=== PATIENT | female | born 1945 | race Caucasian/White ===

== ENCOUNTER 2019-12-04 14:40 | Emergency (ER) | payer MEDICARE, SELFPAY ==
--- NOTE | 2019-12-04 14:44 | ECG_ITS ---
Measurements Intervals [place] Rate: 67 P: 87 [place]: 141 QRS: 63 QRSD: 72 T: 74 QT: 410 QTc: 436 Interpretive Statements SINUS RHYTHM ST-T WAVE ABNORMALITY IN ANTEROLAT/INF LEADS- CONSIDER ISCHEMIA BASELINE WANDER- I, II, AVR, AVL ABNORMAL ECG Electronically Signed On 12-04-2019 15:08:04 SENIOR SOFTWARE PROJECT MANAGER by Krystian Lancaster D.O.
[2019-12-04 15:01] VITALS: BP 166/71; PULSE 71; RESP 17; TEMP 37.5; O2SAT 100
--- NOTE | 2019-12-04 15:04 | PC.NURSE ---
Pt states I am no longer having pain, I just want to go home. I've been through this before. Patient was educated on the benefits of staying and the risk of leaving and advised to come back if pain returned or any other symptoms that concerned her.
== END 2019-12-04 15:03 | disposition left against medical advice (07) ==
PROVIDERS: Emergency Provider Emergency Medicine; PCP Family Medicine
DX: R07.9 Chest pain, unspecified (principal)
CPT/HCPCS: 93005; 99199; A9270

== ENCOUNTER 2019-12-10 00:07 | Emergency (ER) | payer MEDICARE, SELFPAY ==
[2019-12-10 00:13] VITALS: BP 144/84; PULSE 112; RESP 18; TEMP 36.9; O2SAT 97
[2019-12-10] MEDS: HALOPERIDOL LACTATE 5 MG/ML VIAL IV PUSH (00:18)
--- NOTE | 2019-12-10 00:38 | ED.GENADULT ---
HPI - General Adult General Chief complaint: Nausea/Vomiting/Diarrhea Stated complaint: n/v Time Seen by Provider: 12/10/19 00:11 Source: patient and family History of Present Illness HPI narrative: 74-year-old female History of severe fibromyalgia for which she uses medical marijuana at her home She has occasional bouts of intractable vomiting felt to be related to said usage of marijuana Today she had some diarrhea in the morning and then numerous bouts of emesis followed She denies abdominal pain she denies a fever she denies urinary symptoms She had not tried anything at home to relieve the symptoms, they are aware of the possibility that a very hot shower might help but have not tried that and were not aware of the hot sauce on the abdomen technique She was medicated upon arrival to the ER the time of my exam was resting calmly and comfortably Onset (ago): hour(s) Severity: severe Relieving factors: none Treatments prior to arrival: none Related Data Home Medications Medication Instructions Recorded Confirmed calcium carbonate 500 mg calcium 500 mg PO DAILY 08/29/19 (1,250 mg) chewable tablet carvedilol 3.125 mg tablet 3.125 mg PO Q12H 08/29/19 cholecalciferol (vitamin D3) 25 1,000 unit PO DAILY 08/29/19 mcg (1,000 unit) capsule cyanocobalamin (B12)-cobamamide lozenge SUBLINGUAL 08/29/19 5,000 mcg-100 mcg sublingual lozenge magnesium 250 mg tablet 250 mg PO DAILY 08/29/19 potassium chloride 20 mEq 20 meq PO DAILY 08/29/19 tablet,extended release prednisone 5 mg tablet 5 mg PO DAILY 08/29/19 sirolimus 2 mg tablet 2 mg PO DAILY 08/29/19 Allergies Allergy/AdvReac Type Severity Reaction Status Date / Time iodine Allergy Severe anaphlaxis Verified 12/10/19 00:19 aspirin Allergy Unknown Verified 12/10/19 00:19 erythromycin base Allergy Unknown Verified 12/10/19 00:19 Review of Systems Review of Systems: All systems reviewed & are unremarkable except as noted in HPI and below Constitutional: Constitutional: Denies chills, Denies fever(s) and Reports weakness ENT: Denies sore throat Respiratory: Respiratory: Denies cough and Denies dyspnea Gastrointestinal: Gastrointestinal: Denies abdominal pain, Denies bloating, Denies constipation, Reports diarrhea and Reports vomiting Genitourinary: Genitourinary: Denies nocturia and Denies flank pain Musculoskeletal: Musculoskeletal: Reports myalgias, Reports arthralgias and Reports joint swelling PMFSH Past Medical History Medical History Anemia Anxiety Arthritis CVA (cerebral vascular accident) Depression Essential (primary) hypertension Fibromyalgia Fractures rt humerus GERD (gastroesophageal reflux disease) GI bleed Kidney stones Ulcer Unspecified osteoarthritis, unspecified site UTI (urinary tract infection) Surgical History Surgical History History of liver transplant History of nasal surgery History of orthopedic surgery lt shoulder calcium deposit removal Hx of appendectomy Hx of cholecystectomy Hx of tonsillectomy Family History Family History Sibling Family history of bipolar disorder Family history of arthritis Family history of headache disorder Family history of throat cancer Social History Social History Smoking status: Former smoker Smoking end date: 10/22/1967 Alcohol intake: never Gender identity (if verbalized by the patient): Female Exam Const: General: no acute distress Orientation/consciousness: patient oriented x3 HENMT: Head: normal to inspection Mouth: Yes Normal oral and palatal mucosa present and Yes dry mucous membranes Eyes: Conjunctivae: conjunctivae normal EOM: EOMs intact bilaterally Resp: Effort & Inspection: normal respiratory effort Auscultation: clear to aus
[2019-12-10] MEDS: LACTATED RINGERS 1,000 ML 999 ML IV CONT (00:58)
[2019-12-10 01:02] LABS: Basophils Absolute Auto 0.1 K/mm3 (0.0-0.1); Basophils Percent Auto 0.7 % (0.2-1.2); Hematocrit 38.4 % (37.0-47.0); Immature Granulocyte Absolute 0.18 K/mm3 (0.00-0.031); Immature Granulocyte Percent A 1.2 % (0-0.5); Lymphocytes Absolute Auto 1.43 K/mm3 (0.9-3.2); Lymphocytes Percent Auto 9.2 % (18.3-44.2); Mean Corpuscular HGB Conc 31.3 g/dl (32-36); Mean Corpuscular Hemoglobin 24.8 pg (26-34); Mean Corpuscular Volume 79.3 fl (80-100); Mean Platelet Volume 10.1 fl (7.4-10.4); Monocytes Percent Auto 6.1 % (2.6-8.5); Neutrophils Absolute Auto 12.8 K/mm3 (1.3-6.7); Neutrophils Percent Auto 82.8 % (45.5-73.1); Platelet Count Result 295 k/mm3 (150-375); Red Blood Count 4.84 M/mm3 (4.2-5.4); Red Cell Distribution Width 15.8 % (11.5-14.5); White Blood Count 15.5 K/mm3 (4.5-10.0)
--- NOTE | 2019-12-10 01:20 | PC.NURSE ---
pt unable to void at this time.
[2019-12-10 01:22] LABS: Blood Urea Nitrogen 31 mg/dL (7-17); Calcium 9.4 mg/dL (8.4-10.2); Carbon Dioxide 20 mmol/L (22-30); Chloride 104 mmol/L (98-107); Estimated Glomerular Filt Rate 37; Glucose 176 mg/dL (65-105); Potassium 3.9 mmol/L (3.4-5.0); Sodium 140 mmol/L (137-145)
[2019-12-10 01:33] VITALS: BP 154/86; PULSE 93; RESP 18; O2SAT 100
--- NOTE | 2019-12-10 01:46 | PC.NURSE ---
pt denies any nausea at this time.
[2019-12-10 02:16] LABS: Add Urine Microscopic? YES; Appearance Urine Cloudy (Clear); Bilirubin Urine Negative (Negative); Blood Urine 2+ (Negative); Color Urine Yellow (Yellow); Glucose Urine UA Negative (Negative); Ketones Urine 1+ mg/dL (Negative); Leukocyte Esterase Ur Negative LEU/UL (Negative); Mucus Urine Few /lpf; Nitrate Urine Negative (Negative); Protein Urine 2+ mg/dL (Negative); Specific Grav Ur 1.021 (1.001-1.035); Squamous Epithelial Cell Urine Few /hpf (Few); Urobilinogen Urine Negative mg/dL (<2.0)
[2019-12-10 02:50] VITALS: BP 133/81; PULSE 88; RESP 16; TEMP 36.4; O2SAT 100
[2019-12-10 03:02] VITALS: BP 122/67; PULSE 88; RESP 17; TEMP 36.4; O2SAT 100
--- NOTE | 2019-12-16 06:54 | PC.NURSE ---
Addendum entered by Connor Flores RN 12/16/19 06:58: KEM STOPPED AT 0135 ON 12/11/2019 Original Note: LATE ENTRY This note is being entered to document information to the patient's record. The following information was omitted on 12/17/2019, kem stopped at 0135
== END 2019-12-10 03:03 | disposition home or self-care (01) ==
PROVIDERS: Emergency Provider Emergency Medicine; PCP Family Medicine
DX: F12.988 Cannabis use, unspecified with other cannabis-induced disorder (principal); R11.2 Nausea with vomiting, unspecified; M79.7 Fibromyalgia; Z86.73 Personal history of transient ischemic attack (TIA), and cerebral infarction without residual deficits; I10 Essential (primary) hypertension; K21.9 Gastro-esophageal reflux disease without esophagitis; Z87.442 Personal history of urinary calculi; M19.90 Unspecified osteoarthritis, unspecified site; Z87.440 Personal history of urinary (tract) infections; Z94.4 Liver transplant status; Z87.891 Personal history of nicotine dependence; Z86.2 Personal history of diseases of the blood and blood-forming organs and certain disorders involving the immune mechanism
CPT/HCPCS: 36415; 80048; 81001; 85025; 87086; 87088; 87804; 96361; 96374; 99284; J1630; J7120

== ENCOUNTER 2019-12-11 16:52 | Inpatient (IN) | payer MEDICARE, SELFPAY ==
[2019-12-11] VITALS (7 sets, daily range): BP systolic 122–150; BP diastolic 65–78; PULSE 105–118; RESP 16–20; TEMP 36.7–38.3; O2SAT 94–99
--- NOTE | ~2019-12-11 | CT_ITS ---
EXAMINATION: CT abdomen pelvis wo con DATE: 12/11/2019 19:18 INDICATION: Fever and diarrhea TECHNIQUE: Computed tomography (CT) of the abdomen and pelvis was performed without intravenous contr ast. The dose-length product was 245.73 mGy-cm. Automated exposure control and iterative reconstructi on technique were employed. COMPARISON: CT dated 02/05/2019 FINDINGS: Small pleural effusions. Heart size normal. Extensive atherosclerosis of the aorta. No evid ence for aneurysm. There are loops of dilated small bowel with air-fluid levels just proximal to a thickened loop of sma ll bowel. The stomach is diffusely thickened. Mottled gas adjacent to the liver margin with similar a ppearance to prior examination, possibly matted bowel adjacent to the liver status post transplant. No lymphadenopathy. Status post cholecystectomy with pneumobilia. No lymphadenopathy. No evidence for hernia. No acute osseous abnormality. IMPRESSION: 1. Mottled gas adjacent to the liver margin with similar appearance to prior examination, possibly ma tted bowel adjacent to the liver status post transplant. 2: Abnormally locally thickened small bowel with dilated small bowel proximal to this location, susp icious for at least partial obstruction. 3: Diffusely thickened gastric wall, suspicious for gastritis. 4: Postoperative changes consistent with liver transplant with pneumobilia. 5: Small pleural effusions. Dr. Griffin discussed with Dr. Danica Blair MD at 12/11/2019 19:51 RESIDENT CARE TECHNICIAN. Reviewed, dictated and finalized at location A. DENT CARE TECHNICIAN IMPRESSION: 1. Mottled gas adjacent to the liver margin with similar appearance to prior ex amination, possibly matted bowel adjacent to the liver status post transplant. 2: Abnormally locally thickened small bowel with dilated small bowel proximal to this location, suspicious for at least partial obstruction. 3: Diffusely thickened gastric wall, suspicious for gastritis. 4: Postoperative changes consistent with liver transplant with pneumobilia. 5: Small pleural effusions. Dr. Griffin discussed with Dr. Danica Blair MD at 12/11/2019 19:51 RESIDENT CARE TECHNICIAN.
--- NOTE | ~2019-12-11 | XR_ITS ---
EXAMINATION: XR chest 1V portable INDICATION: Shortness of breath TECHNIQUE: Portable AP chest at 0703 hours COMPARISON: 12/11/2019 FINDINGS: The lungs are hyperinflated. There are bilateral central perihilar opacities as well as opa cities of the lung bases, right greater than left. A small right pleural effusion is present. There i s no pneumothorax. The cardiomediastinal silhouette is stable. IMPRESSION: 1. Central perihilar opacities and opacities of the lung bases, consistent with pulmonary edema with possible superimposed pneumonia of the lung bases. Reviewed, dictated and finalized at location A. CAL DETAILIST
--- NOTE | ~2019-12-11 | XR_ITS ---
EXAMINATION: XR abdomen obstructive series DATE: 12/13/2019 10:27 INDICATION: Elevated lactic acid and abdominal pain TECHNIQUE: Upright and supine views of the abdomen were obtained. COMPARISON: None. FINDINGS: There are no definitely dilated loops of bowel or evidence of free intraperitoneal gas. The re are surgical changes in the right upper quadrant. Again noted are changes of the lungs consistent with pulmonary edema and possible superimposed pneumonia of the lung bases. IMPRESSION: 1. No definite evidence of bowel obstruction or free intraperitoneal gas. Reviewed, dictated and finalized at location A. UROLOGIST
--- NOTE | ~2019-12-11 | XR_ITS ---
XR chest 2V 12/11/2019 19:21 Indication: Fever. Nausea, vomiting and diarrhea. Procedure: AP portable chest Comparison: 09/28/2019 Findings: Heart size is normal for technique. There is atherosclerosis of the aorta. There is mild pu lmonary vascular congestion. No pleural effusion or pneumothorax. No focal airspace consolidation. Th e lungs are hyperinflated which is consistent with, but not diagnostic of chronic obstructive pulmona ry disease. Impression: 1: Mild pulmonary vascular congestion. Reviewed, dictated and finalized at location A. CAL BILLING COORDINATOR Impression: 1: Mild pulmonary vascular congestion.
--- NOTE | 2019-12-11 17:25 | ED.FEVER ---
HPI - Fever General Chief Complaint: Fever Stated Complaint: N/V Time Seen by Provider: 12/11/19 17:13 Source: patient Mode of arrival: EMS Limitations: no limitations History of Present Illness HPI Narrative: Patient is a 74-year-old female who presents to the emergency department with report of generalized weakness, nausea, and vomiting. Patient was seen in the emergency department yesterday for nausea and vomiting. Patient uses medical marijuana and was felt to have vomiting due to cannabis hyperemesis. Patient has history of chronic diarrhea that she reports is unchanged from baseline. Patient states today she has had generalized weakness and significant diaphoresis and thinks she may have a fever. Patient is denying any abdominal pain. She does report being advised recently that she has a urinary tract infection, but this was not listed among her diagnoses on discharge yesterday nor was she prescribed antibiotics. Review of urinalysis from yesterday shows 10-15 white blood cells with esterase and nitrate being negative. No bacteria were noted. MD elicited complaint: weakness Pertinent past history: immunosuppression (Sirolimus and prednisone due to prior liver transplant) Related Data Home Medications Medication Instructions Recorded Confirmed calcium carbonate 500 mg calcium 500 mg PO DAILY 08/29/19 (1,250 mg) chewable tablet carvedilol 3.125 mg tablet 3.125 mg PO Q12H 08/29/19 cholecalciferol (vitamin D3) 25 1,000 unit PO DAILY 08/29/19 mcg (1,000 unit) capsule cyanocobalamin (B12)-cobamamide lozenge SUBLINGUAL 08/29/19 5,000 mcg-100 mcg sublingual lozenge magnesium 250 mg tablet 250 mg PO DAILY 08/29/19 potassium chloride 20 mEq 20 meq PO DAILY 08/29/19 tablet,extended release prednisone 5 mg tablet 5 mg PO DAILY 08/29/19 sirolimus 2 mg tablet 2 mg PO DAILY 08/29/19 Allergies Allergy/AdvReac Type Severity Reaction Status Date / Time iodine Allergy Severe anaphlaxis Verified 12/10/19 00:19 aspirin Allergy Unknown Verified 12/10/19 00:19 erythromycin base Allergy Unknown Verified 12/10/19 00:19 Review of Systems Review of Systems: All systems reviewed & are unremarkable except as noted in HPI and below Constitutional: Constitutional: Reports chills, Reports excessive sweating, Reports fever(s) and Reports weakness Gastrointestinal: Gastrointestinal: Denies abdominal pain, Reports diarrhea (Chronic), Reports nausea and Reports vomiting (Improved from yesterday) [facility] Past Medical History Medical History (Updated 12/11/19 @ 21:16 by Danica Blair MD) Anemia Anxiety Arthritis Atrial fibrillation C. difficile diarrhea CVA (cerebral vascular accident) Depression Essential (primary) hypertension Fibromyalgia Fractures rt humerus GERD (gastroesophageal reflux disease) GI bleed Hypertriglyceridemia Kidney stones Primary biliary cirrhosis Ulcer Unspecified osteoarthritis, unspecified site UTI (urinary tract infection) Surgical History Surgical History (Updated 12/11/19 @ 17:33 by Danica Blair MD) History of colonoscopy History of esophagogastroduodenoscopy (EGD) History of hysterectomy History of liver transplant History of nasal surgery History of orthopedic surgery lt shoulder calcium deposit removal Hx of appendectomy Hx of cholecystectomy Hx of tonsillectomy Rectal prolapse With surgical repair Social History Social History Smoking status: Former smoker Smoking end date: 10/22/1967 Alcohol intake: never Gender identity (if verbalized by the patient): Female Exam Const: General: cooperative, alert and anxious Nutritional Appearance: thin Orientation/consciousness: patient oriented x3 Limitations: no limitations HENMT: Mouth: Yes lip normal and Yes dry mucous membranes Resp: Effort & Inspection: normal respiratory effort Auscultation: clear to auscultation bilaterally Cardio: Ra
--- NOTE | 2019-12-11 17:34 | PC.NURSE ---
Pt's pad changed again, note loose brown stool. Pt states this is present since she had her liver transplant. Pt reports burning to skin, however, note not open areas or redness.
--- NOTE | 2019-12-11 18:11 | PC.NURSE ---
Multiple attempts for iv start unsuccessful per this RN>
[2019-12-11 18:32] LABS: Basophils Percent Auto 0.3 % (0.2-1.2); Eosinophils Percent Auto 0.2 % (0-4.4); Hematocrit 33.8 % (37.0-47.0); Hemoglobin 10.4 g/dL (12.0-15.0); Immature Granulocyte Absolute 0.09 K/mm3 (0.00-0.031); Immature Granulocyte Percent A 0.7 % (0-0.5); Lymphocytes Absolute Auto 1.62 K/mm3 (0.9-3.2); Lymphocytes Percent Auto 13.4 % (18.3-44.2); Mean Corpuscular HGB Conc 30.8 g/dl (32-36); Mean Corpuscular Hemoglobin 24.8 pg (26-34); Mean Corpuscular Volume 80.5 fl (80-100); Mean Platelet Volume 10.6 fl (7.4-10.4); Monocytes Absolute Auto 0.9 K/mm3 (0.1-0.6); Monocytes Percent Auto 7.8 % (2.6-8.5); Neutrophils Absolute Auto 9.4 K/mm3 (1.3-6.7); Neutrophils Percent Auto 77.6 % (45.5-73.1); Platelet Count Result 223 k/mm3 (150-375); White Blood Count 12.1 K/mm3 (4.5-10.0)
[2019-12-11] MEDS: LACTATED RINGERS 1,000 ML 999 ML IV CONT (18:35)
[2019-12-11 18:41] LABS: INR 1.1; Prothrombin Time 13.5 Seconds (11.1-14.7)
[2019-12-11 18:42] LABS: Partial Thromboplastin Time 28.9 SECONDS (22.3-36.8)
[2019-12-11 18:42] LABS: Lactic Acid Reflex 1.6 mmol/L (0.7-2.1)
[2019-12-11 18:46] LABS: Alanine Aminotransferase 17 U/L (4-35); Albumin Level 3.5 g/dL (3.5-5.1); Alkaline Phosphatase 99 U/L (38-126); Aspartate Amino Transferase 45 U/L (14-36); Bilirubin,Total 0.5 mg/dL (0.2-1.3); Blood Urea Nitrogen 24 mg/dL (7-17); CRP 8.4 mg/dL (<1.0); Calcium 8.6 mg/dL (8.4-10.2); Carbon Dioxide 23 mmol/L (22-30); Chloride 100 mmol/L (98-107); Estimated CRCL calculation 20 ml/min; Estimated Glomerular Filt Rate 31; Glucose 116 mg/dL (65-105); Potassium 3.5 mmol/L (3.4-5.0); Sodium 138 mmol/L (137-145)
--- NOTE | 2019-12-11 19:45 | PC.NURSE ---
Report to BIN Etienne, to continue care.
--- NOTE | 2019-12-11 19:59 | PC.NURSE ---
Patient aware of need for urine specimen, patient unable to provide specimen at this time. Patient refusing straight cath at this time. Patient a/o x3.
--- NOTE | 2019-12-11 20:39 | PC.NURSE ---
Patient refused straight cath and flu swab at this time. Patient a/o x3. EPD aware.
[2019-12-11 22:34] LABS: Add Urine Microscopic? YES; Appearance Urine Cloudy (Clear); Bacteria Urine 1+ /hpf; Bilirubin Urine Negative (Negative); Blood Urine 2+ (Negative); Color Urine Yellow (Yellow); Glucose Urine UA Negative (Negative); Ketones Urine 1+ mg/dL (Negative); Leukocyte Esterase Ur 2+ LEU/UL (Negative); Nitrate Urine Negative (Negative); Protein Urine 1+ mg/dL (Negative); Specific Grav Ur 1.021 (1.001-1.035); Squamous Epithelial Cell Urine Few /hpf (Few); Urobilinogen Urine Negative mg/dL (<2.0); WBC Urine 31-50 /hpf
--- NOTE | 2019-12-11 22:35 | PC.NURSE ---
This patient, Jia Walter, was admitted to Medical Room 245-. Patient/family oriented to hospital policies and general routines including ID bracelet, bed and alarms, visiting hours, pain management, procedures, bathroom and other care routines, personal items, smoking policy, room service/diet, and visiting hours. Valuables list has been completed. Information on how to activate the Rapid Response Team has been discussed. Patient/Family are encouraged to report perceived risks to care and to ask questions if they do not understand what they are told or what they should do.
[2019-12-12] VITALS (11 sets, daily range): BP systolic 116–142; BP diastolic 58–88; PULSE 65–166; RESP 16–20; TEMP 36.2–37.7; O2SAT 90–98; BMI 17.9; BMI 18.5
--- NOTE | 2019-12-12 | ECHO_ITS ---
Patient Info Name: Jia Walter Age: 74 years : 1945 Gender: Female Ht: 63 in Wt: 105 lbs BSA: 1.45 m2 HR: 94 bpm BP: 140 / 70 mmHg Heart Rhythm: Sinus Rhythm Technical Quality: Good Exam Date: 12/12/2019 10:52 AM Exam Location: [facility] Card Pulmonary Patient Status: Inpatient Admit Date: 12/11/2019 Staff Ordering Physician: Janet Medrano PA-C Switch Repairer: Epifanio Schaffer RDCS Attending Provider: Janet Medrano PA-C Referring Physician: Mitchell HANSEN; Exam Type: CA echo doppler color flow Study Info Indications I48.0 - Paroxysmal atrial fibrillation Complete two-dimensional, color flow and Doppler transthoracic echocardiogram is performed. Strain analysis performed. History/Risk Factors Afib w/ RVR and elevated trops; HTN, SOB, DELG[place]O, BNP >35k. Summary 1. Left ventricular systolic function is mildly reduced, estimated at 40-45%. 2. The anteroapical segment appears to be akinetic. 3. There is mild aortic valve sclerosis. 4. There is mild aortic valve regurgitation. 5. Left atrial chamber dimension is mildly enlarged. Left Ventricle Left ventricular chamber dimension is normal. Left ventricular systolic function is mildly reduced, estimated at 40-45%. The left ventricular diastolic function is normal. The anteroapical segment appears to be akinetic. Right Ventricle Right ventricular chamber dimension is normal. Left Atria Left atrial chamber dimension is mildly enlarged. Right Atria Right atrial chamber dimension is normal. Aortic Valve The aortic valve is trileaflet. There is mild aortic valve sclerosis. There is mild aortic valve regurgitation. Pulmonic Valve The pulmonic valve is not well visualized. Mitral Valve The mitral valve has normal leaflets. Tricuspid Valve The tricuspid valve leaflets are normal. There is mild tricuspid valve regurgitation. Pericardium/Pleural The pericardium appears normal. Aorta The aortic root size at the sinus of Valsalva is normal. Left Ventricular Outflow Tract Name Value Normal LVOT 2D LVOT Diameter 1.7 cm LVOT Doppler LVOT Peak Gradient 3 mmHg LVOT Mean Gradient 2 mmHg LVOT VTI 16 cm LVOT VTI/AV VTI Ratio 0.9 LVOT Stroke Volume 34 ml LVOT CO 3.1 l/min LVOT CI 2.2 l/min/m2 Mitral Valve Name Value Normal MV Doppler MV Decel [place] 795 cm/s2 MV PHT 36 ms MV Area (PHT) 6.1 cm2 4.0-5.0 MV Diastolic Function MV E Peak Velocity 100 cm/s MV A P
[2019-12-12] MEDS: SODIUM CHLORIDE 0.9% IV 1,000 ML 150 ML IV CONT ×3 (00:18→15:55)
--- NOTE | 2019-12-12 05:55 | PM.IMHP ---
H&P: HPI History of Present Illness Chief complaint: Diarrhea, weakness Narrative: Date and time of patient contact: 12/12/2019 at 4:35 a.m. Jia Walter is a 74 year old female with a past medical history of liver transplant 1999 due to primary biliary cirrhosis, peptic ulcer disease and fibromyalgia with chronic pain who presented to the ER with generalized weakness and diarrhea. The patient had been evaluated in the ER on December 10 due to hyper emesis thought to be from cannabis use. The patient had had a prior history of cannabis use resulting in hyper emesis in January of 2019. She had tried some cannabis oil recently to help with her chronic pain and had recurrent emesis. Since she received antiemetic on the way to the ER on the she has not had any further vomiting. But during the interview in the ER the patient began crying and sobbing because she was having multiple diarrheal stools and was just too weak to go home. She tells me that her arms and legs feel like they weigh a ton. She reports that she hurts everywhere all the time a but denies any new joint aches or pains. She has been having subjective fevers and chills and when she arrived to the ER had a temperature as high as 101?. She had an influenza swab on the that was negative. She refused repeat influenza swab. She had a UA and urine culture obtained on the that was significant for multiple organisms growing 10,000 colonies consistent with a distal urethral contaminant. She had been discharged from the ER on Bactrim on the . She denies any recent ill contacts. She reports that her abdomen does not hurt any worse than her usual fibromyalgia pain. She does have episodes of frequent diarrhea but these are interspersed with episodes of formed stools. She reportedly had 1 diarrheal episode while she was in the ER but has not had any further diarrheal episodes since admission. She denies any hematochezia or melena. She reports that her anus retana. She she reports that she has already too weak to be worried about having diarrhea. When I mention the possibility of physical therapy and occupational therapy evaluation to see if the patient will qualify for assistance at home she initially refused physical therapy and occupational therapy evaluation. She stated that she was not going to leave the hospital until she felt better. She has been having sneezing coughing and some rhinorrhea. She is coughing up a small amount of phlegm. She has adamant that this could not be due to the flu or a virus. Patient has CT scan performed in the ER which demonstrated stable mottled gas adjacent to the liver margin, abnormally thickened small bowel with dilated small bowel proximal to location suspicious for partial obstruction, diffusely thickened gastric wall suspicious for gastritis and postoperative changes consistent with her history of liver transplant with pneumobilia. Before the patient had left the ER she was already requesting a diet. Patient has not had any further vomiting or diarrhea since admission. Review of Systems Review of Systems: Narrative: Except as documented in the HPI, all other systems were reviewed and are negative. [facility] Past Medical History Medical History (Updated 12/12/19 @ 06:33 by Lynette Hernandez DO) Anemia Anxiety Arthritis Atrial fibrillation C. difficile diarrhea C diff colitis October 2017; July and August 2017 Cannabinoid hyperemesis syndrome CVA (cerebral vascular accident) CT evidence of prior CVAs noted during her hospitalization January 2019 Depression Essential (primary) hypertension Fibromyalgia Fractures rt humerus GERD (gastroesophageal reflux disease) GI bleed Hypertriglyceridemia Kidney stones Osteoporosis Primary biliary cirrhosis Status post 2 liver transplants last 1 being in 1999. Her 1st liver transplant was from a family member and failed due to portal venous thrombus she subsequently received her 2nd li
[2019-12-12] MEDS: SUCRALFATE 1 GM TABLET PO ×3 (06:04→22:15)
[2019-12-12 06:16] LABS: Blood Urea Nitrogen 19 mg/dL (7-17); Calcium 8.1 mg/dL (8.4-10.2); Carbon Dioxide 21 mmol/L (22-30); Chloride 103 mmol/L (98-107); Estimated CRCL calculation 21 ml/min; Estimated Glomerular Filt Rate 34; Glucose 102 mg/dL (65-105); Potassium 3.4 mmol/L (3.4-5.0); Sodium 138 mmol/L (137-145)
[2019-12-12 06:53] LABS: Hematocrit 29.2 % (37.0-47.0); Hemoglobin 9.2 g/dL (12.0-15.0); Mean Corpuscular HGB Conc 31.5 g/dl (32-36); Mean Corpuscular Hemoglobin 24.9 pg (26-34); Mean Corpuscular Volume 79.1 fl (80-100); Mean Platelet Volume 10.7 fl (7.4-10.4); Platelet Count Result 200 k/mm3 (150-375); Red Blood Count 3.69 M/mm3 (4.2-5.4); Red Cell Distribution Width 16.2 % (11.5-14.5); White Blood Count 12.9 K/mm3 (4.5-10.0)
[2019-12-12] MEDS: LOPERAMIDE HCL 2 MG CAPSULE PO (08:19)
[2019-12-12] MEDS: ONDANSETRON INJ 4 MG/2 ML VIAL IV PUSH (08:19)
--- NOTE | 2019-12-12 08:47 | ECG_ITS ---
Measurements Intervals [place] Rate: 163 P: [place]: 0 QRS: 74 QRSD: 70 T: 268 QT: 270 QTc: 446 Interpretive Statements ATRIAL FIBRILLATION WITH RAPID VENTRICULAR RESPONSE ST-T WAVE ABNORMALITY IN ANTEROLAT/INF LEADS- CONSIDER ISCHEMIA BASELINE ARTIFACT- I, III, AVL ABNORMAL ECG Electronically Signed On 12-12-2019 9:11:19 INFORMATION TECHNOLOGY ADVISOR by Krystian Lancaster D.O.
[2019-12-12] MEDS: METOPROLOL TARTRATE INJ 5 MG/5 ML VIAL IV PUSH (09:10)
[2019-12-12 09:31] LABS: Lactic Acid Reflex 1.1 mmol/L (0.7-2.1)
--- NOTE | 2019-12-12 09:38 | ECG_ITS ---
Measurements Intervals [place] Rate: 85 P: 59 PA: 155 QRS: 62 QRSD: 75 T: 244 QT: 428 QTc: 511 Interpretive Statements SINUS RHYTHM ST-T WAVE ABNORMALITY IN ANTEROLAT/INF LEADS- CONSIDER ISCHEMIA BASELINE ARTIFACT- AVL ABNORMAL ECG Electronically Signed On 12-12-2019 10:09:34 INVESTMENTS MANAGER by Krystian Lancaster D.O.
[2019-12-12 09:45] LABS: Troponin I 0.833 ng/mL (0.000-0.034)
[2019-12-12 09:46] LABS: NT Pro B Type Natriuretic Pept > 35000 PG/ML (5-100)
--- NOTE | 2019-12-12 09:55 | PM.IMPN ---
Progress Note: A&P Assessment and Plan (1) Atrial fibrillation with RVR: Code(s): I48.91 - Unspecified atrial fibrillation Status: Acute Assessment and Plan: -----patient had complaints of chest pain an EKG was performed which did show AFib RVR. She was given 1 dose of 5 mg of Lopressor which converted her to normal sinus rhythm. This improved her symptoms and she no longer had the chest pain. Her EKG shows inverted T-waves which are persistent even after being converted and her troponin is elevated so heparin drip was initiated. I do not believe that she has any prior documentation of GI bleed and she is on a PPI IV b.i.d. for her gastritis. Will have to watch closely and if she starts having dark stool we will have to adjust this regimen. Unsure the cause of the AFib RVR. There are reports that she has had AFib prior and was seen by the [facility] at that time. For this, I will consult them. Etiology could be due to sepsis but cannot rule out ACS. Patient states that since Sunday she has been having shortness of breath and dyspnea on exertion and also some nausea. Will keep the patient NPO until her 2nd troponin comes back to make sure that it has stabilized or improved with the improvement of her heart rate. I will transfer her to IMU. TSH is normal. BNP is greater than 35,000. I do not see any record on file of an echo so that will be ordered. Will start metorpolol tartrate 25mg bid and await cardiologys recommendations . (2) Sepsis: Code(s): A41.9 - Sepsis, unspecified organism Status: Acute Assessment and Plan: -----possible sepsis due to leukocytosis on admission 15.5 and tachycardia up to 170. Thought to be due to diarrhea which could be viral or C diff since the patient has history of C diff. The patient has been having nausea, vomiting, and diarrhea. Will empirically start vancomycin orally since she is immunosuppressed and await stool cultures. No UTI on recent UA. Chest x-ray normal. No cutaneous signs of infection. She does have gastritis and some inflammation of small-bowel which could point to viral as well. She was influenza negative in the ER on the . White blood cell count has improved to 12.9. Continue to monitor (3) Immunosuppressed status: Code(s): D89.9 - Disorder involving the immune mechanism, unspecified Status: Acute Assessment and Plan: -----since I am worried about sepsis and infection, I am going to hold her sirolimus. She usually takes prednisone 5 mg a day at home. She has had a liver transplant. Because she is immunosuppressed and is usually on steroids, Solu-Cortef has been started 50 mg q.12. I have consulted Dr. lema and I appreciate his input. (4) History of Clostridioides difficile colitis: Code(s): Z86.19 - Personal history of other infectious and parasitic diseases Status: Acute Assessment and Plan: -----noted in 2017 and 2018. The patient has increased symptoms and a septic picture so we will retest for C diff. Continue vancomycin (5) Elevated troponin: Code(s): R79.89 - Other specified abnormal findings of blood chemistry Status: Acute Assessment and Plan: -----see above. Likely due to AFib RVR but cannot rule out ACS. She was having dyspnea on exertion starting on Sunday with vomiting. I katie the troponin about 10 minutes after the patient started having chest pain and it was already elevated to 0.8 which may reflect ongoing ischemia? Will ask Cardiology to evaluate this. (6) Gastritis: Qualifiers: Chronicity: unspecified Gastritis bleeding: presence of bleeding unspecified Gastritis type: unspecified gastritis Qualified Code(s): K29.70 - Gastritis, unspecified, without bleeding Code(s): K29.70 - Gastritis, unspecified, without bleeding Status: Acute Assessment and Plan: -----continue Protonix 40 mg p.o. b.i.d.. GI co
[2019-12-12] MEDS: HEPARIN SOD/D5W 100 UNITS/ML 25,000 UNITS/250 ML BAG 9 UNITS IV CONT (10:43)
[2019-12-12] MEDS: HYDROCORTISONE SODIUM SUCCINATE 100 MG/2 ML VIAL IV PUSH ×2 (10:43→22:15)
[2019-12-12 12:28] LABS: INR 1.3; Prothrombin Time 15.5 Seconds (11.1-14.7)
[2019-12-12 12:30] LABS: Partial Thromboplastin Time 59.8 SECONDS (22.3-36.8)
[2019-12-12 12:48] LABS: Troponin I 0.752 ng/mL (0.000-0.034)
--- NOTE | 2019-12-12 12:50 | PM.CNCAR ---
Assessment and Plan Additional Plan This is a 74-year-old white female who presents to the hospital with a 5-6 day history of an illness marked by nausea vomiting some diarrhea and fever. She has a history of atrial fibrillation by her description she had a recurrence of this this morning which is now resolved after IV metoprolol was administered. According to the patient will other noninvasive workup at [facility] was unrevealing after the previous event. Patient is a major organ transplant recipient with the chronic liver transplant followed by the transplant service downtown at [facility]. It is concerning to me that she is here with a febrile illness, is obviously immunosuppressed because of her transplant For the moment she appears to be clinically stable. I agree with using metoprolol as the next option in terms of treating her atrial fibrillation this is generally a superior beta-roque to Coreg when we are trying to manage atrial fib conservatively. Because of her comorbidities and anemia I would not add systemically anticoagulate her because of the atrial fib. Troponin levels are being tract so far they are elevated but flat. I do not anticipate recommending a coronary angiogram in this lady and in my opinion if this liver transplant recipient needed a catheterization if it is not emergent it should occur at her transplant center and not hear in this [facility]. History of Present Illness History of Present Illness Consult date/time: Date of service: 12/12/19 12:50 Consult reason: atrial fibrillation Reason For Visit: Diarrhea, weakness Narrative: This is a 74-year-old lady I am seeing at the request of the hospitalist service this afternoon because of assistance with the evaluation and management of atrial fibrillation. The patient is not known to me prior to this consultation but apparently has been seen by cardiologists here in the remote past and at [facility] where she normally receives her healthcare. The patient states that she had an episode of atrial fibrillation the she thinks about a year to year and a half ago and states that she was seen by a strategic marketing manager at [facility] whom she can't remember but in any but was told that it did not appear there was anything other else wrong with her heart and she for this she was placed on a modest dose of carvedilol. The patient states that her primary physician had stopped the carvedilol which was a very small dosage within the last 2 or 3 months but she is not quite sure why. In any event she came into this hospital through the emergency room yesterday feeling ill for several days stating she has been nauseated and vomiting for something like 5 days or so and feeling very weak as result of that she also had some diarrhea. In the emergency room she had a fever of just over 101? and she was admitted for evaluation of this. The patient wall the other floor down the holt are earlier this morning suddenly became tachycardic she was in AFib with rapid ventricular response when she was in AFib she was reporting some retrosternal chest heaviness which was also creating concern. She was given a dose of intravenous metoprolol shortly after which she converted back to sinus rhythm and after which she became much more comfortable. One and to the to see her now in IMU she is resting comfortably asleep and is obviously asymptomatic upon awakening she appears to be in good spirits and does not have any additional complaints. She denies any other history of cardiac problems in the past as mentioned above was by her report seen by a physician at [facility] for some sort of evaluation she did not indicate that she ever had a coronary angiogram performed. The patient is chronically ill with chronic liver disease apparently she had a history of primary biliary cirrhosis and underwent liver transplantation x2 about 19 or 20 years ago apparently her 1st graft was early rejected and the 2nd graft she has had shortly afte
--- NOTE | 2019-12-12 14:34 | WPDINFPN2 ---
Progress Note: A&P Assessment and Plan (1) Acute febrile illness: Code(s): R50.9 - Fever, unspecified Status: Acute Assessment and Plan: 1. Acute febrile illness, suspect viral e.g., enterovirus 2. Chronic diarrhea, no change in pattern 3. Liver transplant/immunosuppressed, no change in past 1 + years in dosing. Empiric antibacterials are indicated. 4. AF 5. Bacteriuria 12/10, no infection REC micro in process. If ng in another 48 hours, stop antibacterials. Will use ancef. Subjective Date/time seen: 12/12/19 14:34 Objective Data Vital Signs Vital Signs: Vital Signs - 24 hr 12/11/19 17:02 12/11/19 18:19 12/11/19 18:31 Temperature 38.3 C H Pulse Rate 118 H 109 H 108 H Respiratory Rate 18 16 19 Blood Pressure 136/67 127/65 133/78 Pulse Oximetry 97 94 95 12/11/19 18:52 12/11/19 19:23 12/11/19 19:42 Temperature 37.7 C H Pulse Rate 106 H 110 H Respiratory Rate 18 16 Blood Pressure 122/72 Pulse Oximetry 94 95 12/11/19 22:12 12/12/19 00:11 12/12/19 06:00 Temperature 36.7 C 36.8 C 37.0 C Pulse Rate 105 H 108 H 91 Respiratory Rate 20 16 16 Blood Pressure 150/65 H 142/88 H 126/59 L Pulse Oximetry 99 94 98 12/12/19 09:10 12/12/19 10:32 Temperature 37.2 C Pulse Rate 166 H 94 Respiratory Rate 20 Blood Pressure 140/70 Pulse Oximetry 94 Intake/Output Intake/Output: Intake & Output 12/09/19 12/10/19 12/11/19 12/12/19 23:59 23:59 23:59 23:59 Intake Total 1100 1550 Output Total 400 Balance 1100 1150 Meds/Results Medications: Active Medications Generic Name Dose Route Start Last Admin Trade Name Freq PRN Reason Stop Dose Admin Calcium Carbonate 200 mg 12/12/19 09:00 Tums PO DAILY [facility] Cyanocobalamin 5,000 mcg 12/12/19 09:00 Vitamin B-12 Tab PO Q48H KIARRA Famotidine 20 mg 12/12/19 09:00 Pepcid PO Q12HR KIARRA Hydrocortisone Sodium Succinate 100 mg 12/12/19 09:40 12/12/19 10:43 Solu-Cortef IV PUSH 100 mg Q12HR KIARRA Administration Sodium Chloride 1,000 mls @ 100 mls/hr 12/11/19 23:55 12/12/19 07:39 Normal Saline Iv IV CONT 150 mls/hr .Q10H KIARRA Administration Magnesium Oxide 200 mg 12/12/19 09:00 Mag-Ox PO 01/11/20 09:01 DAILY [facility] Metoprolol Tartrate 25 mg 12/12/19 10:25 Lopressor PO Q12HR [facility] Ondansetron HCl 4 mg 12/11/19 21:16 12/12/19 08:19 Zofran Inj IV PUSH 4 mg Q4H PRN Administration Nausea Pantoprazole Sodium 40 mg 12/12/19 09:00 Protonix PO 01/11/20 09:01 BID [facility] Prednisone 5 mg 12/12/19 08:00 Prednisone PO DAILY@0800 [facility] Sucralfate 1 gm 12/12/19 06:30 12/12/19 06:04 Carafate PO 1 gm ACHS KIARRA Administration Vancomycin HCl 125 mg 12/12/19 12:00 Vancomycin Oral PO Q6HR [facility] Vitamin D 1,000 unit 12/12/19 09:00 Vitamin D PO DAILY [facility] Vitamin E 400 unit 12/12/19 09:00 Vitamin E PO 01/11/20 09:01 DAILY [facility] Radiology Results: ITS Impressions Abdomen/Pelvis CT 12/11/19 19:45 IMPRESSION: 1. Mottled gas adjacent to the liver margin with similar appearance to prior examination, possibly matted bowel adjacent to the liver status post transplant. 2: Abnormally locally thickened small bowel with dilated small bowel proximal to this location, suspicious for at least partial obstruction. 3: Diffusely thickened gastric wall, suspicious for gastritis. 4: Postoperative changes consistent with liver transplant with pneumobilia. 5: Small pleural effusions. Dr. Griffin discussed with Dr. Danica Blair MD at 12/11/2019 19:51 [facility]. Chest X-Ray 12/11/19 20:00 Impression: 1: Mild pulmonary vascular congestion. Labs Labs: Laboratory Results - last 24 hr 12/11/19 12/11/19 12/11/19 18:24 18:24 18:24 WBC 12.1 H RBC 4.20 Hgb 10.4 L Hct 33.8 L MCV 80.5 MCH 24.8 L MCHC 30.8 L RDW 16.0 H Plt Count 223 MPV 10.6 H Immature Gran % (Auto)
[2019-12-12 15:32] LABS: Troponin I 0.672 ng/mL (0.000-0.034)
[2019-12-12] MEDS: CALCIUM CARBONATE (TUMS) 500 MG (200 MG ELEMENTAL) PO (15:46)
[2019-12-12] MEDS: CHOLECALCIFEROL 1,000 UNIT TABLET 1000 UNITS PO (15:46)
[2019-12-12] MEDS: MAGNESIUM OXIDE 200 MG TABLET PO (15:47)
[2019-12-12] MEDS: FAMOTIDINE 20 MG TABLET PO ×2 (15:47→22:17)
[2019-12-12] MEDS: PANTOPRAZOLE 40 MG TABLET PO ×2 (15:47→17:30)
[2019-12-12] MEDS: CYANOCOBALAMIN 1,000 MCG TABLET 5000 MCG PO (15:47)
[2019-12-12] MEDS: predniSONE 5 MG TABLET PO (15:48)
[2019-12-12] MEDS: VITAMIN E 400 UNIT CAPSULE PO (15:49)
[2019-12-12] MEDS: AMIODARONE 150 MG/D5W 100 ML 150 MG/100 ML BAG 600 MG IV CONT (17:30)
[2019-12-12] MEDS: AMIODARONE 360 MG/D5W 200 ML 360 MG/200 ML BAG 33.3 MG IV CONT (17:45)
--- NOTE | 2019-12-12 18:50 | CONS_ITS ---
DATE OF CONSULTATION: 12/12/2019 REASON FOR CONSULTATION: Fever. HISTORY OF PRESENT ILLNESS: The patient is a 74-year-old female who underwent liver transplant for primary biliary cirrhosis in the . The original donor was her , who donated a part of his liver. Unfortunately, the patient developed a portal vein thrombosis apparently within the 1st few days and she required new liver. She required no subsequent interventions and did not develop any postoperative infections. She has had no change in her chronic immunosuppressants in the last year or more. These include sirolimus 2 mg daily and prednisone 5 mg daily. The patient eversince her transplant has had periodic diarrhea, manifested by loose bowel movements on some days, but normal bowel movements on others. There has been no change in the pattern of her bowel movements in recent days to weeks. There is a history of C. diff infection, however. She was in her usual state of health until 2 days before admission when she developed nausea and vomiting recurrently along with chest pain. She was seen in the emergency room early known the morning 1 day before admission and was found to have an abnormal UA. This is in the absence of any symptoms or exam findings to suggest a urine infection. Nonetheless, she was started on trimethoprim sulfa. She took this as directed, but this had no effect on her symptoms one way or another. She then developed progressive weakness and anorexia and came back to the emergency room yesterday and was admitted. On arrival here, she had a temperature 38.0 and has been given piperacillin, tazobactam, vancomycin, and now oral vancomycin at various times. Consultation requested. The patient has been on no other recent antibiotics for any purpose. She has had no bowel movement since admission. Her nausea and vomiting are considerably improved and in fact she has not vomited since arrival. She has received antinausea medication. The patient did have some sweats with exertion, but otherwise no true night sweats, rigors. No fever at home. There has been no abdominal pain, skin rash. She has not eaten any undercooked or uncooked food and in fact is very careful about her diet. She has a pet Jesenia at home. No other pets. She has had no travel out of the [place] in the last 6 months. She lives alone and has not had contact with anyone who has been ill that she is aware of. ALLERGIES: ERYTHROMYCIN CAUSES UNKNOWN REACTION. ALSO, IODINE, ASPIRIN. PRESENT MEDICATIONS: List reviewed. She has been placed on parenteral steroids and the sirolimus remains same. HABITS: She quit smoking in 1967 and smokes marijuana. No alcohol. PAST MEDICAL HISTORY: In addition to the above, anemia, AF, anxiety, arthritis, previous stroke, depression, hypertension, fibromyalgia, GERD, GI hemorrhage, dyslipidemia, nephrolithiasis, osteoporosis, finger joint replacement in the right hand, hysterectomy, nasal surgery, appendectomy, cholecystectomy, tonsillectomy, and some type of a surgery for rectal prolapse. REVIEW OF SYSTEMS: 14-point review otherwise negative. FAMILY HISTORY: Not pertinent to her present illness. SOCIAL HISTORY: . Has 4 children. 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 PHYSICAL EXAMINATION: GENERAL: This is an elderly female who appears younger than her actual age, in no distress. VITAL SIGNS: Pulse 94, down from 166, respirations 20, 140/70, 93 MAP and saturation 94% on 2 L. SKIN: Warm and dry. No ulcers. No rashes. EENT: The conjunctivae are normal. Pupils equal, round. The oropharynx, oral mucosa normal. NECK: No meningismus, mass, tenderness. LUNGS: Clear to auscultation and percussion.
[2019-12-12] MEDS: METOPROLOL TARTRATE 25 MG TABLET PO (22:16)
[2019-12-13] VITALS (12 sets, daily range): BP systolic 123–136; BP diastolic 64–92; PULSE 80–129; RESP 18–28; TEMP 35.7–36.9; O2SAT 90–96
[2019-12-13] MEDS: SODIUM CHLORIDE 0.9% IV 1,000 ML 150 ML IV CONT (00:12)
[2019-12-13] MEDS: AMIODARONE 360 MG/D5W 200 ML 360 MG/200 ML BAG 16.7 MG IV CONT (00:13)
[2019-12-13] MEDS: FUROSEMIDE INJ 40 MG/4 ML VIAL 20 MG IV PUSH ×2 (01:54→10:23)
--- NOTE | 2019-12-13 05:13 | PC.NURSE ---
AT APPROX. 0150, PATIENT C/O SEVERE SOB. O2 SAT 81% ON 4L NASAL CANNULA. LUNGS NOW WITH RALES BILATERALLY THAT IS NEW. DR BULL NOTIFIED. PATIENT PLACED ON HIGH FLOW NASAL CANNULA, ULTIMATELY REACHED 14 LITERS TO KEEP SAT GREATER THAN 90%. LASIX 20MG IVP GIVEN AND PRIMARY IV FLUIDS PLACED ON HOLD AND THEN DISCONTINUED BY DR BULL. PATIENT COMFORTABLE ONCE O2 SAT REACHED 90%. WILL CONTINUE TO MONITOR CLOSELY.
[2019-12-13 05:14] LABS: Hematocrit 35.4 % (37.0-47.0); Hemoglobin 11.1 g/dL (12.0-15.0); Mean Corpuscular HGB Conc 31.4 g/dl (32-36); Mean Corpuscular Hemoglobin 25.6 pg (26-34); Mean Corpuscular Volume 81.6 fl (80-100); Mean Platelet Volume 10.7 fl (7.4-10.4); Platelet Count Result 218 k/mm3 (150-375); Red Blood Count 4.34 M/mm3 (4.2-5.4); Red Cell Distribution Width 16.2 % (11.5-14.5); White Blood Count 12.6 K/mm3 (4.5-10.0)
--- NOTE | 2019-12-13 05:16 | PC.NURSE ---
PATIENT PLACED ON BEDPAN TO URINATE. HEART RATE REACHED THE 150S, AFIIB. PATIENT VERY SOB. DR BULL NOTIFIED. ORDERS FOR A GARRETT CATHETER, LASIX 40 IVP WITH KCL 40MEQ PO ORDERED. FOLLOWING CLOSELY.
[2019-12-13 05:28] LABS: Alanine Aminotransferase 59 U/L (4-35); Albumin Level 3.4 g/dL (3.5-5.1); Alkaline Phosphatase 86 U/L (38-126); Aspartate Amino Transferase 115 U/L (14-36); Bilirubin,Total 0.3 mg/dL (0.2-1.3); Blood Urea Nitrogen 22 mg/dL (7-17); Calcium 8.3 mg/dL (8.4-10.2); Carbon Dioxide 18 mmol/L (22-30); Chloride 105 mmol/L (98-107); Estimated CRCL calculation 21 ml/min; Estimated Glomerular Filt Rate 31; Glucose 160 mg/dL (65-105); Magnesium 2.2 mg/dL (1.6-2.3); Phosphorus 4.1 mg/dL (2.5-4.5); Potassium 3.7 mmol/L (3.4-5.0); Sodium 137 mmol/L (137-145)
[2019-12-13 05:53] LABS: Add Urine Microscopic? YES; Appearance Urine Clear (Clear); Bacteria Urine Trace /hpf; Bilirubin Urine Negative (Negative); Blood Urine 2+ (Negative); Color Urine Straw (Yellow); Glucose Urine UA Negative (Negative); Hyaline Casts Urine 15-19 /lpf; Ketones Urine Negative (Negative); Leukocyte Esterase Ur Negative LEU/UL (Negative); Mucus Urine Rare /lpf; Nitrate Urine Negative (Negative); Protein Urine Negative (Negative); Squamous Epithelial Cell Urine Rare /hpf (Few); Urobilinogen Urine Negative mg/dL (<2.0); WBC Urine 0-3 /hpf
[2019-12-13] MEDS: FUROSEMIDE INJ 40 MG/4 ML VIAL IV PUSH (06:01)
[2019-12-13] MEDS: SUCRALFATE 1 GM TABLET PO (06:03)
--- NOTE | 2019-12-13 07:05 | PM.TDS ---
Transfer Discharge Sum: Prov Provider Date of admission: 12/13/19 14:27 Primary care physician: Debra Marks MD Admitting clinician: Lynette Hernandez DO Consults: 12/12/19 07:17 Consult to Physician Routine Comment: Spoke with Dr Ulloa @ 0830 ([facility]) Consulting Provider: Alberto Harrison call center support consultant/MD group to consult: dr ulloa Reason for consultation: abdominal pain, diarrhea, ct abnormalities Has provider been notified: Yes 12/12/19 09:07 Consult to Physician Routine Comment: Spoke with Yamel Kelley @ 0915 (HR,us) Consulting Provider: Arthur James call center support consultant/MD group to consult: [facility] Reason for consultation: recurrent afib. Afib rvr with symptoms Has provider been notified: Yes 12/12/19 09:30 Consult to Physician Routine Comment: Spoke with Dr Lema @ 1000 ([facility]) Consulting Provider: Corey Lema call center support consultant/MD group to consult: infectious disease Reason for consultation: immunosupressed, sepsis Has provider been notified: Yes Attending physician on discharge: Zaheer Denton Discharging clinician: Janet Medrano Receiving physician/facility: Dr. Gilliland [facility] DS: Diagnosis Admitting Diagnosis Admitting Diagnosis: Gastritis, unspecified, without bleeding Discharge Diagnosis (1) Atrial fibrillation with RVR: Code(s): I48.91 - Unspecified atrial fibrillation Status: Acute Assessment and Plan: -----At discharge rate was controlled with cardizem drip and metoprolol. Would avoid long-term amiodarone if at all possible. Heparin drip was given for a small amount of time when she first went into afib rvr but discontinued by cardiology. Her oxygen requirements had increased and chest x-ray showed worsening pulmonary edema/congestion so Lasix was started. Her lungs were very coarse day of transfer. Echo shows systolic heart failure which I think is new for her. Consider ACS as the cause of AFib/systolic dysfunction. Other etiology could be infection. Patient is unable to move without significant RVR. Pt transfered to [facility] d/t liver transplant, new heart failure, sepsis picture, and worsening clinical state. (2) Sepsis: Code(s): A41.9 - Sepsis, unspecified organism Status: Acute Assessment and Plan: -----possible sepsis due to leukocytosis on admission 15.5 and tachycardia up to 170. Thought to be due to diarrhea which could be viral or C diff since the patient has history of C diff. The patient has been having nausea, vomiting, and diarrhea which have improved since admission. Oral vancomycin started due to possibility of C diff and immunosuppression that has been stopped by Dr. lema. Patient has not had any further diarrhea today and has not been able to produce a stool sample. No UTI on recent UA. Chest x-ray does not show infection. No cutaneous signs of infection. She does have gastritis and some inflammation of small-bowel which could point to viral as well. She was influenza negative in the ER on the . White blood cell count has improved to 12.4. Continue to monitor (3) Immunosuppressed status: Code(s): D89.9 - Disorder involving the immune mechanism, unspecified Status: Acute Assessment and Plan: -----patient was getting Ancef per Dr. lema but when she started worsening it was switched to cefepime and flagyl. Her sirolimus has been held. She usually takes prednisone 5 mg a day at home. She had a liver transplant in 1999. Because she is immunosuppressed and is usually on steroids, Solu-Cortef 50 mg q.[address] with [address] guerra about pt day of discharge. (4) History of Clostridioides difficile colitis: Code(s): Z86.19 - Personal history of other infectious and parasitic diseases Status: Acute Assessment and Plan: -----noted in 2017 and 2018. See above (5) Elevated troponin: Code(s): R7
[2019-12-13] MEDS: POTASSIUM CHLORIDE 20 MEQ TABLET 40 MEQ PO (07:08)
--- NOTE | 2019-12-13 08:17 | PM.IMPN ---
Progress Note: A&P Assessment and Plan (1) Atrial fibrillation with RVR: Code(s): I48.91 - Unspecified atrial fibrillation Status: Acute Assessment and Plan: -----continue amiodarone and metoprolol. Patient is still RVR and asymptomatic with this. Will ask Cardiology their recommendations. Since she has a liver transplant, will have to monitor her LFTs closely as they have already increased from yesterday. Would avoid long-term amiodarone if at all possible. Heparin drip has been stopped as cardiology did not recommend anticoagulation at this time. The patient is still having palpitations and occasional diaphoresis and chest pain. Her oxygen requirements have increased and chest x-ray shows worsening pulmonary edema/congestion so Lasix has been started. Her lungs are very coarse today. Yesterday they were not like this. Echo shows systolic heart failure which I think is new for her. Consider ACS as the cause of AFib/systolic dysfunction. Other etiology could be infection. Patient is unable to move without significant RVR. Await Cardiology recommendation (2) Sepsis: Code(s): A41.9 - Sepsis, unspecified organism Status: Acute Assessment and Plan: -----possible sepsis due to leukocytosis on admission 15.5 and tachycardia up to 170. Thought to be due to diarrhea which could be viral or C diff since the patient has history of C diff. The patient has been having nausea, vomiting, and diarrhea which have improved since admission. Oral vancomycin started due to possibility of C diff and immunosuppression that has been stopped by Dr. lema. Patient has not had any further diarrhea today and has not been able to produce a stool sample. No UTI on recent UA. Chest x-ray does not show infection. No cutaneous signs of infection. She does have gastritis and some inflammation of small-bowel which could point to viral as well. Please see Dr. lema note. She was influenza negative in the ER on the . White blood cell count has improved to 12.4. Continue to monitor (3) Immunosuppressed status: Code(s): D89.9 - Disorder involving the immune mechanism, unspecified Status: Acute Assessment and Plan: -----patient is getting Ancef per Dr. lema. Her sirolimus has been held. She usually takes prednisone 5 mg a day at home. She has had a liver transplant in 1999. Because she is immunosuppressed and is usually on steroids, Solu-Cortef has been started 50 mg q.12. I have consulted Dr. lema and will follow his recommendations. (4) History of Clostridioides difficile colitis: Code(s): Z86.19 - Personal history of other infectious and parasitic diseases Status: Acute Assessment and Plan: -----noted in 2017 and 2018. See above (5) Elevated troponin: Code(s): R79.89 - Other specified abnormal findings of blood chemistry Status: Acute Assessment and Plan: -----see above. Likely due to AFib RVR but cannot rule out ACS. She was having dyspnea on exertion starting on Sunday with vomiting. Cardiology following (6) Gastritis: Qualifiers: Chronicity: unspecified Gastritis bleeding: presence of bleeding unspecified Gastritis type: unspecified gastritis Qualified Code(s): K29.70 - Gastritis, unspecified, without bleeding Code(s): K29.70 - Gastritis, unspecified, without bleeding Status: Acute Assessment and Plan: -----continue Protonix 40 mg p.o. b.i.d.. GI consulted. (7) Dehydration: Code(s): E86.0 - Dehydration Status: Acute Assessment and Plan: -----improved. Patient appears fluid overloaded at this time. Lasix being given (8) Acute febrile illness: Code(s): R50.9 - Fever, unspecified Status: Acute Assessment and Plan: -----see above. Likely viral gastroenteritis or cdiff. Patient had a negative influenza screen December 10. Blood c
[2019-12-13] MEDS: FAMOTIDINE 20 MG TABLET PO (08:54)
[2019-12-13] MEDS: VITAMIN E 400 UNIT CAPSULE PO (08:54)
[2019-12-13] MEDS: PANTOPRAZOLE 40 MG TABLET PO (08:55)
[2019-12-13] MEDS: METOPROLOL TARTRATE 25 MG TABLET PO (08:55)
[2019-12-13] MEDS: HYDROCORTISONE SODIUM SUCCINATE 100 MG/2 ML VIAL 50 MG IV PUSH (08:56)
[2019-12-13] MEDS: CHOLECALCIFEROL 1,000 UNIT TABLET 1000 UNITS PO (08:56)
[2019-12-13] MEDS: predniSONE 5 MG TABLET PO (08:58)
[2019-12-13] MEDS: CALCIUM CARBONATE (TUMS) 500 MG (200 MG ELEMENTAL) PO (08:58)
[2019-12-13] MEDS: ONDANSETRON INJ 4 MG/2 ML VIAL IV PUSH (09:07)
[2019-12-13 09:46] LABS: Lactic Acid Reflex 4.5 mmol/L (0.7-2.1)
[2019-12-13 09:50] LABS: Troponin I 0.391 ng/mL (0.000-0.034)
[2019-12-13] MEDS: MAGNESIUM OXIDE 200 MG TABLET PO (10:27)
--- NOTE | 2019-12-13 10:48 | PM.PNCARD ---
Progress Note: A&P Assessment and Plan (1) Transaminitis: Code(s): R74.0 - Nonspecific elevation of levels of transaminase and lactic acid dehydrogenase [LDH] Status: Acute (2) Atrial fibrillation with RVR: Code(s): I48.91 - Unspecified atrial fibrillation Status: Acute Subjective Date/time seen: 12/13/19 10:48 Patient remains in atrial fibrillation with RVR, heart rate in 110s to 120s. Objective Data Vital Signs Vital Signs: Vital Signs - 24 hr 12/12/19 15:06 12/12/19 16:00 12/12/19 19:20 Temperature 36.2 C L 37.7 C H Pulse Rate 65 91 112 H Respiratory Rate 18 20 18 Blood Pressure 130/58 L 116/60 Pulse Oximetry 95 98 93 12/12/19 20:00 12/12/19 21:37 12/12/19 22:16 Temperature Pulse Rate 96 90 Respiratory Rate Blood Pressure Pulse Oximetry 93 96 12/12/19 23:58 12/13/19 00:00 12/13/19 01:52 Temperature 37.0 C Pulse Rate 86 93 Respiratory Rate 16 Blood Pressure 132/66 Pulse Oximetry 90 90 90 12/13/19 03:55 12/13/19 04:00 12/13/19 06:00 Temperature 36.9 C Pulse Rate 112 H 129 H 96 Respiratory Rate 18 Blood Pressure 132/69 Pulse Oximetry 94 94 12/13/19 08:54 12/13/19 08:55 Temperature 35.7 C L Pulse Rate 120 H 120 H Respiratory Rate 24 H Blood Pressure 136/92 H Pulse Oximetry 92 Intake/Output Intake/Output: Intake & Output 12/10/19 12/11/19 12/12/19 12/13/19 23:59 23:59 23:59 23:59 Intake Total 1100 4290 1227 Output Total 600 1150 Balance 1100 3690 77 Meds/Results Medications: Active Medications Generic Name Dose Route Start Last Admin Trade Name Freq PRN Reason Stop Dose Admin Calcium Carbonate 200 mg 12/12/19 09:00 12/13/19 08:58 Tums PO 200 mg DAILY KIARRA Administration Cyanocobalamin 5,000 mcg 12/12/19 09:00 12/12/19 15:47 Vitamin B-12 Tab PO 5,000 mcg Q48H KIARRA Administration Famotidine 20 mg 12/12/19 09:00 12/13/19 08:54 Pepcid PO 20 mg Q12HR KIARRA Administration Furosemide 20 mg 12/13/19 09:00 12/13/19 10:23 Lasix Inj IV PUSH 20 mg BID KIARRA Administration Hydrocortisone Sodium Succinate 50 mg 12/13/19 09:00 12/13/19 08:56 Solu-Cortef IV PUSH 50 mg Q12HR KIARRA Administration Cefazolin Sodium 1 gm in 50 mls @ 100 mls/hr 12/12/19 14:35 12/13/19 06:32 Ancef 1 Gm/D5w 50 Ml Pm IVPB Infused Q8HR KIARRA Infusion Amiodarone HCl/Dextrose 360 mg in 200 mls @ 16.667 mls/hr 12/13/19 00:00 12/13/19 06:00 Nexterone 360 Mg/D5w 200 Ml IV CONT 0.5 mg/min .Q12H KIARRA 16.7 mls/hr Infusion 0.5 MG/MIN Magnesium Oxide 200 mg 12/12/19 09:00 12/13/19 10:27 Mag-Ox PO 01/11/20 09:01 200 mg DAILY KIARRA Administration Metoprolol Tartrate 25 mg 12/12/19 21:00 12/13/19 08:55 Lopressor PO 25 mg Q12HR KIARRA Administration Ondansetron HCl 4 mg 12/11/19 21:16 12/13/19 09:07 Zofran Inj IV PUSH 4 mg Q4H PRN Administration Nausea Pantoprazole Sodium 40 mg 12/12/19 09:00 12/13/19 08:55 Protonix PO 01/11/20 09:01 40 mg BID KIARRA Administration Prednisone 5 mg 12/12/19 08:00 12/13/19 08:58 Prednisone PO 5 mg DAILY@0800 KIARRA Administration Sucralfate 1 gm 12/12/19 06:30 12/13/19 06:03 Carafate PO 1 gm ACHS KIARRA Administration Vitamin D 1,000 unit 12/12/19 09:00 12/13/19 08:56 Vitamin D PO 1,000 unit DAILY KIARRA Administration Vitamin E 400 unit 12/12/19 09:00 12/13/19 08:54 Vitamin E PO 01/11/20 09:01 400 unit DAILY KIARRA Administration Radiology Results: ITS Impressions Abdomen/Pelvis CT 12/11/19 19:45 IMPRESSION: 1. Mottled gas adjacent to the liver margin with similar appearance to prior examination, possibly matted bowel adjacent to the liver status post transplant. 2: Abnormally locally thickened small bowel with dilated small bowel proximal to this location, suspicious for at least partial obstruction. 3: Diffusely thickened gastric wall, suspicious for gastritis
--- NOTE | 2019-12-13 11:29 | PCRCNOTE ---
attempted abg twice, pt did not want to be stuck again. refused
[2019-12-13 12:18] LABS: Reflex Lactic Acid Yes or No Add Lactic
[2019-12-13 12:51] LABS: Blood Urea Nitrogen 28 mg/dL (7-17); Calcium 8.3 mg/dL (8.4-10.2); Carbon Dioxide 18 mmol/L (22-30); Chloride 105 mmol/L (98-107); Estimated CRCL calculation 19 ml/min; Estimated Glomerular Filt Rate 29; Glucose 138 mg/dL (65-105); Potassium 4.4 mmol/L (3.4-5.0); Sodium 136 mmol/L (137-145)
== END 2019-12-13 15:08 | disposition short-term general hospital (02) | DRG 871 ==
LOC: ANHED 21:16 → ANH2MED 12-12 06:04 → ANHICU 12-12 09:31 → ANHIMU 12-12 10:27
PROVIDERS: Physician Assistant; Admitting Provider Internal Medicine; Emergency Provider Emergency Medicine; PCP Family Medicine; Visit Provider Internal Medicine
DX: A41.9 Sepsis, unspecified organism (principal); I50.21 Acute systolic (congestive) heart failure; J96.01 Acute respiratory failure with hypoxia; E87.2 Acidosis; Z94.4 Liver transplant status; A08.4 Viral intestinal infection, unspecified; K29.70 Gastritis, unspecified, without bleeding; I11.0 Hypertensive heart disease with heart failure; E86.0 Dehydration; I48.91 Unspecified atrial fibrillation; D64.9 Anemia, unspecified; M19.90 Unspecified osteoarthritis, unspecified site; K21.9 Gastro-esophageal reflux disease without esophagitis; F41.8 Other specified anxiety disorders; M79.7 Fibromyalgia; D89.9 Disorder involving the immune mechanism, unspecified; F41.9 Anxiety disorder, unspecified; Z86.73 Personal history of transient ischemic attack (TIA), and cerebral infarction without residual deficits; Z90.710 Acquired absence of both cervix and uterus; Z87.891 Personal history of nicotine dependence; Z86.19 Personal history of other infectious and parasitic diseases; Z87.11 Personal history of peptic ulcer disease; Z90.49 Acquired absence of other specified parts of digestive tract
CPT/HCPCS: 36415; 36600; 71045; 71046; 74019; 74176; 80048; 80053; 80076; 81001; 83605; 83735; 83880; 84100; 84484; 85025; 85027; 85610; 85730; 86140; 87040; 87086; 87088; 87804; 93005; 93306; 96361; 96374; 97161; 97165; 99284; 99285; A9270; J0131; J0282; J0690; J1630; J1644; J1720; J1940; J2405; J2543; J7030; J7120; J7512

== ENCOUNTER 2020-05-05 08:41 | Observation (INO) | payer MEDICARE, SELFPAY ==
[2020-05-05] VITALS (9 sets, daily range): BP systolic 108–183; BP diastolic 49–80; PULSE 62–92; RESP 11–23; TEMP 36.3–37.2; O2SAT 92–100; BMI 21.0
--- NOTE | ~2020-05-05 | CT_ITS ---
EXAMINATION: CT abdomen pelvis wo con DATE: 05/05/2020 13:47 INDICATION: Abdominal pain TECHNIQUE: Computed tomography (CT) of the abdomen and pelvis was performed without intravenous contr ast. Automated exposure control and iterative reconstruction technique were employed. The dose-length product was 164.84 mGy-cm. COMPARISON: 12/11/2019 FINDINGS: Mild right basilar atelectasis along side a small fat-containing Bochdalek hernia. Visualized inferio r heart appears normal. No pericardial or pleural effusion. Small sliding-type hiatal hernia. Cholecy stectomy clips the gallbladder fossa. Additional surgical clips at the ángela hepatis likely related t o prior reported liver transplantation. Likely hepaticojejunostomy with suture line along the anterio r margin of the liver at the likely proximal margin of the jejunal loop. There is a small bowel intus susception in the right lower quadrant at the site of the jejunojejunal anastomosis. No dilated bowel to suggest obstruction. The appendix is not visualized. No pericecal inflammatory change to suggest acute appendicitis. Small focus of gas in the otherwise normal-appearing bladder. Correlate for recen t instrumentation or Chand catheterization. The uterus is not identified and has likely been surgical ly resected. No free intraperitoneal gas or fluid. No interval change in a few mildly prominent lymph nodes left upper abdominal lymph nodes near the fundus of the stomach which appear unchanged since 1 . There is calcified atherosclerosis of the aorta and many of the other arteries. A few smal l bone islands at the bilateral femoral heads. IMPRESSION: 1. Postoperative changes consistent with prior cholecystectomy and liver transplantation with hepatic ojejunostomy. There is a nonobstructing small bowel intussusception in the right lower quadrant at th e jejunojejunal anastomosis. 2. Small sliding-type hiatal hernia. 3. Small focus of gas in the otherwise normal-appearing bladder. Correlate for recent instrumentation or Chand catheterization and with urinalysis if clinically indicated. Reviewed, dictated and finalized at location A. IMPRESSION: 1. Postoperative changes consistent with prior cholecystectomy and liver transp lantation with hepaticojejunostomy. There is a nonobstructing small bowel intus susception in the right lower quadrant at the jejunojejunal anastomosis. 2. Small sliding-type hiatal hernia. 3. Small focus of gas in the otherwise normal-appearing bladder. Correlate for recent instrumentation or Chand catheterization and with urinalysis if clinical ly indicated.
--- NOTE | ~2020-05-05 | XR_ITS ---
EXAMINATION: XR abdomen/kub 1V DATE: 05/06/2020 06:17 INDICATION: Nonobstructing small bowel intussusception. TECHNIQUE: A supine view of the abdomen on 2 radiographs was obtained. COMPARISON: CT dated 05/05/2020 FINDINGS: Small amount of gas in the proximal colon. No dilated loops of gas-filled bowel to suggest obstructio n. Postoperative changes with cholecystectomy clips and suture lines in the right abdomen. Lung bases are clear. Heart size is normal. 2 bone islands at the bilateral femoral heads. A couple heterotopic ossicles project over the left buttock. IMPRESSION: 1. Nonobstructive bowel gas pattern. Reviewed, dictated and finalized at location A.
--- NOTE | 2020-05-05 08:47 | ED.NAVMDI ---
HPI - Nausea/Vomiting/Diarrhea General Chief complaint: Nausea/Vomiting/Diarrhea Stated complaint: N/V/D Source: RN notes reviewed History of Present Illness HPI Narrative: Patient presents emergency department from home for nausea and vomiting. Patient states symptoms occurred this morning. States that occurred after smoking marijuana. Patient does have a history of having hyperemesis syndrome from smoking marijuana and states normally she only does the oils but did smoke this morning. She states she smokes marijuana for her chronic pain from fibromyalgia. She notes diffuse abdominal pain described as cramping associated with the symptoms as well as one episode of diarrhea. Denies any fevers or chills chest pain shortness of breath or any other symptoms. Patient given Zofran in route by EMS Related Data Home Medications Medication Instructions Recorded Confirmed cholecalciferol (vitamin D3) 25 1,000 unit PO DAILY 08/29/19 02/26/20 mcg (1,000 unit) capsule magnesium 250 mg tablet 250 mg PO DAILY 08/29/19 02/26/20 prednisone 5 mg tablet 5 mg PO DAILY 08/29/19 02/26/20 sirolimus 2 mg tablet 2 mg PO DAILY 08/29/19 02/26/20 furosemide 20 mg tablet 10 mg PO DAILY tablet 02/26/20 02/26/20 calcium carbonate [Calcium 600] 05/05/20 cyanocobalamin (vitamin B-12) mcg PO 05/05/20 [Vitamin B-12] potassium gluconate mg 05/05/20 vitamin E (dl, acetate) 400 unit PO DAILY 05/05/20 Allergies Allergy/AdvReac Type Severity Reaction Status Date / Time iodine Allergy Severe anaphlaxis Verified 01/22/20 13:18 aspirin Allergy Unknown Verified 01/22/20 13:18 erythromycin base Allergy Unknown Verified 01/22/20 13:18 blood thinners Allergy Intermediate pt bleeds Uncoded 01/22/20 13:04 out Review of Systems Review of Systems: Narrative: Gen.: Denies fevers or chills ENT: Denies congestion Respiratory: Denies shortness of breath or cough CV: Denies chest pain or palpitations GI: See HPI denies burning, urgency, frequency or hematuria Musculoskeletal: Denies back pain or muscle pain Neuro: Denies numbness, tingling, weakness or focal weakness Skin: Denies rash Except as documented, all other systems reviewed and negative PMFSH Past Medical History Medical History Anemia Anxiety Arthritis Atrial fibrillation C. 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 Her 1st liver transplant was from a family member and failed due to portal venous thrombus she subsequently received her 2nd liver 3 days later. Ulcer Unspecified osteoarthritis, unspecified site Surgical History Surgical History (Updated 12/12/19 @ 06:19 by Lynette Hernandez DO) Finger joint replacement of right hand History of colonoscopy History of esophagogastroduodenoscopy (EGD) History of hysterectomy History of liver transplant In 1999 History of nasal surgery History of orthopedic surgery lt shoulder calcium deposit removal Hx of appendectomy Hx of cholecystectomy Hx of tonsillectomy Rectal prolapse With surgical repair Family History Family History (Updated 12/12/19 @ 06:22 by Lynette Hernandez DO) Unknown Unknown family medical history Patient was adopted so family history is unobtainable. Social History Social History Social History: Primary care physician: Dr. Debra Marks Code status: Full code Smoking packs per day: 1 Smoking cigarettes per day: 20.0 Years smoked: 10
[2020-05-05] MEDS: SODIUM CHLORIDE 0.9% IV 1,000 ML 999 ML IV CONT (08:54)
[2020-05-05 09:14] LABS: Basophils Absolute Auto 0.1 K/mm3 (0.0-0.1); Basophils Percent Auto 0.8 % (0.2-1.2); Eosinophils Absolute Auto 0.1 K/mm3 (0-0.3); Eosinophils Percent Auto 0.5 % (0-4.4); Hematocrit 31.3 % (37.0-47.0); Hemoglobin 9.6 g/dL (12.0-15.0); Immature Granulocyte Percent A 0.8 % (0-0.5); Lymphocytes Absolute Auto 2.09 K/mm3 (0.9-3.2); Lymphocytes Percent Auto 16.1 % (18.3-44.2); Mean Corpuscular HGB Conc 30.7 g/dl (32-36); Mean Corpuscular Hemoglobin 22.4 pg (26-34); Mean Corpuscular Volume 73.1 fl (80-100); Mean Platelet Volume 9.9 fl (7.4-10.4); Monocytes Absolute Auto 0.7 K/mm3 (0.1-0.6); Monocytes Percent Auto 5.5 % (2.6-8.5); Neutrophils Absolute Auto 9.9 K/mm3 (1.3-6.7); Neutrophils Percent Auto 76.3 % (45.5-73.1); Platelet Count Result 266 k/mm3 (150-375); Red Blood Count 4.28 M/mm3 (4.2-5.4); Red Cell Distribution Width 16.6 % (11.5-14.5)
[2020-05-05 09:30] LABS: Alanine Aminotransferase 14 U/L (4-35); Albumin Level 3.8 g/dL (3.5-5.1); Alkaline Phosphatase 102 U/L (38-126); Aspartate Amino Transferase 32 U/L (14-36); Bilirubin,Total 0.4 mg/dL (0.2-1.3); Blood Urea Nitrogen 22 mg/dL (7-17); Calcium 8.9 mg/dL (8.4-10.2); Carbon Dioxide 23 mmol/L (22-30); Chloride 105 mmol/L (98-107); Estimated CRCL calculation 26 ml/min; Estimated Glomerular Filt Rate 44; Glucose 174 mg/dL (65-105); Lipase 110 U/L (23-300); Potassium 3.6 mmol/L (3.4-5.0); Sodium 138 mmol/L (137-145)
--- NOTE | 2020-05-05 09:42 | PC.NURSE ---
Patient reports that she is unable to provide urine at this time. She refuses straight cath at this time.
[2020-05-05 11:08] LABS: Add Urine Microscopic? YES; Appearance Urine Clear (Clear); Bacteria Urine Trace /hpf; Bilirubin Urine Negative (Negative); Blood Urine 2+ (Negative); Color Urine Straw (Yellow); Glucose Urine UA 1+ mg/dL (Negative); Ketones Urine 1+ mg/dL (Negative); Leukocyte Esterase Ur 1+ LEU/UL (Negative); Nitrate Urine Negative (Negative); Protein Urine 1+ mg/dL (Negative); Specific Grav Ur 1.011 (1.001-1.035); Urobilinogen Urine Negative mg/dL (<2.0); WBC Urine 0-3 /hpf
[2020-05-05] MEDS: ONDANSETRON INJ 4 MG/2 ML VIAL IV PUSH ×2 (12:31→16:11)
--- NOTE | 2020-05-05 13:51 | PC.NURSE ---
Patient's daughter: Jennifer Abraham [id number]
--- NOTE | 2020-05-05 15:58 | ADMGEN ---
This patient, Jia Walter, was admitted to 2 Medical Room 248-. Patient/family oriented to hospital policies and general routines including ID bracelet, bed and alarms, visiting hours, pain management, procedures, bathroom and other care routines, personal items, smoking policy, room service/diet, and visiting hours. Valuables list has been completed. Information on how to activate the Rapid Response Team has been discussed. Patient/Family are encouraged to report perceived risks to care and to ask questions if they do not understand what they are told or what they should do.
--- NOTE | 2020-05-05 16:00 | PM.IMHP ---
H&P: HPI History of Present Illness Chief complaint: Nausea, vomiting, and diarrhea. Narrative: Jia Walter is a 74-year-old female with history of primary biliary cirrhosis status post liver transplant in 1999, chronic anemia, hypertension, hyperlipidemia, GERD, fibromyalgia with chronic pain, and history of cannabinoid hyperemesis who presented to the emergency department earlier today from home for evaluation of nausea, vomiting, and diarrhea. She received lorazepam not long prior to my arrival to the room, and as such she is quite somnolent. Her significant other provides additional information, with the patient's permission. She has used cannabis for many years due to chronic pain stemming from her fibromyalgia, and it sounds as though edibles did not provide her with much relief and she uses CBD oil as much as possible however smoking marijuana typically helps her the most. Unfortunately, she tends to be susceptible to cannabinoid hyperemesis and she has been hospitalized for such in the past. For the past several days, she has been smoking marijuana for her pain and as expected she now has nausea and vomiting. Her symptoms began about 2 days ago with diffuse abdominal cramping, nausea, vomiting, and now dry heaves. She has also been having diarrhea, but that seems to be a chronic finding. At the time my evaluation she is somnolent after receiving lorazepam and ondansetron and she has no current complaints. She denies fever, chills, sweats, chest pain, shortness of breath, and dysuria. Review of Systems Review of Systems: Narrative: Twelve systems were reviewed with pertinent positives and negatives as per HPI. No fever, chills, or sweats. She denies sinus congestion, rhinorrhea, otalgia, and odynophagia. No cough or shortness of breath. She denies recent travel and sick contacts. She has not been exposed to those with known COVID 19. Except as documented, all other systems were reviewed and are negative. [facility] Past Medical History Medical History (Updated 05/05/20 @ 19:48 by Herlinda Black PA-C) Arthritis Cerebrovascular accident CT evidence of prior CVAs. Chronic anemia Chronic kidney disease, stage 3 Creatinine runs between 1.2 and 1.60. Chronic pain Secondary to fibromyalgia, for which she uses CBD oil. Clostridium difficile diarrhea July and August 2017 as well as October 2017. Congestive heart failure Echocardiogram in November 2019 showed mildly reduced LV systolic function with an ejection fraction estimated at 40 to 45%, akinetic anteroapical segment, mild aortic valve sclerosis and regurgitation, as well as mild left atrial enlargement. Depression with anxiety Essential hypertension Fibromyalgia Fractures Right humerus. Gastroesophageal reflux disease GI bleed (~11/2018) [place] to be due to possible Jayne-Pitts tear from dry heaves and vomiting; no EGD performed. Hypertriglyceridemia Immunocompromised patient On anti-rejection medications status post liver transplant Insomnia Kidney stones Osteoporosis Paroxysmal atrial fibrillation Primary biliary cirrhosis Status post liver transplant x2. Surgical History Surgical History (Updated 05/05/20 @ 19:42 by Herlinda Black PA-C) Finger joint replacement of right hand Right 2nd finger PIP joint replacement. History of arthroscopy of left shoulder History of colonoscopy History of esophagogastroduodenoscopy (EGD) History of hysterectomy History of liver transplant (~1999) X2. History of nasal surgery Hx of appendectomy Hx of cholecystectomy Hx of tonsillectomy Rectal prolapse With surgical repair. Family History Family History Unknown Unknown family medical history Patient was adopted so family history is unobtainable. Social History Social History (Updated 05/05/20 @ 19:43 by Herlinda Black PA-C) Social History: Surrogate decision maker: Todd Brad, son.
[2020-05-05] MEDS: SODIUM CHLORIDE 0.9% IV 1,000 ML 100 ML IV CONT (16:12)
--- NOTE | 2020-05-05 16:30 | PC.NURSE ---
Left a voice message for Herilnda CAMPBELL notifying her that patient has been dry heaving and vomiting since arriving on the floor in spite of Ativan and Zofran given in the ED.
[2020-05-06] VITALS (7 sets, daily range): BP systolic 125–164; BP diastolic 43–61; PULSE 76–87; RESP 12–16; TEMP 36.4–36.9; O2SAT 97–99; BMI 21.0
[2020-05-06] MEDS: SODIUM CHLORIDE 0.9% IV 1,000 ML 75 ML IV CONT (01:56)
[2020-05-06] MEDS: METOPROLOL TARTRATE 25 MG TABLET PO ×3 (03:38→14:26)
[2020-05-06 06:34] LABS: Alanine Aminotransferase 11 U/L (4-35); Albumin Level 3.1 g/dL (3.5-5.1); Alkaline Phosphatase 78 U/L (38-126); Aspartate Amino Transferase 29 U/L (14-36); Bilirubin,Total 0.3 mg/dL (0.2-1.3); Blood Urea Nitrogen 18 mg/dL (7-17); Calcium 8.4 mg/dL (8.4-10.2); Carbon Dioxide 21 mmol/L (22-30); Chloride 109 mmol/L (98-107); Estimated CRCL calculation 30 ml/min; Estimated Glomerular Filt Rate 44; Glucose 86 mg/dL (65-105); Potassium 3.6 mmol/L (3.4-5.0); Sodium 138 mmol/L (137-145)
[2020-05-06 06:52] LABS: Basophils Absolute Auto 0.1 K/mm3 (0.0-0.1); Basophils Percent Auto 0.7 % (0.2-1.2); Eosinophils Absolute Auto 0.1 K/mm3 (0-0.3); Eosinophils Percent Auto 0.7 % (0-4.4); Immature Granulocyte Absolute 0.07 K/mm3 (0.00-0.031); Immature Granulocyte Percent A 0.7 % (0-0.5); Lymphocytes Absolute Auto 2.11 K/mm3 (0.9-3.2); Lymphocytes Percent Auto 19.6 % (18.3-44.2); Mean Corpuscular HGB Conc 30.8 g/dl (32-36); Mean Corpuscular Hemoglobin 22.5 pg (26-34); Mean Corpuscular Volume 73.2 fl (80-100); Mean Platelet Volume 10.3 fl (7.4-10.4); Monocytes Percent Auto 9.3 % (2.6-8.5); Neutrophils Absolute Auto 7.4 K/mm3 (1.3-6.7); Platelet Count Result 228 k/mm3 (150-375); Red Blood Count 3.55 M/mm3 (4.2-5.4); Red Cell Distribution Width 16.6 % (11.5-14.5); White Blood Count 10.7 K/mm3 (4.5-10.0)
[2020-05-06] MEDS: CALCIUM CARBONATE (OSCAL) 500 MG TABLET PO (08:51)
[2020-05-06] MEDS: PANTOPRAZOLE 40 MG TABLET PO (08:51)
[2020-05-06] MEDS: VITAMIN E 400 UNIT CAPSULE PO (08:51)
[2020-05-06] MEDS: MAGNESIUM OXIDE 200 MG TABLET PO (08:51)
[2020-05-06] MEDS: CYANOCOBALAMIN 500 MCG TABLET PO (08:52)
[2020-05-06] MEDS: predniSONE 5 MG TABLET PO (08:52)
[2020-05-06] MEDS: CHOLECALCIFEROL 1,000 UNIT TABLET 1000 UNITS PO (08:53)
[2020-05-06] MEDS: PRAVASTATIN SODIUM 20 MG TABLET 40 MG PO (08:53)
[2020-05-06] MEDS: FUROSEMIDE 10 MG TABLET PO (08:53)
--- NOTE | 2020-05-06 08:58 | PM.CNGS ---
Assessment and Plan Assessment and plan (1) Intussusception of intestine: Code(s): K56.1 - Intussusception Status: Acute Assessment and Plan: CT findings suggest non-obstructing small bowel intussusception at the jejunojejunal anastomosis. Discussed CT findings with the patient. I also discussed the patient's case and plan of care with Dr. Peoples. We recommended NG tube placement and Gastrografin small bowel follow-through to further assess the possible intussusception. The patient is refusing either of these treatments at this time. Since the patient is refusing care, we will allow her to trial clear liquids and see if she tolerates advancing her diet. We will also continue to follow along with serial abdominal exams and x-rays. Her abdominal x-ray this morning showed a non-obstructive bowel gas pattern. If she does not tolerate a diet, then she will possibly need transfer to a tertiary care facility due to her previous abdominal surgery. Although if she is able to tolerate a diet and progresses well, then she potentially could be discharged. Thank you for allowing me to see the patient in consultation and we will continue to follow along with you. (2) Cannabinoid hyperemesis syndrome: Code(s): F12.988 - Cannabis use, unspecified with other cannabis-induced disorder Status: Acute (3) Immunocompromised patient: Code(s): D89.9 - Disorder involving the immune mechanism, unspecified Status: Acute (4) Congestive heart failure: Code(s): I50.9 - Heart failure, unspecified Status: Acute (5) Chronic kidney disease, stage 3: Code(s): N18.3 - Chronic kidney disease, stage 3 (moderate) Status: Acute (6) Essential hypertension: Code(s): I10 - Essential (primary) hypertension Status: Acute (7) Paroxysmal atrial fibrillation: Code(s): I48.0 - Paroxysmal atrial fibrillation Status: Acute (8) Fibromyalgia: Code(s): M79.7 - Fibromyalgia Status: Chronic Additional Plan Discussed the patient's case and plan of care with Dr. Peoples. History of Present Illness Consult details Consult date: 05/06/20 Reason for consult: other (CT findings of small bowel intussusception at the jejunojejunal anastomosis) Requesting physician: Herlinda Black PA-C Narrative: This is a 74-year-old female with multiple medical problems who presented to the emergency department from home for evaluation nausea, vomiting, and diarrhea. She has a history of primary biliary cirrhosis status post liver transplant in 1999, fibromyalgia with chronic pain treating at home with cannabis, hypertension, chronic anemia, and hyperlipidemia. She apparently has used cannabis for many years due to the chronic fibromyalgia pain with the addition of CBD oil as well. For the past several days the patient has been smoking marijuana for her pain and again developed nausea and vomiting, which has occurred in the past. She reports diffuse abdominal cramping, nausea, vomiting, and now dry heaving for the past 2 days. She chronically deals with diarrhea. No fever or chills. With the persistent nausea and vomiting, patient presented to the ED for further evaluation. CT scan of abdomen and pelvis showed postoperative changes consistent with prior cholecystectomy and liver transplantation with hepaticojejunostomy, a nonobstructing small bowel intussusception in the right lower quadrant at the jejunojejunal anastomosis, small sliding-type hiatal hernia, and small focus of gas in the otherwise normal appearing bladder. The patient was admitted to the hospitalist service and started on IV fluids. Our service has been consulted due to the findings of nonobstructing possible small bowel intussusception. The patient is now being seen on medical floor. She denies any nausea at this time and has not vomited since yesterday evening. Denies bloating or abdominal pain. No other complaints at this time. Toleratin
--- NOTE | 2020-05-06 16:03 | PM.DS ---
DS: Admitting Diagnosis Admitting Diagnosis Admitting Diagnosis: Dehydration resolved. 74-year-old female with history of primary biliary cirrhosis status post liver transplant in 1999, chronic anemia, hypertension, hyperlipidemia, GERD, fibromyalgia with chronic pain, and history of cannabinoid hyperemesis who presented to the emergency department earlier today from home for evaluation of nausea, vomiting, and diarrhea. CT findings suggest non-obstructing small bowel intussusception at the jejunojejunal anastomosis. Surgery recommends further testing, pt is refusing. Pt watched in hospital diet advanced to heart healthy diet and pt discharged. DS: Discharge Diagnosis Discharge Diagnosis (1) Mild dehydration: Code(s): E86.0 - Dehydration Status: Acute Assessment and Plan: Secondary to vomiting and poor oral intake, pt rehydrated and discharged. (2) Intractable nausea and vomiting: Code(s): R11.2 - Nausea with vomiting, unspecified Status: Acute Assessment and Plan: Due to cannabinoid hyperemesis. (3) Abnormal computed tomography of abdomen and pelvis: Code(s): R93.5 - Abnormal findings on diagnostic imaging of other abdominal regions, including retroperitoneum Status: Acute Assessment and Plan: CT scan shows nonobstructing small-bowel intussusception in the right lower quadrant at the jejunaojejunal anastomosis. (4) Chronic kidney disease, stage 3: Code(s): N18.3 - Chronic kidney disease, stage 3 (moderate) Status: Acute Assessment and Plan: Creatinine is stable on review of previous labs. (5) Essential hypertension: Code(s): I10 - Essential (primary) hypertension Status: Acute Assessment and Plan: Pt to continue her blood pressure medications (6) Congestive heart failure: Code(s): I50.9 - Heart failure, unspecified Status: Acute Assessment and Plan: She is clinically compensated (7) Immunocompromised patient: Code(s): D89.9 - Disorder involving the immune mechanism, unspecified Status: Acute Assessment and Plan: She is on anti-rejection medications for her liver transplant. DS: Summary Time Spent with Patient Time attestation: Total time spent providing and/or coordinating discharge services:30 minutes on day of dischrage Exam Const: General: well developed Nutritional Appearance: well nourished HENMT: Head: normocephalic Eyes: General: appearance normal, both eyes and all related structures Pupils: Equal, round and reactive pupils present Neck: Neck: supple Chest: Chest palpation & inspection: normal inspection of the chest Resp: Effort & Inspection: normal respiratory effort Auscultation: clear to auscultation bilaterally Cardio: Jugular venous distension: no JVD Rhythm: regular rhythm Heart sounds: S1 normal heart sound present and S2 normal heart sound present GI: Inspection: normal to inspection GI Palp: Yes Soft to palpation, No Tenderness to palpation present (GI) and Yes Other GI palpation findings present (large scar midline ) Auscultation: normal bowel sounds Skin: General skin exam: normal color and dry skin Neuro: Cranial nerves: Yes CN's II-XII intact bilaterally and Yes Equal, round and reactive pupils present Cognition (Neuro): normal cognition Speech: normal speech Motor exam (neuro): 02/23 motor strength present throughout Extrem: General: normal to inspection Psych: Appearance: grossly normal Mental Status: mental status grossly normal DS: Data Data Completed and Pendi
--- NOTE | 2020-05-06 17:56 | PM.PNGS ---
Progress Note: A&P Assessment and Plan (1) Intractable nausea and vomiting: Code(s): R11.2 - Nausea with vomiting, unspecified Status: Acute Assessment and Plan: improved. Patient refuses both NG tube as well as upper GI contrast studies. Probably due to cannabinoid hyperemesis syndrome as listed below. (2) Abnormal computed tomography of abdomen and pelvis: Code(s): R93.5 - Abnormal findings on diagnostic imaging of other abdominal regions, including retroperitoneum Status: Acute Assessment and Plan: Intussusceptions suggested. It does not appear to be obstructive. Patient will not cooperate with testing or management. There is really nothing more for us to offer her. We will sign off. (3) Cannabinoid hyperemesis syndrome: Code(s): F12.988 - Cannabis use, unspecified with other cannabis-induced disorder Status: Acute Assessment and Plan: See above. Subjective Subjective Date/Time Seen: 05/06/20 06:56 we are asked to see this patient with nausea vomiting and evidence of a nonobstructing small-bowel intussusception on CT scan. She is known to have cannabis induced nausea and vomiting and admits to having smoked cannabis multiple days in a row. When seen this morning she was feeling better with no evidence of nausea or vomiting. She is not having any abdominal pain. 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) Musculoskeletal: Musculoskeletal: Reports other ( chronic pain attributed to fibromyalgia) Exam Const: General: comfortable and no acute distress; No confusion Orientation/consciousness: patient oriented x3 and No confusion GI: Inspection: non-distended and scar ( multiple upper abdominal scars) GI Palp: Yes Soft to palpation, No Tenderness to palpation present (GI), No Guarding due to palpation present (GI) and No Rebound tenderness present Auscultation: normal bowel sounds Neuro: General: patient oriented x3, no focal motor deficits and No confusion Extrem: General: no calf tenderness and no edema Psych: Affect: normal affect Insight: Good insight present (Psych) Judgement: Good judgement present (Psych) Objective Data Vital Signs Vital Signs: Vital Signs - 24 hr 05/05/20 21:51 05/06/20 02:00 05/06/20 03:38 Temperature 36.4 C 36.6 C Pulse Rate 89 81 76 Respiratory Rate 20 16 Blood Pressure 164/55 H 136/45 L Pulse Oximetry 92 98 05/06/20 05:16 05/06/20 08:00 05/06/20 10:00 Temperature 36.4 C L 36.6 C Pulse Rate 78 87 81 Respiratory Rate 16 16 16 Blood Pressure 164/53 H 137/58 L Pulse Oximetry 97 99 99 05/06/20 10:04 05/06/20 14:00 Temperature 36.9 C 36.6 C Pulse Rate 87 79 Respiratory Rate 16 12 Blood Pressure 125/61 131/43 L Pulse Oximetry 99 98 Intake/Output Intake/Output: Intake & Output 05/03/20 05/04/20 05/05/20 05/06/20 23:59 23:59 23:59 23:59 Intake Total 1000 4040 Output Total 300 4400 Balance 700 -360 Meds/Results Medications: Active Medications Generic Name Dose Route Start Last Admin Trade Name Freq PRN Reason Stop Dose Admin Calcium Carbonate 500 mg 05/06/20 09:00 05/06/20 08:51 Oscal 500 Mg PO 06/05/20 09:01 500 mg DAILY KIARRA Administration Cyanocobalamin 500 mcg 05/06/20 09:00 05/06/20 08:52 Vitamin B-12 Tab PO 500 mcg DAILY KIARRA Administration Furosemide 10 mg 05/06/20 09:00 05/06/20 08:53 Lasix Tablet PO 10 mg DAILY KIARRA Administration Hydroxyzine HCl 10 mg 05/05/20 20:39 Atarax Tablet PO HS PRN insomnia Sodium Chloride 1,000 mls @ 75 mls/hr 05/05/20 14:10 05/06/20 14:25 Normal Saline Iv IV CONT Infused .[id number] KIARRA Infusion Magnesium Oxide 200 mg 05/06/20 09:00 05/06/20 08:51 Mag-Ox PO 06/05/20 09:01 200 mg D
== END 2020-05-06 18:04 | disposition home or self-care (01) ==
LOC: ANHED 14:21 → ANH2MED 15:53
PROVIDERS: Physician Assistant; Admitting Provider Family Medicine; Emergency Provider Emergency Medicine; PCP Family Medicine; Visit Provider Physician Assistant
DX: E86.0 Dehydration (principal); R11.2 Nausea with vomiting, unspecified; F12.988 Cannabis use, unspecified with other cannabis-induced disorder; D89.9 Disorder involving the immune mechanism, unspecified; R93.5 Abnormal findings on diagnostic imaging of other abdominal regions, including retroperitoneum; R19.7 Diarrhea, unspecified; M79.7 Fibromyalgia; I48.0 Paroxysmal atrial fibrillation; I13.0 Hypertensive heart and chronic kidney disease with heart failure and stage 1 through stage 4 chronic kidney disease, or unspecified chronic kidney disease; I50.9 Heart failure, unspecified; N18.3 Chronic kidney disease, stage 3 (moderate); D64.9 Anemia, unspecified; F41.8 Other specified anxiety disorders; Z86.73 Personal history of transient ischemic attack (TIA), and cerebral infarction without residual deficits; K21.9 Gastro-esophageal reflux disease without esophagitis; M81.0 Age-related osteoporosis without current pathological fracture; E78.1 Pure hyperglyceridemia; G89.29 Other chronic pain; K44.9 Diaphragmatic hernia without obstruction or gangrene; Z94.4 Liver transplant status; Z87.891 Personal history of nicotine dependence; Z79.899 Other long term (current) drug therapy
CPT/HCPCS: 36415; 51701; 74018; 74176; 80053; 81001; 83690; 83735; 84443; 85025; 96361; 96374; 96375; 96376; 99285; A9270; G0378; J2060; J2405; J7030; J7512

== ENCOUNTER 2020-05-13 15:01 | Emergency (ER) | payer MEDICARE, SELFPAY ==
--- NOTE | ~2020-05-13 | CT_ITS ---
EXAMINATION: CT brain wo con EXAM DATE: 05/13/2020 16:10 INDICATION: Vomiting. TECHNIQUE: Spiral CT of the head was performed without contrast. Axial, coronal and sagittal images were reviewed. The dose-length product (DLP) for this examination was 605.33 mGy-cm. The exposure w as tailored according to patient size, and iterative reconstruction (ASIR) was used as additional dos e reduction technique. Comparison is made to prior examination from 05/14/2019. FINDINGS: There is no acute intraparenchymal hemorrhage. No evidence of intraparenchymal brain mass lesion. No evidence of acute infarction. Please note that initial head CT has limited sensitivity f or small or acute infarctions. Left basal ganglia lacunar infarctions, old. There is mild periventr icular and subcortical hypodensity, nonspecific but probably related to small vessel ischemic disease . There is mild prominence of the sulci and ventricles related to cerebral atrophy. There is intr acranial carotid arteriosclerosis. There are no extra-axial collections. There is no mass effect or midline shift. The orbits are unremarkable. There is soft tissue skin thickening in the scalp anteriorly below the vertex chest right of midline. This does appear unchanged compared to prior study, but recommend direct visualization to exclude sk in cancer. The visualized sinuses and mastoid air cells are well aerated. IMPRESSION: 1. Old left basal ganglia lacunar infarctions. 2. Focal skin thickening as described above, recommend clinical correlation. 3. Mild atrophy and microangiopathy. Reviewed, dictated and finalized at location A.
[2020-05-13 15:05] VITALS: BP 186/63; PULSE 76; RESP 20; TEMP 37.7; O2SAT 100
[2020-05-13 15:42] LABS: Add Urine Microscopic? YES; Appearance Urine Clear (Clear); Bacteria Urine Trace /hpf; Bilirubin Urine Negative (Negative); Blood Urine 2+ (Negative); Color Urine Yellow (Yellow); Glucose Urine UA Negative (Negative); Ketones Urine Negative (Negative); Leukocyte Esterase Ur Negative LEU/UL (Negative); Nitrate Urine Negative (Negative); Protein Urine 1+ mg/dL (Negative); Specific Grav Ur 1.019 (1.001-1.035); Squamous Epithelial Cell Urine Few /hpf (Few); Urobilinogen Urine Negative mg/dL (<2.0); WBC Urine 0-3 /hpf
[2020-05-13 16:03] LABS: Basophils Absolute Auto 0.1 K/mm3 (0.0-0.1); Basophils Percent Auto 1.1 % (0.2-1.2); Eosinophils Percent Auto 0.2 % (0-4.4); Hematocrit 28.9 % (37.0-47.0); Hemoglobin 8.8 g/dL (12.0-15.0); Immature Granulocyte Absolute 0.03 K/mm3 (0.00-0.031); Immature Granulocyte Percent A 0.5 % (0-0.5); Lymphocytes Absolute Auto 1.24 K/mm3 (0.9-3.2); Lymphocytes Percent Auto 18.7 % (18.3-44.2); Mean Corpuscular HGB Conc 30.4 g/dl (32-36); Mean Corpuscular Hemoglobin 22.3 pg (26-34); Mean Corpuscular Volume 73.4 fl (80-100); Mean Platelet Volume 9.9 fl (7.4-10.4); Monocytes Absolute Auto 0.5 K/mm3 (0.1-0.6); Monocytes Percent Auto 7.4 % (2.6-8.5); Neutrophils Absolute Auto 4.8 K/mm3 (1.3-6.7); Neutrophils Percent Auto 72.1 % (45.5-73.1); Platelet Count Result 290 k/mm3 (150-375); Red Blood Count 3.94 M/mm3 (4.2-5.4); Red Cell Distribution Width 18.7 % (11.5-14.5); White Blood Count 6.6 K/mm3 (4.5-10.0)
--- NOTE | 2020-05-13 16:05 | ED.NAVMDI ---
HPI - Nausea/Vomiting/Diarrhea General Chief complaint: Nausea/Vomiting/Diarrhea Stated complaint: vomiting Time Seen by Provider: 05/13/20 15:27 History of Present Illness HPI Narrative: Patient presents with her for a year and a half of morning vomiting. She has a liver transplant from [facility] in [place]. She is followed by the [facility] transplant service. Her GI doctor is not on staff here. She has not tried antiemetics for this. She says she cannot do that while she is throwing up. She takes her anti-rejection medicine in the morning and sometimes she throws up after that. She has been losing weight recently and is down to 95 pounds. She has a history of esophageal varices and had them sclerosed about 45 times before her liver transplant. She does not drink alcohol. She quit smoking marijuana about 3 weeks ago. MD elicited complaint: nausea and vomiting Pertinent past history: abdominal surgery Onset (ago): year(s) Description of vomiting: watery and bilious Context: marijuana use Associated symptoms: myalgias and nausea/vomiting Related Data Home Medications Medication Instructions Recorded Confirmed cholecalciferol (vitamin D3) 25 1,000 unit PO DAILY 08/29/19 05/05/20 mcg (1,000 unit) capsule magnesium 250 mg tablet 250 mg PO DAILY 08/29/19 05/05/20 prednisone 5 mg tablet 5 mg PO DAILY 08/29/19 05/05/20 sirolimus 2 mg tablet 2 mg PO DAILY 08/29/19 05/05/20 furosemide 20 mg tablet 10 mg PO DAILY tablet 02/26/20 05/05/20 calcium carbonate [Calcium 600] 600 mg PO DAILY 05/05/20 05/05/20 cyanocobalamin (vitamin B-12) 500 mcg PO DAILY 05/05/20 05/05/20 [Vitamin B-12] potassium gluconate 99 mg PO DAILY 05/05/20 05/05/20 vitamin E (dl, acetate) 400 unit PO DAILY 05/05/20 05/05/20 Allergies Allergy/AdvReac Type Severity Reaction Status Date / Time iodine Allergy Severe anaphlaxis Verified 05/13/20 15:16 aspirin Allergy Unknown Verified 05/13/20 15:16 erythromycin base Allergy Unknown Verified 05/13/20 15:16 blood thinners Allergy Intermediate pt bleeds Uncoded 05/13/20 15:16 out Review of Systems Review of Systems: Narrative: CONSTITUTIONAL: Denies fever, but has chills and sweats. EYES: Denies visual changes, redness, or discharge. ENT: Denies rhinorrhea, congestion, sore throat, or otalgia. CARDIOVASCULAR: Denies chest pain, palpitations, or edema. RESPIRATORY: Denies cough or dyspnea. GASTROINTESTINAL: Denies abdominal pain, but has nausea, vomiting, and diarrhea. GENITOURINARY: Denies dysuria or hematuria. SKIN: Denies rash or itching. MUSCULOSKELETAL: Denies back pain, joint pain, has fibromyalgia and hurts all over. NEUROLOGIC: Denies headache, numbness, or weakness. All systems reviewed & are unremarkable except as noted in HPI and below PMFSH Past Medical History Medical History Arthritis Cerebrovascular accident CT evidence of prior CVAs. Chronic anemia Chronic kidney disease, stage 3 Creatinine runs between 1.2 and 1.60. Chronic pain Secondary to fibromyalgia, for which she uses CBD oil. Clostridium difficile diarrhea July and August 2017 as well as October 2017. Congestive heart failure Echocardiogram in November 2019 showed mildly reduced LV systolic function with an ejection fraction estimated at 40 to 45%, akinetic anteroapical segment, mild aortic valve sclerosis and regurgitation, as well as mild left atrial enlargement. Depression with anxiety Essential hypertension Fibromyalgia Fractures Right humerus. Gastroesophageal reflux disease GI bleed (~11/2018) [place] to be due to possible Jayne-Pitts tear from dry heaves and vomiting; no EGD performed. Hypertriglyceridemia Immunocompromised patient On anti-rejection medications status post liver transplant Insomnia Kidney stones Osteoporosis Paroxysmal atrial fibrillation Primary biliary cirrhosis Status post liver transplant x2. Surgical History Surgical H
[2020-05-13 16:17] LABS: Alanine Aminotransferase 17 U/L (4-35); Albumin Level 3.7 g/dL (3.5-5.1); Alkaline Phosphatase 81 U/L (38-126); Anion Gap 10.9 mmol/L (7-16); Aspartate Amino Transferase 29 U/L (14-36); Bilirubin,Total 0.4 mg/dL (0.2-1.3); Blood Urea Nitrogen 17 mg/dL (7-17); Calcium 8.9 mg/dL (8.4-10.2); Carbon Dioxide 25 mmol/L (22-30); Chloride 105 mmol/L (98-107); Estimated Glomerular Filt Rate 44; Glucose 135 mg/dL (65-105); Lipase 69 U/L (23-300); Potassium 3.9 mmol/L (3.4-5.0); Sodium 137 mmol/L (137-145)
[2020-05-13] MEDS: METOCLOPRAMIDE HCL 10 MG TABLET PO (16:22)
[2020-05-13 16:29] LABS: NT Pro B Type Natriuretic Pept 2560 PG/ML (5-100); Troponin I < 0.012 ng/mL (0.000-0.034)
[2020-05-13 17:32] VITALS: BP 180/70; PULSE 75; RESP 18; O2SAT 95
== END 2020-05-13 17:34 | disposition home or self-care (01) ==
PROVIDERS: Emergency Provider Emergency Medicine; PCP Family Medicine
DX: R11.2 Nausea with vomiting, unspecified (principal); Z94.4 Liver transplant status; L98.9 Disorder of the skin and subcutaneous tissue, unspecified; Z87.891 Personal history of nicotine dependence; M19.90 Unspecified osteoarthritis, unspecified site; Z86.73 Personal history of transient ischemic attack (TIA), and cerebral infarction without residual deficits; M79.7 Fibromyalgia; I50.9 Heart failure, unspecified; I13.0 Hypertensive heart and chronic kidney disease with heart failure and stage 1 through stage 4 chronic kidney disease, or unspecified chronic kidney disease; N18.3 Chronic kidney disease, stage 3 (moderate); D63.1 Anemia in chronic kidney disease; Z87.442 Personal history of urinary calculi; M81.0 Age-related osteoporosis without current pathological fracture; I48.0 Paroxysmal atrial fibrillation; E78.1 Pure hyperglyceridemia; K74.3 Primary biliary cirrhosis
CPT/HCPCS: 36415; 70450; 80053; 81001; 83690; 83880; 84484; 85025; 99284; A9270

== ENCOUNTER 2020-07-04 13:15 | Emergency (ER) | payer MEDICARE, SELFPAY ==
--- NOTE | ~2020-07-04 | CT_ITS ---
EXAMINATION: CT abdomen pelvis wo con DATE: 07/04/2020 16:17 INDICATION: Left flank pain. TECHNIQUE: Computed tomography (CT) of the abdomen and pelvis was performed without intravenous contr ast. Automated exposure control and iterative reconstruction technique were employed. The dose-length product was 182.53 mGy-cm. COMPARISON: CT abdomen and pelvis 05/05/2020, 05/14/2019, 04/09/2017 FINDINGS: The visualized portions of the lung bases demonstrate mild atelectasis. There is a small ri ght posterior diaphragmatic hernia containing fat. No pleural effusion. The heart size is normal. No pericardial effusion. There is wall thickening of the distal esophagus, likely esophagitis. There are changes of liver transplant with chronic pneumobilia. There are changes of cholecystectomy. The sple en, pancreas, adrenal glands, and kidneys are normal. Pelvic floor relaxation is noted. There are no dilated loops of bowel. There is a bowel anastomosis in right abdomen. There is chronic wall thickeni ng of the gastric antrum. There is calcified atherosclerosis of the aorta and many of the other arter ies. There are no pathologically enlarged lymph nodes. There is no free intraperitoneal fluid. There is mild lumbar spondylosis. IMPRESSION: 1. Wall thickening of the distal esophagus, likely esophagitis. 2. Chronic wall thickening of the gastric antrum, which may be gastritis or underdistention. Reviewed, dictated and finalized at location A. IMPRESSION: 1. Wall thickening of the distal esophagus, likely esophagitis. 2. Chronic wall thickening of the gastric antrum, which may be gastritis or und erdistention.
[2020-07-04 13:14] VITALS: BP 200/84; PULSE 74; RESP 18; TEMP 36.7; O2SAT 99
--- NOTE | 2020-07-04 13:26 | ECG_ITS ---
Measurements Intervals Foreman Rate: 70 P: 71 CT: 161 QRS: 71 QRSD: 75 T: 74 QT: 389 QTc: 422 Interpretive Statements SINUS RHYTHM ST-T WAVE ABNORMALITY IN ANTEROLAT/INF LEADS- CONSIDER ISCHEMIA BASELINE ARTIFACT- I, II, III, AVR, AVL, AVF, V3-V5 ABNORMAL ECG Electronically Signed On 07-04-2020 15:43:35 CDT by Krystian Lancaster D.O.
[2020-07-04] MEDS: PROMETHAZINE HCL 25 MG/ML AMPUL 12.5 MG IV PUSH (13:37)
[2020-07-04 13:39] VITALS: BP 186/58; PULSE 62; RESP 17; TEMP 37.2; O2SAT 99
--- NOTE | 2020-07-04 13:49 | ED.NAVMDI ---
HPI - Nausea/Vomiting/Diarrhea General Chief complaint: Nausea/Vomiting/Diarrhea Stated complaint: n/v x3 days Time Seen by Provider: 07/04/20 13:15 History of Present Illness HPI Narrative: Patient is a 75-year-old female who presents the ER with nausea and vomiting. Ongoing for 3 days. Associated with a couple loose stools but also with left flank pain. No chest pain or shortness of breath. She has had no dysuria/urinary frequency/urgency. Does not feel like previous kidney stones. Received Zofran by EMS with mild improvement in nausea. No known sick contacts. Related Data Home Medications Medication Instructions Recorded Confirmed cholecalciferol (vitamin D3) 25 1,000 unit PO DAILY 08/29/19 05/05/20 mcg (1,000 unit) capsule magnesium 250 mg tablet 250 mg PO DAILY 08/29/19 05/05/20 prednisone 5 mg tablet 5 mg PO DAILY 08/29/19 05/05/20 sirolimus 2 mg tablet 2 mg PO DAILY 08/29/19 05/05/20 furosemide 20 mg tablet 10 mg PO DAILY tablet 02/26/20 05/05/20 calcium carbonate [Calcium 600] 600 mg PO DAILY 05/05/20 05/05/20 cyanocobalamin (vitamin B-12) 500 mcg PO DAILY 05/05/20 05/05/20 [Vitamin B-12] potassium gluconate 99 mg PO DAILY 05/05/20 05/05/20 vitamin E (dl, acetate) 400 unit PO DAILY 05/05/20 05/05/20 carvedilol 07/04/20 hydroxyzine HCl 07/04/20 Allergies Allergy/AdvReac Type Severity Reaction Status Date / Time iodine Allergy Severe anaphlaxis Verified 07/04/20 13:26 aspirin Allergy Mild Unknown Verified 07/04/20 13:26 erythromycin base Allergy Mild Unknown Verified 07/04/20 13:26 blood thinners Allergy Intermediate pt bleeds Uncoded 07/04/20 13:26 out Review of Systems Review of Systems: All systems reviewed & are unremarkable except as noted in HPI and below Constitutional: Constitutional: Denies chills, Denies fever(s) and Reports weakness ENT: Denies nasal congestion and Denies sore throat Cardiovascular: Cardiovascular: Denies chest pain and Denies radiating jaw, neck or arm pain Gastrointestinal: Gastrointestinal: Denies abdominal pain, Reports diarrhea, Reports nausea and Reports vomiting Genitourinary: Genitourinary: Denies hematuria, Denies nocturia, Denies dysuria and Reports flank pain PMFSH Social History Social History Social History: Surrogate decision maker: Todd Salinas, son. Code status: Full code Smoking packs per day: 1 Smoking cigarettes per day: 20.0 Years smoked: 10 Smoking pack-years: 10.00 Smoking status: Former smoker Tobacco type: cigarettes Second hand tobacco smoke exposure: Yes Smoking end date: 10/22/1967 Alcohol intake: never Substance use: current Substance use type: marijuana Last use: Additional living arrangements comments: The patient has been for 13 years. She has 2 biologic children and 2 step children. She is currently estranged from a daughter who is in a cult. 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 Gender identity (if verbalized by the patient): Female Spiritual care concerns: No Agree to blood products: Yes Exam Narrative: Exam Narrative: GENERAL: Uncomfortable-appearing, well-nourished, and dry heaving. HEAD: Normocephalic, atraumatic. ENT: Mucous membranes moist. CHEST: Clear to auscultation. No respiratory distress. HEART: Regular rate and rhythm. Normal peripheral pulses. ABDOMEN: Soft, nontender, nondistended. EXTREMITIES: Normal range of motion. No edema. NEURO: Alert and oriented x3. PSYCH: Normal mood and affect. Course Course Emergency Course: Nausea and pain controlled. Discharge with Phenergan. Patient reports taking her Protonix twice a day. Some of the esophagitis may be related to her persistent vomiting causing irritation. Follow-up with PCP. Vital Signs Vital signs: Vital Signs Temperature 98.1 F 07/04/20 13:14 Pulse Rate 74 07/04/20 13:14 R
--- NOTE | 2020-07-04 14:20 | PC.NURSE ---
Pt chronic hard stick, blood draw attempt x 1 unsuccessful. RN notified, instructed to call dental office receptionist. Interceptor Operator to draw.
[2020-07-04 15:02] VITALS: BP 179/82; PULSE 66; RESP 20; TEMP 36.7; O2SAT 99
[2020-07-04 15:05] LABS: Basophils Absolute Auto 0.1 K/mm3 (0.0-0.1); Basophils Percent Auto 0.8 % (0.2-1.2); Eosinophils Absolute Auto 0.1 K/mm3 (0-0.3); Eosinophils Percent Auto 0.6 % (0-4.4); Hematocrit 30.9 % (37.0-47.0); Hemoglobin 9.4 g/dL (12.0-15.0); Immature Granulocyte Percent A 0.9 % (0-0.5); Lymphocytes Absolute Auto 1.37 K/mm3 (0.9-3.2); Mean Corpuscular HGB Conc 30.4 g/dl (32-36); Mean Corpuscular Hemoglobin 22.9 pg (26-34); Mean Corpuscular Volume 75.2 fl (80-100); Mean Platelet Volume 10.1 fl (7.4-10.4); Monocytes Absolute Auto 0.9 K/mm3 (0.1-0.6); Neutrophils Absolute Auto 8.9 K/mm3 (1.3-6.7); Neutrophils Percent Auto 77.7 % (45.5-73.1); Platelet Count Result 283 k/mm3 (150-375); Red Blood Count 4.11 M/mm3 (4.2-5.4); Red Cell Distribution Width 18.5 % (11.5-14.5); White Blood Count 11.4 K/mm3 (4.5-10.0)
[2020-07-04 15:17] LABS: Alanine Aminotransferase 19 U/L (4-35); Albumin Level 3.5 g/dL (3.5-5.1); Alkaline Phosphatase 82 U/L (38-126); Anion Gap 5 mmol/L (8-16); Aspartate Amino Transferase 36 U/L (14-36); Bilirubin,Total 0.5 mg/dL (0.2-1.3); Blood Urea Nitrogen 22 mg/dL (7-17); Carbon Dioxide 32 mmol/L (22-30); Chloride 99 mmol/L (98-107); Estimated CRCL calculation 20 ml/min; Estimated Glomerular Filt Rate 34; Glucose 112 mg/dL (65-105); Lipase 73 U/L (23-300); Potassium 3.5 mmol/L (3.4-5.0); Sodium 136 mmol/L (137-145)
[2020-07-04 16:03] VITALS: BP 171/88; PULSE 69; RESP 20; TEMP 36.6; O2SAT 97
[2020-07-04] MEDS: PANTOPRAZOLE SODIUM IV 40 MG VIAL IV PUSH (16:38)
[2020-07-04 16:45] VITALS: BP 172/62; PULSE 70; RESP 12; TEMP 37.3; O2SAT 98
[2020-07-04 16:45] LABS: Add Urine Microscopic? YES; Appearance Urine Clear (Clear); Bacteria Urine Trace /hpf; Bilirubin Urine Negative (Negative); Blood Urine 2+ (Negative); Color Urine Yellow (Yellow); Glucose Urine UA Negative (Negative); Ketones Urine Negative (Negative); Leukocyte Esterase Ur Negative LEU/UL (Negative); Mucus Urine Rare /lpf; Nitrate Urine Negative (Negative); Protein Urine 2+ mg/dL (Negative); Specific Grav Ur 1.018 (1.001-1.035); Squamous Epithelial Cell Urine Rare /hpf (Few); Urobilinogen Urine Negative mg/dL (<2.0); WBC Urine 0-3 /hpf
[2020-07-04 17:59] VITALS: BP 146/48; PULSE 80; RESP 12; TEMP 37.1; O2SAT 97
== END 2020-07-04 18:01 | disposition home or self-care (01) ==
PROVIDERS: Emergency Provider Emergency Medicine; PCP Family Medicine
DX: R11.2 Nausea with vomiting, unspecified (principal); K20.9 Esophagitis, unspecified; Z87.891 Personal history of nicotine dependence; R94.31 Abnormal electrocardiogram [ECG] [EKG]
CPT/HCPCS: 36415; 74176; 80053; 81001; 83690; 85025; 93005; 96374; 96375; 99284; C9113; J2550; J3010

== ENCOUNTER 2020-07-30 11:45 | Observation (INO) | payer MEDICARE, SELFPAY ==
[2020-07-30] VITALS (7 sets, daily range): BP systolic 144–196; BP diastolic 43–82; PULSE 71–90; RESP 17–20; TEMP 36.2–36.6; O2SAT 97–100; BMI 16.5
--- NOTE | ~2020-07-30 | CT_ITS ---
EXAMINATION: CT abdomen pelvis wo con DATE: 07/30/2020 14:32 INDICATION: Nausea, vomiting and diarrhea TECHNIQUE: Computed tomography (CT) of the abdomen and pelvis was performed without intravenous contr ast. Automated exposure control and iterative reconstruction technique were employed. The dose-length product was 187.12 mGy-cm. COMPARISON: None FINDINGS: Dependent atelectasis in the bilateral lower lobes and mild discoid atelectasis at the lingula. Infer ior heart is normal. No pericardial or pleural effusion. Small amount of fluid in the distal esophagu s where there is circumferential wall thickening suggestive of esophagitis. Again seen is wall thicke ketan at the gastric antrum. Postoperative change of prior liver transplantation with pneumobilia. Gal lbladder not visualized and also likely surgically absent. Spleen, pancreas, right kidney and bilater al adrenal gland are normal. 2 mm nonobstructing stone at the lower pole of the left kidney. Asthmati c suture lines along the bowels in the right abdomen. No dilated bowel to suggest obstruction. There are couple diverticula along the sigmoid colon without adjacent inflammatory change to suggest divert iculitis. Bladder is normal. The uterus is not identified and has likely been surgically resected. No free intraperitoneal gas or fluid. No pathologically enlarged abdominal or pelvic lymphadenopathy. T here is calcified atherosclerosis of the aorta and many of the other arteries. 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 A few bone islands at the bilateral femoral head s. Mild lumbar spondylosis. IMPRESSION: 1. Wall thickening at the distal esophagus consistent with esophagitis. 2. Chronic wall thickening at the gastric antrum could be due to gastritis, peptic ulcer disease or a rtifactual appearance due to peristalsis. 3. Chronic 1.4 cm splenic artery aneurysm. Reviewed, dictated and finalized at location A. IMPRESSION: 1. Wall thickening at the distal esophagus consistent with esophagitis. 2. Chronic wall thickening at the gastric antrum could be due to gastritis, pep tic ulcer disease or artifactual appearance due to peristalsis. 3. Chronic 1.4 cm splenic artery aneurysm.
[2020-07-30 13:08] LABS: Basophils Absolute Auto 0.1 K/mm3 (0.0-0.1); Basophils Percent Auto 0.7 % (0.2-1.2); Eosinophils Percent Auto 0.1 % (0-4.4); Hematocrit 30.5 % (37.0-47.0); Hemoglobin 9.3 g/dL (12.0-15.0); Immature Granulocyte Absolute 0.12 K/mm3 (0.00-0.031); Immature Granulocyte Percent A 0.9 % (0-0.5); Lymphocytes Absolute Auto 1.58 K/mm3 (0.9-3.2); Lymphocytes Percent Auto 11.8 % (18.3-44.2); Mean Corpuscular HGB Conc 30.5 g/dl (32-36); Mean Corpuscular Hemoglobin 22.8 pg (26-34); Mean Corpuscular Volume 74.8 fl (80-100); Mean Platelet Volume 10.1 fl (7.4-10.4); Monocytes Absolute Auto 0.7 K/mm3 (0.1-0.6); Monocytes Percent Auto 5.3 % (2.6-8.5); Neutrophils Absolute Auto 10.9 K/mm3 (1.3-6.7); Neutrophils Percent Auto 81.2 % (45.5-73.1); Platelet Count Result 244 k/mm3 (150-375); Red Blood Count 4.08 M/mm3 (4.2-5.4); Red Cell Distribution Width 17.6 % (11.5-14.5); White Blood Count 13.4 K/mm3 (4.5-10.0)
[2020-07-30 13:14] LABS: Add Urine Microscopic? YES; Appearance Urine Clear (Clear); Bacteria Urine 1+ /hpf; Bilirubin Urine Negative (Negative); Blood Urine 1+ (Negative); Color Urine Straw (Yellow); Glucose Urine UA 1+ mg/dL (Negative); Ketones Urine Trace mg/dL (Negative); Leukocyte Esterase Ur Trace LEU/UL (Negative); Nitrate Urine Negative (Negative); Protein Urine 1+ mg/dL (Negative); RBC Urine 21-50 /hpf (0-2); Specific Grav Ur 1.012 (1.001-1.035); Urobilinogen Urine Negative mg/dL (<2.0)
[2020-07-30] MEDS: SODIUM CHLORIDE 0.9% IV 1,000 ML 150 ML IV CONT (13:18)
[2020-07-30 13:19] LABS: Alanine Aminotransferase 21 U/L (4-35); Albumin Level 4.2 g/dL (3.5-5.1); Alkaline Phosphatase 98 U/L (38-126); Anion Gap 10 mmol/L (8-16); Aspartate Amino Transferase 37 U/L (14-36); Bilirubin,Total 0.4 mg/dL (0.2-1.3); Blood Urea Nitrogen 15 mg/dL (7-17); Calcium 9.5 mg/dL (8.4-10.2); Carbon Dioxide 28 mmol/L (22-30); Chloride 104 mmol/L (98-107); Estimated CRCL calculation 21 ml/min; Estimated Glomerular Filt Rate 40; Glucose 164 mg/dL (65-105); Lipase 83 U/L (23-300); Potassium 3.8 mmol/L (3.4-5.0); Sodium 142 mmol/L (137-145)
[2020-07-30] MEDS: ONDANSETRON INJ 4 MG/2 ML VIAL IV PUSH ×4 (13:19→23:59)
[2020-07-30 13:26] LABS: Lactic Acid Reflex 1.6 mmol/L (0.7-2.1)
--- NOTE | 2020-07-30 16:34 | ED.GENADULT ---
HPI - General Adult General Chief complaint: Nausea/Vomiting/Diarrhea Stated complaint: vomiting Time Seen by Provider: 07/30/20 12:10 Source: patient and family Mode of arrival: EMS Limitations: no limitations History of Present Illness HPI narrative: 75-year-old with a history of fibromyalgia, anxiety disorder, hypertension, CHF here with complaints of nausea and vomiting since yesterday. states that she is unable to keep any fluids down. Patient has been states that she was admitted to the hospital with similar complaints a few weeks ago. She denies any chest pain or shortness of breath at this time. Onset (ago): day(s) (2) Severity: moderate Exacerbating factors: none Treatments prior to arrival: none Related Data Home Medications Medication Instructions Recorded Confirmed cholecalciferol (vitamin D3) 25 1,000 unit PO DAILY 08/29/19 05/05/20 mcg (1,000 unit) capsule magnesium 250 mg tablet 250 mg PO DAILY 08/29/19 05/05/20 prednisone 5 mg tablet 5 mg PO DAILY 08/29/19 05/05/20 sirolimus 2 mg tablet 2 mg PO DAILY 08/29/19 05/05/20 furosemide 20 mg tablet 10 mg PO DAILY tablet 02/26/20 05/05/20 calcium carbonate [Calcium 600] 600 mg PO DAILY 05/05/20 05/05/20 cyanocobalamin (vitamin B-12) 500 mcg PO DAILY 05/05/20 05/05/20 [Vitamin B-12] potassium gluconate 99 mg PO DAILY 05/05/20 05/05/20 vitamin E (dl, acetate) 400 unit PO DAILY 05/05/20 05/05/20 carvedilol 07/04/20 hydroxyzine HCl 07/04/20 Allergies Allergy/AdvReac Type Severity Reaction Status Date / Time iodine Allergy Severe anaphlaxis Verified 07/30/20 12:19 aspirin Allergy Mild Unknown Verified 07/30/20 12:19 erythromycin base Allergy Mild Unknown Verified 07/30/20 12:19 blood thinners Allergy Intermediate pt bleeds Uncoded 07/30/20 12:19 out Review of Systems Review of Systems: All systems reviewed & are unremarkable except as noted in HPI and below Constitutional: Constitutional: Reports no additional constitutional complaints Eyes: Eyes: Reports no additional eye complaints Cardiovascular: Cardiovascular: Reports no additional cardiovascular complaints Respiratory: Respiratory: Reports no additional respiratory complaints Gastrointestinal: Gastrointestinal: Reports as per HPI Musculoskeletal: Musculoskeletal: Reports no additional musculoskeletal complaints Neurologic: Reports system reviewed and no additional complaints, except as documented [facility] Past Medical History Medical History (Updated 07/30/20 @ 16:43 by Brendan Aparicio MD) Arthritis Cerebrovascular accident CT evidence of prior CVAs. Chronic anemia Chronic kidney disease, stage 3 Creatinine runs between 1.2 and 1.60. Chronic pain Secondary to fibromyalgia, for which she uses CBD oil. Clostridium difficile diarrhea July and August 2017 as well as October 2017. Congestive heart failure Echocardiogram in November 2019 showed mildly reduced LV systolic function with an ejection fraction estimated at 40 to 45%, akinetic anteroapical segment, mild aortic valve sclerosis and regurgitation, as well as mild left atrial enlargement. Depression with anxiety Essential hypertension Fibromyalgia Fractures Right humerus. Gastroesophageal reflux disease GI bleed (~11/2018) [place] to be due to possible Jayne-Pitts tear from dry heaves and vomiting; no EGD performed. Hypertriglyceridemia Immunocompromised patient On anti-rejection medications status post liver transplant Insomnia Kidney stones Osteoporosis Paroxysmal atrial fibrillation Primary biliary cirrhosis Status post liver transplant x2. Surgical History Surgical History Finger joint replacement of right hand Right 2nd finger PIP joint replacement. History of arthroscopy of left shoulder History of colonoscopy History of esophagogastroduodenoscopy (EGD) History of hysterectomy History of liver transplant (~1999) X2. History of nasal surgery
--- NOTE | 2020-07-30 17:22 | PC.NURSE ---
Called to give report. Was told that Dayan was going to get pt and she was looking at [facility]. Will call me when done.
--- NOTE | 2020-07-30 17:50 | PC.NURSE ---
1750 This patient, Jia Walter, was admitted to 3 [facility] Surg Room 310-01. Patient/family oriented to hospital policies and general routines including ID bracelet, bed and alarms, visiting hours, pain management, procedures, bathroom and other care routines, personal items, smoking policy, room service/diet, and visiting hours. Valuables list has been completed. Information on how to activate the Rapid Response Team has been discussed. Patient/Family are encouraged to report perceived risks to care and to ask questions if they do not understand what they are told or what they should do.
[2020-07-30] MEDS: SODIUM CHLORIDE 0.9% IV 1,000 ML 125 ML IV CONT (20:23)
--- NOTE | 2020-07-30 21:48 | PM.IMHP ---
H&P: HPI History of Present Illness Date/Time: 07/30/20 21:48 Chief complaint: intractable nausea and vomiting Narrative: Jia Walter is a 75 year old female who has a history of having a liver transplant x2 and has been on anti rejection medication. The patient was last admitted here in April and she was discharged May 06 of this year. She was admitted on the 15 of that month. The patient typically sees a GI specialist at [facility]. She has a history of cyclic vomiting with cannabis hyperemesis. The patient has fibromyalgia and still continues to smoke marijuana. The patient had some mild dehydration back in April and she had a diagnosis of nonobstructing small-bowel intussusception in the right lower quadrant in the patient refused to have any type of treatment. She was recommended to have NG tube and repeat x-ray series but she refused to have those studies performed she was seen by surgery here at that time. She was hydrated given anti nausea medicine and sent home within 24 hours. In today because she was unable to keep any fluids down. Patient has not had any chest pain or shortness of breath at this time. Patient is afebrile. H&H is 9.3 and 30.5. White count 13.4. CT of the abdomen and pelvis was read as wall thickening at the distal esophagus consistent with esophagitis. Chronic wall thickening at the gastric antrum could be due to gastritis, peptic ulcer disease or artificial apparent due to peristalsis. Chronic 1.4 cm splenic artery aneurysm. On Zofran and IV fluids. She was started on IV Pepcid as well. And her glucose was 164. Date of service 07/30/2020. Review of Systems Review of Systems: All systems reviewed & are unremarkable except as noted in HPI and below Constitutional: Constitutional: Reports as per HPI and Reports no additional constitutional complaints Eyes: Eyes: Reports as per HPI and Reports no additional eye complaints ENT: Reports system reviewed and no additional complaints, except as documented and Reports Normal hearing present Cardiovascular: Cardiovascular: Reports no additional cardiovascular complaints Respiratory: Respiratory: Reports no additional respiratory complaints and Reports no additional respiratory complaints Gastrointestinal: Gastrointestinal: Reports as per HPI and Reports no additional gastrointestinal complaints Musculoskeletal: Musculoskeletal: Reports no additional musculoskeletal complaints Integumentary/Breasts: Skin/Breast: Reports system reviewed and no additional complaints, except as docu and Reports as per HPI Neurologic: Reports system reviewed and no additional complaints, except as documented, Reports as per HPI and Reports Normal hearing present Psychiatric: Psychiatric: Reports no additional psychiatric complaints and Reports as per HPI Endocrine: Endocrine: Reports no additional endocrine complaints Hematologic/Lymphatic: Hematologic/Lymphatic: Reports no additional hematologic/lymphatic complaints Allergic/Immunologic: Allergic/Immunologic: Reports no additional allergic/immunologic complaints [facility] Past Medical History Medical History (Updated 07/30/20 @ 22:14 by Francie Obrien NP) Arthritis Cerebrovascular accident CT evidence of prior CVAs. Chronic anemia Chronic kidney disease, stage 3 Creatinine runs between 1.2 and 1.60. Chronic pain Secondary to fibromyalgia, for which she uses CBD oil. Chronic renal failure, stage 3b Clostridium difficile diarrhea July and August 2017 as well as October 2017. Congestive heart failure Echocardiogram in November 2019 showed mildly reduced LV systolic function with an ejection fraction estimated at 40 to 45%, akinetic anteroapical segment, mild aortic valve sclerosis and regurgitation, as well as mild left atrial enlargement. Depression with anxiety Essential hypertension Fibromyalgia Fractures Right humerus. Gastroesophageal reflux disease GI bleed (~11/2018) [place] to be due to poss
[2020-07-30] MEDS: FAMOTIDINE 20 MG/2 ML VIAL IV PUSH (22:04)
[2020-07-30] MEDS: METOPROLOL TARTRATE 25 MG TABLET PO (23:58)
[2020-07-30] MEDS: ACETAMINOPHEN 325 MG TABLET 650 MG PO (23:59)
[2020-07-31 04:58] LABS: Basophils Percent Auto 0.5 % (0.2-1.2); Eosinophils Absolute Auto 0.1 K/mm3 (0-0.3); Eosinophils Percent Auto 0.8 % (0-4.4); Hematocrit 24.4 % (37.0-47.0); Hemoglobin 7.5 g/dL (12.0-15.0); Immature Granulocyte Absolute 0.04 K/mm3 (0.00-0.031); Immature Granulocyte Percent A 0.5 % (0-0.5); Lymphocytes Percent Auto 27.7 % (18.3-44.2); Mean Corpuscular HGB Conc 30.7 g/dl (32-36); Mean Corpuscular Hemoglobin 22.7 pg (26-34); Mean Corpuscular Volume 73.9 fl (80-100); Mean Platelet Volume 10.3 fl (7.4-10.4); Monocytes Absolute Auto 0.8 K/mm3 (0.1-0.6); Monocytes Percent Auto 9.7 % (2.6-8.5); Neutrophils Absolute Auto 5.3 K/mm3 (1.3-6.7); Neutrophils Percent Auto 60.8 % (45.5-73.1); Platelet Count Result 203 k/mm3 (150-375); Red Cell Distribution Width 17.4 % (11.5-14.5); White Blood Count 8.7 K/mm3 (4.5-10.0)
[2020-07-31 05:25] LABS: Anion Gap 5 mmol/L (8-16); Blood Urea Nitrogen 14 mg/dL (7-17); Calcium 8.3 mg/dL (8.4-10.2); Carbon Dioxide 28 mmol/L (22-30); Chloride 107 mmol/L (98-107); Estimated CRCL calculation 22 ml/min; Estimated Glomerular Filt Rate 40; Glucose 96 mg/dL (65-105); Lipase 32 U/L (23-300); Sodium 140 mmol/L (137-145)
[2020-07-31 06:00] VITALS: BP 175/55; PULSE 79; RESP 16; TEMP 37; O2SAT 100
[2020-07-31 06:43] VITALS: PULSE 80
[2020-07-31] MEDS: ONDANSETRON INJ 4 MG/2 ML VIAL IV PUSH (06:43)
[2020-07-31] MEDS: METOPROLOL TARTRATE 25 MG TABLET PO ×2 (06:43→14:19)
[2020-07-31] MEDS: SODIUM CHLORIDE 0.9% IV 1,000 ML 125 ML IV CONT (06:50)
[2020-07-31 07:56] LABS: Hemoglobin A1C 5.5 % (<5.7)
[2020-07-31 08:00] VITALS: PULSE 80; RESP 16; O2SAT 100
[2020-07-31] MEDS: predniSONE 5 MG TABLET PO (08:23)
[2020-07-31 12:44] LABS: Hemoglobin 8.2 g/dL (12.0-15.0)
--- NOTE | 2020-07-31 13:54 | PHAR ---
HOMEMED VERIFIED = MEDVANTIX RX [id number] RAPAMUNE 2MG 1 TAB DAILY
[2020-07-31 14:00] VITALS: BP 169/48; PULSE 73; RESP 16; TEMP 36.8; O2SAT 99
[2020-07-31 14:19] VITALS: PULSE 71
--- NOTE | 2020-07-31 14:40 | PM.DS ---
DS: Admitting Diagnosis Admitting Diagnosis Admitting Diagnosis: intractable nausea and vomiting DS: Discharge Diagnosis Discharge Diagnosis (1) Intractable nausea and vomiting: Code(s): R11.2 - Nausea with vomiting, unspecified Status: Resolved Assessment and Plan: Date of Admission 07/30/20 Date of Discharge/DOS 07/31/20 Ms. Walter is a 75yo F with history of a cyclic vomiting syndrome with cannabis hyperemesis syndrome with continued marijuana use, fibromyalgia, history of liver transplant on anti-rejection medication, history of GI bleed who presented to the ED for evaluation of intractable nausea and vomiting. CT abdomen/pelvis showed walk thickening at the distal esophagus consistent with esophagitis, chronic wall thickening at the gastric antrum. She was treated supportively with IV hydration and antiemetics. She is feeling much improved the following morning and is eager for discharge. Hgb was as low as 7.5, up to 8.2 later this afternoon. She has no evidence of acute bleeding at this time. She denies nausea and has not had any vomiting today. She was started on Pepcid for esophagitis. She is hemodynamically stable for discharge today on 07/31/2020 with instructions to follow-up with PCP in 1 week. Repeat CBC in 1 week. Patient has history of cannabinoid hyperemesis syndrome. She does still continue to smoke marijuana which she notes helps with her fibromyalgia pain. She follows with GI specialist at [facility]. Started on Pepcid given possible esophagitis based on imaging. (2) Cannabinoid hyperemesis syndrome: Code(s): F12.988 - Cannabis use, unspecified with other cannabis-induced disorder Status: Chronic (3) Chronic kidney disease, stage 3: Qualifiers: Chronic kidney disease stage 3 subtype: unspecified whether 3a or 3b Qualified Code(s): N18.30 - Chronic kidney disease, stage 3 unspecified Code(s): N18.3 - Chronic kidney disease, stage 3 (moderate) Status: Chronic Assessment and Plan: Cr of 1.3 on day of discharge, stable at her baseline. (4) Fibromyalgia: Code(s): M79.7 - Fibromyalgia Status: Chronic (5) Hypertriglyceridemia: Code(s): E78.1 - Pure hyperglyceridemia Status: Chronic (6) Essential hypertension: Code(s): I10 - Essential (primary) hypertension Status: Chronic Assessment and Plan: Blood pressure is elevated likely secondary to acute illness. Resume her home antihypertensives. (7) Congestive heart failure: Qualifiers: Heart failure chronicity: unspecified Heart failure type: diastolic Qualified Code(s): I50.30 - Unspecified diastolic (congestive) heart failure Code(s): I50.9 - Heart failure, unspecified Status: Chronic Assessment and Plan: Appears well compensated at this time. Continue home regimen. (8) Paroxysmal atrial fibrillation: Code(s): I48.0 - Paroxysmal atrial fibrillation Status: Chronic Assessment and Plan: In sinus rhythm here. Continue her home medications. (9) Immunocompromised patient: Code(s): D89.9 - Disorder involving the immune mechanism, unspecified Status: Chronic Assessment and Plan: Continue with patient's prednisone and anti-rejection medication sirolimus. DS: Summary Time Spent with Patient Time attestation: Total time spent providing and/or coordinating discharge services: 35 minutes Exam Narrative: Exam Narrative: General: Well-appearing female resting sitting up in bed in no acute distress. HEENT: Normocephalic, EOMI, oral mucosa moist. Cardiovascular: Rate and rhythm are regular. Respiratory: Lungs clear to auscultation all gonzalez. Non-labored breathing. Abdomen: Soft, non-tender, non-distended, bowel sounds present. Extremities: Peripheral pulses intact. No edema. Neuro:
== END 2020-07-31 16:00 | disposition home or self-care (01) ==
LOC: ANHED 16:43 → ANH3MEDSUR 17:05
PROVIDERS: Nurse Practitioner; Physician Assistant; Admitting Provider Internal Medicine; Emergency Provider Family Medicine; Visit Provider Family Medicine
DX: R11.2 Nausea with vomiting, unspecified (principal); F12.988 Cannabis use, unspecified with other cannabis-induced disorder; I12.9 Hypertensive chronic kidney disease with stage 1 through stage 4 chronic kidney disease, or unspecified chronic kidney disease; N18.32 Chronic kidney disease, stage 3b; M79.7 Fibromyalgia; R19.7 Diarrhea, unspecified; F41.9 Anxiety disorder, unspecified; I50.9 Heart failure, unspecified; Z86.73 Personal history of transient ischemic attack (TIA), and cerebral infarction without residual deficits; D64.89 Other specified anemias; F41.8 Other specified anxiety disorders; K21.9 Gastro-esophageal reflux disease without esophagitis; E78.1 Pure hyperglyceridemia; D84.9 Immunodeficiency, unspecified; Z94.4 Liver transplant status; K74.4 Secondary biliary cirrhosis; Z87.891 Personal history of nicotine dependence; R93.3 Abnormal findings on diagnostic imaging of other parts of digestive tract; I72.8 Aneurysm of other specified arteries; I48.0 Paroxysmal atrial fibrillation; D64.9 Anemia, unspecified; D89.9 Disorder involving the immune mechanism, unspecified
CPT/HCPCS: 36415; 74176; 80048; 80053; 81001; 83036; 83605; 83690; 85014; 85018; 85025; 96361; 96374; 96375; 96376; 99285; A9270; G0378; J2405; J7030; J7512

== ENCOUNTER 2020-08-01 11:44 | Emergency (ER) | payer MEDICARE, SELFPAY ==
[2020-08-01 11:53] VITALS: BP 148/77; PULSE 142; RESP 18; TEMP 36.8; O2SAT 100
--- NOTE | 2020-08-01 11:57 | ECG_ITS ---
Measurements Intervals [place] Rate: 144 P: [place]: 0 QRS: 75 QRSD: 78 T: 0 QT: 246 QTc: 381 Interpretive Statements ATRIAL FLUTTER/TACHYCARDIA WITH RAPID VENTRICULAR RESPONSE ST-T WAVE ABNORMALITY IN ANTEROLAT/INF LEADS- CONSIDER ISCHEMIA ABNORMAL ECG Electronically Signed On 08-01-2020 15:58:49 CDT by Krystian Lancaster D.O.
[2020-08-01 12:30] LABS: Basophils Absolute Auto 0.1 K/mm3 (0.0-0.1); Basophils Percent Auto 1.1 % (0.2-1.2); Eosinophils Absolute Auto 0.2 K/mm3 (0-0.3); Eosinophils Percent Auto 2.5 % (0-4.4); Hematocrit 30.7 % (37.0-47.0); Hemoglobin 9.4 g/dL (12.0-15.0); Immature Granulocyte Absolute 0.05 K/mm3 (0.00-0.031); Immature Granulocyte Percent A 0.6 % (0-0.5); Lymphocytes Absolute Auto 2.41 K/mm3 (0.9-3.2); Lymphocytes Percent Auto 30.2 % (18.3-44.2); Mean Corpuscular HGB Conc 30.6 g/dl (32-36); Mean Corpuscular Hemoglobin 22.8 pg (26-34); Mean Corpuscular Volume 74.5 fl (80-100); Mean Platelet Volume 10.1 fl (7.4-10.4); Monocytes Absolute Auto 0.6 K/mm3 (0.1-0.6); Monocytes Percent Auto 7.5 % (2.6-8.5); Neutrophils Absolute Auto 4.6 K/mm3 (1.3-6.7); Neutrophils Percent Auto 58.1 % (45.5-73.1); Platelet Count Result 258 k/mm3 (150-375); Red Blood Count 4.12 M/mm3 (4.2-5.4); Red Cell Distribution Width 17.6 % (11.5-14.5)
[2020-08-01 12:44] LABS: Alanine Aminotransferase 19 U/L (4-35); Albumin Level 4.3 g/dL (3.5-5.1); Alkaline Phosphatase 79 U/L (38-126); Anion Gap 10 mmol/L (8-16); Aspartate Amino Transferase 44 U/L (14-36); Bilirubin,Total 0.7 mg/dL (0.2-1.3); Blood Urea Nitrogen 17 mg/dL (7-17); Calcium 9.5 mg/dL (8.4-10.2); Carbon Dioxide 24 mmol/L (22-30); Chloride 105 mmol/L (98-107); Estimated CRCL calculation 21 ml/min; Estimated Glomerular Filt Rate 37; Glucose 135 mg/dL (65-105); Sodium 139 mmol/L (137-145)
[2020-08-01 12:54] LABS: Troponin I 0.023 ng/mL (0.000-0.034)
--- NOTE | 2020-08-01 13:16 | ED.GENADULT ---
HPI - General Adult General Chief complaint: Arrhythmia/Palpitations Stated complaint: Heart Racing Time Seen by Provider: 08/01/20 12:14 Source: patient History of Present Illness HPI narrative: Patient is a 75 y/o female complaining of fast heart rate starting this morning approximately 2 1/2 hours. She states that her HR was in 140s. There is no alleviating or exacerbating factor. She has no chest pain, but has some shortness of breath. She has no dizziness or syncope. She states that she has history of A fib and she is on Metoprolol. She is not anticoagulated due to history of GI bleed and she does not want to take any blood thinners. Of note, she also has history of liver transplant., Related Data Home Medications Medication Instructions Recorded Confirmed cholecalciferol (vitamin D3) 25 1,000 unit PO DAILY 08/29/19 07/30/20 mcg (1,000 unit) capsule magnesium 250 mg tablet 250 mg PO DAILY 08/29/19 07/30/20 prednisone 5 mg tablet 5 mg PO DAILY 08/29/19 07/30/20 sirolimus 2 mg tablet 2 mg PO DAILY 08/29/19 07/30/20 furosemide 20 mg tablet 10 mg PO DAILY tablet 02/26/20 07/30/20 calcium carbonate [Calcium 600] 600 mg PO DAILY 05/05/20 07/30/20 cyanocobalamin (vitamin B-12) 500 mcg PO DAILY 05/05/20 07/30/20 [Vitamin B-12] potassium gluconate 99 mg PO DAILY 05/05/20 07/30/20 vitamin E (dl, acetate) 400 unit PO DAILY 05/05/20 07/30/20 Allergies Allergy/AdvReac Type Severity Reaction Status Date / Time iodine Allergy Severe anaphlaxis Verified 07/30/20 12:19 aspirin Allergy Mild Unknown Verified 07/30/20 12:19 erythromycin base Allergy Mild Unknown Verified 07/30/20 12:19 blood thinners Allergy Intermediate pt bleeds Uncoded 07/30/20 12:19 out Review of Systems Constitutional: Constitutional: Denies chills, Denies fever(s), Denies headache(s) and Denies weakness Eyes: Eyes: Denies blurry vision ENT: Denies headache(s) and Denies neck pain Cardiovascular: Cardiovascular: Denies chest pain, Reports rapid heart rate and Reports dyspnea Respiratory: Respiratory: Denies cough and Reports dyspnea Gastrointestinal: Gastrointestinal: Denies abdominal pain, Denies diarrhea, Denies nausea and Denies vomiting Genitourinary: Genitourinary: Denies hematuria and Denies dysuria Musculoskeletal: Musculoskeletal: Denies back pain and Denies neck pain Neurologic: Denies headache(s) and Denies weakness [facility] Past Medical History Medical History Arthritis Cerebrovascular accident CT evidence of prior CVAs. Chronic anemia Chronic kidney disease, stage 3 Creatinine runs between 1.2 and 1.60. Chronic pain Secondary to fibromyalgia, for which she uses CBD oil. Chronic renal failure, stage 3b Clostridium difficile diarrhea July and August 2017 as well as October 2017. Congestive heart failure Echocardiogram in November 2019 showed mildly reduced LV systolic function with an ejection fraction estimated at 40 to 45%, akinetic anteroapical segment, mild aortic valve sclerosis and regurgitation, as well as mild left atrial enlargement. Depression with anxiety Essential hypertension Fibromyalgia Fractures Right humerus. Gastroesophageal reflux disease GI bleed (~11/2018) Hawley to be due to possible Jayne-Pitts tear from dry heaves and vomiting; no EGD performed. Hypertriglyceridemia Immunocompromised patient On anti-rejection medications status post liver transplant Insomnia Kidney stones Osteoporosis Paroxysmal atrial fibrillation Primary biliary cirrhosis Status post liver transplant x2. Surgical History Surgical History Finger joint replacement of right hand Right 2nd finger PIP joint replacement. History of arthroscopy of left shoulder History of colonoscopy History of esophagogastroduodenoscopy (EGD) History of hysterectomy History of liver transplant (~1999) X2. History of nasal surgery Hx of a
[2020-08-01] MEDS: dilTIAZem HCl INJ 25 MG/5 ML VIAL 10 MG IV PUSH (13:21)
[2020-08-01 13:24] VITALS: BP 124/86; PULSE 67; RESP 20; O2SAT 98
--- NOTE | 2020-08-01 13:31 | PC.NURSE ---
Pt received 5mg of Cardizem IVP and converted into a sinus rhythm, edp aware and repeat EKG obtained.
--- NOTE | 2020-08-01 13:32 | ECG_ITS ---
Measurements Intervals [place] Rate: 61 P: 65 [place]: 150 QRS: 67 QRSD: 68 T: 89 QT: 404 QTc: 410 Interpretive Statements SINUS RHYTHM ST ABNORMALITY IN ANTEROLATERAL LEADS- CONSIDER ISCHEMIA ABNORMAL ECG Electronically Signed On 08-01-2020 16:01:35 CDT by Krystian Lancaster D.O.
[2020-08-01 14:50] VITALS: BP 161/54; PULSE 85; RESP 18; TEMP 36.7; O2SAT 97
[2020-08-01 16:18] VITALS: BP 155/57; PULSE 72; RESP 18
[2020-08-01] MEDS: ONDANSETRON INJ 4 MG/2 ML VIAL (16:18)
[2020-08-01 16:32] LABS: Troponin I 0.026 ng/mL (0.000-0.034)
[2020-08-01 18:09] VITALS: BP 145/74; PULSE 70; RESP 18; TEMP 36.8; O2SAT 99
== END 2020-08-01 18:10 | disposition home or self-care (01) ==
PROVIDERS: Emergency Provider Emergency Medicine
DX: I48.0 Paroxysmal atrial fibrillation (principal); Z94.4 Liver transplant status; M19.90 Unspecified osteoarthritis, unspecified site; Z86.73 Personal history of transient ischemic attack (TIA), and cerebral infarction without residual deficits; I13.0 Hypertensive heart and chronic kidney disease with heart failure and stage 1 through stage 4 chronic kidney disease, or unspecified chronic kidney disease; N18.32 Chronic kidney disease, stage 3b; M79.7 Fibromyalgia; K21.9 Gastro-esophageal reflux disease without esophagitis; Z87.442 Personal history of urinary calculi; M81.0 Age-related osteoporosis without current pathological fracture; K74.5 Biliary cirrhosis, unspecified; Z96.691 Finger-joint replacement of right hand; Z87.891 Personal history of nicotine dependence
CPT/HCPCS: 36415; 80053; 84443; 84484; 85025; 93005; 96374; 96375; 99284; J2405

== ENCOUNTER 2020-08-11 17:33 | Outpatient (CLI) | payer MEDICARE, SELFPAY ==
[2020-08-11 18:09] LABS: Basophils Absolute Auto 0.1 K/mm3 (0.0-0.1); Basophils Percent Auto 0.7 % (0.2-1.2); Eosinophils Percent Auto 0.1 % (0-4.4); Hematocrit 28.7 % (37.0-47.0); Hemoglobin 8.7 g/dL (12.0-15.0); Immature Granulocyte Absolute 0.04 K/mm3 (0.00-0.031); Immature Granulocyte Percent A 0.5 % (0-0.5); Lymphocytes Absolute Auto 1.73 K/mm3 (0.9-3.2); Mean Corpuscular HGB Conc 30.3 g/dl (32-36); Mean Corpuscular Hemoglobin 22.4 pg (26-34); Mean Corpuscular Volume 73.8 fl (80-100); Mean Platelet Volume 9.5 fl (7.4-10.4); Monocytes Absolute Auto 0.3 K/mm3 (0.1-0.6); Neutrophils Absolute Auto 5.4 K/mm3 (1.3-6.7); Neutrophils Percent Auto 71.7 % (45.5-73.1); Platelet Count Result 313 k/mm3 (150-375); Red Blood Count 3.89 M/mm3 (4.2-5.4); Red Cell Distribution Width 17.3 % (11.5-14.5); White Blood Count 7.5 K/mm3 (4.5-10.0)
== END 2020-08-11 17:34 | disposition home or self-care (01) ==
PROVIDERS: Visit Provider Internal Medicine Cardiovascular Disease
DX: R63.4 Abnormal weight loss (principal); R53.1 Weakness; Z87.19 Personal history of other diseases of the digestive system; Z86.79 Personal history of other diseases of the circulatory system
CPT/HCPCS: 36415; 84443; 85025

== ENCOUNTER 2020-08-12 11:32 | Observation (INO) | payer MEDICARE, SELFPAY ==
[2020-08-12] VITALS (19 sets, daily range): BP systolic 128–189; BP diastolic 41–77; PULSE 72–109; RESP 12–31; TEMP 36.3–36.6; O2SAT 92–100; BMI 15.5
--- NOTE | ~2020-08-12 | US_ITS ---
EXAMINATION: US retroperitoneal duplex ltd EXAM DATE: 08/13/2020 16:05 INDICATION: HTN; eval for renal artery stenosis . TECHNIQUE: Multiple grayscale and Doppler images of the kidneys and renal arteries were obtained. T here is no prior study for comparison. FINDINGS: There is mild bilateral renal atrophy. No hydronephrosis. The aorta peak systolic velocity is 138 cm/s. The right renal artery peak systolic velocity is 126 cm/s in the proximal segment, 117 c m/s in the mid segment, and 117 cm/s in the distal segment. The left renal artery peak systolic veloc ity is 103 cm/s in the proximal segment, 117 cm/s in the mid segment, and 117 cm/s in the distal segm ent. IMPRESSION: 1. Renal artery Doppler velocities within normal limits. Reviewed, dictated and finalized at location A.
--- NOTE | ~2020-08-12 | US_ITS ---
EXAMINATION: US aorta DATE: 08/13/2020 16:13 CDT INDICATION: Aortic atherosclerosis TECHNIQUE: Grayscale, color Doppler, and pulsed Doppler images of the aorta and common iliac arteries were obtained. COMPARISON: None. FINDINGS: There is diffuse atherosclerosis of the aorta. The proximal aorta measures 1 cm greatest sagittal dim ension. The mid aorta measures 9 mm greatest sagittal dimension. The distal aorta measures 6 mm great est sagittal dimension. The right common internal iliac artery measures 0.6. The left common iliac ar jeanna measures 0.6. IMPRESSION: 1. Diffuse atherosclerosis of the aorta with fusiform narrowing. No evidence for aneurysm. Reviewed, dictated and finalized at location B. IMPRESSION: 1. Diffuse atherosclerosis of the aorta with fusiform narrowing. No evidence fo r aneurysm.
--- NOTE | ~2020-08-12 | XR_ITS ---
EXAMINATION: XR chest 2V 08/12/2020 13:23 INDICATION: Hypertension. Disorientation. PROCEDURE: 2 view chest COMPARISON: Comparison to multiple prior studies sequentially, with oldest reviewed study dated 05/2019. FINDINGS: The lungs are clear. The lungs are hyperinflated which is consistent with, but not diagnost ic of chronic obstructive pulmonary disease. There is atherosclerosis of the aorta. The cardiomediast inal silhouette is within normal limits. There are no pleural effusions. There is no pneumothorax s uspected. IMPRESSION: 1: NO ACUTE CARDIOPULMONARY DISEASE. Reviewed, dictated and finalized at location B.
--- NOTE | 2020-08-12 11:48 | ECG_ITS ---
Measurements Intervals [place] Rate: 86 P: 68 [place]: 163 QRS: 60 QRSD: 65 T: 114 QT: 360 QTc: 432 Interpretive Statements SINUS RHYTHM CANNOT RULE OUT SEPTAL INFARCT, AGE INDETERMINATE ST ABNORMALITY IN ANTEROLATINF LEADS- CONSIDER ISCHEMIA BASELINE ARTIFACT- I, III, AVR, AVL, AVF, V1 ABNORMAL ECG Electronically Signed On 08-12-2020 11:53:47 CDT by Krystian Lancaster D.O.
[2020-08-12 12:18] LABS: Basophils Absolute Auto 0.1 K/mm3 (0.0-0.1); Basophils Percent Auto 0.7 % (0.2-1.2); Eosinophils Absolute Auto 0.2 K/mm3 (0-0.3); Eosinophils Percent Auto 1.9 % (0-4.4); Hematocrit 28.2 % (37.0-47.0); Hemoglobin 8.6 g/dL (12.0-15.0); Immature Granulocyte Absolute 0.06 K/mm3 (0.00-0.031); Immature Granulocyte Percent A 0.7 % (0-0.5); Lymphocytes Absolute Auto 2.08 K/mm3 (0.9-3.2); Lymphocytes Percent Auto 23.1 % (18.3-44.2); Mean Corpuscular HGB Conc 30.5 g/dl (32-36); Mean Corpuscular Hemoglobin 23.1 pg (26-34); Mean Corpuscular Volume 75.6 fl (80-100); Mean Platelet Volume 9.5 fl (7.4-10.4); Monocytes Absolute Auto 0.8 K/mm3 (0.1-0.6); Monocytes Percent Auto 8.7 % (2.6-8.5); Neutrophils Absolute Auto 5.9 K/mm3 (1.3-6.7); Neutrophils Percent Auto 64.9 % (45.5-73.1); Platelet Count Result 302 k/mm3 (150-375); Red Blood Count 3.73 M/mm3 (4.2-5.4); Red Cell Distribution Width 17.3 % (11.5-14.5)
[2020-08-12 12:31] LABS: Alanine Aminotransferase 17 U/L (4-35); Albumin Level 3.7 g/dL (3.5-5.1); Alkaline Phosphatase 83 U/L (38-126); Anion Gap 8 mmol/L (8-16); Aspartate Amino Transferase 30 U/L (14-36); Bilirubin,Total 0.4 mg/dL (0.2-1.3); Blood Urea Nitrogen 18 mg/dL (7-17); Calcium 8.9 mg/dL (8.4-10.2); Carbon Dioxide 27 mmol/L (22-30); Chloride 105 mmol/L (98-107); Estimated CRCL calculation 19 ml/min; Estimated Glomerular Filt Rate 34; Glucose 113 mg/dL (65-105); Potassium 3.7 mmol/L (3.4-5.0); Sodium 140 mmol/L (137-145)
--- NOTE | 2020-08-12 12:45 | PC.NURSE ---
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
--- NOTE | 2020-08-12 12:46 | ED.CHESTPAIN ---
HPI - Chest Pain General Chief Complaint: Weakness Stated Complaint: slurring words, htn, n/v Time Seen by Provider: 08/12/20 12:15 Source: patient Limitations: no limitations History of Present Illness HPI narrative: Patient is a 75 year-old female complaining of chest tightness, midsternal, moderate, nonradiating accompanied by nausea that started yesterday. Patient also complaining of her blood pressure being elevated this morning 240/150 and elevated heart rate. Patient states that her blood pressure is usually elevated in the morning. Patient states that she was recently diagnosed with atrial fib but cannot be on any oral anticoagulants or blood thinners due to I bleed out . Patient refused aspirin. Related Data Home Medications Medication Instructions Recorded Confirmed cholecalciferol (vitamin D3) 25 1,000 unit PO DAILY 08/29/19 08/09/20 mcg (1,000 unit) capsule magnesium 250 mg tablet 250 mg PO DAILY 08/29/19 08/09/20 prednisone 5 mg tablet 5 mg PO DAILY 08/29/19 08/09/20 sirolimus 2 mg tablet 2 mg PO DAILY 08/29/19 08/09/20 furosemide 20 mg tablet 10 mg PO DAILY tablet 02/26/20 08/09/20 calcium carbonate [Calcium 600] 600 mg PO DAILY 05/05/20 08/09/20 cyanocobalamin (vitamin B-12) 500 mcg PO DAILY 05/05/20 08/09/20 [Vitamin B-12] potassium gluconate 595 mg (99 mg) 99 mg PO BID tablet 08/09/20 08/09/20 tablet Allergies Allergy/AdvReac Type Severity Reaction Status Date / Time iodine Allergy Severe anaphlaxis Verified 08/12/20 11:49 aspirin Allergy Mild Unknown Verified 08/12/20 11:49 erythromycin base Allergy Mild Unknown Verified 08/12/20 11:49 blood thinners Allergy Intermediate pt bleeds Uncoded 08/09/20 11:42 out Review of Systems Review of Systems: All systems reviewed & are unremarkable except as noted in HPI and below Constitutional: Constitutional: Denies body ache(s), Denies chills, Denies excessive sweating, Denies fatigue, Denies fever(s), Denies headache(s), Denies lethargy, Denies malaise and Denies weight loss Eyes: Eyes: Denies blurry vision, Denies change in vision and Denies loss of vision ENT: Denies dizziness, Denies ear discharge, Denies headache(s), Denies lip swelling, Denies epistaxis, Denies nasal congestion, Denies neck pain, Denies throat swelling and Denies tongue swelling Cardiovascular: Cardiovascular: Denies diaphoresis, Denies edema, Denies irregular heart rhythm, Denies lightheadedness, Denies dyspnea and Denies dyspnea on exertion Respiratory: Respiratory: Denies chest congestion, Denies cough, Denies hemoptysis, Denies dyspnea and Denies dyspnea on exertion Gastrointestinal: Gastrointestinal: Denies abdominal pain, Denies melena, Denies hematochezia, Denies diarrhea, Denies nausea, Denies vomiting and Denies hematemesis Musculoskeletal: Musculoskeletal: Denies abnormal gait, Denies deformity, Denies joint swelling, Denies limited range of motion, Denies neck pain and Denies numbness Neurologic: Denies Abnormal speech present, Denies abnormal gait, Denies confusion, Denies dizziness, Denies headache(s), Denies focal weakness, Denies loss of vision, Denies numbness, Denies Other visual disturbances, Denies Sensory deficit (Neuro) and Denies weakness Psychiatric: Psychiatric: Denies confusion, Denies depression, Denies auditory hallucinations, Denies homicidal ideation and Denies suicidal ideation Endocrine: Endocrine: Denies cold intolerance, Denies excessive sweating, Denies fatigue, Denies heat intolerance and Denies palpitations Hematologic/Lymphatic: Hematologic/Lymphatic: Denies easy bleeding and Denies easy bruising Allergic/Immunologic: Allergic/Immunologic: Denies lip swelling, Denies throat swelling and Denies tongue swelling PMFSH Past Medical History Medical History Arthritis Cerebrovascular accident CT evidence of prior CVAs. Chronic anemia Chronic kidney disease, stage 3 Creatinine runs between 1.
[2020-08-12 13:09] LABS: INR 1.1; Partial Thromboplastin Time 26.4 SECONDS (22.3-36.8)
[2020-08-12 13:15] LABS: Troponin I < 0.012 ng/mL (0.000-0.034)
[2020-08-12] MEDS: LACTATED RINGERS 1,000 ML 250 ML IV CONT (13:44)
[2020-08-12] MEDS: ONDANSETRON INJ 4 MG/2 ML VIAL IV PUSH ×2 (13:45→16:11)
--- NOTE | 2020-08-12 13:45 | PC.NURSE ---
Pt telling this RN she will not be getting straight cathed. She states it was a horrible experience last time and im not doing it .
[2020-08-12 15:23] LABS: Add Urine Microscopic? YES; Appearance Urine Clear (Clear); Bilirubin Urine Negative (Negative); Blood Urine 1+ (Negative); Color Urine Straw (Yellow); Glucose Urine UA Negative (Negative); Ketones Urine Negative (Negative); Leukocyte Esterase Ur 1+ LEU/UL (Negative); Nitrate Urine Negative (Negative); Protein Urine Negative (Negative); Specific Grav Ur 1.009 (1.001-1.035); Squamous Epithelial Cell Urine Occasional /hpf (Few); Urobilinogen Urine Negative mg/dL (<2.0)
[2020-08-12 18:02] LABS: Troponin I 0.014 ng/mL (0.000-0.034)
--- NOTE | 2020-08-12 18:07 | ADMGEN ---
This patient, Jia Walter, was admitted to IMU Room 231-01. Patient/family oriented to hospital policies and general routines including ID bracelet, bed and alarms, visiting hours, pain management, procedures, bathroom and other care routines, personal items, smoking policy, room service/diet, and visiting hours. Information on how to activate the Rapid Response Team has been discussed. Patient/Family are encouraged to report perceived risks to care and to ask questions if they do not understand what they are told or what they should do.
[2020-08-12 20:39] LABS: Troponin I 0.013 ng/mL (0.000-0.034)
[2020-08-12] MEDS: ACETAMINOPHEN 325 MG TABLET 650 MG PO (21:20)
--- NOTE | 2020-08-12 23:22 | PM.IMHP ---
H&P: HPI History of Present Illness Date/Time: 08/12/20 23:22 Chief complaint: chest pain Narrative: Jia Walter is a 75 year old female who on 07/30/2020 she has a history of having liver transplant x2 in sees a specialist in [place]. She has a phone visit next month with her GI specialist. She was also admitted here in April of this year. She has a history of cyclic vomiting with cannabis hyperemesis. She has fibromyalgia and continues to smoke marijuana. The patient had a diagnosis of nonobstructing small-bowel intussusception in the right lower quadrant and she refused any type of treatment at that time. She refused to have NG tube at that time. Patient was treated conservatively at that point. The patient has a history of atrial fibrillation and was just seen by Dr. leslie yesterday. The patient was found to be in sinus rhythm yesterday. 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 She can't sleep. She drinks a lot of fluids. She feels palpitations almost daily and they usually last a minute or so. No lower extremity edema patient does have p.r.n. Lasix and took about a week ago. Patient's blood pressure has been lower than normal. The patient came in today with some midsternal moderate chest tightness nonradiating accompanied by nausea and vomiting and stated that her blood pressure was elevated this morning. The patient refused an aspirin today. Dr. leslie was consulted. Patient is in sinus rhythm Her creatinine is typically 1.5-1.4. Troponins are negative x3. Patient no longer has any complaints discomfort at this time. Chest x-ray was read as no acute cardiopulmonary disease. H&H is 8.6 and 28.2 lactated Ringer's and zofran. Date of service 08/12/2020 she is admitted as observation Review of Systems Review of Systems: All systems reviewed & are unremarkable except as noted in HPI and below Constitutional: Constitutional: Reports as per HPI and Reports no additional constitutional complaints Eyes: Eyes: Reports as per HPI and Reports no additional eye complaints ENT: Reports system reviewed and no additional complaints, except as documented and Reports Normal hearing present Cardiovascular: Cardiovascular: Reports no additional cardiovascular complaints Respiratory: Respiratory: Reports no additional respiratory complaints and Reports no additional respiratory complaints Gastrointestinal: Gastrointestinal: Reports as per HPI and Reports no additional gastrointestinal complaints Musculoskeletal: Musculoskeletal: Reports no additional musculoskeletal complaints Integumentary/Breasts: Skin/Breast: Reports system reviewed and no additional complaints, except as docu and Reports as per HPI Neurologic: Reports system reviewed and no additional complaints, except as documented, Reports as per HPI and Reports Normal hearing present Psychiatric: Psychiatric: Reports no additional psychiatric complaints and Reports as per HPI Endocrine: Endocrine: Reports no additional endocrine complaints Hematologic/Lymphatic: Hematologic/Lymphatic: Reports no additional hematologic/lymphatic complaints Allergic/Immunologic: Allergic/Immunologic: Reports no additional allergic/immunologic complaints PMFSH Past Medical History Medical History Arthritis Cerebrovascular accident CT evidence of prior CVAs. Chronic anemia Chronic kidney disease, stage 3 Creatinine runs between 1.2 and 1.60. Chronic pain Secondary to fibromyalgia, for which she uses CBD oil. Chronic renal failure, stage 3b Clostridium difficile diarrhea July and August 2017 as well as October 2017. Congestive heart failure Echocardiogram in November 2019 showed mildly reduced LV systolic function with an ejection fraction estimated at 40 to 45%, akinetic anteroapical segment, mild aortic valve sclerosis and regurgitation, as well
[2020-08-13] VITALS (15 sets, daily range): BP systolic 123–169; BP diastolic 46–85; PULSE 63–100; RESP 18; TEMP 36–36.9; O2SAT 71–100; BMI 16.4
[2020-08-13] MEDS: METOPROLOL TARTRATE 50 MG TAB PO ×3 (01:56→20:50)
[2020-08-13 05:40] LABS: Basophils Absolute Auto 0.1 K/mm3 (0.0-0.1); Eosinophils Absolute Auto 0.2 K/mm3 (0-0.3); Eosinophils Percent Auto 2.9 % (0-4.4); Hematocrit 24.7 % (37.0-47.0); Hemoglobin 7.5 g/dL (12.0-15.0); Immature Granulocyte Absolute 0.04 K/mm3 (0.00-0.031); Immature Granulocyte Percent A 0.6 % (0-0.5); Lymphocytes Absolute Auto 2.73 K/mm3 (0.9-3.2); Lymphocytes Percent Auto 39.3 % (18.3-44.2); Mean Corpuscular HGB Conc 30.4 g/dl (32-36); Mean Corpuscular Hemoglobin 22.5 pg (26-34); Mean Platelet Volume 10.1 fl (7.4-10.4); Monocytes Absolute Auto 0.7 K/mm3 (0.1-0.6); Monocytes Percent Auto 9.8 % (2.6-8.5); Neutrophils Absolute Auto 3.2 K/mm3 (1.3-6.7); Neutrophils Percent Auto 46.4 % (45.5-73.1); Platelet Count Result 274 k/mm3 (150-375); Red Blood Count 3.34 M/mm3 (4.2-5.4); Red Cell Distribution Width 17.3 % (11.5-14.5)
[2020-08-13 05:55] LABS: Alanine Aminotransferase 14 U/L (4-35); Alkaline Phosphatase 68 U/L (38-126); Anion Gap 0 mmol/L (8-16); Aspartate Amino Transferase 28 U/L (14-36); Bilirubin,Total 0.2 mg/dL (0.2-1.3); Blood Urea Nitrogen 18 mg/dL (7-17); Calcium 8.5 mg/dL (8.4-10.2); Carbon Dioxide 30 mmol/L (22-30); Chloride 106 mmol/L (98-107); Estimated CRCL calculation 19 ml/min; Estimated Glomerular Filt Rate 34; Glucose 96 mg/dL (65-105); Sodium 136 mmol/L (137-145)
[2020-08-13] MEDS: ONDANSETRON INJ 4 MG/2 ML VIAL IV PUSH (08:30)
[2020-08-13] MEDS: PANTOPRAZOLE SODIUM IV 40 MG VIAL IV PUSH ×2 (10:45→20:50)
[2020-08-13] MEDS: lisinopriL 20 MG TABLET PO (10:46)
--- NOTE | 2020-08-13 11:07 | PM.IMPN ---
Progress Note: A&P Assessment and Plan (1) Chest pain at rest: Code(s): R07.9 - Chest pain, unspecified Status: Resolved Assessment and Plan: Patient admitted for nonradiating chest tightness that has now resolved. Troponins negative x 3. May be related to cyclic vomiting and nausea although cannot rule out CAD based on some ST changes on EKG. She saw Dr Pulido in the office day prior to arrival 08/11. I have reviewed Dr Joyce's note and appreciate his recommendations. No further workup is planned at this current time. Patient adamantly declines a/c or antiplatelet therapy despite teaching by Dr Joyce. (2) Hypertension: Qualifiers: Hypertension type: unspecified Qualified Code(s): I10 - Essential (primary) hypertension Code(s): I10 - Essential (primary) hypertension Status: Chronic Assessment and Plan: Patient reports very elevated readings at home in the morning (systolics > 200mm Hg) then lower readings in the evening (systolics 90s). For now she remains on metoprolol tartrate, lisinopril, and lasix. Appreciate cardiology recommendations. Monitor BP. Abdominal aorta and renal artery ultrasound pending. (3) Nausea: Code(s): R11.0 - Nausea Status: Acute Assessment and Plan: Continues with intermittent nausea today, no vomiting thus far. She has a long history of a cyclic vomiting syndrome suspected related to cannabis hyperemesis. 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 She needs to follow up with these tertiary care specialists and has upcoming appointments to do so in the coming weeks. Continue promethazine and protonix. (4) Cannabinoid hyperemesis syndrome: Code(s): F12.988 - Cannabis use, unspecified with other cannabis-induced disorder Status: Chronic Assessment and Plan: Continue promethazine and protonix. (5) Anxiety: Code(s): F41.9 - Anxiety disorder, unspecified Status: Chronic Assessment and Plan: PRN ativan available. (6) Hypertriglyceridemia: Code(s): E78.1 - Pure hyperglyceridemia Status: Chronic Assessment and Plan: Continue home statin therapy. (7) Atrial fibrillation: Code(s): I48.91 - Unspecified atrial fibrillation Status: Chronic Assessment and Plan: Rate controlled in sinus rhythm on metoprolol tartrate. Dr Joyce recommends a/c for increased risk of embolic stroke based on [id number] score of 7 and prior evidence of an old CVA on imaging. Patient adamantly declines anticoagulation given her history of GI bleed. Subjective Date/time seen: 08/13/20 1030 Interval history: Ms. Walter is a 75yo F admitted for evaluation of chest tightness and nausea vomiting. She saw Dr Pulido in the office yesterday and has noted she felt terrible, felt like she was going to , feeling very weak. She is feeling a bit more like herself today. She denies any chest pain or shortness of breath at present. Nausea is still intermittent but no vomiting so far this morning. Review of Systems Review of Systems: All systems reviewed & are unremarkable except as noted in HPI and below Exam Narrative: Exam Narrative: General: Thin female resting comfortably in bed in no acute distress. HEENT: Normocephalic, EOMI, oral mucosa moist. Cardiovascular: Rate and rhythm are regular. Telemetry review shows rate controlled sinus rhythm. Respiratory: Lungs clear to auscultation all gonzalez. Non-labored breathing. Abdomen: Soft, non-tender, non-distended, bowel sounds present. Extremit
--- NOTE | 2020-08-13 12:02 | PM.CNCAR ---
Assessment and Plan Assessment and plan (1) Chest pain at rest: Code(s): R07.9 - Chest pain, unspecified Status: Acute Assessment and Plan: Atypical chest pain in the setting of uncontrolled hypertension, nausea vomiting now resolved. Ruled out for myocardial infarction negative serial troponin. Twelve lead EKG with nonspecific ST abnormality can't exclude ischemia. Discussed noninvasive ischemic evaluation, however, patient is adamant she will not take aspirin or other blood thinners . I reviewed the distinction with antiplatelet vs anticoagulant medications and respective general uses. She reports recurrence GI bleed on aspirin in the past. Explained potential for circumstantial risks that may not be present at this time however without further GI evaluation this cannot be confirmed. In other words, she may tolerate these medications as appropriate she is not willing to take this risk. As such, as she does not wish to proceed with invasive management and as she has a reported h/o anaphylaxis with IV contrast. Echocardiogram November 2019 concerning with mild LV dysfunction EF 40-45% with akinetic anteroseptum. We discussed the likelihood of underlying atherosclerosis given abdominal aortic atherosclerosis, echocardiographic findings and risk factors. Given the high likelihood patient has underlying CAD aggressive medical therapy would be advised including antiplatelet therapy. Continue metoprolol, pravastatin. Explained role ASA for atherosclerosis, likelihood of CAD, h/o CVA and limitations. Explained the need for DAPT if PCI/stent implantation with coronary angiography. We discussed even if we were to proceed with noninvasive evaluation given present circumstances we would be unable and/or she would be unwilling to proceed particularly without antiplatelet therapy. (2) Hypertension: Qualifiers: Hypertension type: unspecified Qualified Code(s): I10 - Essential (primary) hypertension Code(s): I10 - Essential (primary) hypertension Status: Acute Assessment and Plan: Labile, not ideal but reasonable control at this time. Monitor trend, adjustment of antihypertensives as appropriate. Ultrasound abdominal aorta and renal arterial duplex pending. (3) Cardiomyopathy: Code(s): I42.9 - Cardiomyopathy, unspecified Status: Acute (4) Paroxysmal atrial fibrillation: Code(s): I48.0 - Paroxysmal atrial fibrillation Status: Chronic Assessment and Plan: Maintaining sinus rhythm. Not an anticoagulation candidate due to history of GI bleed in the past and patient's refusal of antiplatelet/anticoagulant therapy. Certainly, GI evaluation and clarification of current bleeding risk would be advised prior to initiation. I explained risk for embolic stroke particularly in light of CT head evidence of prior old strokes dating back to 2018 in our system of which she was unaware. Given documentation of atrial fibrillation and atrial flutter this further elevates her risk. I advised systemic anticoagulation and reviewed these medications, however, as above she remains at significant increased risk for recurrent embolic stroke. CHADS2-Vasc score 7 placing pt at high risk for embolic CVA. She verbalized understanding. (5) Chronic renal failure, stage 3b: Code(s): N18.32 - Chronic kidney disease, stage 3b Status: Chronic Assessment and Plan: Stable, appears at baseline. (6) Anemia: Code(s): D64.9 - Anemia, unspecified Status: Acute Assessment and Plan: Stable. Follow H&H. No evidence of active bleed. (7) Nausea: Code(s): R11.0 - Nausea Status: Acute Assessment and Plan: Resolved. Patient has recurrent episodes of nausea vomiting along with abdominal pain. Defer to primary service. (8) Immunocompromised patient: Code(s): D89.9 - Disorder involving the immune mechanism, unspecified Status: Chronic Asse
--- NOTE | 2020-08-13 14:45 | PC.NURSE ---
This patient, Jia Walter, was transferred to [facility] on 08/13/20 at 1445. Personal belongings sent with patient. Report given to Jayleen STEWARD. Appropriate documentation sent with patient.
--- NOTE | 2020-08-13 14:50 | PC.NURSE ---
Received from [facility] 231/01 via wheelchair. Voiding without difficulty.
--- NOTE | 2020-08-13 15:00 | PC.NURSE ---
To ultrasound via wheelchair.
--- NOTE | 2020-08-13 15:55 | PC.NURSE ---
Returned from ultrasound via wheelchair.
[2020-08-14] VITALS: BP 126/40; PULSE 61; PULSE 62; RESP 16; TEMP 37; O2SAT 97
[2020-08-14] MEDS: ACETAMINOPHEN 325 MG TABLET 650 MG PO (01:12)
[2020-08-14 04:00] VITALS: BP 133/43; PULSE 60; PULSE 62; RESP 16; TEMP 36.1; O2SAT 98
[2020-08-14 06:29] LABS: Basophils Absolute Auto 0.1 K/mm3 (0.0-0.1); Basophils Percent Auto 0.9 % (0.2-1.2); Eosinophils Absolute Auto 0.3 K/mm3 (0-0.3); Eosinophils Percent Auto 3.3 % (0-4.4); Hematocrit 28.8 % (37.0-47.0); Hemoglobin 8.7 g/dL (12.0-15.0); Immature Granulocyte Absolute 0.05 K/mm3 (0.00-0.031); Immature Granulocyte Percent A 0.6 % (0-0.5); Lymphocytes Absolute Auto 3.09 K/mm3 (0.9-3.2); Lymphocytes Percent Auto 38.9 % (18.3-44.2); Mean Corpuscular HGB Conc 30.2 g/dl (32-36); Mean Corpuscular Volume 76.2 fl (80-100); Mean Platelet Volume 9.9 fl (7.4-10.4); Monocytes Absolute Auto 0.8 K/mm3 (0.1-0.6); Monocytes Percent Auto 9.6 % (2.6-8.5); Neutrophils Absolute Auto 3.7 K/mm3 (1.3-6.7); Neutrophils Percent Auto 46.7 % (45.5-73.1); Platelet Count Result 279 k/mm3 (150-375); Red Blood Count 3.78 M/mm3 (4.2-5.4); Red Cell Distribution Width 17.2 % (11.5-14.5); White Blood Count 7.9 K/mm3 (4.5-10.0)
[2020-08-14 06:32] LABS: Anion Gap 3 mmol/L (8-16); Blood Urea Nitrogen 15 mg/dL (7-17); Carbon Dioxide 28 mmol/L (22-30); Chloride 107 mmol/L (98-107); Estimated CRCL calculation 21 ml/min; Estimated Glomerular Filt Rate 37; Glucose 97 mg/dL (65-105); Magnesium 2.1 mg/dL (1.6-2.3); Potassium 4.3 mmol/L (3.4-5.0); Sodium 138 mmol/L (137-145)
[2020-08-14 08:00] VITALS: BP 122/42; PULSE 66; PULSE 82; RESP 18; TEMP 36.4; O2SAT 97
[2020-08-14] MEDS: PANTOPRAZOLE SODIUM IV 40 MG VIAL IV PUSH (08:10)
[2020-08-14 08:11] VITALS: PULSE 82
[2020-08-14] MEDS: lisinopriL 20 MG TABLET PO (08:11)
[2020-08-14] MEDS: MAGNESIUM OXIDE 200 MG TABLET PO (08:11)
[2020-08-14] MEDS: METOPROLOL TARTRATE 50 MG TAB PO (08:11)
[2020-08-14] MEDS: CHOLECALCIFEROL 1,000 UNITS TABLET 1000 UNITS PO (08:11)
[2020-08-14] MEDS: PRAVASTATIN SODIUM 20 MG TABLET 40 MG PO (08:11)
[2020-08-14] MEDS: CALCIUM CARBONATE (OSCAL) 500 MG TABLET PO (08:12)
[2020-08-14] MEDS: CYANOCOBALAMIN 500 MCG TABLET PO (08:12)
[2020-08-14] MEDS: predniSONE 5 MG TABLET PO (08:12)
--- NOTE | 2020-08-14 09:36 | PM.PNCARD ---
Progress Note: A&P Assessment and Plan (1) Chest pain at rest: Code(s): R07.9 - Chest pain, unspecified Status: Resolved Assessment and Plan: Troponins normal, EKG shows some changes but not definitely ischemic changes. Chest pain has resolved. May have been secondary to hypertension Or GI since she was having nausea and vomiting. (2) Hypertension: Qualifiers: Hypertension type: unspecified Qualified Code(s): I10 - Essential (primary) hypertension Code(s): I10 - Essential (primary) hypertension Status: Chronic Assessment and Plan: Blood pressure seems reasnably controlled here. Apparently runs high in the mornings at home. Takes her lisinopril q.h.s. but feels the lisinopril is causing the nausea and vomiting. I think that is unlikely as she has a long history of nausea and vomiting but we can always change it to something else, perhaps amlodipine 5 mg po q hs. [place] thought that the nausea and vomiting is related to cannabinoid hyperemesis inthe past. Renal artery stenosis ruled out by renal artery ultrasound (3) Coronary artery calcification: Code(s): I25.10 - Atherosclerotic heart disease of ute coronary artery without angina pectoris; I25.84 - Coronary atherosclerosis due to calcified coronary lesion Status: Acute Assessment and Plan: The patient has coronary artery calcification and atherosclerosis of her aorta so is almost certainly has some degree of coronary artery disease. Refuses any anti-platelet agents or anticoagulants because of her history of GI bleeding12/2019 and angio ectasias. Thus we would need to continue medical therapy as best we can with antihypertensive agents, statins etc. I would like to change her statin to a high intensity statin but need to check with her liver transplant physicians to see if that would be acceptable to them. (4) Aortic atherosclerosis: Code(s): I70.0 - Atherosclerosis of aorta Status: Acute Assessment and Plan: Severe aortic atherosclerosis, with the abdominal aorta lumen measuring only 6 mm. Has decreased distal pulses as well. Continue medical therapy. (5) Anemia: Code(s): D64.9 - Anemia, unspecified Status: Acute Assessment and Plan: Patient has microcytic anemia. Will check iron studies; she may benefit from iron infusions. (6) Atrial fibrillation: Code(s): I48.91 - Unspecified atrial fibrillation Status: Chronic Assessment and Plan: Paroxysmal atrial fibrillation quiescent on metoprolol. Unable to take AC/refuses AC 2nd h/o GI bleeding Subjective Date/time seen: 08/14/20 09:36 Follow-up chest pain, hypertension History of hypertension, paroxysmal atrial fibrillation, GI bleeding secondary to angio ectasias, liver transplant, fibromyalgia, coronary artery calcification, marked aortic atherosclerosis. Date of service: 08/14/2020 Complex patient with multiple medical problems whom I met 4 days ago complaining of hypertension, nausea vomiting, feeling terrible. Admitted with atypical chest pain, MS ruled out. States that she has very high blood pressures in the morning, Up to 240/150 although we have not seen blood pressure is in that range here. Patient states that she is feeling better, no longer nauseated, No chest pain and would like to be discharged. Up and about in her room with no problems. Thinks her N&V worsened after starting lisinopril. Telemetry has not shown any arrhythmias. Review of Systems Constitutional: Constitutional: Reports fatigue Cardiovascular: Cardiovascular: Denies chest pain, Denies pedal edema and Denies lightheadedness Respiratory: Respirator
--- NOTE | 2020-08-14 10:59 | PM.DS ---
DS: Admitting Diagnosis Admitting Diagnosis Admitting Diagnosis: chest pain DS: Discharge Diagnosis Discharge Diagnosis (1) Chest pain at rest: Code(s): R07.9 - Chest pain, unspecified Status: Resolved Assessment and Plan: Date of Admission 08/12/20 Date of Discharge/DOS 08/14/20 Ms. Walter is a 75yo F with history of atrial fibrillation, cyclic vomiting syndrome with cannabis hyperemesis syndrome with continued marijuana use, fibromyalgia, history of liver transplant x2 in 1999 on anti-rejection medication, history of GI bleed earlier this year who presented to the ED for evaluation of chest tightness, nausea, and vomiting. She was recently discharged from our facility on 07/31/2020 when she was treated here for nausea and vomiting. She presented now with nonradiating midsternal moderate chest tightness, troponins were negative x3. Chest tightness, nausea, vomiting resolved overnight with antiemetics and IV hydration. It is suspected her discomfort may have been of GI etiology although CAD cannot be ruled out based on some mild ST changes on EKG on arrival. Patient adamantly declines anticoagulation or antiplatelet therapy due to history of GI bleeding thus making approach for ischemic evaluation difficult. She had just met Dr. Pulido, cardiology, in the office the day prior to arrival. She was seen by Dr. Joyce here in hospital, see below. Dr. Pulido, from her visit the day prior, recommended abdominal aorta and renal artery ultrasound on outpatient basis due to labile hypertension and abdominal aortic atherosclerosis noted on imaging in November 2019. These studies were obtained during this admission; renal arteries were unremarkable, abdominal aorta atherosclerosis was again identified on imaging with fusiform narrowing. 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, and Dr. Pulido's office. Patient admitted for nonradiating chest tightness that has now resolved. Troponins negative x 3. May be related to cyclic vomiting and nausea although cannot rule out CAD based on some ST changes on EKG. She saw Dr Pulido in the office day prior to arrival 08/11. I have reviewed Dr Joyce's note and appreciate his recommendations. No further ischemic workup is planned at this current time. Patient adamantly declines a/c or antiplatelet therapy despite teaching by Dr Joyce. Dr. Joyce recommends she could undergo GI evaluation by her ham stringer for further recommendations on her GI bleeding risk, since she would benefit from anticoagulation given her elevated CHADSVASC score or at least ASA therapy for likely CAD. (2) Hypertension: Qualifiers: Hypertension type: unspecified Qualified Code(s): I10 - Essential (primary) hypertension Code(s): I10 - Essential (primary) hypertension Status: Chronic Assessment and Plan: Patient reports very elevated readings at home in the morning (systolics > 200mm Hg) then lower readings in the evening (systolics 90s). She had been on on metoprolol tartrate, lisinopril, and lasix. Dr. Pulido recommended discontinuing lisinopril and adding low-dose Norvasc Q HS. Renal artery ultrasound is unremarkable. (3) Nausea: Code(s): R11.0 - Nausea Status: Acute Assessment and Plan: Resolved prior to discharge. She has a long history of a cyclic vomiting syndrome suspected related to cannabis hyperemesis. 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 She needs to follow up with these tertiary care specialists and has upcoming appointments to do so in the coming
[2020-08-14 11:00] LABS: Iron 37 ug/dL (37-170)
[2020-08-14 11:04] LABS: Percent Iron Saturation 11 % (20-50)
== END 2020-08-14 12:10 | disposition home or self-care (01) ==
LOC: ANHED 16:24 → ANHIMU 16:58 → ANH3MED 08-13 14:41
PROVIDERS: Emergency Medicine; Internal Medicine Cardiovascular Disease; Nurse Practitioner; Admitting Provider Internal Medicine; Emergency Provider Emergency Medicine; PCP Family Medicine; Visit Provider Physician Assistant
DX: R07.9 Chest pain, unspecified (principal); R11.0 Nausea; I42.9 Cardiomyopathy, unspecified; I13.0 Hypertensive heart and chronic kidney disease with heart failure and stage 1 through stage 4 chronic kidney disease, or unspecified chronic kidney disease; N18.32 Chronic kidney disease, stage 3b; I50.20 Unspecified systolic (congestive) heart failure; Z94.4 Liver transplant status; Z86.73 Personal history of transient ischemic attack (TIA), and cerebral infarction without residual deficits; I70.0 Atherosclerosis of aorta; I25.84 Coronary atherosclerosis due to calcified coronary lesion; M79.7 Fibromyalgia; G89.29 Other chronic pain; F41.8 Other specified anxiety disorders; D89.9 Disorder involving the immune mechanism, unspecified; K21.9 Gastro-esophageal reflux disease without esophagitis; E78.1 Pure hyperglyceridemia; M81.0 Age-related osteoporosis without current pathological fracture; I48.0 Paroxysmal atrial fibrillation; K74.3 Primary biliary cirrhosis; Z87.891 Personal history of nicotine dependence; F12.988 Cannabis use, unspecified with other cannabis-induced disorder
CPT/HCPCS: 36415; 71046; 76775; 80048; 80053; 81001; 83540; 83550; 83735; 84484; 85025; 85610; 85730; 93005; 93976; 96361; 96374; 96375; 96376; 99285; A9270; C9113; G0378; J2405; J7120; J7512

== ENCOUNTER 2020-08-22 12:46 | Observation (INO) | payer MEDICARE, SELFPAY ==
[2020-08-22] VITALS (7 sets, daily range): BP systolic 121–171; BP diastolic 40–77; PULSE 64–109; RESP 16–22; TEMP 36.1–36.8; O2SAT 94–100; BMI 15.7
--- NOTE | ~2020-08-22 | XR_ITS ---
EXAMINATION: XR chest 1V portable INDICATION: Chest pain TECHNIQUE: Portable AP chest at 1343 hours COMPARISON: 08/12/2020 FINDINGS: The lungs are free of acute opacities. There is no pleural effusion or pneumothorax. The ca rdiomediastinal silhouette is normal. An electronic device is implanted in the subcutaneous tissues o f the left upper chest wall. IMPRESSION: 1. No acute cardiopulmonary abnormality. Reviewed, dictated and finalized at location A. VE MAKER
--- NOTE | ~2020-08-22 | US_ITS ---
EXAMINATION: US venous doppler [facility] DATE: 08/23/2020 15:10 INDICATION: Chest pain. TECHNIQUE: Grayscale ultrasound images without and with compression and Doppler ultrasound images of the bilateral lower extremity veins were obtained. COMPARISON: None. FINDINGS: The visualized portions of right common femoral vein, profunda (deep) femoral vein, femoral vein, pop liteal vein, peroneal veins, posterior tibial veins, and greater saphenous vein outflow are patent. The visualized portions of left common femoral vein, profunda femoral vein, femoral vein, popliteal v ein, peroneal veins, posterior tibial veins, and greater saphenous vein outflow are patent. IMPRESSION: 1. No deep venous thrombosis. Reviewed, dictated and finalized at location A. FACTURING INSPECTOR
--- NOTE | ~2020-08-22 | NM_ITS ---
EXAMINATION: NM pulmonary perfusion DATE: 08/23/2020 15:01 INDICATION: Chest pain. TECHNIQUE: 5.1 mCi Tc-99m MAA was administered intravenously for perfusion images. Scintigraphic fabián ges of the chest were obtained. COMPARISON: Chest single view 07/22/2020, ventilation perfusion scintigraphy 02/16/19 FINDINGS: Perfusion images show a small defect in right lower lobe. There are chronic small defects at the lung apices. ] IMPRESSION: 1. Pulmonary embolism absent (very low probability). Reviewed, dictated and finalized at location A. LATORY AND COMPLIANCE TECHNICIAN
--- NOTE | 2020-08-22 12:59 | ECG_ITS ---
Measurements Intervals [place] Rate: 75 P: 93 TN: 153 QRS: 67 QRSD: 77 T: 78 QT: 387 QTc: 432 Interpretive Statements SINUS RHYTHM NONSPECIFIC ST & T-WAVE ABNORMALITY- DIFFUSE LEADS BASELINE ARTIFACT- II, III, AVL, V1 BORDERLINE ECG Electronically Signed On 08-22-2020 15:10:56 JAVA XML DEVELOPER by Krystian Lancaster D.O.
--- NOTE | 2020-08-22 13:00 | ED.CHESTPAIN ---
HPI - Chest Pain General Chief Complaint: Chest Pain Stated Complaint: CP Time Seen by Provider: 08/22/20 12:52 Source: RN notes reviewed History of Present Illness HPI narrative: Patient presents emergency department from home for midsternal side chest pain. Patient states pain began approximately noon today states that she was just sitting when the pain began pain does not radiate. Described as sharp and stabbing. States she tried taking a nitro at home with normal relief. Denies any fevers or chills shortness of breath vomiting or diarrhea. Does states she has associated nausea and epigastric abdominal pain Related Data Home Medications Medication Instructions Recorded Confirmed cholecalciferol (vitamin D3) 25 1,000 unit PO DAILY 08/29/19 08/12/20 mcg (1,000 unit) capsule magnesium 250 mg tablet 250 mg PO DAILY 08/29/19 08/12/20 prednisone 5 mg tablet 5 mg PO DAILY 08/29/19 08/12/20 sirolimus 2 mg tablet 2 mg PO DAILY 08/29/19 08/12/20 furosemide 20 mg tablet 10 mg PO DAILY tablet 02/26/20 08/12/20 calcium carbonate [Calcium 600] 600 mg PO DAILY 05/05/20 08/12/20 cyanocobalamin (vitamin B-12) 500 mcg PO DAILY 05/05/20 08/12/20 [Vitamin B-12] potassium gluconate 595 mg (99 mg) 99 mg PO DAILY tablet 08/09/20 08/12/20 tablet metoprolol tartrate 50 mg PO BID 08/12/20 08/12/20 vitamin E (dl, acetate) 400 unit PO DAILY 08/12/20 08/12/20 amlodipine 08/22/20 Allergies Allergy/AdvReac Type Severity Reaction Status Date / Time iodine Allergy Severe anaphlaxis Verified 08/12/20 11:49 aspirin Allergy Mild Unknown Verified 08/12/20 11:49 erythromycin base Allergy Mild Unknown Verified 08/12/20 11:49 blood thinners Allergy Intermediate pt bleeds Uncoded 08/09/20 11:42 out Review of Systems Review of Systems: Narrative: Gen.: Denies fevers or chills Eyes: Denies eye pain or visual change ENT: Denies congestion Respiratory: Denies shortness of breath or cough CV: See HPI GI: Reports abdominal pain nausea, denies emesis or diarrhea denies burning, urgency, frequency or hematuria Musculoskeletal: Denies back pain or muscle pain Neuro: Denies numbness, tingling, weakness or focal weakness Skin: Denies rash Except as documented, all other systems reviewed and negative [facility] Past Medical History Medical History Aortic atherosclerosis Arthritis Atrial fibrillation Cerebrovascular accident CT evidence of prior CVAs. Chronic anemia Chronic kidney disease, stage 3 Creatinine runs between 1.2 and 1.60. Chronic pain Secondary to fibromyalgia, for which she uses CBD oil. Chronic renal failure, stage 3b Clostridium difficile diarrhea July and August 2017 as well as October 2017. Congestive heart failure Echocardiogram in November 2019 showed mildly reduced LV systolic function with an ejection fraction estimated at 40 to 45%, akinetic anteroapical segment, mild aortic valve sclerosis and regurgitation, as well as mild left atrial enlargement. Coronary artery calcification Depression with anxiety Essential hypertension Fibromyalgia Fractures Right humerus. Gastroesophageal reflux disease GI bleed (~11/2018) [place] to be due to possible Jayne-Pitts tear from dry heaves and vomiting; no EGD performed. Hypertriglyceridemia Immunocompromised patient On anti-rejection medications status post liver transplant Insomnia Kidney stones Osteoporosis Paroxysmal atrial fibrillation Primary biliary cirrhosis Status post liver transplant x2. Surgical History Surgical History Finger joint replacement of right hand Right 2nd finger PIP joint replacement. History of arthroscopy of left shoulder History of colonoscopy History of esophagogastroduodenoscopy (EGD) History of hysterectomy History of liver transplant (~1999) X2. History of nasal surgery Hx of appendectomy Hx of cholecystectomy Hx of tonsil
[2020-08-22 13:46] LABS: Basophils Absolute Auto 0.1 K/mm3 (0.0-0.1); Basophils Percent Auto 0.8 % (0.2-1.2); Eosinophils Absolute Auto 0.2 K/mm3 (0-0.3); Eosinophils Percent Auto 2.4 % (0-4.4); Hematocrit 29.3 % (37.0-47.0); Hemoglobin 8.9 g/dL (12.0-15.0); Immature Granulocyte Absolute 0.06 K/mm3 (0.00-0.031); Immature Granulocyte Percent A 0.8 % (0-0.5); Lymphocytes Absolute Auto 2.25 K/mm3 (0.9-3.2); Lymphocytes Percent Auto 28.2 % (18.3-44.2); Mean Corpuscular HGB Conc 30.4 g/dl (32-36); Mean Corpuscular Hemoglobin 23.1 pg (26-34); Mean Corpuscular Volume 76.1 fl (80-100); Mean Platelet Volume 9.6 fl (7.4-10.4); Monocytes Absolute Auto 0.6 K/mm3 (0.1-0.6); Neutrophils Absolute Auto 4.9 K/mm3 (1.3-6.7); Neutrophils Percent Auto 60.8 % (45.5-73.1); Platelet Count Result 249 k/mm3 (150-375); Red Blood Count 3.85 M/mm3 (4.2-5.4); Red Cell Distribution Width 17.1 % (11.5-14.5)
[2020-08-22 13:59] LABS: Alanine Aminotransferase 19 U/L (4-35); Albumin Level 3.8 g/dL (3.5-5.1); Alkaline Phosphatase 72 U/L (38-126); Anion Gap 7 mmol/L (8-16); Aspartate Amino Transferase 36 U/L (14-36); Bilirubin,Total 0.3 mg/dL (0.2-1.3); Blood Urea Nitrogen 28 mg/dL (7-17); Calcium 9.3 mg/dL (8.4-10.2); Carbon Dioxide 30 mmol/L (22-30); Chloride 102 mmol/L (98-107); Estimated CRCL calculation 21 ml/min; Estimated Glomerular Filt Rate 37; Glucose 129 mg/dL (65-105); Lipase 82 U/L (23-300); Potassium 4.1 mmol/L (3.4-5.0); Sodium 139 mmol/L (137-145)
[2020-08-22 14:01] LABS: INR 1.1; Prothrombin Time 13.5 Seconds (11.1-14.7)
[2020-08-22 14:02] LABS: Partial Thromboplastin Time 23.5 SECONDS (22.3-36.8)
[2020-08-22] MEDS: MORPHINE SULFATE (*CRX) 2 MG/ML INJ IV PUSH (14:09)
[2020-08-22 14:10] LABS: Troponin I < 0.012 ng/mL (0.000-0.034)
[2020-08-22 16:19] LABS: Troponin I < 0.012 ng/mL (0.000-0.034)
--- NOTE | 2020-08-22 16:25 | PC.NURSE ---
attempted to call report to the floor x2. rn not avaiable
--- NOTE | 2020-08-22 17:14 | ADMGEN ---
This patient, Jia Walter, was admitted to IMU Room 202-01. Patient/family oriented to hospital policies and general routines including ID bracelet, bed and alarms, visiting hours, pain management, procedures, bathroom and other care routines, personal items, smoking policy, room service/diet, and visiting hours. Information on how to activate the Rapid Response Team has been discussed. Patient/Family are encouraged to report perceived risks to care and to ask questions if they do not understand what they are told or what they should do.
--- NOTE | 2020-08-22 18:00 | PM.IMHP ---
H&P: HPI History of Present Illness Date/Time: 08/22/20 18:00 Chief complaint: Chest Pain. Narrative: Jia Walter is a 75 year old female with history of primary biliary cirrhosis status post liver transplant in 1999, chronic anemia, hypertension, hyperlipidemia, GERD, fibromyalgia with chronic pain, and history of cannabinoid hyperemesis who presented to the emergency department earlier today from home with complaints of chest pain. She describes a sudden onset of sharp and stabbing pain in her left anterior chest which began not long prior to arrival while sitting down doing nothing in particular. The pain does not radiate and she gives no significant alleviating factors. Nitroglycerin provided her with no benefit. The pain is somewhat worse with deep inspiration. She denies associated sweats, nausea, and vomiting. She has had 2 recent admissions this month and was hospitalized overnight on 07/30/2020 with intractable nausea and vomiting. CT of the abdomen pelvis showed thickening of the distal esophagus consistent with esophagitis and wall thickening of the gastric antrum. She improved rapidly and was discharged home the next day. She was admitted once again on 08/12/2020 after presenting to the emergency department with complaints of nausea, vomiting, and chest tightness. She was seen in consultation by Dr. Serrano (cardiology) and Dr. Pulido (cardiology) and was felt that her symptoms were likely GI in etiology however an ischemic evaluation may be pursued at a later date should she continue to have issues. With further questioning she does suffer from GERD however says it is pretty well controlled on her home Protonix. She denies any increase in symptoms with regards to that but she does note history of esophageal stricture with occasional dysphagia with solids, liquids, and pills. She denies concerns for aspiration. Review of Systems Review of Systems: Narrative: Twelve systems were reviewed with pertinent positives and negatives as per HPI. No fever, chills, or sweats. She denies cough. No history of venous thromboembolism. No orthopnea, PND, or lower extremity edema. She denies melena and hematochezia. Except as documented, all other systems were reviewed and are negative. [facility] Past Medical History Medical History (Updated 08/22/20 @ 22:38 by Herlinda Black PA-C) Aortic atherosclerosis Abdominal aortic atherosclerosis with fusiform narrowing noted on prior imaging. Arthritis Cerebrovascular accident CT evidence of prior CVAs. Chronic anemia Chronic kidney disease, stage 3 Creatinine runs between 1.2 and 1.60. Chronic pain Secondary to fibromyalgia, for which she uses CBD oil. Clostridium difficile diarrhea July and August 2017 as well as October 2017. Congestive heart failure Echocardiogram in November 2019 showed mildly reduced LV systolic function with an ejection fraction estimated at 40 to 45%, akinetic anteroapical segment, mild aortic valve sclerosis and regurgitation, as well as mild left atrial enlargement. Coronary artery calcification Depression with anxiety Essential hypertension Fibromyalgia Fractures Right humerus. Gastroesophageal reflux disease Gastroesophageal reflux disease GI bleed (~11/2018) [place] to be due to possible Jayne-Pitts tear from dry heaves and vomiting; no EGD performed. Hypertriglyceridemia Immunocompromised patient On anti-rejection medications status post liver transplant Insomnia Kidney stones Osteoporosis Paroxysmal atrial fibrillation Primary biliary cirrhosis Status post liver transplant x2. Surgical History Surgical History Finger joint replacement of right hand Right 2nd finger PIP joint replacement. History of appendectomy History of arthroscopy of left shoulder History of cholecystectomy History of colonoscopy History of esophagogastroduodenoscopy (EGD) History of hysterectomy History of sydnie
[2020-08-22] MEDS: METOPROLOL TARTRATE 50 MG TAB PO (23:18)
[2020-08-22 23:27] LABS: Troponin I < 0.012 ng/mL (0.000-0.034)
[2020-08-23] VITALS (16 sets, daily range): BP systolic 109–140; BP diastolic 44–65; PULSE 55–87; RESP 18–22; TEMP 36.3–36.6; O2SAT 91–100; BMI 15.8
[2020-08-23] MEDS: ACETAMINOPHEN 325 MG TABLET 650 MG PO ×2 (00:02→01:10)
--- NOTE | 2020-08-23 01:53 | PC.NURSE ---
PATIENT WAS C/O:CHEST PAIN WITH ANY KIND OF MOVEMENT. WANTED PAIN MEDICATION. THE PATIENT WAS BUT ON BEDREST WITH A BED ALARM. PATIENT BECAME VERY UPSET AND WANTED TO SHOW THE NURSE THAT SHE WAS FINE. GOT UP AND WALKED AROUND THE ROOM WITHOUT ASSISTANCE, SWINGING HER ARMS AROUND AND TELLING ME THAT SHE IS COMPETENT AND ABLE TO GET UP BY HERSELF. WHEN ASKED ABOUT HER PAIN. SHE SUDDENLY HAD IT COME BACK.
[2020-08-23 05:32] LABS: Basophils Absolute Auto 0.1 K/mm3 (0.0-0.1); Basophils Percent Auto 0.7 % (0.2-1.2); Eosinophils Absolute Auto 0.1 K/mm3 (0-0.3); Eosinophils Percent Auto 1.7 % (0-4.4); Hematocrit 25.3 % (37.0-47.0); Hemoglobin 7.7 g/dL (12.0-15.0); Immature Granulocyte Absolute 0.02 K/mm3 (0.00-0.031); Immature Granulocyte Percent A 0.3 % (0-0.5); Lymphocytes Absolute Auto 2.83 K/mm3 (0.9-3.2); Lymphocytes Percent Auto 40.4 % (18.3-44.2); Mean Corpuscular HGB Conc 30.4 g/dl (32-36); Mean Corpuscular Hemoglobin 22.7 pg (26-34); Mean Corpuscular Volume 74.6 fl (80-100); Mean Platelet Volume 10.6 fl (7.4-10.4); Monocytes Absolute Auto 0.6 K/mm3 (0.1-0.6); Monocytes Percent Auto 8.6 % (2.6-8.5); Neutrophils Absolute Auto 3.4 K/mm3 (1.3-6.7); Neutrophils Percent Auto 48.3 % (45.5-73.1); Platelet Count Result 222 k/mm3 (150-375); Red Blood Count 3.39 M/mm3 (4.2-5.4); Red Cell Distribution Width 16.8 % (11.5-14.5)
[2020-08-23 05:44] LABS: Anion Gap 5 mmol/L (8-16); Blood Urea Nitrogen 27 mg/dL (7-17); Calcium 8.5 mg/dL (8.4-10.2); Carbon Dioxide 29 mmol/L (22-30); Chloride 104 mmol/L (98-107); Estimated CRCL calculation 21 ml/min; Estimated Glomerular Filt Rate 40; Glucose 83 mg/dL (65-105); Sodium 138 mmol/L (137-145)
[2020-08-23] MEDS: FAMOTIDINE 20 MG TABLET PO ×2 (08:25→17:41)
[2020-08-23] MEDS: MAGNESIUM OXIDE 200 MG TABLET PO (08:25)
[2020-08-23] MEDS: CALCIUM CARBONATE (OSCAL) 500 MG TABLET PO (08:25)
[2020-08-23] MEDS: predniSONE 5 MG TABLET PO (08:25)
[2020-08-23] MEDS: CHOLECALCIFEROL 1,000 UNITS TABLET 1000 UNITS PO (08:26)
[2020-08-23] MEDS: PANTOPRAZOLE 40 MG TABLET PO ×2 (08:26→17:41)
[2020-08-23] MEDS: FUROSEMIDE 10 MG TABLET PO (08:26)
[2020-08-23] MEDS: PRAVASTATIN SODIUM 20 MG TABLET 40 MG PO (08:26)
[2020-08-23] MEDS: CYANOCOBALAMIN 500 MCG TABLET PO (08:26)
[2020-08-23] MEDS: METOPROLOL TARTRATE 50 MG TAB PO ×2 (08:27→20:38)
--- NOTE | 2020-08-23 11:39 | PM.IMPN ---
Progress Note: A&P Assessment and Plan (1) Chest pain: Code(s): R07.9 - Chest pain, unspecified Status: Acute Assessment and Plan: The patient has been admitted to the hospital for further evaluation of chest pain. Her pain is atypical for cardiac pain. Troponins negative x3. CXR clear. EKG showing nonspecific ST wave changes diffusely but looks similar to last EKG. Will consider VTE. Check doppler of the LE and VQ scan. (2) Chronic anemia: Code(s): D64.9 - Anemia, unspecified Status: Acute Assessment and Plan: Hgb running in the 7-9 range since April. Iron and TIBC levels okay but low saturation on 08/14/20. No ferritin or B12 ordered. Suspect chronic but could be related to GI blood loss. Continue to follow HH. (3) Gastroesophageal reflux disease: Code(s): K21.9 - Gastro-esophageal reflux disease without esophagitis Status: Acute Assessment and Plan: Patient has history of GERD, microcytic anemia, and findings of esophagitis on imaging during her last stay. For this reason, GI consulted. She does suffer from occasional dysphagia and reports a previous history of esophageal stricture requiring dilatation. GI cocktail in the ED provided with some benefit. Continue Protonix. (4) Chronic kidney disease, stage 3: Qualifiers: Chronic kidney disease stage 3 subtype: unspecified whether 3a or 3b Qualified Code(s): N18.30 - Chronic kidney disease, stage 3 unspecified Code(s): N18.3 - Chronic kidney disease, stage 3 (moderate) Status: Chronic Assessment and Plan: Cr 1.4 on admission. She is at baseline. Conitnue to follow. (5) Paroxysmal atrial fibrillation: Code(s): I48.0 - Paroxysmal atrial fibrillation Status: Chronic Assessment and Plan: As above. She is maintaining NSR. Continue Metoprolol. 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 (6) Congestive heart failure: Qualifiers: Heart failure chronicity: unspecified Heart failure type: diastolic Qualified Code(s): I50.30 - Unspecified diastolic (congestive) heart failure Code(s): I50.9 - Heart failure, unspecified Status: Chronic Assessment and Plan: Echo in November showing EF40-45% with akinetic anteroapical segment. Clinically euvolemic. Continue metoprolol and lasix. (7) Immunosuppressed status: Code(s): D89.9 - Disorder involving the immune mechanism, unspecified Status: Acute Assessment and Plan: WBC normal. Contineu Prednisone and Sirolimus. (8) DVT prophylaxis: Code(s): Z29.9 - Encounter for prophylactic measures, unspecified Status: Acute Assessment and Plan: SCDs Subjective Date/time seen: 08/23/20 11:39 Interval history: Date of service 08/23 75yo female with pAFib, ch anemia, CHF and immunosuppressed due to liver transpalnt for PBC here for chest pain. She states the chest pain was sudden onset and left sided. This is a different type of CP then the last admission. No calf pain or edema. She has pAFib but not on alf anticoagulation due to an episode of GI bleed in December. She feels this is related to her heart and 'want something done'. She does have a hx of anaphlaxis with contrast. Exam Narrative: Exam Narrative: AF 97.3 140/45 82 18 100% ra Gen - NARD lying semi-recumbent in bed Chest - CTA bilaterally, nml RR CV - RRR S1/S2; Tele showing no significant dysrhythmias Abd - Soft, NT/ND, Positive BS Ext - No pedal edema Psych - Nml mood and affect; becomes tearful when she feels this is heart pain and 'I want something done' Skin - Warm and dry Objective Data Vital Signs Vital Signs: Vital Signs - 24 hr 08/22/20 12:51 08/22/20 14:08 08/22/20 17:00 Temperature 98.3 F 98.3 F Pulse Rate 109 H 64 72 Respiratory Rate 22 H 18 20 Blood Pressure 161/58 H 164/77 H 171/44 H Pulse Oximetry 100 98 08/22/20 18:00
--- NOTE | 2020-08-23 11:42 | WPDGICN ---
Assessment and Plan Assessment and plan (1) Chest pain: Code(s): R07.9 - Chest pain, unspecified Status: Acute Assessment and Plan: Patient has very atypical chest pain is uncertain to is described the etiology of this. Plan is for EGD to evaluate more thoroughly. CT scan recently reveals bills thickening of the esophagus although likely related to a prior history of esophageal various Dukes obliteration. She does complain of dysphagia and has had esophageal strictures were therefore plan to proceed with EGD continuing Protonix appears appropriate at this point. (2) Chronic anemia: Code(s): D64.9 - Anemia, unspecified Status: Acute Assessment and Plan: Patient has a chronic anemia likely related to chronic disease. Continue to monitor hemoglobin closely. She has had GI bleeding episodes in the past. (3) Atrial fibrillation: Code(s): I48.91 - Unspecified atrial fibrillation Status: Chronic (4) Immunosuppressed status: Code(s): D89.9 - Disorder involving the immune mechanism, unspecified Status: Acute (5) Cannabinoid hyperemesis syndrome: Code(s): F12.988 - Cannabis use, unspecified with other cannabis-induced disorder Status: Chronic Assessment and Plan: Patient has recurrent episodes of nausea vomiting. She does continue to use cannabis. This likely suggest possible cyclical vomiting syndrome currently the she is not vomiting. (6) History of liver transplant: Onset Date: ~1999 Code(s): Z94.4 - Liver transplant status Status: Acute Assessment and Plan: Patient with a history of PBC. She is status post liver transplant. Prior to this had rather significant esophageal varices requiring frequent sclerotherapy. A monitored time of endoscopy. GI Consult Note Consult date/time: 08/23/20 11:42 HPI: Jia Walter is a 75 year old female I am asked to see at the request of the hospitalist service. Patient reports chest pain that began yesterday at noon while sitting still. Not related to diet or activity. She describes is rather intense pain she states that intensifies with deep inspiration. It is not related to diet. She does not typically get chest pain like this. She denies any associated nausea vomiting. She has had no recent bleeding. Geospatial Image Analyst service has seen the patient feel it is not cardiac in etiology but could be GI in etiology. Patient does have a recent CT scan from both 2-3 weeks ago which revealed esophageal thickening. Patient's past medical history is rather significant. She is known to have primary biliary cirrhosis. She ultimately had a liver transplant in the year 1999. Prior to that she had esophageal varices requiring scleral therapy subsequently had stricture ring of the esophagus and multiple dilatations. She does complain of recurrent nausea vomiting this been attributed to cannabis use. [place] to be a possible cyclical vomiting syndrome. In December of 2019 with seen at [facility] because of profound anemia several upper GI angiodysplasias were cauterized with APC cautery. She does continue to complain of intermittent dysphagia with more solid foods. Review of Systems Review of Systems: All systems reviewed & are unremarkable except as noted in HPI and below PMFSH Past Medical History Medical History (Updated 08/22/20 @ 22:38 by Herlinda Black PA-C) Aortic atherosclerosis Abdominal aortic atherosclerosis with fusiform narrowing noted on prior imaging. Arthritis Cerebrovascular accident CT evidence of prior CVAs. Chronic anemia Chronic kidney disease, stage 3 Creatinine runs between 1.2 and 1.60. Chronic pain Secondary to fibromyalgia, for which she uses CBD oil. Clostridium difficile diarrhea July and August 2017 as well as October 2017. Congestive heart failure Echocardiogram in November 2019 showed mildly reduced LV systolic function with an ejection fraction estimated
--- NOTE | 2020-08-23 13:46 | PM.CNCAR ---
Assessment and Plan Additional Plan This is a 75-year-old woman once again with a history of chest pain which is obviously not related to myocardial ischemia. She has severe chest pain that was associated with respiratory effort for 12 hours or more yesterday with no evidence of acute myocardial injury. As far as I know at the time of this dictation she is not known to have coronary disease although I will hopefully be able to review the records from her evaluation from [facility] in November of this year to corroborate that. She does have a history of paroxysmal atrial fibrillation, currently she is in sinus rhythm. As everyone has correctly stated in their notes she is not a candidate for systemic anticoagulation. At this point the chest pain syndrome that she has does not merit further evaluation as it pertains to coronary disease. If you have any questions regarding this opinion please let me know. Once again as I mentioned in November this is not a patient that I would bring to the center medical and lab director here at [facility] in a non emergency fashion. Arthur Neri [facility] History of Present Illness History of Present Illness Consult date/time: 08/23/20 13:46 Consult reason: chest pain Reason For Visit: Chest Pain. Narrative: This is a 75-year-old woman I am seeing at the request of the hospitalist because of chest pain. She is known to several of the cardiologists in our practice and is being seen as she was readmitted to the emergency room again yesterday evening with symptoms of chest pain she describes the onset of pain about noon yesterday while she was at home sitting down and relaxing she says this was a sharp knife-like pain in the center of the chest sometimes off to the left precordial area that was 9-10 out of its severity scale and was present the entire day and was not alleviated at all until she got here in the evening and received morphine in the emergency room. The discomfort was made worse by breathing and respiratory effort. It was not made worse by any change in body position. Despite the fact that she had this pain for 12 hours or more in her severe fashion her troponin levels are negative and her ECG does not show any evidence of an acute myocardial infarction. When I entered the room to see her in consultation this afternoon she is sleeping and upon awakening appears to be in no distress she says that if she takes a significant deep breath she can still feel some of this. According to the records this is a lady that has a history of documented paroxysmal atrial fibrillation in the past. Looks like I saw her at [facility] and in November of this year during a febrile illness where she had some atrial fibrillation at that time she had a modest flat troponin elevation and we were consulted to see her in that setting. She was transferred to [facility] for further evaluation because of her complex medical history a specially being anemic and a liver transplant recipient I did not believe she should have a cardiac procedure here at [facility]. I do not have records of with what the evaluation at [place] consisted of at the time I dictate this note the patient believe she was found to have coronary artery disease although other notes in the chart are are to the contrary of that. Patient states that she has a history of congestive heart failure. I do not see any evidence of that on the chart other than some mild LV systolic dysfunction that was noted on echo here in November although I do not believe she clinically was in a state of decompensated heart failure. The patient's laboratory data is remarkable for chronic significant anemia with a hemoglobin in the range of 7 g. In this setting we are once again seeing her in consultation. The remainder of her history is detailed in previous dictations and in the current H and P and will not be reiterated in this note again. Review of Systems Constitutional: Constitutional: Reports no darien
--- NOTE | 2020-08-23 14:17 | PHAR ---
Sirolimus (Rapamune) 2mg tablets seen in pharmacy and returned to IMU
--- NOTE | 2020-08-23 14:31 | WPDANESEPPF ---
Anes - Initial Pre Proc Eval Procedure: Operation Date: 08/24/20 08:00 Proposed Procedures p Esophagogastroduodenoscopy - Wagner Mccormack MD Date/Time: 08/23/20 14:31 Pre Op Diagnosis: Chest Pain. Patient Data Age: 75 Gender: F Height: 1.6 m Weight: 40.6 kg Last Vital Signs Temp 36.3 C L 08/23/20 12:00 Pulse 71 08/23/20 12:45 Resp 22 H 08/23/20 12:00 BP 121/65 08/23/20 12:00 Pulse Ox 100 08/23/20 12:00 Allergies Allergy/AdvReac Type Severity Reaction Status Date / Time iodine Allergy Severe anaphlaxis Verified 08/12/20 11:49 aspirin Allergy Mild Unknown Verified 08/12/20 11:49 erythromycin base Allergy Mild Unknown Verified 08/12/20 11:49 blood thinners Allergy Intermediate pt bleeds Uncoded 08/09/20 11:42 out Home Medications Medication Instructions Recorded Confirmed Type cholecalciferol (vitamin D3) 25 1,000 unit PO DAILY 08/29/19 08/22/20 History mcg (1,000 unit) capsule magnesium 250 mg tablet 250 mg PO DAILY 08/29/19 08/22/20 History prednisone 5 mg tablet 5 mg PO DAILY 08/29/19 08/22/20 History sirolimus 2 mg tablet 2 mg PO DAILY 08/29/19 08/22/20 History pravastatin 40 mg tablet 40 mg PO DAILY #90 tablet 01/22/20 08/22/20 Rx furosemide 20 mg tablet 10 mg PO DAILY tablet 02/26/20 08/22/20 History calcium carbonate [Calcium 600] 600 mg PO DAILY 05/05/20 08/22/20 History cyanocobalamin (vitamin B-12) 500 mcg PO DAILY 05/05/20 08/22/20 History [Vitamin B-12] pantoprazole 40 mg tablet,delayed 40 mg PO BID #180 tablet 05/12/20 08/22/20 Rx release promethazine 25 mg PO Q6H PRN #20 tablet 07/04/20 08/22/20 Rx famotidine [Pepcid] 20 mg PO BID 14 Days #28 tablet 07/31/20 08/22/20 Rx potassium gluconate 595 mg (99 mg) 99 mg PO DAILY tablet 08/09/20 08/22/20 History tablet metoprolol tartrate 50 mg PO BID 08/12/20 08/22/20 History amlodipine [Norvasc] 5 mg PO QPM 30 Days #30 tablet 08/14/20 08/22/20 Rx Laboratory Tests 08/22/20 08/22/20 08/23/20 15:40 22:52 04:19 WBC 7.0 K/mm3 K/mm3 (4.5-10.0) RBC 3.39 M/mm3 L M/mm3 (4.2-5.4) Hgb 7.7 g/dL L g/dL (12.0-15.0) Hct 25.3 % L % (37.0-47.0) MCV 74.6 fl L fl (80-100) MCH 22.7 pg L pg (26-34) MCHC 30.4 g/dl L g/dl (32-36) RDW 16.8 % H % (11.5-14.5) Plt Count 222 k/mm3 k/mm3 (150-375) MPV 10.6 fl H fl (7.4-10.4) Immature Gran % (Auto) 0.3 % % (0-0.5) Neut % (Auto) 48.3 % % (45.5-73.1) Lymph % (Auto) 40.4 % % (18.3-44.2) [place] % (Auto) 8.6 % H % (2.6-8.5) Eos % (Auto) 1.7 % % (0-4.4) Baso % (Auto) 0.7 % % (0.2-1.2) Lymph # (Auto) 2.83 K/mm3 K/mm3 (0.9-3.2) [place] # (Auto) 0.6 K/mm3 K/mm3 (0.1-0.6) Eos # (Auto) 0.1 K/mm3 K/mm3 (0-0.3) Baso # (Auto) 0.1 K/mm3 K/mm3 (0.0-0.1) Abs Immat Gran (auto) 0.02 K/mm3 K/mm3 (0.00-0.031) Absolute Neuts (auto) 3.4 K/mm3 K/mm3 (1.3-6.7) Absolute Nucleated RBC 0.0 K/mm3 K/mm3 (0.0-0.012) Nucleated RBC % 0.0 % % (0.0-0.2) Sodium Potassium Chloride Carbon Dioxide Anion Gap BUN Creatinine Estim Creat Clear Calc Estimated GFR Glucose Calcium Troponin I < 0.012 ng/mL ng/mL < 0.012 ng/mL ng/mL (0.000-0.034) (0.000-0.034) 08/23/20 04:19 WBC RBC Hgb Hct MCV MCH MCHC RDW Plt Count MPV Immature Gran % (Auto) Neut % (Auto) Lymph % (Auto) [place] % (Auto) Eos % (Auto) Baso % (Auto) Lymph # (Auto) [place] # (Auto) Eos # (Auto) Baso # (Auto) Abs Immat Gran (auto) Absolute Neuts (auto) Absolute Nucleated RBC Nucleated RBC % So
[2020-08-23] MEDS: amLODIPine BESYLATE 5 MG TABLET PO (17:41)
[2020-08-24] VITALS (18 sets, daily range): BP systolic 116–215; BP diastolic 41–90; PULSE 55–87; RESP 14–24; TEMP 36–37; O2SAT 95–100
[2020-08-24] MEDS: ACETAMINOPHEN 325 MG TABLET 650 MG PO (00:04)
[2020-08-24 05:08] LABS: Basophils Absolute Auto 0.1 K/mm3 (0.0-0.1); Basophils Percent Auto 1.2 % (0.2-1.2); Eosinophils Absolute Auto 0.2 K/mm3 (0-0.3); Eosinophils Percent Auto 2.4 % (0-4.4); Hematocrit 31.6 % (37.0-47.0); Hemoglobin 9.5 g/dL (12.0-15.0); Immature Granulocyte Absolute 0.03 K/mm3 (0.00-0.031); Immature Granulocyte Percent A 0.4 % (0-0.5); Immature Platelet Fraction Pct 9.2 % (0.9-11.2); Lymphocytes Absolute Auto 3.81 K/mm3 (0.9-3.2); Lymphocytes Percent Auto 46.6 % (18.3-44.2); Mean Corpuscular HGB Conc 30.1 g/dl (32-36); Mean Corpuscular Hemoglobin 22.7 pg (26-34); Mean Corpuscular Volume 75.4 fl (80-100); Mean Platelet Volume 10.5 fl (7.4-10.4); Monocytes Absolute Auto 0.8 K/mm3 (0.1-0.6); Monocytes Percent Auto 9.4 % (2.6-8.5); Neutrophils Absolute Auto 3.3 K/mm3 (1.3-6.7); Platelet Count Result 164 k/mm3 (150-375); Red Blood Count 4.19 M/mm3 (4.2-5.4); Red Cell Distribution Width 17.2 % (11.5-14.5); White Blood Count 8.2 K/mm3 (4.5-10.0)
[2020-08-24] MEDS: MORPHINE SULFATE (*CRX) 2 MG/ML INJ IV PUSH (05:11)
[2020-08-24 05:21] LABS: Albumin Level 3.6 g/dL (3.5-5.1); Anion Gap 4 mmol/L (8-16); Blood Urea Nitrogen 34 mg/dL (7-17); Calcium 9.2 mg/dL (8.4-10.2); Carbon Dioxide 31 mmol/L (22-30); Chloride 102 mmol/L (98-107); Estimated CRCL calculation 19 ml/min; Estimated Glomerular Filt Rate 34; Glucose 95 mg/dL (65-105); Magnesium 2.2 mg/dL (1.6-2.3); Potassium 4.1 mmol/L (3.4-5.0); Sodium 137 mmol/L (137-145)
[2020-08-24 06:26] LABS: Folic Acid 12.1 ng/mL (2.76->20)
[2020-08-24] MEDS: LACTATED RINGERS 1,000 ML 150 ML IV CONT (07:27)
--- NOTE | 2020-08-24 08:47 | SUR.PHASEII ---
0820 UPON PATIENT WAKING SHE SPIT A TOOTH OUT. NO BLEEDING NOTED TO AREA RIGHT TOP CANINE TOOTH AREA IN HER MOUTH WHERE THE TOOTH WAS, TOOTH GIVEN TO PATIENT, PATIENT UPSET ABOUT BROKEN TOOTH, DENIES PAIN TO TOOTH AREA, DR. EATON NOTIFIED AND Cheng UNDERWOOD CRNA SPOKE WITH PATIENT, DR. QUINTERO HASN'T SPOKE WITH PATIENT YET. PATIENT ASKED TO SEE DR. QUINTERO. EXPLAINED TO PATIENT THAT HE WOULD BE OUT TO SPEAK TO HER SHORTLY. PT STATED I DON'T HAVE MONEY TO HAVE IT FIXED REFERRED PATIENT TO CONTACT MADELIN ALMONTE PATIENT ADVOCATE.BUSINESS CARD GIVEN TO PATIENT.
--- NOTE | 2020-08-24 09:00 | SUR.PHASEII ---
0820 PATIENT SPIT MOUTH PIECE OUT WITH TOOTH.
[2020-08-24] MEDS: PANTOPRAZOLE 40 MG TABLET PO (09:37)
[2020-08-24] MEDS: FUROSEMIDE 10 MG TABLET PO (09:37)
[2020-08-24] MEDS: METOPROLOL TARTRATE 50 MG TAB PO (09:37)
[2020-08-24] MEDS: MAGNESIUM OXIDE 200 MG TABLET PO (09:37)
[2020-08-24] MEDS: CHOLECALCIFEROL 1,000 UNITS TABLET 1000 UNITS PO (09:37)
[2020-08-24] MEDS: predniSONE 5 MG TABLET PO (09:37)
[2020-08-24] MEDS: CYANOCOBALAMIN 500 MCG TABLET PO (09:37)
[2020-08-24] MEDS: PRAVASTATIN SODIUM 20 MG TABLET 40 MG PO (09:37)
[2020-08-24] MEDS: CALCIUM CARBONATE (OSCAL) 500 MG TABLET PO (09:37)
[2020-08-24] MEDS: FAMOTIDINE 20 MG TABLET PO (09:37)
--- NOTE | 2020-08-24 09:59 | PM.PNCARD ---
Progress Note: A&P Assessment and Plan (1) Chest pain: Code(s): R07.9 - Chest pain, unspecified Status: Acute Assessment and Plan: probably musculoskeletal. (2) Paroxysmal atrial fibrillation: Code(s): I48.0 - Paroxysmal atrial fibrillation Status: Chronic Assessment and Plan: In sinus rhythm. No anticoagulation candidate Subjective Date/time seen: 08/24/20 09:59 Interval history: 75yo female with pAFib, ch anemia, CHF and immunosuppressed due to liver transpalnt for PBC here for chest pain. Date of service 08/24/2020: She currently is not having any chest pain. She is back from endoscopy and is tearful as reportedly 1 of her dental implants was broken off during the procedure. No shortness of breath Review of Systems Constitutional: Constitutional: Reports no additional constitutional complaints Eyes: Eyes: Reports no additional eye complaints ENT: Reports system reviewed and no additional complaints, except as documented Cardiovascular: Cardiovascular: Reports as per HPI Respiratory: Respiratory: Reports no additional respiratory complaints Musculoskeletal: Musculoskeletal: Reports no additional musculoskeletal complaints Endocrine: Endocrine: Reports no additional endocrine complaints Hematologic/Lymphatic: Hematologic/Lymphatic: Reports as per HPI Allergic/Immunologic: Allergic/Immunologic: Reports no additional allergic/immunologic complaints Exam Const: Other: Thin cachectic-appearing white female sleeping flat in bed when I entered the room to see her she is not in distress at the time of this evaluation HENMT: Head: normocephalic and atraumatic Eyes: Sclera: sclerae normal Pupils: Equal, round and reactive pupils present Chest: Other: reproducible chest wall pain to palpation Resp: Effort & Inspection: normal respiratory effort Auscultation: clear to auscultation bilaterally Cardio: Jugular venous distension: no JVD Rate: regular rate Rhythm: regular rhythm Heart sounds: S1 normal heart sound present and S2 normal heart sound present Other: No murmur no gallop no rub GI: Auscultation: normal bowel sounds Skin: General skin exam: normal color Neuro: Cranial nerves: Yes Equal, round and reactive pupils present Cognition (Neuro): normal cognition Extrem: Other: No peripheral edema adequate arterial pulse perfusion is noted in all 4 limbs Objective Data Vital Signs Vital Signs: Vital Signs - 24 hr 08/23/20 10:00 08/23/20 12:00 08/23/20 12:45 Temperature 36.3 C L Pulse Rate 82 64 71 Respiratory Rate 22 H Blood Pressure 121/65 Pulse Oximetry 100 08/23/20 13:09 08/23/20 16:00 08/23/20 18:00 Temperature 36.3 C L Pulse Rate 64 65 65 Respiratory Rate 22 H Blood Pressure 121/65 Pulse Oximetry 100 08/23/20 20:00 08/23/20 20:38 08/23/20 20:53 Temperature 36.6 C Pulse Rate 70 67 66 Respiratory Rate 18 Blood Pressure 109/44 L Pulse Oximetry 91 08/23/20 22:00 08/24/20 00:00 08/24/20 00:12 Temperature 36.0 C L Pulse Rate 65 62 65 Respiratory Rate 18 Blood Pressure 116/41 L Pulse Oximetry 96 08/24/20 02:00 08/24/20 04:00 08/24/20 06:00 Temperature 36.3 C L Pulse Rate 57 L 59 L 60 Respiratory Rate 22 H Blood Pressure 128/76 Pulse Oximetry 95 08/24/20 07:03 08/24/20 07:26 08/24/20 08:19 Temperature 36.1 C L 37.0 C Pulse Rate 85 71 80 Respiratory Rate 18 14 17 Blood Pressure 168/65 H 174/56 H 215/90 H Pulse Oximetry 96 100 100 08/24/20 08:21 08/24/20 08:31 08/24/20 08:39 Temperature Pulse Rate 75 66 70 Respiratory Rate Blood Pressure 190/77 H 167/58 H 154/59 H Pulse Oximetry 100 100 98 08/24/20 08:55 08/24/20 09:28 08/24/20 09:37 Temperature 36.7 C Pulse Rate 67 87 64 Respiratory Rate 24 H 22 H Blood Pressure 161/58 H 171/45 H Pulse Oximetry 98 98 Intake/Output Intake/Output: Intake & Output 08/22/20 08/22/20 08/23/20
[2020-08-24 11:27] LABS: Ferritin 9.91 ng/mL (11.1-264)
--- NOTE | 2020-08-24 17:27 | PM.DS ---
DS: Admitting Diagnosis Admitting Diagnosis Admitting Diagnosis: Chest Pain. DS: Discharge Diagnosis Discharge Diagnosis (1) Chest pain: Code(s): R07.9 - Chest pain, unspecified Status: Acute Assessment and Plan: The patient was admitted to the hospital for further evaluation of atypical chest pain. Her pain is atypical for cardiac pain and she had chest wall pain.. Troponins negative x3. CXR clear. EKG showing nonspecific ST wave changes diffusely but looks similar to last EKG. Venous Doppler revealed no thrombi and perfusion lung scan was low probability for PE. with seen by Cardiology and they felt the pain was musculoskeletal and not cardiac. EGD esophageal web of the was dilated (2) Chronic anemia: Code(s): D64.9 - Anemia, unspecified Status: Acute Assessment and Plan: Hgb running in the 7-9 range since April. iron studies compatible with chronic disease and B12 level was normal. no source of blood loss seen from EGD (3) Gastroesophageal reflux disease: Code(s): K21.9 - Gastro-esophageal reflux disease without esophagitis Status: Acute Assessment and Plan: Patient has history of GERD, microcytic anemia, and findings of esophagitis on imaging during her last stay. For this reason, GI consulted. EGD revealed esophageal web which was dilated had evidence of some reflux esophagitis. Continue Protonix. she did have a to her partial plate break off in the GI lab (4) Chronic kidney disease, stage 3: Qualifiers: Chronic kidney disease stage 3 subtype: unspecified whether 3a or 3b Qualified Code(s): N18.30 - Chronic kidney disease, stage 3 unspecified Code(s): N18.3 - Chronic kidney disease, stage 3 (moderate) Status: Chronic Assessment and Plan: Cr 1.4 on admission And 1.5 the day of discharge (5) Paroxysmal atrial fibrillation: Code(s): I48.0 - Paroxysmal atrial fibrillation Status: Chronic Assessment and Plan: As above. She is maintaining NSR. Continue Metoprolol. No plans for shelter anticoagulation. she will follow-up with Dr. singer 08/31 (6) Congestive heart failure: Qualifiers: Heart failure type: diastolic Heart failure chronicity: unspecified Qualified Code(s): I50.30 - Unspecified diastolic (congestive) heart failure Code(s): I50.9 - Heart failure, unspecified Status: Chronic Assessment and Plan: Echo in November showing EF40-45% with akinetic anteroapical segment. Clinically euvolemic. Continue metoprolol and lasix. (7) Immunosuppressed status: Code(s): D89.9 - Disorder involving the immune mechanism, unspecified Status: Acute Assessment and Plan: WBC normal. Contineu Prednisone and Sirolimus. DS: Summary Hospital Course Hospital Course: 75-year-old white hypertensive female with history of paroxysmal AFib and not on anticoagulation admitted with AFib and atypical chest pain. Converted to sinus rhythm and troponins were negative. Seen by Cardiology and they did not feel the pain was cardiac. Venous Doppler and perfusion lung scan revealed no evidence of thrombi or emboli. EGD revealed esophageal web with evidence of reflux esophagitis. Esophagus was dilated. She was discharged home to follow-up with her film color tester on 08/31 and primary care within 2 weeks. Time Spent with Patient Time attestation: Total time spent providing and/or coordinating discharge services: 35 minutes Exam Narrative: Exam Narrative: condition on discharge blood pressure 146/44 pulse is 56 saturating 100% on room air afebrile lungs clear CV regular rate rhythm abdomen soft nontender no masses extremities without edema good distal pulses she was up with standby assist taking the diet well and able to be discharged home in stable condition she did relate that after having had a bowel movement after her EGD she felt
== END 2020-08-24 16:36 | disposition home or self-care (01) ==
LOC: ANHED 15:33 → ANHIMU 15:54
PROVIDERS: Internal Medicine; Internal Medicine Gastroenterology; Admitting Provider Internal Medicine; Emergency Provider Emergency Medicine; PCP Family Medicine; Visit Provider Internal Medicine
PROC: 0DJ08ZZ Inspection of Upper Intestinal Tract, Via Natural or Artificial Opening Endoscopic (ICD-10-PCS; CPT 43235; principal; 2020-08-24 08:00)
DX: R07.9 Chest pain, unspecified (principal); I70.0 Atherosclerosis of aorta; Z86.73 Personal history of transient ischemic attack (TIA), and cerebral infarction without residual deficits; I48.0 Paroxysmal atrial fibrillation; Q39.4 Esophageal web; D64.9 Anemia, unspecified; N18.30 Chronic kidney disease, stage 3 unspecified; I12.9 Hypertensive chronic kidney disease with stage 1 through stage 4 chronic kidney disease, or unspecified chronic kidney disease; I50.30 Unspecified diastolic (congestive) heart failure; I11.0 Hypertensive heart disease with heart failure; M79.7 Fibromyalgia; K21.9 Gastro-esophageal reflux disease without esophagitis; Z94.4 Liver transplant status; Z79.899 Other long term (current) drug therapy; D89.9 Disorder involving the immune mechanism, unspecified; E78.1 Pure hyperglyceridemia; Z87.891 Personal history of nicotine dependence; F12.90 Cannabis use, unspecified, uncomplicated; Z29.9 Encounter for prophylactic measures, unspecified
CPT/HCPCS: 43450; 36415; 71045; 78580; 80048; 80053; 80069; 82607; 82728; 82746; 83690; 83735; 84484; 85025; 85055; 85610; 85730; 93005; 93970; 96361; 96365; 96375; 96376; 99285; A9270; A9540; G0378; J0131; J2001; J2270; J2704; J7120; J7512

== ENCOUNTER 2020-09-14 17:10 | Emergency (ER) | payer MEDICARE, SELFPAY ==
--- NOTE | ~2020-09-14 | XR_ITS ---
EXAMINATION: XR chest 1V portable DATE: 09/14/2020 17:44 INDICATION: Congestive heart failure and right-sided chest pain. TECHNIQUE: frontal view of the chest was obtained. COMPARISON: Chest radiograph dated 08/22/2020 FINDINGS: New approximately 3 x 2 similar nodular opacity in the right midlung zone which given the rapid devel opment would be most consistent with pneumonia. Remainder of the lungs are clear. No pulmonary edema, pleural effusion or pneumothorax. The cardiomediastinal silhouette is normal. IMPRESSION: 1. New nodular opacity in the right midlung zone concerning for pneumonia. Reviewed, dictated and finalized at location H. LRY FACER
[2020-09-14 17:06] VITALS: BP 106/52; PULSE 85; RESP 18; TEMP 37.7; O2SAT 100
--- NOTE | 2020-09-14 17:18 | PC.NURSE ---
EKG done at 1716, shown to RANDY
--- NOTE | 2020-09-14 17:21 | ECG_ITS ---
Measurements Intervals [place] Rate: 82 P: 69 CT: 176 QRS: 65 QRSD: 68 T: 78 QT: 353 QTc: 414 Interpretive Statements SINUS RHYTHM ST-T WAVE ABNORMALITY IN ANTEROLAT/INF LEADS- CONSIDER ISCHEMIA BASELINE ARTIFACT- V2, V4-V5 ABNORMAL ECG Electronically Signed On 09-15-2020 7:21:13 SHANK BONER by Krystian Lancaster D.O.
[2020-09-14 17:22] VITALS: PULSE 85
[2020-09-14 17:30] VITALS: BP 113/48; PULSE 84; RESP 17; O2SAT 100
[2020-09-14 18:32] LABS: Basophils Absolute Auto 0.1 K/mm3 (0.0-0.1); Basophils Percent Auto 0.7 % (0.2-1.2); Eosinophils Percent Auto 0.2 % (0-4.4); Hematocrit 30.2 % (37.0-47.0); Hemoglobin 9.2 g/dL (12.0-15.0); Immature Granulocyte Absolute 0.12 K/mm3 (0.00-0.031); Immature Granulocyte Percent A 1.3 % (0-0.5); Lymphocytes Absolute Auto 0.94 K/mm3 (0.9-3.2); Lymphocytes Percent Auto 10.2 % (18.3-44.2); Mean Corpuscular HGB Conc 30.5 g/dl (32-36); Mean Corpuscular Hemoglobin 22.9 pg (26-34); Mean Corpuscular Volume 75.3 fl (80-100); Mean Platelet Volume 9.3 fl (7.4-10.4); Monocytes Absolute Auto 0.6 K/mm3 (0.1-0.6); Monocytes Percent Auto 6.2 % (2.6-8.5); Neutrophils Absolute Auto 7.5 K/mm3 (1.3-6.7); Neutrophils Percent Auto 81.4 % (45.5-73.1); Platelet Count Result 274 k/mm3 (150-375); Red Blood Count 4.01 M/mm3 (4.2-5.4); Red Cell Distribution Width 17.7 % (11.5-14.5); White Blood Count 9.2 K/mm3 (4.5-10.0)
--- NOTE | 2020-09-14 18:34 | ED.CHESTPAIN ---
HPI - Chest Pain General Chief Complaint: Chest Pain Stated Complaint: R LUNG PAIN/FEVER Time Seen by Provider: 09/14/20 17:19 Source: patient Mode of arrival: EMS Limitations: no limitations History of Present Illness HPI narrative: 75-year-old with a history of hypertension, hypercholesteremia here with complaints of right-sided lung pain since yesterday. Patient states that she was exposed to Covid 2 days ago and she developed symptoms since yesterday. Patient also complains of fever of 100.2. She denies any nausea or vomiting. Complains of dry nonproductive cough occasionally. Pt states I am here for Covid test complaint: chest pain Onset (ago): day(s) (1) Timing of current episode: constant Pain location: right chest Pain radiation: none Severity: moderate Relieving factors: nothing Exacerbating factors: nothing Risk Factors Coronary artery disease risk factors: hyperlipidemia and hypertension Related Data Home Medications Medication Instructions Recorded Confirmed calcium carbonate [Calcium 600] 600 mg PO DAILY 09/14/20 cholecalciferol (vitamin D3) 400 unit PO DAILY 09/14/20 cyanocobalamin (vitamin B-12) 500 mcg PO DAILY 09/14/20 hydrochlorothiazide 12.5 mg PO 09/14/20 loperamide 2 mg PO 09/14/20 magnesium oxide 500 mg PO DAILY 09/14/20 metoprolol succinate 50 mg PO 09/14/20 nitroglycerin 0.4 mg SUBLINGUAL ONCE 09/14/20 potassium mg 09/14/20 pravastatin 40 mg PO 09/14/20 prednisone 5 mg PO 09/14/20 promethazine [Promethegan] 12.5 mg NE Q6H PRN 09/14/20 rosuvastatin 40 mg PO 09/14/20 sirolimus 2 mg PO DAILY 09/14/20 09/14/20 Allergies Allergy/AdvReac Type Severity Reaction Status Date / Time iodine Allergy Severe anaphlaxis Verified 09/14/20 17:13 aspirin Allergy Mild Unknown Verified 09/14/20 17:13 erythromycin base Allergy Mild Unknown Verified 09/14/20 17:13 blood thinners Allergy Intermediate pt bleeds Uncoded 08/09/20 11:42 out Review of Systems Review of Systems: All systems reviewed & are unremarkable except as noted in HPI and below Constitutional: Constitutional: Reports as per HPI Eyes: Eyes: Reports as per HPI ENT: Reports system reviewed and no additional complaints, except as documented Cardiovascular: Cardiovascular: Reports no additional cardiovascular complaints Respiratory: Respiratory: Reports as per HPI Gastrointestinal: Gastrointestinal: Reports as per HPI Musculoskeletal: Musculoskeletal: Reports no additional musculoskeletal complaints Integumentary/Breasts: Skin/Breast: Reports system reviewed and no additional complaints, except as docu [facility] Past Medical History Medical History Aortic atherosclerosis Abdominal aortic atherosclerosis with fusiform narrowing noted on prior imaging. Arthritis Cerebrovascular accident CT evidence of prior CVAs. Chronic anemia Chronic kidney disease, stage 3 Creatinine runs between 1.2 and 1.60. Chronic pain Secondary to fibromyalgia, for which she uses CBD oil. Clostridium difficile diarrhea July and August 2017 as well as October 2017. Congestive heart failure Echocardiogram in November 2019 showed mildly reduced LV systolic function with an ejection fraction estimated at 40 to 45%, akinetic anteroapical segment, mild aortic valve sclerosis and regurgitation, as well as mild left atrial enlargement. Coronary artery calcification Depression with anxiety Essential hypertension Fibromyalgia Fractures Right humerus. Gastroesophageal reflux disease Gastroesophageal reflux disease GI bleed (~11/2018) [place] to be due to possible Jayne-Pitts tear from dry heaves and vomiting; no EGD performed. Hypertriglyceridemia Immunocompromised patient On anti-rejection medications status post liver transplant Insomnia Kidney stones Osteoporosis Paroxysmal atrial fibrillation Primary biliary cirrhosis Status post liver transplant x2. Surgical History Surgica
[2020-09-14 18:42] LABS: Prothrombin Time 14.2 Seconds (11.1-14.7)
[2020-09-14 18:46] LABS: Alanine Aminotransferase 78 U/L (4-35); Albumin Level 3.8 g/dL (3.5-5.1); Alkaline Phosphatase 91 U/L (38-126); Anion Gap 9 mmol/L (8-16); Aspartate Amino Transferase 96 U/L (14-36); Bilirubin,Total 0.4 mg/dL (0.2-1.3); Blood Urea Nitrogen 20 mg/dL (7-17); Calcium 9.3 mg/dL (8.4-10.2); Carbon Dioxide 32 mmol/L (22-30); Chloride 96 mmol/L (98-107); Estimated CRCL calculation 20 ml/min; Estimated Glomerular Filt Rate 37; Glucose 126 mg/dL (65-105); Potassium 4.3 mmol/L (3.4-5.0); Sodium 137 mmol/L (137-145)
[2020-09-14 18:55] VITALS: BP 132/52; PULSE 80; RESP 18; O2SAT 98
[2020-09-14 18:58] LABS: Troponin I < 0.012 ng/mL (0.000-0.034)
[2020-09-15 21:15] LABS: SARS-CoV-2 RNA PCR Negative
== END 2020-09-14 19:08 | disposition home or self-care (01) ==
PROVIDERS: Emergency Provider Family Medicine; PCP Family Medicine
DX: B34.9 Viral infection, unspecified (principal); Z20.828 Contact with and (suspected) exposure to other viral communicable diseases; E78.00 Pure hypercholesterolemia, unspecified; I70.0 Atherosclerosis of aorta; M19.90 Unspecified osteoarthritis, unspecified site; I13.0 Hypertensive heart and chronic kidney disease with heart failure and stage 1 through stage 4 chronic kidney disease, or unspecified chronic kidney disease; N18.30 Chronic kidney disease, stage 3 unspecified; D63.1 Anemia in chronic kidney disease; Z87.891 Personal history of nicotine dependence; M79.7 Fibromyalgia; K21.9 Gastro-esophageal reflux disease without esophagitis; E78.1 Pure hyperglyceridemia; Z87.442 Personal history of urinary calculi; M81.0 Age-related osteoporosis without current pathological fracture; I48.0 Paroxysmal atrial fibrillation; K74.3 Primary biliary cirrhosis; Z94.4 Liver transplant status; Z96.691 Finger-joint replacement of right hand
CPT/HCPCS: 36415; 71045; 80053; 84484; 85025; 85610; 87635; 93005; 99284; C9803; U0003

== ENCOUNTER 2020-12-10 06:28 | Emergency (ER) | payer MEDICARE, SELFPAY ==
[2020-12-10 06:30] VITALS: BP 182/89; PULSE 93; RESP 18; TEMP 36.4; O2SAT 94
--- NOTE | 2020-12-10 07:30 | ED.NAVMDI ---
HPI - Nausea/Vomiting/Diarrhea General Chief complaint: Nausea/Vomiting/Diarrhea Stated complaint: emesis x 3 days Time Seen by Provider: 12/10/20 06:55 Source: patient Mode of arrival: ambulatory Limitations: no limitations History of Present Illness HPI Narrative: A 75-year-old female comes into the emergency department with complaints of nausea and vomiting. The only history I am able to get from her is that she is a liver transplant patient. Patient continually retches very loudly. She is very difficult to get history from. She is not actually vomiting. Related Data Home Medications Medication Instructions Recorded Confirmed calcium carbonate [Calcium 600] 600 mg PO DAILY 09/14/20 cholecalciferol (vitamin D3) 400 unit PO DAILY 09/14/20 cyanocobalamin (vitamin B-12) 500 mcg PO DAILY 09/14/20 hydrochlorothiazide 12.5 mg PO 09/14/20 loperamide 2 mg PO 09/14/20 magnesium oxide 500 mg PO DAILY 09/14/20 metoprolol succinate 50 mg PO 09/14/20 nitroglycerin 0.4 mg SUBLINGUAL ONCE 09/14/20 potassium mg 09/14/20 pravastatin 40 mg PO 09/14/20 prednisone 5 mg PO 09/14/20 promethazine [Promethegan] 12.5 mg CO Q6H PRN 09/14/20 rosuvastatin 40 mg PO 09/14/20 sirolimus 2 mg PO DAILY 09/14/20 09/14/20 Allergies Allergy/AdvReac Type Severity Reaction Status Date / Time iodine Allergy Severe anaphlaxis Verified 09/14/20 17:13 aspirin Allergy Mild Unknown Verified 09/14/20 17:13 erythromycin base Allergy Mild Unknown Verified 09/14/20 17:13 blood thinners Allergy Intermediate pt bleeds Uncoded 08/09/20 11:42 out Review of Systems Review of Systems: ROS unobtainable: Yes unobtainable due to medical condition (Patient uncooperative) PMFSH Past Medical History Medical History Aortic atherosclerosis Abdominal aortic atherosclerosis with fusiform narrowing noted on prior imaging. Arthritis Cerebrovascular accident CT evidence of prior CVAs. Chronic anemia Chronic kidney disease, stage 3 Creatinine runs between 1.2 and 1.60. Chronic pain Secondary to fibromyalgia, for which she uses CBD oil. Clostridium difficile diarrhea July and August 2017 as well as October 2017. Congestive heart failure Echocardiogram in November 2019 showed mildly reduced LV systolic function with an ejection fraction estimated at 40 to 45%, akinetic anteroapical segment, mild aortic valve sclerosis and regurgitation, as well as mild left atrial enlargement. Coronary artery calcification Depression with anxiety Essential hypertension Fibromyalgia Fractures Right humerus. Gastroesophageal reflux disease Gastroesophageal reflux disease GI bleed (~11/2018) [place] to be due to possible Jayne-Pitts tear from dry heaves and vomiting; no EGD performed. Hypertriglyceridemia Immunocompromised patient On anti-rejection medications status post liver transplant Insomnia Kidney stones Osteoporosis Paroxysmal atrial fibrillation Primary biliary cirrhosis Status post liver transplant x2. Surgical History Surgical History Finger joint replacement of right hand Right 2nd finger PIP joint replacement. History of appendectomy History of arthroscopy of left shoulder History of cholecystectomy History of colonoscopy History of esophagogastroduodenoscopy (EGD) History of hysterectomy History of liver transplant (~1999) X2. History of nasal surgery History of tonsillectomy Rectal prolapse With surgical repair. Family History Family History Unknown Unknown family medical history Patient was adopted so family history is unobtainable. Social History Social History Social History: The patient has been for 13 years and lives in [place]. The patient has 2 biological children and she had 2 step children. She is estrang
[2020-12-10] MEDS: PROCHLORPERAZINE EDISYLATE 10 MG/2 ML VIAL 5 MG IV PUSH (07:31)
[2020-12-10] MEDS: diphenhydrAMINE HCl INJ 50 MG/ML VIAL IV PUSH (07:31)
[2020-12-10 07:45] LABS: Basophils Absolute Auto 0.1 K/mm3 (0.0-0.1); Basophils Percent Auto 0.9 % (0.2-1.2); Eosinophils Percent Auto 0.2 % (0-4.4); Hematocrit 28.4 % (37.0-47.0); Hemoglobin 8.5 g/dL (12.0-15.0); Immature Granulocyte Absolute 0.04 K/mm3 (0.00-0.031); Immature Granulocyte Percent A 0.4 % (0-0.5); Lymphocytes Absolute Auto 1.19 K/mm3 (0.9-3.2); Lymphocytes Percent Auto 12.7 % (18.3-44.2); Mean Corpuscular HGB Conc 29.9 g/dl (32-36); Mean Corpuscular Hemoglobin 23.1 pg (26-34); Mean Corpuscular Volume 77.2 fl (80-100); Mean Platelet Volume 10.5 fl (7.4-10.4); Monocytes Absolute Auto 0.6 K/mm3 (0.1-0.6); Monocytes Percent Auto 6.4 % (2.6-8.5); Neutrophils Absolute Auto 7.4 K/mm3 (1.3-6.7); Neutrophils Percent Auto 79.4 % (45.5-73.1); Platelet Count Result 308 k/mm3 (150-375); Red Blood Count 3.68 M/mm3 (4.2-5.4); Red Cell Distribution Width 18.3 % (11.5-14.5); White Blood Count 9.4 K/mm3 (4.5-10.0)
[2020-12-10 07:54] LABS: Anisocytosis 1+ (NORMAL); Hypochromasia 1+ (NORMAL); Microcytosis 1+ (NORMAL); Ovalocytes 1+ (NORMAL); Platelet Estimate Adequate (Adequate)
[2020-12-10 07:55] LABS: Alanine Aminotransferase 160 U/L (4-35); Albumin Level 3.7 g/dL (3.5-5.1); Alkaline Phosphatase 143 U/L (38-126); Anion Gap 13 mmol/L (8-16); Aspartate Amino Transferase 170 U/L (14-36); Bilirubin,Total 0.4 mg/dL (0.2-1.3); Blood Urea Nitrogen 20 mg/dL (7-17); Carbon Dioxide 24 mmol/L (22-30); Chloride 101 mmol/L (98-107); Estimated CRCL calculation 21 ml/min; Estimated Glomerular Filt Rate 40; Glucose 165 mg/dL (65-105); Lipase 69 U/L (23-300); Potassium 3.9 mmol/L (3.4-5.0); Sodium 138 mmol/L (137-145)
[2020-12-10 08:00] VITALS: BP 141/97; PULSE 67; RESP 20; O2SAT 96
[2020-12-10 08:06] LABS: Troponin I 0.013 ng/mL (0.000-0.034)
[2020-12-10 09:21] VITALS: BP 145/56; PULSE 73; RESP 20; O2SAT 98
[2020-12-10 10:18] VITALS: BP 157/70; PULSE 75; RESP 20; O2SAT 98
[2020-12-10 11:53] VITALS: BP 158/78; PULSE 78; RESP 18; O2SAT 99
== END 2020-12-10 11:58 | disposition home or self-care (01) ==
PROVIDERS: Emergency Provider Emergency Medicine; PCP Family Medicine
DX: F41.9 Anxiety disorder, unspecified (principal); R11.2 Nausea with vomiting, unspecified; N18.30 Chronic kidney disease, stage 3 unspecified; D63.1 Anemia in chronic kidney disease; I50.9 Heart failure, unspecified; I13.0 Hypertensive heart and chronic kidney disease with heart failure and stage 1 through stage 4 chronic kidney disease, or unspecified chronic kidney disease; I48.0 Paroxysmal atrial fibrillation; Z94.4 Liver transplant status; M19.90 Unspecified osteoarthritis, unspecified site; Z86.73 Personal history of transient ischemic attack (TIA), and cerebral infarction without residual deficits; M79.7 Fibromyalgia; K21.9 Gastro-esophageal reflux disease without esophagitis; E78.1 Pure hyperglyceridemia; Z87.442 Personal history of urinary calculi; M81.0 Age-related osteoporosis without current pathological fracture; Z96.691 Finger-joint replacement of right hand; Z87.891 Personal history of nicotine dependence
CPT/HCPCS: 36415; 80053; 83690; 84484; 85025; 96374; 96375; 99284; J0780; J1200

== ENCOUNTER 2021-02-25 16:15 | Emergency (ER) | payer MEDICARE, SELFPAY ==
--- NOTE | ~2021-02-25 | CT_ITS ---
EXAMINATION: CT abdomen pelvis wo con DATE: 02/25/2021 22:40 INDICATION: Hematuria. Weakness. Decreased appetite. TECHNIQUE: Computed tomography (CT) of the abdomen and pelvis was performed without intravenous contr ast. Automated exposure control and iterative reconstruction technique were employed. The dose-length product was 153.70 mGy-cm. COMPARISON: CT abdomen and pelvis 07/30/2020 FINDINGS: The visualized portions of the lung bases are clear without pneumonia or pleural effusion. There is a right posterior diaphragmatic hernia containing fat. The heart size is normal. No pericard ial effusion. Pneumobilia is noted, likely secondary to sphincterotomy. The gallbladder is absent. Th e spleen, pancreas, adrenal glands, and kidneys are normal. A 2 mm calcification in left kidney is li lorie vascular. There is calcified atherosclerosis of the aorta and many of the other arteries. There is severe calcified plaque in infrarenal aorta with at least moderate stenosis. 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 There are surgical changes of the bowel. There are no dilat ed loops of bowel. The appendix is not visualized. There are no pathologically enlarged lymph nodes. There is no free intraperitoneal fluid. There is mild lumbar spondylosis. IMPRESSION: 1. Plaque in abdominal aorta with at least moderate stenosis. Reviewed, dictated and finalized at location A.
--- NOTE | ~2021-02-25 | XR_ITS ---
EXAMINATION: XR chest 2V DATE: 02/25/2021 20:45 INDICATION: Weakness. Nausea and vomiting. Fever. TECHNIQUE: Frontal and lateral views of the chest were obtained. COMPARISON: Chest single view 09/14/2020 FINDINGS: There is mild scarring at the lung apices. No pleural effusion or pneumothorax. The heart s ize is normal. There are surgical clips in the abdomen. IMPRESSION: 1. Mild scarring at the lung apices. Reviewed, dictated and finalized at location A.
--- NOTE | ~2021-02-25 | CT_ITS ---
EXAMINATION: CT brain wo con DATE: 02/25/2021 22:40 INDICATION: Weakness. TECHNIQUE: Computed tomography (CT) of the head was performed without intravenous contrast. The mA wa s adjusted according to patient size. Iterative reconstruction technique was employed. The dose-lengt h product was 153.70 mGy-cm. COMPARISON: Head CT 05/13/2020, 08/02/2018 FINDINGS: There are old lacunar infarcts in left basal ganglia. There are scattered areas of low atte nuation in the cerebral white matter, which is within normal limits for the patient's age. There is n o intracranial hemorrhage, acute infarction, or abnormal intracranial mass lesion. The ventricles are normal in size. The orbits are normal. The paranasal sinuses are clear. There is a right mastoid eff usion. IMPRESSION: 1. Old lacunar infarcts in the left basal ganglia. Reviewed, dictated and finalized at location A.
[2021-02-25 17:02] VITALS: BP 150/60; PULSE 73; RESP 18; TEMP 37; O2SAT 98
[2021-02-25 17:24] LABS: Basophils Absolute Auto 0.1 K/mm3 (0.0-0.1); Basophils Percent Auto 0.6 % (0.2-1.2); Eosinophils Percent Auto 0.2 % (0-4.4); Hematocrit 33.4 % (37.0-47.0); Hemoglobin 10.2 g/dL (12.0-15.0); Immature Granulocyte Absolute 0.04 K/mm3 (0.00-0.031); Immature Granulocyte Percent A 0.5 % (0-0.5); Lymphocytes Absolute Auto 1.67 K/mm3 (0.9-3.2); Mean Corpuscular HGB Conc 30.5 g/dl (32-36); Mean Corpuscular Hemoglobin 23.4 pg (26-34); Mean Corpuscular Volume 76.6 fl (80-100); Mean Platelet Volume 9.7 fl (7.4-10.4); Monocytes Absolute Auto 0.4 K/mm3 (0.1-0.6); Monocytes Percent Auto 4.4 % (2.6-8.5); Neutrophils Absolute Auto 6.6 K/mm3 (1.3-6.7); Neutrophils Percent Auto 75.3 % (45.5-73.1); Platelet Count Result 315 k/mm3 (150-375); Red Blood Count 4.36 M/mm3 (4.2-5.4); Red Cell Distribution Width 18.7 % (11.5-14.5); White Blood Count 8.8 K/mm3 (4.5-10.0)
[2021-02-25 17:34] LABS: Alanine Aminotransferase 22 U/L (4-35); Alkaline Phosphatase 92 U/L (38-126); Anion Gap 6 mmol/L (8-16); Aspartate Amino Transferase 45 U/L (14-36); Bilirubin,Total 0.2 mg/dL (0.2-1.3); Blood Urea Nitrogen 26 mg/dL (7-17); Calcium 9.5 mg/dL (8.4-10.2); Carbon Dioxide 29 mmol/L (22-30); Chloride 102 mmol/L (98-107); Estimated CRCL calculation 19 ml/min; Estimated Glomerular Filt Rate 37; Glucose 155 mg/dL (65-105); Potassium 4.1 mmol/L (3.4-5.0); Sodium 137 mmol/L (137-145)
[2021-02-25 20:18] VITALS: BP 139/77; PULSE 70; RESP 18; O2SAT 100
--- NOTE | 2021-02-25 20:26 | ECG_ITS ---
Measurements Intervals [place] Rate: 61 P: 91 AL: 163 QRS: 63 QRSD: 68 T: 90 QT: 431 QTc: 436 Interpretive Statements SINUS RHYTHM BORDERLINE ST ABNORMALITY- ANTEROLAT/INF LEADS BASELINE ARTIFACT- I, II, AVR, AVL, AVF, V5-V6 BORDERLINE ECG Electronically Signed On 02-26-2021 7:34:13 CDT by Krystian Lancaster D.O.
[2021-02-25 20:52] LABS: Magnesium 2.1 mg/dL (1.6-2.3)
--- NOTE | 2021-02-25 20:52 | ED.WEAKNESS ---
HPI - Weakness General Chief complaint: Weakness Stated complaint: Sent by PCP, Low HGB Time Seen by Provider: 02/25/21 20:07 Source: patient, RN notes reviewed and old records reviewed Mode of arrival: ambulatory Limitations: no limitations History of Present Illness HPI Narrative: This is a 75 year old female with multiple medical problems who presents for evaluation of generalized weakness for 9 days. She states she has not felt well for several days and she thinks her hemoglobin is low. She reports she has intermittent episodes at night in which she gets warm flushed feeling and becomes diaphoretic. This is not associated with chest pain, sob or palpitations. She also reports for the first 4 days she has nausea and vomiting, but that has resolved. She reports chronic diarrhea and today she has only had 1 episode that was nonbloody. She has not had fever or chills. She denies focal weakness. She states she was sent by her PCP. She denies UTI symptoms. She denies headache or lightheadedness. MD Complaint: generalized weakness Related Data Home Medications Medication Instructions Recorded Confirmed cyanocobalamin (vitamin B-12) 500 mcg PO DAILY 09/14/20 02/10/21 hydrochlorothiazide 12.5 mg tablet 12.5 mg PO DAILY tablet 12/13/20 02/10/21 loperamide 2 mg capsule 2 mg PO QID cap 12/13/20 02/10/21 metoprolol tartrate 50 mg tablet 50 mg PO Q12H 12/13/20 02/10/21 pantoprazole 40 mg tablet,delayed 40 mg PO Q12H tablet 12/13/20 02/10/21 release calcium carbonate 600 mg calcium 600 mg PO DAILY 02/10/21 02/10/21 (1,500 mg) tablet cholecalciferol (vitamin D3) 100 400 unit PO DAILY 02/10/21 02/10/21 mcg (4,000 unit) tablet magnesium oxide 500 mg capsule 500 mg PO DAILY 02/10/21 02/10/21 nitroglycerin 0.4 mg sublingual 0.4 mg SUBLINGUAL ONCE 02/10/21 02/10/21 tablet potassium 99 mg tablet 99 mg PO BID tablet 02/10/21 02/10/21 prednisone 5 mg tablet 5 mg PO DAILY tablet 02/10/21 02/10/21 sirolimus 2 mg tablet 2 mg PO DAILY 02/10/21 02/10/21 Allergies Allergy/AdvReac Type Severity Reaction Status Date / Time iodine Allergy Severe anaphlaxis Verified 02/10/21 10:57 aspirin Allergy Mild Unknown Verified 02/10/21 10:57 erythromycin base Allergy Mild Unknown Verified 02/10/21 10:57 blood thinners Allergy Intermediate pt bleeds Uncoded 02/10/21 10:57 out Review of Systems Review of Systems: All systems reviewed & are unremarkable except as noted in HPI and below PMFSH Past Medical History Medical History Aortic atherosclerosis Abdominal aortic atherosclerosis with fusiform narrowing noted on prior imaging. Arthritis Cannabinoid hyperemesis syndrome Cerebrovascular accident CT evidence of prior CVAs. Chronic anemia Chronic kidney disease, stage 3 Creatinine runs between 1.2 and 1.60. Chronic pain Secondary to fibromyalgia, for which she uses CBD oil. Clostridium difficile diarrhea July and August 2017 as well as October 2017. Congestive heart failure Echocardiogram in November 2019 showed mildly reduced LV systolic function with an ejection fraction estimated at 40 to 45%, akinetic anteroapical segment, mild aortic valve sclerosis and regurgitation, as well as mild left atrial enlargement. Coronary artery calcification COVID-19 08/2019 Depression with anxiety Essential hypertension Fibromyalgia Fractures Right humerus. Gastroesophageal reflux disease Gastroesophageal reflux disease GI bleed (~11/2018) [place] to be due to possible Jayne-Pitts tear from dry heaves and vomiting; no EGD performed. History of Clostridioides difficile colitis Hypertriglyceridemia Immunocompromised patient On anti-rejection medications status post liver transplant Insomnia Kidney stones Osteoarthritis Osteoporosis Paroxysmal atrial fibrillation Primary biliary cirrhosis Status post liver transplant x2. Surgical History Surgical History (Reviewed
[2021-02-25 21:08] LABS: Troponin I < 0.012 ng/mL (0.000-0.034)
[2021-02-25 21:15] VITALS: BP 162/53
[2021-02-25 21:16] VITALS: BP 155/64; BP 166/61
[2021-02-25] MEDS: SODIUM CHLORIDE 0.9% IV 500 ML 999 ML IV CONT (21:31)
[2021-02-25 21:48] LABS: Add Urine Microscopic? YES; Appearance Urine Clear (Clear); Bilirubin Urine Negative (Negative); Blood Urine 1+ (Negative); Color Urine Yellow (Yellow); Glucose Urine UA Negative (Negative); Ketones Urine Negative (Negative); Leukocyte Esterase Ur Negative LEU/UL (Negative); Mucus Urine Rare /lpf; Nitrate Urine Negative (Negative); Protein Urine 2+ mg/dL (Negative); RBC Urine 21-50 /hpf (0-2); Specific Grav Ur 1.018 (1.001-1.035); Squamous Epithelial Cell Urine Rare /hpf (Few); Urobilinogen Urine Negative mg/dL (<2.0); WBC Urine 0-3 /hpf
[2021-02-26 00:16] VITALS: BP 115/65; PULSE 60; RESP 16; O2SAT 100
== END 2021-02-26 00:17 | disposition home or self-care (01) ==
PROVIDERS: Emergency Medicine; Emergency Provider General Practice; PCP Family Medicine
DX: R53.1 Weakness (principal); D63.1 Anemia in chronic kidney disease; I70.0 Atherosclerosis of aorta; I48.0 Paroxysmal atrial fibrillation; I13.0 Hypertensive heart and chronic kidney disease with heart failure and stage 1 through stage 4 chronic kidney disease, or unspecified chronic kidney disease; N18.30 Chronic kidney disease, stage 3 unspecified; I50.9 Heart failure, unspecified; Z86.16 Personal history of COVID-19; M79.7 Fibromyalgia; K21.9 Gastro-esophageal reflux disease without esophagitis; E78.1 Pure hyperglyceridemia; M19.90 Unspecified osteoarthritis, unspecified site; Z87.442 Personal history of urinary calculi; M81.0 Age-related osteoporosis without current pathological fracture; Z94.4 Liver transplant status; Z96.691 Finger-joint replacement of right hand; Z87.891 Personal history of nicotine dependence; R94.31 Abnormal electrocardiogram [ECG] [EKG]
CPT/HCPCS: 36415; 70450; 71046; 74176; 80053; 81001; 83735; 84484; 85025; 93005; 96360; 99284; J7040

== ENCOUNTER 2021-04-19 17:46 | Observation (INO) | payer MEDICARE, SELFPAY ==
[2021-04-19] VITALS (7 sets, daily range): BP systolic 127–184; BP diastolic 51–80; PULSE 82–110; RESP 18–22; TEMP 36.3–37.3; O2SAT 97–100
--- NOTE | ~2021-04-19 | CT_ITS ---
EXAMINATION: CT abdomen pelvis wo con EXAM DATE: 04/19/2021 18:30 INDICATION: Hematochezia. Nausea and vomiting. TECHNIQUE: Spiral CT of the abdomen and pelvis was performed without contrast. Axial, coronal and sag ittal images were reviewed. The dose-length product (DLP) for this examination was 163.08 mGy-cm. T he exposure was tailored according to patient size (auto mA exposure control), and iterative reconstr uction (ASIR) was used as additional dose reduction technique. Comparison is made to prior examinatio n from 02/25/2021. FINDINGS: There is diffusely edematous, thickened colonic wall consistent with hogan colitis. No pneuma tosis. No small bowel dilation. Surgical changes with several bowel anastomosis sites, wire like dens ity anterior to the left liver lobe, cholecystectomy clips and pneumobilia. Splenic hilar aneurysm measuring 1.3 cm unchanged. Severe mid abdominal aortic calcification, probabl y severe stenosis or complete occlusion of the abdominal aorta. Mild emphysema. Heart normal in size. Small gastroesophageal hiatal hernia. No hydronephrosis or nephrolithiasis. Spleen, pancreas, adrena l glands are unremarkable. Patient has had hysterectomy. There are no osteoblastic or osteolytic lesi ons identified. IMPRESSION: 1. Pancolitis. 2. Splenic hilar 1.3 cm aneurysm unchanged. 3. Mid abdominal aorta severely stenotic or completely occluded. 4. Surgical changes. Reviewed, dictated and finalized at location A.
[2021-04-19] MEDS: MORPHINE SULFATE (*CRX) 2 MG/ML INJ IV PUSH ×2 (18:00→19:42)
[2021-04-19] MEDS: FAMOTIDINE 20 MG/2 ML VIAL IV PUSH (18:00)
[2021-04-19] MEDS: SODIUM CHLORIDE 0.9% IV 1,000 ML 999 ML IV CONT ×2 (18:01→18:50)
[2021-04-19] MEDS: ONDANSETRON INJ 4 MG/2 ML VIAL IV PUSH ×3 (18:01→23:00)
[2021-04-19 18:27] LABS: Basophils Absolute Auto 0.1 K/mm3 (0.0-0.1); Basophils Percent Auto 0.5 % (0.2-1.2); Eosinophils Percent Auto 0.1 % (0-4.4); Hematocrit 35.6 % (37.0-47.0); Hemoglobin 11.1 g/dL (12.0-15.0); Immature Granulocyte Absolute 0.08 K/mm3 (0.00-0.031); Immature Granulocyte Percent A 0.6 % (0-0.5); Lymphocytes Percent Auto 11.4 % (18.3-44.2); Mean Corpuscular HGB Conc 31.2 g/dl (32-36); Mean Corpuscular Hemoglobin 23.9 pg (26-34); Mean Corpuscular Volume 76.7 fl (80-100); Mean Platelet Volume 10.6 fl (7.4-10.4); Monocytes Absolute Auto 0.7 K/mm3 (0.1-0.6); Monocytes Percent Auto 5.4 % (2.6-8.5); Neutrophils Absolute Auto 10.8 K/mm3 (1.3-6.7); Platelet Count Result 261 k/mm3 (150-375); Red Blood Count 4.64 M/mm3 (4.2-5.4); Red Cell Distribution Width 18.6 % (11.5-14.5); White Blood Count 13.2 K/mm3 (4.5-10.0)
[2021-04-19 18:35] LABS: Add Urine Microscopic? YES; Appearance Urine Cloudy (Clear); Bilirubin Urine Negative (Negative); Blood Urine 3+ (Negative); Color Urine Yellow (Yellow); Glucose Urine UA 1+ mg/dL (Negative); Ketones Urine 1+ mg/dL (Negative); Leukocyte Esterase Ur Trace LEU/UL (Negative); Mucus Urine Rare /lpf; Nitrate Urine Negative (Negative); Protein Urine 3+ mg/dL (Negative); RBC Urine 21-50 /hpf (0-2); Specific Grav Ur 1.019 (1.001-1.035); Squamous Epithelial Cell Urine Occasional /hpf (Few); Urobilinogen Urine Negative mg/dL (<2.0)
[2021-04-19 18:38] LABS: Alanine Aminotransferase 42 U/L (4-35); Albumin Level 4.3 g/dL (3.5-5.1); Alkaline Phosphatase 120 U/L (38-126); Anion Gap 16 mmol/L (8-16); Aspartate Amino Transferase 61 U/L (14-36); Bilirubin,Total 0.6 mg/dL (0.2-1.3); Blood Urea Nitrogen 21 mg/dL (7-17); Calcium 9.7 mg/dL (8.4-10.2); Carbon Dioxide 21 mmol/L (22-30); Chloride 100 mmol/L (98-107); Estimated Glomerular Filt Rate 34; Glucose 191 mg/dL (65-105); Lactic Acid Reflex 4.3 mmol/L (0.7-2.1); Lipase 117 U/L (23-300); Potassium 3.5 mmol/L (3.4-5.0); Sodium 137 mmol/L (137-145)
--- NOTE | 2021-04-19 18:48 | ED.GENADULT ---
HPI - General Adult General Chief complaint: Nausea/Vomiting/Diarrhea Stated complaint: VOMITING Time Seen by Provider: 04/19/21 20:23 Source: patient, family, EMS, RN notes reviewed and old records reviewed Mode of arrival: EMS Limitations: no limitations History of Present Illness HPI narrative: Patient is a 75-year-old female who presents from home per EMS for evaluation of vomiting and rectal bleeding patient has history of chronic GI issues to include nausea and vomiting and diarrhea patient started today with nausea and vomiting multiple episodes unable to tolerate p.o. intake followed by red blood per the rectum. Patient on arrival appears uncomfortable and mildly distressed with her emesis. Patient is followed by primary care out of [facility]. Patient has a disease education specialist at [facility]. Patient on arrival is ill-appearing. Patient has had similar occurrences in the past but has not had the rectal bleeding component. Patient denies any anticoagulant use. Related Data Home Medications Medication Instructions Recorded Confirmed cyanocobalamin (vitamin B-12) 500 mcg PO DAILY 09/14/20 02/10/21 hydrochlorothiazide 12.5 mg tablet 12.5 mg PO DAILY tablet 12/13/20 02/10/21 loperamide 2 mg capsule 2 mg PO QID cap 12/13/20 02/10/21 metoprolol tartrate 50 mg tablet 50 mg PO Q12H 12/13/20 02/10/21 pantoprazole 40 mg tablet,delayed 40 mg PO Q12H tablet 12/13/20 02/10/21 release calcium carbonate 600 mg calcium 600 mg PO DAILY 02/10/21 02/10/21 (1,500 mg) tablet cholecalciferol (vitamin D3) 100 400 unit PO DAILY 02/10/21 02/10/21 mcg (4,000 unit) tablet magnesium oxide 500 mg capsule 500 mg PO DAILY 02/10/21 02/10/21 nitroglycerin 0.4 mg sublingual 0.4 mg SUBLINGUAL ONCE 02/10/21 02/10/21 tablet potassium 99 mg tablet 99 mg PO BID tablet 02/10/21 02/10/21 prednisone 5 mg tablet 5 mg PO DAILY tablet 02/10/21 02/10/21 sirolimus 2 mg tablet 2 mg PO DAILY 02/10/21 02/10/21 Allergies Allergy/AdvReac Type Severity Reaction Status Date / Time iodine Allergy Severe anaphlaxis Verified 02/10/21 10:57 aspirin Allergy Mild Unknown Verified 02/10/21 10:57 erythromycin base Allergy Mild Unknown Verified 02/10/21 10:57 blood thinners Allergy Intermediate pt bleeds Uncoded 02/10/21 10:57 out Review of Systems Review of Systems: All systems reviewed & are unremarkable except as noted in HPI and below PMFSH Past Medical History Medical History Aortic atherosclerosis Abdominal aortic atherosclerosis with fusiform narrowing noted on prior imaging. Arthritis Cannabinoid hyperemesis syndrome Cerebrovascular accident CT evidence of prior CVAs. Chronic anemia Chronic kidney disease, stage 3 Creatinine runs between 1.2 and 1.60. Chronic pain Secondary to fibromyalgia, for which she uses CBD oil. Clostridium difficile diarrhea July and August 2017 as well as October 2017. Congestive heart failure Echocardiogram in November 2019 showed mildly reduced LV systolic function with an ejection fraction estimated at 40 to 45%, akinetic anteroapical segment, mild aortic valve sclerosis and regurgitation, as well as mild left atrial enlargement. Coronary artery calcification COVID-19 08/2019 Depression with anxiety Essential hypertension Fibromyalgia Fractures Right humerus. Gastroesophageal reflux disease Gastroesophageal reflux disease GI bleed (~11/2018) [place] to be due to possible Jayne-Pitts tear from dry heaves and vomiting; no EGD performed. History of Clostridioides difficile colitis Hypertriglyceridemia Immunocompromised patient On anti-rejection medications status post liver transplant Insomnia Kidney stones Osteoarthritis Osteoporosis Paroxysmal atrial fibrillation Primary biliary cirrhosis Status post liver transplant x2. Surgical History Surgical History Finger joint replac
[2021-04-19] MEDS: PANTOPRAZOLE SODIUM IV 40 MG VIAL IV PUSH (18:50)
[2021-04-19] MEDS: PROMETHAZINE HCL 25 MG/ML AMPUL 12.5 MG IV PUSH (18:50)
[2021-04-19 20:03] LABS: INR 0.9; Prothrombin Time 13.2 Seconds (11.1-14.7)
[2021-04-19 20:04] LABS: Partial Thromboplastin Time 24.2 SECONDS (22.3-36.8)
[2021-04-19] MEDS: LACTATED RINGERS 1,000 ML 100 ML IV CONT (20:10)
[2021-04-19 21:24] LABS: Reflex Lactic Acid Yes or No Add Lactic
[2021-04-19 21:26] LABS: EDCOVIDSCREEN Negative (Negative)
[2021-04-19 21:37] LABS: Hematocrit 26.5 % (37.0-47.0); Hemoglobin 8.4 g/dL (12.0-15.0)
[2021-04-19] MEDS: SODIUM CHLORIDE 0.9% IV 250 ML 30 ML IV CONT (22:58)
[2021-04-19] MEDS: diphenhydrAMINE HCl INJ 50 MG/ML VIAL 12.5 MG IV PUSH (22:59)
[2021-04-20] VITALS (37 sets, daily range): BP systolic 107–210; BP diastolic 56–108; PULSE 76–99; RESP 14–37; TEMP 36.8–37.2; O2SAT 96–100; BMI 16.7
[2021-04-20] MEDS: PROMETHAZINE HCL 25 MG/ML AMPUL 12.5 MG IV PUSH (00:35)
[2021-04-20] MEDS: TUBING, BLOOD PLUM PUMP TUBING 1 EACH XX ×2 (00:36→03:35)
[2021-04-20 04:59] LABS: Basophils Absolute Auto 0.1 K/mm3 (0.0-0.1); Basophils Percent Auto 0.4 % (0.2-1.2); Eosinophils Percent Auto 0.1 % (0-4.4); Hematocrit 43.5 % (37.0-47.0); Immature Granulocyte Absolute 0.12 K/mm3 (0.00-0.031); Immature Granulocyte Percent A 0.9 % (0-0.5); Lymphocytes Percent Auto 8.6 % (18.3-44.2); Mean Corpuscular HGB Conc 32.2 g/dl (32-36); Mean Corpuscular Hemoglobin 25.8 pg (26-34); Mean Corpuscular Volume 80.1 fl (80-100); Mean Platelet Volume 9.7 fl (7.4-10.4); Monocytes Percent Auto 7.7 % (2.6-8.5); Neutrophils Absolute Auto 10.5 K/mm3 (1.3-6.7); Neutrophils Percent Auto 82.3 % (45.5-73.1); Platelet Count Result 201 k/mm3 (150-375); Red Blood Count 5.43 M/mm3 (4.2-5.4); Red Cell Distribution Width 18.3 % (11.5-14.5); White Blood Count 12.7 K/mm3 (4.5-10.0)
[2021-04-20 05:07] LABS: Alanine Aminotransferase 37 U/L (4-35); Albumin Level 3.7 g/dL (3.5-5.1); Alkaline Phosphatase 102 U/L (38-126); Anion Gap 10 mmol/L (8-16); Aspartate Amino Transferase 58 U/L (14-36); Bilirubin,Total 0.5 mg/dL (0.2-1.3); Blood Urea Nitrogen 16 mg/dL (7-17); Calcium 8.5 mg/dL (8.4-10.2); Carbon Dioxide 22 mmol/L (22-30); Chloride 101 mmol/L (98-107); Estimated Glomerular Filt Rate 40; Glucose 166 mg/dL (65-105); Potassium 2.9 mmol/L (3.4-5.0); Sodium 133 mmol/L (137-145)
[2021-04-20] MEDS: LABETALOL HCL INJ 100 MG/20 ML VIAL (05:12)
[2021-04-20] MEDS: diphenhydrAMINE HCl INJ 50 MG/ML VIAL 25 MG IV PUSH (06:34)
[2021-04-20] MEDS: METOCLOPRAMIDE HCL INJ 10 MG/2 ML VIAL IV PUSH (06:35)
--- NOTE | 2021-04-20 07:20 | PC.NURSE ---
Report taken from BIN Bertrand.
[2021-04-20 09:18] LABS: Hematocrit 45.6 % (37.0-47.0); Hemoglobin 15.1 g/dL (12.0-15.0)
[2021-04-20] MEDS: FAMOTIDINE 20 MG/2 ML VIAL IV PUSH (09:31)
--- NOTE | 2021-04-20 10:03 | PC.NURSE ---
[place] transfer line called for updated vitals. Still no bed at this time.
[2021-04-20] MEDS: ONDANSETRON INJ 4 MG/2 ML VIAL IV PUSH (12:57)
--- NOTE | 2021-04-20 13:58 | PC.NURSE ---
Pain med taken in for pt, then pt changed mind.
--- NOTE | 2021-04-20 15:51 | ADMGEN ---
This patient, Jia Walter, was admitted to 3 [facility] Room 300-01. Patient/family oriented to hospital policies and general routines including ID bracelet, bed and alarms, visiting hours, pain management, procedures, bathroom and other care routines, personal items, smoking policy, room service/diet, and visiting hours. Information on how to activate the Rapid Response Team has been discussed. Patient/Family are encouraged to report perceived risks to care and to ask questions if they do not understand what they are told or what they should do.
--- NOTE | 2021-04-20 18:30 | PM.TDS ---
Transfer Discharge Sum: Prov Provider Date of admission: 04/20/21 18:30 Primary care physician: Devin Bustillos MD Admitting clinician: Ancelmo Denton MD DS: Admitting Diagnosis Admitting Diagnosis Admitting Diagnosis: 1. Pancolitis. 2. GI bleeding. 3. Acute blood loss anemia status post transfusion. 4. Lactic acidosis, resolved. 5. Hypokalemia. 6. Aortic atherosclerosis. 7. Chronic kidney disease stage 3. 8. Essential hypertension. DS: Discharge Diagnosis Discharge Diagnosis (1) Pancolitis: Code(s): K51.00 - Ulcerative (chronic) pancolitis without complications Status: Acute (2) GI bleeding: Code(s): K92.2 - Gastrointestinal hemorrhage, unspecified Status: Acute (3) Acute blood loss anemia: Code(s): D62 - Acute posthemorrhagic anemia Status: Acute (4) Hypokalemia: Code(s): E87.6 - Hypokalemia Status: Acute (5) Lactic acidosis: Code(s): E87.2 - Acidosis Status: Acute (6) Aortic atherosclerosis: Code(s): I70.0 - Atherosclerosis of aorta Status: Acute (7) Chronic kidney disease, stage 3: Qualifiers: Chronic kidney disease stage 3 subtype: unspecified whether 3a or 3b Qualified Code(s): N18.30 - Chronic kidney disease, stage 3 unspecified Code(s): N18.3 - Chronic kidney disease, stage 3 (moderate) Status: Chronic (8) Essential hypertension: Code(s): I10 - Essential (primary) hypertension Status: Chronic Transfer Discharge Sum: Med Medications Active and Home Medications: Home Medications cyanocobalamin (vitamin B-12) 500 mcg PO DAILY 09/14/20 [History Confirmed 04/20/21] hydrochlorothiazide 12.5 mg tablet 12.5 mg PO DAILY tablet 12/13/20 [History Confirmed 04/20/21] loperamide 2 mg capsule 2 mg PO QID cap 12/13/20 [History Confirmed 04/20/21] metoprolol tartrate 50 mg tablet 50 mg PO Q12H 12/13/20 [History Confirmed 04/20/21] pantoprazole 40 mg tablet,delayed release 40 mg PO Q12H tablet 12/13/20 [History Confirmed 04/20/21] calcium carbonate 600 mg calcium (1,500 mg) tablet 600 mg PO DAILY 02/10/21 [History Confirmed 04/20/21] cholecalciferol (vitamin D3) 100 mcg (4,000 unit) tablet 400 unit PO DAILY 02/10/21 [History Confirmed 04/20/21] magnesium oxide 500 mg capsule 500 mg PO DAILY 02/10/21 [History Confirmed 04/20/21] nitroglycerin 0.4 mg sublingual tablet 0.4 mg SUBLINGUAL ONCE PRN 02/10/21 [History Confirmed 04/20/21] potassium 99 mg tablet 1,000 mg PO BID tablet 02/10/21 [History Confirmed 04/20/21] prednisone 5 mg tablet 5 mg PO DAILY tablet 02/10/21 [History Confirmed 04/20/21] sirolimus 2 mg tablet 2 mg PO DAILY 02/10/21 [History Confirmed 04/20/21] venlafaxine 37.5 mg capsule,extended release 24 hr 37.5 mg PO DAILY #90 cap 04/13/21 [Rx Confirmed 04/20/21] losartan [Cozaar] 25 mg PO DAILY 04/20/21 [History Confirmed 04/20/21] rosuvastatin [Crestor] 20 mg PO DAILY 04/20/21 [History Confirmed 04/20/21] Transfer Discharge Sum: Hosp Hospital Course Hospital course: This is a 75-year-old female with multiple medical problems including history of primary biliary cirrhosis status post liver transplant in 1999, C. diff, chronic anemia, hypertension, hyperlipidemia, paroxysmal atrial fibrillation, congestive heart failure with an EF of 40-45% on echo in 11/2019, GERD with history of ulcers, fibromyalgia, rheumatoid arthritis, chronic pain syndrome, and several other comorbidities who presented to the emergency department yesterday evening (04/19/2021) via EMS from home for evaluation of abdominal pain, vomiting, and rectal bleeding. She was hydrated and started on Zosyn given sepsis presentation. Blood pressures were initially quite elevated but did improve with pain control. CT of the abdomen and pelvis showed pancolitis and at that time the patient requested transfer to [place] for continuity of care as her transplant surgeon and GI specialist are on staff there. CT also showed se
== END 2021-04-20 21:50 | disposition short-term general hospital (02) ==
LOC: ANHED 20:23 → ANH3MEDSUR 04-20 13:51
PROVIDERS: Emergency Medicine Emergency Medical Services; Admitting Provider Internal Medicine; Emergency Provider Emergency Medicine; PCP Family Medicine; Visit Provider Internal Medicine
DX: K51.00 Ulcerative (chronic) pancolitis without complications (principal); K92.2 Gastrointestinal hemorrhage, unspecified; D62 Acute posthemorrhagic anemia; I13.0 Hypertensive heart and chronic kidney disease with heart failure and stage 1 through stage 4 chronic kidney disease, or unspecified chronic kidney disease; I50.9 Heart failure, unspecified; E87.6 Hypokalemia; N18.30 Chronic kidney disease, stage 3 unspecified; Z94.4 Liver transplant status; Z87.891 Personal history of nicotine dependence; Z79.899 Other long term (current) drug therapy
CPT/HCPCS: 36415; 36430; 51701; 74176; 80053; 81001; 83605; 83690; 85014; 85018; 85025; 85610; 85730; 86850; 86900; 86901; 86920; 87040; 87086; 87088; 87426; 96361; 96365; 96366; 96375; 96376; 99285; C9113; C9803; G0378; J1200; J2270; J2405; J2543; J2550; J2765; J3010; J7030; J7050; J7060; J7120; P9016

== ENCOUNTER 2021-06-24 11:37 | Inpatient (IN) | payer MEDICARE, SELFPAY ==
[2021-06-24] VITALS (9 sets, daily range): BP systolic 180–207; BP diastolic 73–85; PULSE 89–121; RESP 14–20; TEMP 36.4–36.6; O2SAT 98–99
--- NOTE | ~2021-06-24 | CT_ITS ---
EXAMINATION: CT abdomen pelvis wo con EXAM DATE: 06/24/2021 13:02 INDICATION: Nausea vomiting. Abdominal pain. TECHNIQUE: Spiral CT of the abdomen and pelvis was performed without contrast. Axial, coronal and s agittal images of the abdomen and pelvis were reviewed. The dose-length product (DLP) for this exami nation was 166.16 mGy-cm. The exposure was tailored according to patient size (auto mA exposure cont rol), and iterative reconstruction (ASIR) was used as additional dose reduction technique. Comparison is made to prior examination from 04/19/2021. FINDINGS: The liver, spleen, adrenal glands and pancreas are unremarkable. Splenic hilar 1.3 cm aneur ysm. Gallbladder not identified, patient likely has had cholecystectomy. Some pneumobilia. There is no nephrolithiasis or hydronephrosis. The uterus is not identified and has likely been surgically r esected. The bladder is unremarkable. There is no retroperitoneal or pelvic lymphadenopathy. Ther e is severe scattered arteriosclerotic disease. The lumen of the upper abdomen may be completely or n early completely occluded from arteriosclerotic disease, chest distal to the SMA origin There are several bowel anastomosis sites. There is diffuse severe colonic wall edema, hogan colitis. N o pneumatosis intestinalis. The stomach and small bowel are unremarkable. There is expected amount o f colonic stool. No free intraperitoneal gas. The heart is normal in size. There are no pericard ial or pleural effusions. The lung bases are unremarkable. There are no osteoblastic or osteolytic lesions identified. IMPRESSION: 1. Pancolitis. Could be infectious or ischemic etiology. Correlate with lactate level. 2. Severe aortic arteriosclerotic disease. 3. Splenic hilar aneurysm unchanged. 4. Surgical changes. Reviewed, dictated and finalized at location B. IMPRESSION: 1. Pancolitis. Could be infectious or ischemic etiology. Correlate with lactat e level. 2. Severe aortic arteriosclerotic disease. 3. Splenic hilar aneurysm unchanged. 4. Surgical changes.
--- NOTE | 2021-06-24 12:19 | ED.GENADULT ---
HPI - General Adult General Chief complaint: Nausea/Vomiting/Diarrhea Stated complaint: VOMITING Time Seen by Provider: 06/24/21 12:03 Source: RN notes reviewed History of Present Illness HPI narrative: Patient presents emergency department from home for nausea vomiting and diarrhea. Patient states symptoms began 2 days ago she states she had numerous episodes of nausea vomiting as well as diarrhea. Associated with general abdominal pain described as cramping but denies any current abdominal pain she denies any fevers or chills chest pain shortness of breath any other symptoms states she has a history of chronic GI inflammation and is followed by GI down at [facility]. States she been able to keep them down for the past 24 hours does not take any medication she denies any other symptom Related Data Home Medications Medication Instructions Recorded Confirmed cyanocobalamin (vitamin B-12) 500 mcg PO DAILY 09/14/20 04/20/21 hydrochlorothiazide 12.5 mg tablet 12.5 mg PO DAILY tablet 12/13/20 04/20/21 loperamide 2 mg capsule 2 mg PO QID cap 12/13/20 04/20/21 metoprolol tartrate 50 mg tablet 50 mg PO Q12H 12/13/20 04/20/21 pantoprazole 40 mg tablet,delayed 40 mg PO Q12H tablet 12/13/20 04/20/21 release calcium carbonate 600 mg calcium 600 mg PO DAILY 02/10/21 04/20/21 (1,500 mg) tablet cholecalciferol (vitamin D3) 100 400 unit PO DAILY 02/10/21 04/20/21 mcg (4,000 unit) tablet magnesium oxide 500 mg capsule 500 mg PO DAILY 02/10/21 04/20/21 nitroglycerin 0.4 mg sublingual 0.4 mg SUBLINGUAL ONCE PRN 02/10/21 04/20/21 tablet potassium 99 mg tablet 1,000 mg PO BID tablet 02/10/21 04/20/21 prednisone 5 mg tablet 5 mg PO DAILY tablet 02/10/21 04/20/21 sirolimus 2 mg tablet 2 mg PO DAILY 02/10/21 04/20/21 losartan [Cozaar] 25 mg PO DAILY 04/20/21 04/20/21 rosuvastatin [Crestor] 20 mg PO DAILY 04/20/21 04/20/21 Allergies Allergy/AdvReac Type Severity Reaction Status Date / Time iodine Allergy Severe anaphlaxis Verified 04/20/21 09:32 aspirin Allergy Mild Unknown Verified 04/20/21 09:32 erythromycin base Allergy Mild Unknown Verified 04/20/21 09:32 opium (anthroposophic) Allergy Swelling Verified 04/20/21 16:06 blood thinners Allergy Intermediate pt bleeds Uncoded 04/20/21 09:32 out Review of Systems Review of Systems: Gen.: Denies fevers or chills ENT: Denies congestion Respiratory: Denies shortness of breath or cough CV: Denies chest pain or palpitations GI: See HPI denies burning, urgency, frequency or hematuria Musculoskeletal: Denies back pain or muscle pain Neuro: Denies numbness, tingling, weakness or focal weakness Skin: Denies rash Except as documented, all other systems reviewed and negative [facility] Past Medical History Medical History Aortic atherosclerosis Abdominal aortic atherosclerosis with fusiform narrowing noted on prior imaging. Arthritis Cannabinoid hyperemesis syndrome Cerebrovascular accident CT evidence of prior CVAs. Chronic anemia Chronic kidney disease, stage 3 Creatinine runs between 1.2 and 1.60. Chronic pain Secondary to fibromyalgia, for which she uses CBD oil. Clostridium difficile diarrhea July and August 2017 as well as October 2017. Congestive heart failure Echocardiogram in November 2019 showed mildly reduced LV systolic function with an ejection fraction estimated at 40 to 45%, akinetic anteroapical segment, mild aortic valve sclerosis and regurgitation, as well as mild left atrial enlargement. Coronary artery calcification COVID-19 08/2019 Depression with anxiety Essential hypertension Fibromyalgia Fractures Right humerus. Gastroesophageal reflux disease Gastroesophageal reflux disease GI bleed (~11/2018) May to be due to possible Jayne-Pitts tear from dry heaves and vomiting; no EGD performed. History of Clostridioides difficile colitis Hypertriglyceridemia Immunocompromised patient On anti-r
[2021-06-24] MEDS: SODIUM CHLORIDE 0.9% IV 1,000 ML 999 ML IV CONT (13:20)
[2021-06-24] MEDS: ONDANSETRON INJ 4 MG/2 ML VIAL IV PUSH (13:20)
[2021-06-24] MEDS: PROMETHAZINE HCL 25 MG/ML AMPUL 12.5 MG IV PUSH (14:18)
[2021-06-24 14:23] LABS: Basophils Absolute Auto 0.1 K/mm3 (0.0-0.1); Basophils Percent Auto 0.5 % (0.2-1.2); Hematocrit 34.9 % (37.0-47.0); Hemoglobin 10.9 g/dL (12.0-15.0); Immature Granulocyte Absolute 0.08 K/mm3 (0.00-0.031); Immature Granulocyte Percent A 0.7 % (0-0.5); Lymphocytes Absolute Auto 0.78 K/mm3 (0.9-3.2); Mean Corpuscular HGB Conc 31.2 g/dl (32-36); Mean Corpuscular Hemoglobin 27.6 pg (26-34); Mean Corpuscular Volume 88.4 fl (80-100); Mean Platelet Volume 10.1 fl (7.4-10.4); Monocytes Absolute Auto 0.5 K/mm3 (0.1-0.6); Monocytes Percent Auto 4.5 % (2.6-8.5); Neutrophils Absolute Auto 9.7 K/mm3 (1.3-6.7); Neutrophils Percent Auto 87.3 % (45.5-73.1); Platelet Count Result 235 k/mm3 (150-375); Red Blood Count 3.95 M/mm3 (4.2-5.4); Red Cell Distribution Width 15.7 % (11.5-14.5); White Blood Count 11.1 K/mm3 (4.5-10.0)
[2021-06-24 14:40] LABS: Alanine Aminotransferase 55 U/L (4-35); Albumin Level 3.6 g/dL (3.5-5.1); Alkaline Phosphatase 140 U/L (38-126); Anion Gap 13 mmol/L (8-16); Aspartate Amino Transferase 60 U/L (14-36); Bilirubin,Total 0.6 mg/dL (0.2-1.3); Blood Urea Nitrogen 15 mg/dL (7-17); Calcium 8.9 mg/dL (8.4-10.2); Carbon Dioxide 19 mmol/L (22-30); Chloride 105 mmol/L (98-107); Estimated CRCL calculation 24 ml/min; Estimated Glomerular Filt Rate 54; Glucose 130 mg/dL (65-110); Lipase 40 U/L (23-300); Potassium 3.6 mmol/L (3.4-5.0); Sodium 137 mmol/L (137-145)
[2021-06-24 14:55] LABS: Lactic Acid Reflex 2.1 mmol/L (0.7-2.1)
--- NOTE | 2021-06-24 15:20 | ECG_ITS ---
Measurements Intervals [place] Rate: 107 P: 86 AL: 194 QRS: 73 QRSD: 69 T: 32 QT: 354 QTc: 474 Interpretive Statements SINUS TACHYCARDIA ST ABNORMALITY IN ANTEROLAT/INF LEADS- CONSIDER ISCHEMIA ABNORMAL ECG Electronically Signed On 06-24-2021 15:31:06 CDT by Krystian Lancaster D.O.
--- NOTE | 2021-06-24 15:30 | PM.IMHP ---
H&P: HPI History of Present Illness Date/Time: 06/24/21 15:30 Chief Complaint: Nausea, vomiting, diarrhea. Narrative: This is a chronically ill 76-year-old female with multiple medical problems including history of primary biliary cirrhosis status post orthotopic liver transplant x2, C. diff, chronic anemia, hypertension, hyperlipidemia, paroxysmal atrial fibrillation not on anticoagulation due to history of anemia and GI bleed, congestive heart failure with reduced ejection fraction though left ventricular ejection fraction recovered to 50% on echo in December 2019,, GERD with history of ulcers, fibromyalgia, rheumatoid arthritis, chronic pain syndrome, and several other comorbidities who presented to the emergency department earlier today via EMS from home for evaluation of nausea, vomiting, and diarrhea. The patient is known to myself with a recent short stay on 04/20/2021 in which she was admitted for several hours while awaiting transfer to [place]. At that time she had presented with similar symptoms in addition to rectal bleeding, found to have pancolitis on imaging. It is my understanding that she was treated with antibiotics for hemorrhagic colitis, not felt to be ischemic in nature. Surprisingly a flex sigmoidoscopy was negative for any abnormality. Since that time she has continued to have intermittent issues with nausea and vomiting however previously their concerns that she may have cannabinoid hyperemesis. In any regard over the past 2 days she has had intractable nausea, vomiting, and now dry heaves to the point where she is having discomfort diffusely throughout her abdomen which she attributes to ?retching.? She has also had several loose stools over the last couple of days which she believes have contained mucus and a small amount of blood. Due to poor oral intake and ongoing vomiting and diarrhea she has gotten progressively more dehydrated and weak and thus she came in today for evaluation. She denies fever and chills but has had some sweats though that seems to be related to her nausea and retching. No chest pain or shortness of breath. No hematemesis. Reports mild lightheadedness but no syncope or near syncope. Review of Systems Review of Systems: Twelve systems are reviewed with pertinent positives and negatives as per HPI. No sinus congestion, rhinorrhea, otalgia, or odynophagia. No cough or shortness of breath. Except as documented, all other systems were reviewed and are negative. [facility] Past Medical History Medical History (Updated 06/24/21 @ 21:34 by Herlinda Black PA-C) Aortic atherosclerosis Abdominal aortic atherosclerosis with fusiform narrowing noted on prior imaging. Not felt to be causing any active issues. Patient remains on statin therapy. Arthritis Cannabinoid hyperemesis syndrome Cerebrovascular accident CT evidence of prior CVAs. Chronic anemia Chronic kidney disease, stage 3 Creatinine runs between 1.2 and 1.60. Chronic pain Secondary to fibromyalgia, for which she uses CBD oil. Clostridium difficile diarrhea July and August 2017 as well as October 2017. Congestive heart failure Echocardiogram in November 2019 showed mildly reduced LV systolic function with an ejection fraction estimated at 40 to 45%, akinetic anteroapical segment, mild aortic valve sclerosis and regurgitation, as well as mild left atrial enlargement. Ejection fraction improved to 50% in December 2019. Coronary artery calcification COVID-19 08/2019 Depression with anxiety Essential hypertension Fibromyalgia Fractures Right humerus. Gastroesophageal reflux disease GI bleed (~11/2018) [place] to be due to possible Jayne-Pitts tear from dry heaves and vomiting; no EGD performed. History of Clostridioides difficile colitis Hypertriglyceridemia Immunocompromised patient On anti-rejection medications status post liver transplant Insomnia Kidney stones Osteoarthritis Osteoporosis Paroxysmal atrial fibrillation Primary biliary cirrhosis Sta
[2021-06-24 15:51] LABS: Add Urine Microscopic? YES; Appearance Urine Clear (Clear); Bilirubin Urine Negative (Negative); Blood Urine 2+ (Negative); Color Urine Straw (Yellow); Glucose Urine UA 1+ mg/dL (Negative); Ketones Urine 2+ mg/dL (Negative); Leukocyte Esterase Ur Trace LEU/UL (Negative); Mucus Urine Rare /lpf; Nitrate Urine Negative (Negative); Protein Urine 2+ mg/dL (Negative); RBC Urine 21-50 /hpf (0-2); Specific Grav Ur 1.011 (1.001-1.035); Squamous Epithelial Cell Urine Occasional /hpf (Few); Urobilinogen Urine Negative mg/dL (<2.0)
--- NOTE | 2021-06-24 17:28 | ADMGEN ---
This patient, Jia Walter, was admitted to Medical Room 342-01. Patient/family oriented to hospital policies and general routines including ID bracelet, bed and alarms, visiting hours, pain management, procedures, bathroom and other care routines, personal items, smoking policy, room service/diet, and visiting hours. Information on how to activate the Rapid Response Team has been discussed. Patient/Family are encouraged to report perceived risks to care and to ask questions if they do not understand what they are told or what they should do.
[2021-06-24] MEDS: SODIUM CHLORIDE 0.9% IV 1,000 ML 125 ML IV CONT (17:38)
[2021-06-24 17:45] LABS: Reflex Lactic Acid Yes or No Add Lactic
[2021-06-24 18:31] LABS: Lactic Acid 1.2 mmol/L (0.7-2.1)
[2021-06-24] MEDS: TRIMETHOBENZAMIDE HCL 200 MG/2 ML VIAL IM (20:07)
[2021-06-24 21:31] LABS: IFOB Positive Control Positive; Immunochemical Fecal Occult Bl Positive (N)
[2021-06-24] MEDS: LABETALOL HCL INJ 100 MG/20 ML VIAL 10 MG IV PUSH (23:11)
[2021-06-25] VITALS (13 sets, daily range): BP systolic 125–195; BP diastolic 65–86; PULSE 90–143; RESP 16–18; TEMP 36–37; O2SAT 98–100; BMI 16.7
[2021-06-25] MEDS: TRIMETHOBENZAMIDE HCL 200 MG/2 ML VIAL IM (01:28)
[2021-06-25] MEDS: LABETALOL HCL INJ 100 MG/20 ML VIAL 10 MG IV PUSH ×2 (05:34→21:38)
[2021-06-25] MEDS: SODIUM CHLORIDE 0.9% IV 1,000 ML 75 ML IV CONT ×2 (05:38→19:30)
[2021-06-25] MEDS: PANTOPRAZOLE SODIUM IV 40 MG VIAL IV PUSH (08:20)
[2021-06-25] MEDS: ONDANSETRON INJ 4 MG/2 ML VIAL IV PUSH ×2 (08:21→16:55)
--- NOTE | 2021-06-25 09:19 | WPDGICN ---
Assessment and Plan Assessment and plan (1) Nausea and vomiting: Code(s): R11.2 - Nausea with vomiting, unspecified Status: Acute Assessment and Plan: main symptom is intractable nausea and vomiting, will schedule antiemetic and continue with ppi, ? use of marijuana also noted small amount of coffee ground but stable hb consider egd if ongoing symptom may need DHT placement to feeding if can not tolerate meds or take her sirolimus ([employer] immunosuppressant medication) (2) Pancolitis: Code(s): K51.00 - Ulcerative (chronic) pancolitis without complications Status: Acute Assessment and Plan: had recent sigmoidoscopy at [facility], no obvious etiology repeat stool studies, ? ischemic hb stable continue to monitor (3) History of liver transplant: Onset Date: ~1999 Code(s): Z94.4 - Liver transplant status Status: Acute Assessment and Plan: will need follow up with transplant doctors for ongoing management consider transfer if ongoing symptoms (4) Blood in stool: Code(s): K92.1 - Melena Status: Acute (5) Elevated LFTs: Code(s): R79.89 - Other specified abnormal findings of blood chemistry Status: Acute Assessment and Plan: stable normal bilirubin (6) Chronic anemia: Code(s): D64.9 - Anemia, unspecified Status: Acute (7) Immunocompromised patient: Code(s): D89.9 - Disorder involving the immune mechanism, unspecified Status: Chronic Assessment and Plan: risk for other infections empirically on antibiotic repeat c diff stool (last time negative) but will cover with flagyl for now (8) Aortic atherosclerosis: Code(s): I70.0 - Atherosclerosis of aorta Status: Acute (9) Gastroesophageal reflux disease: Qualifiers: Esophagitis presence: without esophagitis Qualified Code(s): K21.9 - Gastro-esophageal reflux disease without esophagitis Code(s): K21.9 - Gastro-esophageal reflux disease without esophagitis Status: Acute Assessment and Plan: if more n/v then consider egd ppi daily GI Consult Note Consult date/time: 06/25/21 09:19 Reason for consult: intractable nausea and vomiting, blood in stool HPI: Jia Walter is a 76 year old female with history of primary biliary cirrhosis status post orthotopic liver transplant x2 about 21 years ago (second liver just few days after first surgery- complicated after acute thrombosis) on sirolimus and managed by [facility], previous C. diff, chronic anemia, hypertension, paroxysmal atrial fibrillation not on anticoagulation due to history of anemia and GI bleed, esophageal stricture with previous EGD and rectal prolapse with sigmoidectomy 2016. Most recent hospitalization at [facility] 03/2021 when she presented with intractable nausea, vomiting, low grade fever and rectal bleeding (she came to our ER and then transferred to [facility])- records reviewed. She had sigmoidoscopy that was unrevealing with c diff, o&P, culture negative, norovirus/CMV negative and treated empirically with antibiotics. She is here again with 3 days of intractable nausea and dry heaving, noted few specks of coffee ground after spitting up, also concerns that she may have cannabinoid hyperemesis. Also had several loose stools over the last couple of days with small amount of mucus and blood. She has not been able to take her medicines because of nausea. CT scan reviewed and showed pancolitis again. Admitted for medical management, stool studies ordered, on iv zosyn and antiemetics. Still nauseous. WBC 11k, hb 10.9 (baseline- last time briefly 14 but was hemoconcentrated), lactic 2.1 (last time 4- when she was transferred to [facility]), transaminases 60's- baseline, normal platelets and lipase. Review of Systems Constitutional: Constitutional: Reports lethargy Eyes: Eyes: Denies blurry vision ENT: Comments: hard of hearing Cardiovascular: Cardiovascular: Denies chest pain Respiratory
--- NOTE | 2021-06-25 11:00 | PM.IMPN ---
Progress Note: A&P Assessment and Plan (1) Pancolitis: Code(s): K51.00 - Ulcerative (chronic) pancolitis without complications Status: Acute Assessment and Plan: Imaging evidence of recurrent (or persistent) pancolitis on CT scan Question of ischemic colitis given significant atherosclerotic vascular disease although she did have normal lactic acid level and no significant abdominal pain. Given she is immune compromised, has been initiated on Zosyn Gastroenterology evaluation, appreciate input Stool culture, and microscopic evaluation pending Blood culture pending Anti-emetics (2) Dehydration: Code(s): E86.0 - Dehydration Status: Acute Assessment and Plan: Gentle hydration with close monitoring of volume status given history of CHF. (3) Elevated LFTs: Code(s): R79.89 - Other specified abnormal findings of blood chemistry Status: Acute Assessment and Plan: This is been an intermittent issue with the patient and is not acute finding. Mildly elevated, chronic, stable, monitor. Liver transplant status in 1999. (4) Essential hypertension: Code(s): I10 - Essential (primary) hypertension Status: Chronic Assessment and Plan: Continue home medications, reports labile blood pressure, p.r.n. labetalol, if oral intake is an issue. (5) Chronic anemia: Code(s): D64.9 - Anemia, unspecified Status: Acute Assessment and Plan: Chronic anemia noted, positive Hemoccult. Assess anemia indices. Appreciate GI input as to whether endoscopy indicated. (6) Chronic kidney disease, stage 3: Qualifiers: Chronic kidney disease stage 3 subtype: unspecified whether 3a or 3b Qualified Code(s): N18.30 - Chronic kidney disease, stage 3 unspecified Code(s): N18.3 - Chronic kidney disease, stage 3 (moderate) Status: Chronic Assessment and Plan: Creatinine baseline 1-1.4, currently at baseline. Monitor as needed. (7) Congestive heart failure: Qualifiers: Heart failure chronicity: unspecified Heart failure type: diastolic Qualified Code(s): I50.30 - Unspecified diastolic (congestive) heart failure Code(s): I50.9 - Heart failure, unspecified Status: Chronic Assessment and Plan: Given volume depletion, gentle hydration intravenously. Resume home metoprolol. (8) History of liver transplant: Onset Date: ~1999 Code(s): Z94.4 - Liver transplant status Status: Acute Assessment and Plan: Continue home Sirolimus. GI following. (9) Atrial fibrillation: Code(s): I48.91 - Unspecified atrial fibrillation Status: Acute Assessment and Plan: Continue home amiodarone and metoprolol. Not on anticoagulation due to history anemia and GI bleed Additional Plan Code status: Full code DVT prophylaxis: SCDs given positive Hemoccult and anemia Subjective Date/time seen: 06/25/21 11:00 Continued to have intermittent nausea through the night. No significant vomiting. Elevated blood pressure and heart rate noted in the setting discomfort and frequent nausea. Afebrile. Exam Narrative: Gen: Alert, NAD Abd: Soft, mildly tender to palpation diffusely, ND Heart:Tachycardia Lungs:CTAB Ext: No lower extremity edema Objective Data Vital Signs Vital Signs: Vital Signs - 24 hr 06/24/21 11:38 06/24/21 12:02 06/24/21 12:15 Temperature 97.8 F Pulse Rate 100 89 95 Respiratory Rate 14 18 20 Blood Pressure 207/81 H Pulse Oximetry 99 99 99 06/24/21 12:31 06/24/21 14:46 06/24/21 15:46 Temperature Pulse Rate 90 101 H 92 Respiratory Rate 18 17 15 Blood Pressure 188/74 H 198/73 H 185/74 H Pulse Oximetry 06/24/21 21:39 06/24/21 23:11 06/24/21 23:12 Temperature 97.6 F Pulse Rate 121 H 120 H 120 H Respiratory Rate 17 Blood Pressure 204/82 H 180/85 H Pulse Oximetry 98 06/25/21 00:26 06/25/21 05:00 06/25/21 05:
[2021-06-25] MEDS: metroNIDAZOLE 500 MG/ISO 100ML 500 MG/100 ML BAG 100 MG IVPB ×2 (11:22→17:00)
[2021-06-25] MEDS: PROCHLORPERAZINE EDISYLATE 10 MG/2 ML VIAL IV PUSH ×2 (11:29→18:28)
[2021-06-25 14:58] LABS: Basophils Percent Auto 0.2 % (0.2-1.2); Hematocrit 40.6 % (37.0-47.0); Hemoglobin 12.8 g/dL (12.0-15.0); Immature Granulocyte Absolute 0.06 K/mm3 (0.00-0.031); Immature Granulocyte Percent A 0.5 % (0-0.5); Immature Reticulocyte Fraction 16.8 % (3.0-15.9); Lymphocytes Absolute Auto 1.54 K/mm3 (0.9-3.2); Lymphocytes Percent Auto 12.3 % (18.3-44.2); Mean Corpuscular HGB Conc 31.5 g/dl (32-36); Mean Corpuscular Hemoglobin 27.3 pg (26-34); Mean Corpuscular Volume 86.6 fl (80-100); Mean Platelet Volume 10.3 fl (7.4-10.4); Monocytes Absolute Auto 0.7 K/mm3 (0.1-0.6); Monocytes Percent Auto 5.6 % (2.6-8.5); Neutrophils Absolute Auto 10.2 K/mm3 (1.3-6.7); Neutrophils Percent Auto 81.4 % (45.5-73.1); Platelet Count Result 271 k/mm3 (150-375); Red Blood Count 4.69 M/mm3 (4.2-5.4); Red Cell Distribution Width 16.2 % (11.5-14.5); Reticulocyte Hemoglobin Conten 32.6 pg (28.2-35.7); Reticulocyte Percent 2.06 % (0.7-4.3); White Blood Count 12.5 K/mm3 (4.5-10.0)
[2021-06-25 15:09] LABS: Alanine Aminotransferase 40 U/L (4-35); Albumin Level 3.5 g/dL (3.5-5.1); Alkaline Phosphatase 139 U/L (38-126); Anion Gap 12 mmol/L (8-16); Aspartate Amino Transferase 47 U/L (14-36); Bilirubin,Total 0.7 mg/dL (0.2-1.3); Blood Urea Nitrogen 23 mg/dL (7-17); Calcium 8.3 mg/dL (8.4-10.2); Carbon Dioxide 19 mmol/L (22-30); Chloride 105 mmol/L (98-107); Estimated CRCL calculation 22 ml/min; Estimated Glomerular Filt Rate 40; Glucose 139 mg/dL (65-110); Potassium 3.4 mmol/L (3.4-5.0); Sodium 136 mmol/L (137-145)
[2021-06-25 16:13] LABS: Folic Acid 16.2 ng/mL (2.76->20)
[2021-06-25 16:26] LABS: Iron 51 ug/dL (37-170)
[2021-06-25 16:35] LABS: Percent Iron Saturation 21 % (20-50)
[2021-06-25 19:27] LABS: Amphetamine Screen Urine Negative (Negative); Barbiturate Screen Urine Negative (Negative); Benzodiazepines Screen Urine Negative (Negative); Cannabinoid Screen Urine Positive (Negative); Cocaine Screen Urine Negative (Negative); Methadone Screen Urine Negative (Negative); Opiate Screen Urine Negative (Negative); Phencyclidine Screen Urine Negative (Negative)
[2021-06-25] MEDS: METOPROLOL TARTRATE 50 MG TAB PO (21:36)
[2021-06-25] MEDS: PANTOPRAZOLE 40 MG TABLET PO (21:36)
[2021-06-26] VITALS (8 sets, daily range): BP systolic 154–193; BP diastolic 56–72; PULSE 80–103; RESP 16; TEMP 36.2–36.8; O2SAT 98–100
[2021-06-26] MEDS: metroNIDAZOLE 500 MG/ISO 100ML 500 MG/100 ML BAG 100 MG IVPB ×3 (01:16→17:10)
[2021-06-26] MEDS: ONDANSETRON INJ 4 MG/2 ML VIAL IV PUSH ×2 (01:16→09:12)
[2021-06-26 06:42] LABS: Basophils Absolute Auto 0.1 K/mm3 (0.0-0.1); Basophils Percent Auto 0.4 % (0.2-1.2); Hematocrit 36.5 % (37.0-47.0); Hemoglobin 11.5 g/dL (12.0-15.0); Immature Granulocyte Absolute 0.06 K/mm3 (0.00-0.031); Immature Granulocyte Percent A 0.5 % (0-0.5); Lymphocytes Percent Auto 10.7 % (18.3-44.2); Mean Corpuscular HGB Conc 31.5 g/dl (32-36); Mean Platelet Volume 10.2 fl (7.4-10.4); Monocytes Percent Auto 7.7 % (2.6-8.5); Neutrophils Absolute Auto 10.6 K/mm3 (1.3-6.7); Neutrophils Percent Auto 80.7 % (45.5-73.1); Platelet Count Result 227 k/mm3 (150-375); Red Cell Distribution Width 16.4 % (11.5-14.5); White Blood Count 13.1 K/mm3 (4.5-10.0)
[2021-06-26 06:56] LABS: Alanine Aminotransferase 31 U/L (4-35); Alkaline Phosphatase 103 U/L (38-126); Anion Gap 9 mmol/L (8-16); Aspartate Amino Transferase 39 U/L (14-36); Bilirubin,Total 0.5 mg/dL (0.2-1.3); Blood Urea Nitrogen 25 mg/dL (7-17); Carbon Dioxide 19 mmol/L (22-30); Chloride 109 mmol/L (98-107); Estimated CRCL calculation 20 ml/min; Estimated Glomerular Filt Rate 36; Glucose 115 mg/dL (65-110); Potassium 3.1 mmol/L (3.4-5.0); Sodium 137 mmol/L (137-145)
[2021-06-26] MEDS: PANTOPRAZOLE SODIUM IV 40 MG VIAL IV PUSH (09:16)
--- NOTE | 2021-06-26 09:21 | PM.IMPN ---
Progress Note: A&P Assessment and Plan (1) Pancolitis: Code(s): K51.00 - Ulcerative (chronic) pancolitis without complications Status: Acute Assessment and Plan: Imaging evidence of recurrent (or persistent) pancolitis on CT scan Question of ischemic colitis given significant atherosclerotic vascular disease although she did have normal lactic acid level and no significant abdominal pain. Given she is immune compromised, has been initiated on Zosyn Gastroenterology evaluation, appreciate input Stool culture, and microscopic evaluation pending Blood culture pending Anti-emetics Although she denied marijuana use to me, her urine drug screen is positive and this is likely contributing to her presentation (2) Dehydration: Code(s): E86.0 - Dehydration Status: Acute Assessment and Plan: Gentle hydration with close monitoring of volume status given history of CHF. (3) Elevated LFTs: Code(s): R79.89 - Other specified abnormal findings of blood chemistry Status: Acute Assessment and Plan: This is been an intermittent issue with the patient and is not acute finding. Mildly elevated, chronic, stable, monitor. Liver transplant status in 1999. (4) Essential hypertension: Code(s): I10 - Essential (primary) hypertension Status: Chronic Assessment and Plan: Continue home medications, reports labile blood pressure, p.r.n. labetalol, if oral intake is an issue. Will add amlodipine today. (5) Chronic anemia: Code(s): D64.9 - Anemia, unspecified Status: Acute Assessment and Plan: Chronic anemia noted, positive Hemoccult. B12, folate normal, and iron indices showing deficiency, consider iron supplementation once her colitis is resolved. Appreciate GI input as to whether endoscopy indicated. (6) Chronic kidney disease, stage 3: Qualifiers: Chronic kidney disease stage 3 subtype: unspecified whether 3a or 3b Qualified Code(s): N18.30 - Chronic kidney disease, stage 3 unspecified Code(s): N18.3 - Chronic kidney disease, stage 3 (moderate) Status: Chronic Assessment and Plan: Creatinine baseline 1-1.4, currently at baseline. Monitor as needed. (7) Congestive heart failure: Qualifiers: Heart failure type: diastolic Heart failure chronicity: unspecified Qualified Code(s): I50.30 - Unspecified diastolic (congestive) heart failure Code(s): I50.9 - Heart failure, unspecified Status: Chronic Assessment and Plan: Given volume depletion, gentle hydration intravenously. Resume home metoprolol. (8) History of liver transplant: Onset Date: ~1999 Code(s): Z94.4 - Liver transplant status Status: Acute Assessment and Plan: Continue home Sirolimus. GI following. (9) Atrial fibrillation: Code(s): I48.91 - Unspecified atrial fibrillation Status: Acute Assessment and Plan: Continue home metoprolol. Not on anticoagulation due to history anemia and GI bleed Subjective Date/time seen: 06/26/21 09:21 Although still has intermittent nausea, this seems to be improving. Has not had oral intake as of yet. Blood pressure is high she has not been able to take her oral medications. Review of Systems Review of Systems: All systems reviewed & are unremarkable except as noted in HPI and below Exam Narrative: Gen: Alert, NAD Abd: Soft, mildly tender to palpation diffusely, ND Heart: Irregularly irregular Lungs:CTAB Ext: No lower extremity edema Objective Data Vital Signs Vital Signs: Vital Signs - 24 hr 06/25/21 14:00 06/25/21 17:00 06/25/21 17:02 Temperature 98.6 F Pulse Rate 117 H 120 H 133 H Respiratory Rate 18 Blood Pressure 166/80 H 171/81 H 166/80 H Pulse Oximetry 98 06/25/21 17:04 06/25/21 21:35 06/25/21 21:36 Temperature 96.8 F L Pulse Rate 143 H 114 H 114 H Respiratory Rate 16 Blood Pressu
[2021-06-26] MEDS: PROCHLORPERAZINE EDISYLATE 10 MG/2 ML VIAL IV PUSH (11:09)
[2021-06-26] MEDS: LABETALOL HCL INJ 100 MG/20 ML VIAL 10 MG IV PUSH (11:11)
--- NOTE | 2021-06-26 11:37 | WPDGIPROGNO ---
Progress Note: A&P Assessment and Plan (1) Nausea and vomiting: Code(s): R11.2 - Nausea with vomiting, unspecified Status: Acute Assessment and Plan: managed with medical therapy, somehow better but not gone also + marijuana that could be contributing factor hb stable, if persistent symptom then may need egd diet as tolerated (2) Pancolitis: Code(s): K51.00 - Ulcerative (chronic) pancolitis without complications Status: Acute Assessment and Plan: she is immunocompromised, few months ago had sigmoidoscopy at [facility] stool sample pending, on antibiotics for now no more blood in stool today follow clinical course, may need colonoscopy if not improvement (3) Blood in stool: Code(s): K92.1 - Melena Status: Acute (4) Elevated LFTs: Code(s): R79.89 - Other specified abnormal findings of blood chemistry Status: Acute Assessment and Plan: actually almost normal now, noted chronic mild elevated transaminases in this patient who had liver transplant years ago continue her sirolimus (5) History of liver transplant: Onset Date: ~1999 Code(s): Z94.4 - Liver transplant status Status: Acute Assessment and Plan: will need follow-up with her transplant doctor (6) Dehydration: Code(s): E86.0 - Dehydration Status: Acute (7) Immunocompromised patient: Code(s): 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 Review of Systems Review of Systems: All systems reviewed & are unremarkable except as noted in HPI and below Exam Const: General: comfortable and no acute distress HENMT: General nose exam: Normal nares present Eyes: General: appearance normal, both eyes and all related structures Neck: Neck: no JVD Resp: Effort & Inspection: normal respiratory effort Auscultation: clear to auscultation bilaterally Cardio: Rate: regular rate Rhythm: regular rhythm GI: Inspection: non-distended GI Palp: Yes Soft to palpation and No Guarding due to palpation present (GI) Auscultation: normal bowel sounds Skin: General skin exam: normal color Neuro: Speech: normal speech Motor exam (neuro): Normal motor muscle tone present throughout Extrem: General: normal to inspection Psych: Mental Status: mental status grossly normal Objective Data Vital Signs Vital Signs: Vital Signs - 24 hr 06/25/21 14:00 06/25/21 17:00 06/25/21 17:02 Temperature 98.6 F Pulse Rate 117 H 120 H 133 H Respiratory Rate 18 Blood Pressure 166/80 H 171/81 H 166/80 H Pulse Oximetry 98 06/25/21 17:04 06/25/21 21:35 06/25/21 21:36 Temperature 96.8 F L Pulse Rate 143 H 114 H 114 H Respiratory Rate 16 Blood Pressure 125/65 195/73 H Pulse Oximetry 100 06/25/21 21:37 06/25/21 21:38 06/25/21 21:40 Temperature Pulse Rate 114 H Respiratory Rate Blood Pressure 154/77 H 136/78 Pulse Oximetry 06/25/21 23:53 06/26/21 06:00 06/26/21 11:11 Temperature 97.1 F L Pulse Rate 102 H 103 H Respiratory Rate 16 Blood Pressure 183/73 H 193/72 H Pulse Oximetry 100 Intake/Output Intake/Output: Intake & Output 06/23/21 06/24/21 06/25/21 06/26/21 23:59 23:59 23:59 23:59 Intake Total 1100 2550 1020 Output Total 200 250 Balance 900 2550 770 Meds/Results Medications: Active Medications Generic Name Dose Route Start Last Admin Trade Name
--- NOTE | 2021-06-26 14:23 | PHAR ---
DRUG NAME: RAPAMUNE INGREDIENTS: SIROLIMUS -- 0.5 MG RELATED DOCUMENTS: DRUGDEX EVALUATIONS - SIROLIMUS COLOR: MACKAY SHAPE: TRIANGLE IMPRINT: RAPAMUNE 0.5 MG FORM: ORAL TABLET
[2021-06-26] MEDS: LABETALOL HCL INJ 100 MG/20 ML VIAL 20 MG IV PUSH ×2 (17:08→23:20)
[2021-06-26] MEDS: SODIUM CHLORIDE 0.9% IV 1,000 ML 75 ML IV CONT (21:59)
[2021-06-27] VITALS (12 sets, daily range): BP systolic 143–185; BP diastolic 51–74; PULSE 78–100; RESP 16–18; TEMP 36.2–36.5; O2SAT 97–99
[2021-06-27] MEDS: metroNIDAZOLE 500 MG/ISO 100ML 500 MG/100 ML BAG 100 MG IVPB ×3 (01:25→18:17)
[2021-06-27] MEDS: LABETALOL HCL INJ 100 MG/20 ML VIAL 20 MG IV PUSH ×4 (06:15→23:14)
[2021-06-27] MEDS: PANTOPRAZOLE SODIUM IV 40 MG VIAL IV PUSH (08:44)
--- NOTE | 2021-06-27 10:09 | PM.IMPN ---
Progress Note: A&P Assessment and Plan (1) Pancolitis: Code(s): K51.00 - Ulcerative (chronic) pancolitis without complications Status: Acute Assessment and Plan: Imaging evidence of recurrent (or persistent) pancolitis on CT scan Question of ischemic colitis given significant atherosclerotic vascular disease although she did have normal lactic acid level and no significant abdominal pain. Given she is immune compromised, has been initiated on Zosyn Gastroenterology evaluation, appreciate input Stool culture, and microscopic evaluation pending Blood culture NTD Anti-emetics Although she denied marijuana use to me, her urine drug screen is positive and this is likely contributing to her presentation, I discussed cessation with her in detail. (2) Dehydration: Code(s): E86.0 - Dehydration Status: Acute Assessment and Plan: Gentle hydration with close monitoring of volume status given history of CHF. (3) Elevated LFTs: Code(s): R79.89 - Other specified abnormal findings of blood chemistry Status: Acute Assessment and Plan: This is been an intermittent issue with the patient and is not acute finding. Mildly elevated, chronic, stable, monitor. Liver transplant status in 1999. (4) Essential hypertension: Code(s): I10 - Essential (primary) hypertension Status: Chronic Assessment and Plan: Continue home medications, reports labile blood pressure, p.r.n. labetalol, if oral intake is an issue. Added amlodipine (5) Chronic anemia: Code(s): D64.9 - Anemia, unspecified Status: Acute Assessment and Plan: Chronic anemia noted, positive Hemoccult. B12, folate normal, and iron indices showing deficiency, consider iron supplementation once her colitis is resolved. Appreciate GI input as to whether endoscopy indicated. (6) Chronic kidney disease, stage 3: Qualifiers: Chronic kidney disease stage 3 subtype: unspecified whether 3a or 3b Qualified Code(s): N18.30 - Chronic kidney disease, stage 3 unspecified Code(s): N18.3 - Chronic kidney disease, stage 3 (moderate) Status: Chronic Assessment and Plan: Creatinine baseline 1-1.4, currently at baseline. Monitor as needed. (7) Congestive heart failure: Qualifiers: Heart failure type: diastolic Heart failure chronicity: unspecified Qualified Code(s): I50.30 - Unspecified diastolic (congestive) heart failure Code(s): I50.9 - Heart failure, unspecified Status: Chronic Assessment and Plan: Given volume depletion, gentle hydration intravenously. Resume home metoprolol. (8) History of liver transplant: Onset Date: ~1999 Code(s): Z94.4 - Liver transplant status Status: Acute Assessment and Plan: Continue home Sirolimus. GI following. (9) Atrial fibrillation: Code(s): I48.91 - Unspecified atrial fibrillation Status: Acute Assessment and Plan: Continue home metoprolol. Not on anticoagulation due to history anemia and GI bleed Subjective Date/time seen: 06/27/21 10:09 Feeling somewhat better, was able to take some Jelly last night, had some nausea needed Zofran, hemodynamically stable, afebrile. Continues to have diarrhea but improved. Review of Systems Review of Systems: All systems reviewed & are unremarkable except as noted in HPI and below Exam Narrative: Gen: Alert, NAD Abd: Soft, mildly tender to palpation diffusely, ND Heart: Irregularly irregular Lungs:CTAB Ext: No lower extremity edema Objective Data Vital Signs Vital Signs: Vital Signs - 24 hr 06/26/21 11:00 06/26/21 11:11 06/26/21 11:48 Temperature Pulse Rate 103 H Respiratory Rate Blood Pressure 188/64 H 161/56 H Pulse Oximetry 06/26/21 14:00 06/26/21 20:10 06/26/21 23:14 Temperature 98.2 F 97.4 F L Pulse Rate 87 86 Respiratory Rate 16 16 Blood Pressure 174/67
--- NOTE | 2021-06-27 10:40 | WPDGIPROGNO ---
Progress Note: A&P Assessment and Plan (1) Nausea and vomiting: Code(s): R11.2 - Nausea with vomiting, unspecified Status: Acute Assessment and Plan: managed with medical therapy, continue to improve and tolerating ensure also + marijuana that could be contributing factor ok to advance diet as tolerated (2) Pancolitis: Code(s): K51.00 - Ulcerative (chronic) pancolitis without complications Status: Acute Assessment and Plan: she is immunocompromised, few months ago had sigmoidoscopy at [facility] stool sample pending but C diff negative, on antibiotics for now she is improving (3) Blood in stool: Code(s): K92.1 - Melena Status: Acute (4) Elevated LFTs: Code(s): R79.89 - Other specified abnormal findings of blood chemistry Status: Acute Assessment and Plan: chronic mild elevated transaminases in this patient who had liver transplant years ago- stable continue her sirolimus (5) History of liver transplant: Onset Date: ~1999 Code(s): Z94.4 - Liver transplant status Status: Acute Assessment and Plan: will need follow-up with her transplant doctor (6) Dehydration: Code(s): E86.0 - Dehydration Status: Acute Assessment and Plan: resolved (7) Immunocompromised patient: Code(s): 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 Review of Systems Review of Systems: All systems reviewed & are unremarkable except as noted in HPI and below Exam Const: General: comfortable and no acute distress HENMT: General nose exam: Normal nares present Eyes: General: appearance normal, both eyes and all related structures Neck: Neck: no JVD Resp: Effort & Inspection: normal respiratory effort Auscultation: clear to auscultation bilaterally Cardio: Rate: regular rate Rhythm: regular rhythm GI: Inspection: non-distended GI Palp: Yes Soft to palpation and No Guarding due to palpation present (GI) Auscultation: normal bowel sounds Skin: General skin exam: normal color Neuro: Speech: normal speech Motor exam (neuro): Normal motor muscle tone present throughout Extrem: General: normal to inspection Psych: Mental Status: mental status grossly normal Objective Data Vital Signs Vital Signs: Vital Signs - 24 hr 06/26/21 11:00 06/26/21 11:11 06/26/21 11:48 Temperature Pulse Rate 103 H Respiratory Rate Blood Pressure 188/64 H 161/56 H Pulse Oximetry 06/26/21 14:00 06/26/21 20:10 06/26/21 23:14 Temperature 98.2 F 97.4 F L Pulse Rate 87 86 Respiratory Rate 16 16 Blood Pressure 174/67 H 154/64 H 165/56 H Pulse Oximetry 98 99 06/26/21 23:20 06/27/21 06:00 06/27/21 06:15 Temperature 97.1 F L Pulse Rate 80 100 94 Respiratory Rate 18 Blood Pressure 185/74 H Pulse Oximetry 97 Intake/Output Intake/Output: Intake & Output 06/24/21 06/25/21 06/26/21 06/27/21 23:59 23:59 23:59 23:59 Intake Total 1100 2550 2475 1470 Output Total 200 900 350 Balance 900 2550 1575 1120 Meds/Results Medications: Active Medications Generic Name Dose Route Start Last Admin Trade Name Freq PRN Reason Stop Dose Admin Amlodipine Besylate 5 mg 06/26/21 09:30 06/27/21 08:41 Amlodipine Besylate 5 Mg Tablet PO Not [facility] Calcium Carbonate 500 mg 06/25/21 09:00 06/27/21 08:41 Calcium Carbonate (Oscal) 500 Mg Tablet PO 07/25/21 08:59 Not Given
[2021-06-27 10:48] LABS: Basophils Percent Auto 0.4 % (0.2-1.2); Eosinophils Absolute Auto 0.1 K/mm3 (0-0.3); Eosinophils Percent Auto 0.7 % (0-4.4); Hematocrit 29.1 % (37.0-47.0); Hemoglobin 9.2 g/dL (12.0-15.0); Immature Granulocyte Absolute 0.06 K/mm3 (0.00-0.031); Immature Granulocyte Percent A 0.6 % (0-0.5); Lymphocytes Absolute Auto 1.71 K/mm3 (0.9-3.2); Lymphocytes Percent Auto 17.9 % (18.3-44.2); Mean Corpuscular HGB Conc 31.6 g/dl (32-36); Mean Corpuscular Hemoglobin 27.5 pg (26-34); Mean Corpuscular Volume 86.9 fl (80-100); Mean Platelet Volume 10.4 fl (7.4-10.4); Monocytes Absolute Auto 0.8 K/mm3 (0.1-0.6); Monocytes Percent Auto 8.3 % (2.6-8.5); Neutrophils Absolute Auto 6.9 K/mm3 (1.3-6.7); Neutrophils Percent Auto 72.1 % (45.5-73.1); Platelet Count Result 177 k/mm3 (150-375); Red Blood Count 3.35 M/mm3 (4.2-5.4); Red Cell Distribution Width 16.5 % (11.5-14.5); White Blood Count 9.6 K/mm3 (4.5-10.0)
[2021-06-27 11:02] LABS: Anion Gap 6 mmol/L (8-16); Blood Urea Nitrogen 13 mg/dL (7-17); Calcium 7.7 mg/dL (8.4-10.2); Carbon Dioxide 19 mmol/L (22-30); Chloride 109 mmol/L (98-107); Estimated CRCL calculation 30 ml/min; Estimated Glomerular Filt Rate 54; Glucose 125 mg/dL (65-110); Sodium 134 mmol/L (137-145)
[2021-06-27] MEDS: METOPROLOL TARTRATE 50 MG TAB PO ×2 (12:03→20:06)
[2021-06-27] MEDS: amLODIPine BESYLATE 5 MG TABLET PO (12:03)
[2021-06-27] MEDS: VENLAFAXINE HCL XR 37.5 MG CAP PO (12:10)
[2021-06-27] MEDS: ONDANSETRON INJ 4 MG/2 ML VIAL IV PUSH (15:29)
[2021-06-27] MEDS: PANTOPRAZOLE 40 MG TABLET PO (20:05)
[2021-06-27] MEDS: ACETAMINOPHEN 325 MG TABLET 650 MG PO (23:11)
[2021-06-28] VITALS (12 sets, daily range): BP systolic 108–160; BP diastolic 44–75; PULSE 69–94; RESP 16–18; TEMP 35.9–36.4; O2SAT 96–98
[2021-06-28] MEDS: metroNIDAZOLE 500 MG/ISO 100ML 500 MG/100 ML BAG 100 MG IVPB ×3 (02:30→17:05)
[2021-06-28] MEDS: LABETALOL HCL INJ 100 MG/20 ML VIAL 20 MG IV PUSH (03:33)
[2021-06-28] MEDS: ACETAMINOPHEN 325 MG TABLET 650 MG PO (05:26)
[2021-06-28 06:49] LABS: Hematocrit 30.5 % (37.0-47.0); Hemoglobin 9.8 g/dL (12.0-15.0); Mean Corpuscular HGB Conc 32.1 g/dl (32-36); Mean Corpuscular Hemoglobin 27.3 pg (26-34); Mean Platelet Volume 10.6 fl (7.4-10.4); Platelet Count Result 199 k/mm3 (150-375); Red Blood Count 3.59 M/mm3 (4.2-5.4); Red Cell Distribution Width 16.4 % (11.5-14.5); White Blood Count 7.3 K/mm3 (4.5-10.0)
[2021-06-28 07:05] LABS: Alanine Aminotransferase 23 U/L (4-35); Albumin Level 2.6 g/dL (3.5-5.1); Alkaline Phosphatase 85 U/L (38-126); Anion Gap 4 mmol/L (8-16); Aspartate Amino Transferase 45 U/L (14-36); Bilirubin,Total 0.4 mg/dL (0.2-1.3); Blood Urea Nitrogen 9 mg/dL (7-17); Calcium 7.9 mg/dL (8.4-10.2); Carbon Dioxide 22 mmol/L (22-30); Chloride 106 mmol/L (98-107); Estimated CRCL calculation 33 ml/min; Estimated Glomerular Filt Rate > 60; Glucose 108 mg/dL (65-110); Sodium 132 mmol/L (137-145)
[2021-06-28] MEDS: VENLAFAXINE HCL XR 37.5 MG CAP PO (09:13)
[2021-06-28] MEDS: amLODIPine BESYLATE 5 MG TABLET PO (09:13)
[2021-06-28] MEDS: PANTOPRAZOLE 40 MG TABLET PO ×2 (09:14→20:25)
[2021-06-28] MEDS: CHOLECALCIFEROL 400 UNITS TABLET (VIT D) PO (09:14)
[2021-06-28] MEDS: METOPROLOL TARTRATE 50 MG TAB PO (09:14)
[2021-06-28] MEDS: CYANOCOBALAMIN 500 MCG TABLET PO (09:16)
--- NOTE | 2021-06-28 10:44 | PM.IMPN ---
Progress Note: A&P Assessment and Plan (1) Pancolitis: Code(s): K51.00 - Ulcerative (chronic) pancolitis without complications Status: Acute Assessment and Plan: Imaging evidence of recurrent (or persistent) pancolitis on CT scan Question of ischemic colitis given significant atherosclerotic vascular disease although she did have normal lactic acid level and no significant abdominal pain. Given she is immune compromised, has been initiated on Zosyn Gastroenterology evaluation, appreciate input Stool culture, and microscopic evaluation pending Blood culture NTD Anti-emetics Although she denied marijuana use to me, her urine drug screen is positive and this is likely contributing to her presentation, I discussed cessation with her in detail. (2) Dehydration: Code(s): E86.0 - Dehydration Status: Acute Assessment and Plan: Gentle hydration with close monitoring of volume status given history of CHF. (3) Elevated LFTs: Code(s): R79.89 - Other specified abnormal findings of blood chemistry Status: Acute Assessment and Plan: This is been an intermittent issue with the patient and is not acute finding. Mildly elevated, chronic, stable, monitor. Liver transplant status in 1999. (4) Essential hypertension: Code(s): I10 - Essential (primary) hypertension Status: Chronic Assessment and Plan: Continue home medications, reports labile blood pressure. Added amlodipine, will increase to 10 mg daily. Increase metoprolol to 75 mg b.i.d.. Discontinue labetalol. (5) Chronic anemia: Code(s): D64.9 - Anemia, unspecified Status: Acute Assessment and Plan: Chronic anemia noted, positive Hemoccult. B12, folate normal, and iron indices showing deficiency, consider iron supplementation once her colitis is resolved. Appreciate GI input as to whether endoscopy indicated. (6) Chronic kidney disease, stage 3: Qualifiers: Chronic kidney disease stage 3 subtype: unspecified whether 3a or 3b Qualified Code(s): N18.30 - Chronic kidney disease, stage 3 unspecified Code(s): N18.3 - Chronic kidney disease, stage 3 (moderate) Status: Chronic Assessment and Plan: Creatinine baseline 1-1.4, currently at baseline. Monitor as needed. (7) Congestive heart failure: Qualifiers: Heart failure chronicity: unspecified Heart failure type: diastolic Qualified Code(s): I50.30 - Unspecified diastolic (congestive) heart failure Code(s): I50.9 - Heart failure, unspecified Status: Chronic Assessment and Plan: Given volume depletion, gentle hydration intravenously. Resume home metoprolol. (8) History of liver transplant: Onset Date: ~1999 Code(s): Z94.4 - Liver transplant status Status: Acute Assessment and Plan: Continue home Sirolimus. GI following. (9) Atrial fibrillation: Code(s): I48.91 - Unspecified atrial fibrillation Status: Acute Assessment and Plan: Continue home metoprolol. Not on anticoagulation due to history anemia and GI bleed Subjective Date/time seen: 06/28/21 10:44 No major issues overnight. Her appetite has slightly improved. Her nausea is better. She had 4 episodes of diarrhea past 24 hours, she feels it is improving. No blood stool. She was able to take her oral medications yesterday. Review of Systems Review of Systems: All systems reviewed & are unremarkable except as noted in HPI and below Exam Narrative: Gen: Alert, NAD Abd: Soft, mildly tender to palpation diffusely, ND Heart: Irregularly irregular Lungs:CTAB Ext: No lower extremity edema Objective Data Vital Signs Vital Signs: Vital Signs - 24 hr 06/27/21 12:00 06/27/21 12:03 06/27/21 14:00 Temperature 97.7 F Pulse Rate 88 88 79 Respiratory Rate 16 Blood Pressure 161/57 H Pulse Oximetry 97 06/27/21 14:03 06/27/21 19:30 0
[2021-06-28] MEDS: POTASSIUM CHLORIDE 20 MEQ TABLET PO (11:51)
--- NOTE | 2021-06-28 12:37 | PCNFU ---
Nutrition Follow-Up Complete: Inadequate oral intake related to nausea and vomiting as evidenced by NPO diet order. Goal: Patient to meet estimated nutritional needs. Patient is progressing towards goal. No new goal at this time. Pt current nutrition is a low fiber diet. Last recorded weight is 45 kg. Bowel Motility: +BM 06/27/2021 Labs Reviewed: Hgb 9.8, Hct 30.5, Alb 2.6, Na 132, K 3.0 Meds Noted: B-12, Calcium, Lopressor, Mag-Ox, Protonix, Vitamin D, Norvasc, Effexor Xr Additional Notes: Followed up with patient. Patient reported having absolutely no appetite. She is receiving ensure compact BID providing an additional 220 calories and 9 grams of protein. She has been consuming an average of 28% of meals ordered. When asked she stated she likes the taste of the ensure nutritional supplement(s) that she is receiving but she does not have much of an appetite. However, she is able to tolerate food without vomiting. Monitor patient's labs, medications, weight, and oral intake every 5 days.
--- NOTE | 2021-06-28 14:45 | WPDGIPROGNO ---
Progress Note: A&P Assessment and Plan (1) Nausea and vomiting: Code(s): R11.2 - Nausea with vomiting, unspecified Status: Acute Assessment and Plan: managed with medical therapy, continue to improve and tolerating diet but still poor appetite also + marijuana that could be contributing factor (2) Pancolitis: Code(s): K51.00 - Ulcerative (chronic) pancolitis without complications Status: Acute Assessment and Plan: she is immunocompromised, few months ago had sigmoidoscopy at [facility] cripto, C diff and giardia in stool negative she is feeling better, probably can go home and complete 5 more days of antibiotics (3) Blood in stool: Code(s): K92.1 - Melena Status: Acute Assessment and Plan: resolved, had recent flex-sigmoidoscopy (4) Elevated LFTs: Code(s): R79.89 - Other specified abnormal findings of blood chemistry Status: Acute Assessment and Plan: chronic mild elevated transaminases in this patient who had liver transplant years ago- stable continue her sirolimus (5) History of liver transplant: Onset Date: ~1999 Code(s): Z94.4 - Liver transplant status Status: Acute Assessment and Plan: will need follow-up with her transplant doctor (6) Dehydration: Code(s): E86.0 - Dehydration Status: Acute Assessment and Plan: resolved (7) Immunocompromised patient: Code(s): D89.9 - Disorder involving the immune mechanism, unspecified Status: Chronic (8) Chronic kidney disease, stage 3: Qualifiers: Chronic kidney disease stage 3 subtype: unspecified whether 3a or 3b Qualified Code(s): N18.30 - Chronic kidney disease, stage 3 unspecified Code(s): N18.3 - Chronic kidney disease, stage 3 (moderate) Status: Chronic Assessment and Plan: reatinine 1.4, avoid nephrotoxins (9) Hypokalemia: Code(s): E87.6 - Hypokalemia Status: Acute Assessment and Plan: treated Subjective Date/time seen: 06/28/21 14:45 Interval history: nausea almost gone but still poor appetite but able to tolerater her oral meds, yesterday had 4 loose stools and today 3, no blood with stools. she is feeling better since admission, slolwy improving Review of Systems Review of Systems: All systems reviewed & are unremarkable except as noted in HPI and below Exam Const: General: comfortable and no acute distress HENMT: General nose exam: Normal nares present Eyes: General: appearance normal, both eyes and all related structures Neck: Neck: no JVD Resp: Effort & Inspection: normal respiratory effort Auscultation: clear to auscultation bilaterally Cardio: Rate: regular rate Rhythm: regular rhythm GI: Inspection: non-distended GI Palp: Yes Soft to palpation and No Guarding due to palpation present (GI) Auscultation: normal bowel sounds Skin: General skin exam: normal color Neuro: Speech: normal speech Motor exam (neuro): Normal motor muscle tone present throughout Extrem: General: normal to inspection Psych: Mental Status: mental status grossly normal Objective Data Vital Signs Vital Signs: Vital Signs - 24 hr 06/27/21 19:30 06/27/21 20:06 06/27/21 20:07 Temperature 97.1 F L Pulse Rate 81 80 78 Respiratory Rate 16 Blood Pressure 148/51 H 143/55 H Pulse Oximetry 99 06/27/21 23:10 06/27/21 23:14 06/27/21 23:38 Temperature Pulse Rate 84 84 Respiratory Rate Blood Pressure 143/57 H 143/57 H Pulse Oximetry 06/28/21 03:31 06/28/21 03:33 06/28/21 05:52 Temperature 96.8 F L Pulse Rate 81 80 69 Respiratory Rate 18 Blood Pressure 142/56 H 140/44 L Pulse Oximetry 98 06/28/21 09:12 06/28/21 09:14 06/28/21 12:16 Temperature Pulse Rate 94 84 Respiratory Rate 16 Blood Pressure 133/62 108/57 L Pulse Oximetry 98 06/28/21 12:17 Temperature Pulse Rate Respiratory Rate Blood Pressure 140/66 Pulse Oximetry
[2021-06-28] MEDS: METOPROLOL TARTRATE 25 MG TABLET 75 MG PO (20:27)
[2021-06-29] MEDS: metroNIDAZOLE 500 MG/ISO 100ML 500 MG/100 ML BAG 100 MG IVPB ×2 (01:35→09:31)
[2021-06-29 06:24] VITALS: BP 152/72; PULSE 89; RESP 18; TEMP 36.1; O2SAT 98
[2021-06-29 06:44] LABS: Anion Gap 5 mmol/L (8-16); Blood Urea Nitrogen 8 mg/dL (7-17); Calcium 8.8 mg/dL (8.4-10.2); Carbon Dioxide 22 mmol/L (22-30); Chloride 105 mmol/L (98-107); Estimated CRCL calculation 33 ml/min; Estimated Glomerular Filt Rate > 60; Glucose 100 mg/dL (65-110); Potassium 3.8 mmol/L (3.4-5.0); Sodium 132 mmol/L (137-145)
[2021-06-29 08:41] VITALS: BP 171/61; PULSE 78; RESP 16; TEMP 36.4; O2SAT 99
--- NOTE | 2021-06-29 08:53 | PM.DS ---
DS: Admitting Diagnosis Discharge Date 06/29/2021 Admitting Diagnosis Nausea, vomiting, diarrhea DS: Discharge Diagnosis Discharge Diagnosis (1) Pancolitis: Code(s): K51.00 - Ulcerative (chronic) pancolitis without complications Status: Acute Assessment and Plan: Imaging evidence of recurrent (or persistent) pancolitis on CT scan Question of ischemic colitis given significant atherosclerotic vascular disease although she did have normal lactic acid level and no significant abdominal pain. Given she is immune compromised, has been initiated on Zosyn, transition to levofloxacin/Flagyl on discharge Gastroenterology evaluation, appreciate input Stool culture, and microscopic evaluation negative Blood culture negative Anti-emetics Urine drug screen is positive and this is likely contributing to her presentation, I discussed cessation with her in detail. (2) Dehydration: Code(s): E86.0 - Dehydration Status: Acute Assessment and Plan: Gentle hydration with close monitoring of volume status given history of CHF. (3) Elevated LFTs: Code(s): R79.89 - Other specified abnormal findings of blood chemistry Status: Acute Assessment and Plan: This is been an intermittent issue with the patient and is not acute finding. Mildly elevated, chronic, stable, monitor. Liver transplant status in 1999. (4) Essential hypertension: Code(s): I10 - Essential (primary) hypertension Status: Chronic Assessment and Plan: Continue home medications, reports labile blood pressure. Added amlodipine, will increase to 10 mg daily. Increase metoprolol to 75 mg b.i.d. Discontinue labetalol. (5) Chronic anemia: Code(s): D64.9 - Anemia, unspecified Status: Acute Assessment and Plan: Chronic anemia noted, positive Hemoccult. B12, folate normal, and iron indices showing deficiency, consider iron supplementation once her colitis is resolved. Appreciate GI input. (6) Chronic kidney disease, stage 3: Qualifiers: Chronic kidney disease stage 3 subtype: unspecified whether 3a or 3b Qualified Code(s): N18.30 - Chronic kidney disease, stage 3 unspecified Code(s): N18.3 - Chronic kidney disease, stage 3 (moderate) Status: Chronic Assessment and Plan: Creatinine baseline 1-1.4, currently at baseline. Monitor as needed. (7) Congestive heart failure: Qualifiers: Heart failure chronicity: unspecified Heart failure type: diastolic Qualified Code(s): I50.30 - Unspecified diastolic (congestive) heart failure Code(s): I50.9 - Heart failure, unspecified Status: Chronic Assessment and Plan: Given volume depletion, gentle hydration intravenously. Resume home metoprolol. (8) History of liver transplant: Onset Date: ~1999 Code(s): Z94.4 - Liver transplant status Status: Acute Assessment and Plan: Continue home Sirolimus. (9) Atrial fibrillation: Code(s): I48.91 - Unspecified atrial fibrillation Status: Acute Assessment and Plan: Continue home metoprolol. 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 In the emergency department, CT scan of her abdomen showed pancolitis and severe aortic arterial sclerotic disease. Her initial vitals showed blood pressure 207/81, heart rate 100, temperature 97.8?, pulse ox 99% on room air. Initial labs showed hemoglobin 10.9, WBC 11.1, platelets 235, sodium 137, potassium 3.6, chloride
[2021-06-29 08:54] VITALS: PULSE 74
[2021-06-29] MEDS: amLODIPine BESYLATE 5 MG TABLET 10 MG PO (08:54)
[2021-06-29] MEDS: VENLAFAXINE HCL XR 37.5 MG CAP PO (08:54)
[2021-06-29] MEDS: METOPROLOL TARTRATE 25 MG TABLET 75 MG PO (08:54)
[2021-06-29] MEDS: PANTOPRAZOLE 40 MG TABLET PO (08:54)
[2021-06-29 08:55] VITALS: PULSE 76
[2021-06-29] MEDS: LABETALOL HCL INJ 100 MG/20 ML VIAL 20 MG IV PUSH (08:55)
[2021-06-29] MEDS: CHOLECALCIFEROL 400 UNITS TABLET (VIT D) PO (08:55)
[2021-06-29 10:59] VITALS: BP 125/52
== END 2021-06-29 13:00 | disposition home or self-care (01) | DRG 386 ==
LOC: ANHED 16:19 → ANH3MED 16:26
PROVIDERS: Internal Medicine Gastroenterology; Physician Assistant; Admitting Provider Internal Medicine; Emergency Provider Emergency Medicine; PCP Family Medicine; Visit Provider Internal Medicine Nephrology
DX: K51.00 Ulcerative (chronic) pancolitis without complications (principal); Z94.4 Liver transplant status; D84.81 Immunodeficiency due to conditions classified elsewhere; I13.0 Hypertensive heart and chronic kidney disease with heart failure and stage 1 through stage 4 chronic kidney disease, or unspecified chronic kidney disease; I50.32 Chronic diastolic (congestive) heart failure; N18.30 Chronic kidney disease, stage 3 unspecified; E86.0 Dehydration; E87.6 Hypokalemia; R11.2 Nausea with vomiting, unspecified; F12.90 Cannabis use, unspecified, uncomplicated; I48.91 Unspecified atrial fibrillation; I25.10 Atherosclerotic heart disease of native coronary artery without angina pectoris; E78.1 Pure hyperglyceridemia; K21.9 Gastro-esophageal reflux disease without esophagitis; D64.9 Anemia, unspecified; R79.89 Other specified abnormal findings of blood chemistry; F41.8 Other specified anxiety disorders; M79.7 Fibromyalgia; G89.29 Other chronic pain; M81.0 Age-related osteoporosis without current pathological fracture; M19.90 Unspecified osteoarthritis, unspecified site; Z79.899 Other long term (current) drug therapy; Z86.16 Personal history of COVID-19; Z86.73 Personal history of transient ischemic attack (TIA), and cerebral infarction without residual deficits; Z87.891 Personal history of nicotine dependence
CPT/HCPCS: 36415; 74176; 80048; 80053; 80076; 80307; 81001; 82274; 82607; 82728; 82746; 83540; 83550; 83605; 83690; 83735; 85025; 85027; 85046; 87015; 87040; 87045; 87177; 87209; 87269; 87272; 87324; 87427; 89055; 93005; 96361; 96365; 96366; 96367; 96372; 96375; 96376; 99285; A9270; C9113; G0378; J0131; J0780; J2405; J2543; J2550; J3250; J3480; J7030

== ENCOUNTER 2021-07-14 10:53 | Inpatient (IN) | payer MEDICARE, SELFPAY ==
[2021-07-14] VITALS (9 sets, daily range): BP systolic 120–160; BP diastolic 43–83; PULSE 79–105; RESP 10–27; TEMP 36.6–37; O2SAT 98–100; BMI 14.7
--- NOTE | ~2021-07-14 | CT_ITS ---
EXAMINATION: CT abdomen pelvis wo con DATE: 07/15/2021 08:14 INDICATION: Nausea and vomiting. TECHNIQUE: Computed tomography (CT) of the abdomen and pelvis was performed without intravenous contr ast. Automated exposure control and iterative reconstruction technique were employed. The dose-length product was 152.81 mGy-cm. COMPARISON: CT abdomen and pelvis 06/24/2021 FINDINGS: The visualized portions of the lung bases demonstrate minimal atelectasis. There are trace pleural effusions. There is a small right posterior diaphragmatic hernia containing fat. There are ch anges of liver transplant. The gallbladder is absent. The spleen, pancreas, adrenal glands, and right kidney are normal. There is a 2 mm stone in left kidney. There is wall thickening involving the kris rity of the colon, consistent with colitis. The appendix is not visualized. There are extensive aorti c calcification suggesting at least severe stenosis of infrarenal abdominal aorta. There are no patho logically enlarged lymph nodes. 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 There is no jaime e intraperitoneal fluid. There is pelvic floor relaxation. There is mild lumbar spondylosis. IMPRESSION: 1. Pancolitis. 2. Heavy aortic calcifications suggesting at least severe stenosis of infrarenal aorta. Reviewed, dictated and finalized at location A. IMPRESSION: 1. Pancolitis. 2. Heavy aortic calcifications suggesting at least severe stenosis of infrarena l aorta.
[2021-07-14 11:40] LABS: Basophils Absolute Auto 0.1 K/mm3 (0.0-0.1); Basophils Percent Auto 0.7 % (0.2-1.2); Eosinophils Absolute Auto 0.1 K/mm3 (0-0.3); Eosinophils Percent Auto 1.3 % (0-4.4); Hematocrit 38.4 % (37.0-47.0); Hemoglobin 12.1 g/dL (12.0-15.0); Immature Granulocyte Absolute 0.04 K/mm3 (0.00-0.031); Immature Granulocyte Percent A 0.6 % (0-0.5); Lymphocytes Absolute Auto 1.08 K/mm3 (0.9-3.2); Lymphocytes Percent Auto 15.7 % (18.3-44.2); Mean Corpuscular HGB Conc 31.5 g/dl (32-36); Mean Corpuscular Hemoglobin 28.5 pg (26-34); Mean Corpuscular Volume 90.6 fl (80-100); Mean Platelet Volume 9.8 fl (7.4-10.4); Monocytes Absolute Auto 0.6 K/mm3 (0.1-0.6); Monocytes Percent Auto 8.3 % (2.6-8.5); Neutrophils Percent Auto 73.4 % (45.5-73.1); Platelet Count Result 184 k/mm3 (150-375); Red Blood Count 4.24 M/mm3 (4.2-5.4); Red Cell Distribution Width 16.4 % (11.5-14.5); White Blood Count 6.9 K/mm3 (4.5-10.0)
[2021-07-14 11:52] LABS: Alanine Aminotransferase 27 U/L (4-35); Alkaline Phosphatase 130 U/L (38-126); Anion Gap 14 mmol/L (8-16); Aspartate Amino Transferase 48 U/L (14-36); Bilirubin,Total 0.5 mg/dL (0.2-1.3); Blood Urea Nitrogen 14 mg/dL (7-17); Calcium 9.2 mg/dL (8.4-10.2); Carbon Dioxide 20 mmol/L (22-30); Chloride 102 mmol/L (98-107); Estimated CRCL calculation 29 ml/min; Estimated Glomerular Filt Rate > 60; Glucose 95 mg/dL (65-110); Lipase 80 U/L (23-300); Potassium 3.7 mmol/L (3.4-5.0); Sodium 136 mmol/L (137-145)
--- NOTE | 2021-07-14 12:00 | PC.NURSE ---
Patient reports that she refused to have a straight cath at this time, patient requests bed hogan and educated that we are unable to use urine from a bedpan for a sample for lab. patient then declines all urine sample options at this time.
[2021-07-14] MEDS: SODIUM CHLORIDE 0.9% IV 1,000 ML 150 ML IV CONT (12:21)
[2021-07-14 12:22] LABS: Lactic Acid Reflex 0.9 mmol/L (0.7-2.1)
[2021-07-14 14:05] LABS: Add Urine Microscopic? YES; Appearance Urine Clear (Clear); Bilirubin Urine Negative (Negative); Blood Urine 3+ (Negative); Color Urine Yellow (Yellow); Glucose Urine UA Negative (Negative); Ketones Urine 1+ mg/dL (Negative); Leukocyte Esterase Ur Negative LEU/UL (Negative); Nitrate Urine Negative (Negative); Protein Urine 2+ mg/dL (Negative); RBC Urine 21-50 /hpf (0-2); Specific Grav Ur 1.013 (1.001-1.035); Squamous Epithelial Cell Urine Rare /hpf (Few); Transitional Epi Cells Urine Rare /hpf (None Seen); Urobilinogen Urine Negative mg/dL (<2.0); WBC Urine 0-3 /hpf
--- NOTE | 2021-07-14 15:03 | ED.NAVMDI ---
HPI - Nausea/Vomiting/Diarrhea General Chief complaint: Nausea/Vomiting/Diarrhea Stated complaint: WEAKNESS Time Seen by Provider: 07/14/21 10:57 Source: patient and family Mode of arrival: EMS Limitations: no limitations History of Present Illness HPI Narrative: 76-year-old with a history of atrial fibrillation, pancolitis, liver transplant here with complaints of nausea, vomiting and diarrhea for last several weeks. Patient's states that she was seen here in the hospital few weeks for the same. states that they were discharged from [facility] 3 days ago soon after the discharge patient started having the same symptoms symptoms again. He states that she lost a lot of weight in the past few weeks. She denies any fever or chills. Denies any blood in the stool. MD elicited complaint: nausea, vomiting and diarrhea Onset (ago): week(s) (3) Description of vomiting: watery Description of diarrhea: watery Associated nausea: Yes Associated abdominal pain: No Severity: moderate Exacerbating factors: eating Relieving factors: none Related Data Home Medications Medication Instructions Recorded Confirmed cyanocobalamin (vitamin B-12) 500 mcg PO DAILY 09/14/20 06/24/21 loperamide 2 mg capsule 2 mg PO QID cap 12/13/20 06/24/21 pantoprazole 40 mg tablet,delayed 40 mg PO Q12H tablet 12/13/20 06/24/21 release calcium carbonate 600 mg calcium 600 mg PO DAILY 02/10/21 06/24/21 (1,500 mg) tablet cholecalciferol (vitamin D3) 100 400 unit PO DAILY 02/10/21 06/24/21 mcg (4,000 unit) tablet magnesium oxide 500 mg capsule 500 mg PO DAILY 02/10/21 06/24/21 nitroglycerin 0.4 mg sublingual 0.4 mg SUBLINGUAL ONCE PRN 02/10/21 06/24/21 tablet potassium 99 mg tablet 99 mg PO BID tablet 02/10/21 06/24/21 sirolimus 2 mg tablet 2 mg PO DAILY 02/10/21 06/24/21 rosuvastatin [Crestor] 20 mg PO DAILY 04/20/21 06/24/21 Allergies Allergy/AdvReac Type Severity Reaction Status Date / Time iodine Allergy Severe anaphlaxis Verified 07/14/21 11:04 aspirin Allergy Mild Unknown Verified 07/14/21 11:04 erythromycin base Allergy Mild Unknown Verified 07/14/21 11:04 opium (anthroposophic) Allergy Swelling Verified 07/14/21 11:04 blood thinners Allergy Intermediate pt bleeds Uncoded 07/14/21 11:04 out Review of Systems Review of Systems: All systems reviewed & are unremarkable except as noted in HPI and below Constitutional: Constitutional: Reports no additional constitutional complaints Eyes: Eyes: Reports no additional eye complaints ENT: Reports system reviewed and no additional complaints, except as documented Cardiovascular: Cardiovascular: Reports no additional cardiovascular complaints Respiratory: Respiratory: Reports no additional respiratory complaints Gastrointestinal: Gastrointestinal: Reports as per HPI Genitourinary: Genitourinary: Reports no additional female genitourinary complaints Musculoskeletal: Musculoskeletal: Reports no additional musculoskeletal complaints Integumentary/Breasts: Skin/Breast: Reports system reviewed and no additional complaints, except as docu Neurologic: Reports system reviewed and no additional complaints, except as documented Psychiatric: Psychiatric: Reports no additional psychiatric complaints Endocrine: Endocrine: Reports no additional endocrine complaints [facility] Past Medical History Medical History Aortic atherosclerosis Abdominal aortic atherosclerosis with fusiform narrowing noted on prior imaging. Not felt to be causing any active issues. Patient remains on statin therapy. Arthritis Blood in stool Cannabinoid hyperemesis syndrome Cerebrovascular accident CT evidence of prior CVAs. Chronic anemia Chronic kidney disease, stage 3 Creatinine runs between 1.2 and 1.60. Chronic pain Secondary to fibromyalgia, for which she uses CBD oil. Clostridium difficile diarrhea July and August 2017 as well as Ja
--- NOTE | 2021-07-14 16:10 | ADMGEN ---
This patient, Jia Walter, was admitted to Medical Room 247-. Patient/family oriented to hospital policies and general routines including ID bracelet, bed and alarms, visiting hours, pain management, procedures, bathroom and other care routines, personal items, smoking policy, room service/diet, and visiting hours. Information on how to activate the Rapid Response Team has been discussed. Patient/Family are encouraged to report perceived risks to care and to ask questions if they do not understand what they are told or what they should do.
[2021-07-14] MEDS: SODIUM CHLORIDE 0.9% IV 1,000 ML 100 ML IV CONT (16:56)
--- NOTE | 2021-07-14 17:53 | PM.IMHP ---
H&P: HPI History of Present Illness Date/Time: 07/14/21 17:53Pamela is a 76-year-old female patient who has a past medical history of having a liver transplant in 1999. She is on anti rejection medication. The patient stated that she was hospitalized at [facility] Over 1 week ago and just was discharged 5 days ago. the patient stated that she went there for the diarrhea and that she has been having diarrhea for several weeks. She stated that she had a solid stool before leaving [facility]. The patient stated that she felt weak and dehydrated today. She has no fever chills. She was given Zofran, morphine, Tylenol, Imodium, and Zofran in the emergency room. GI has been consulted. She is tolerating full liquid. The patient is being admitted to observation status on 07/14/2021 Chief Complaint: Nausea vomiting diarrhea Review of Systems Review of Systems: All systems reviewed & are unremarkable except as noted in HPI and below Constitutional: Constitutional: Reports as per HPI and Reports no additional constitutional complaints Eyes: Eyes: Reports as per HPI and Reports no additional eye complaints ENT: Reports system reviewed and no additional complaints, except as documented and Reports Normal hearing present Cardiovascular: Cardiovascular: Reports no additional cardiovascular complaints Respiratory: Respiratory: Reports no additional respiratory complaints and Reports no additional respiratory complaints Gastrointestinal: Gastrointestinal: Reports as per HPI and Reports no additional gastrointestinal complaints Musculoskeletal: Musculoskeletal: Reports no additional musculoskeletal complaints Integumentary/Breasts: Skin/Breast: Reports system reviewed and no additional complaints, except as docu and Reports as per HPI Neurologic: Reports system reviewed and no additional complaints, except as documented, Reports as per HPI and Reports Normal hearing present Psychiatric: Psychiatric: Reports no additional psychiatric complaints and Reports as per HPI Endocrine: Endocrine: Reports no additional endocrine complaints Hematologic/Lymphatic: Hematologic/Lymphatic: Reports no additional hematologic/lymphatic complaints Allergic/Immunologic: Allergic/Immunologic: Reports no additional allergic/immunologic complaints [facility] Past Medical History Medical History Aortic atherosclerosis Abdominal aortic atherosclerosis with fusiform narrowing noted on prior imaging. Not felt to be causing any active issues. Patient remains on statin therapy. Arthritis Blood in stool Cannabinoid hyperemesis syndrome Cerebrovascular accident CT evidence of prior CVAs. Chronic anemia Chronic kidney disease, stage 3 Creatinine runs between 1.2 and 1.60. Chronic pain Secondary to fibromyalgia, for which she uses CBD oil. Clostridium difficile diarrhea July and August 2017 as well as October 2017. Congestive heart failure Echocardiogram in November 2019 showed mildly reduced LV systolic function with an ejection fraction estimated at 40 to 45%, akinetic anteroapical segment, mild aortic valve sclerosis and regurgitation, as well as mild left atrial enlargement. Ejection fraction improved to 50% in December 2019. Coronary artery calcification COVID-19 08/2019 Depression with anxiety Essential hypertension Fibromyalgia Fractures Right humerus. Gastroesophageal reflux disease GI bleed (~11/2018) [place] to be due to possible Jayne-P[place]s tear from dry heaves and vomiting; no EGD performed. History of Clostridioides difficile colitis Hypertriglyceridemia Immunocompromised patient On anti-rejection medications status post liver transplant Insomnia Kidney stones Osteoarthritis Osteoporosis Paroxysmal atrial fibrillation Primary biliary cirrhosis Status post liver transplant x2. Surgical History Surgical History Finger joint rep
--- NOTE | 2021-07-14 18:22 | PHAR ---
HOME MEDICATION VERIFIED BY PHARMACY: SIROLIMUS 0.5MG TABLETS TAKE 3 TABLETS PO DAILY ONLY #3 TABLETS BROUGHT IN TO HOSPITAL
[2021-07-14] MEDS: PANTOPRAZOLE SODIUM IV 40 MG VIAL IV PUSH (21:44)
[2021-07-14] MEDS: METOPROLOL TARTRATE 50 MG TAB PO (21:44)
[2021-07-15] VITALS (9 sets, daily range): BP systolic 131–163; BP diastolic 46–67; PULSE 76–89; RESP 16–21; TEMP 36.7–37.7; O2SAT 98–100; BMI 14.7
[2021-07-15] MEDS: LOPERAMIDE HCL 2 MG CAPSULE PO ×2 (02:28→12:23)
--- NOTE | 2021-07-15 02:37 | PC.NURSE ---
[address] BOWIE ABOUT PT REFUSING IV ANTIBIOTIC AND HAVING MUCOID YELLOW DIARRHEA AND REQUESTING IMMODIUM. DR SAID TO GIVE PT ONE DOSE AND THEN WAIT TILL AFTER CT SCAN
[2021-07-15 05:14] LABS: IFOB Positive Control Positive; Immunochemical Fecal Occult Bl Negative (N)
[2021-07-15 05:23] LABS: Basophils Absolute Auto 0.1 K/mm3 (0.0-0.1); Basophils Percent Auto 0.7 % (0.2-1.2); Eosinophils Absolute Auto 0.2 K/mm3 (0-0.3); Eosinophils Percent Auto 2.3 % (0-4.4); Hematocrit 31.1 % (37.0-47.0); Immature Granulocyte Absolute 0.06 K/mm3 (0.00-0.031); Immature Granulocyte Percent A 0.8 % (0-0.5); Lymphocytes Absolute Auto 1.34 K/mm3 (0.9-3.2); Lymphocytes Percent Auto 18.1 % (18.3-44.2); Mean Corpuscular HGB Conc 32.2 g/dl (32-36); Mean Corpuscular Hemoglobin 28.2 pg (26-34); Mean Corpuscular Volume 87.9 fl (80-100); Mean Platelet Volume 9.9 fl (7.4-10.4); Monocytes Absolute Auto 0.8 K/mm3 (0.1-0.6); Monocytes Percent Auto 11.4 % (2.6-8.5); Neutrophils Absolute Auto 4.9 K/mm3 (1.3-6.7); Neutrophils Percent Auto 66.7 % (45.5-73.1); Platelet Count Result 182 k/mm3 (150-375); Red Blood Count 3.54 M/mm3 (4.2-5.4); Red Cell Distribution Width 16.1 % (11.5-14.5); White Blood Count 7.4 K/mm3 (4.5-10.0)
[2021-07-15 05:49] LABS: Anion Gap 8 mmol/L (8-16); Blood Urea Nitrogen 7 mg/dL (7-17); Calcium 8.3 mg/dL (8.4-10.2); Carbon Dioxide 23 mmol/L (22-30); Chloride 105 mmol/L (98-107); Estimated CRCL calculation 31 ml/min; Estimated Glomerular Filt Rate > 60; Glucose 89 mg/dL (65-110); Lactate Dehydrogenase 548 U/L (313-618); Lipase 76 U/L (23-300); Magnesium 1.8 mg/dL (1.6-2.3); Sodium 136 mmol/L (137-145)
[2021-07-15] MEDS: SODIUM CHLORIDE 0.9% IV 1,000 ML 100 ML IV CONT ×2 (05:54→17:07)
[2021-07-15] MEDS: ROSUVASTATIN 10 MG TABLET 20 MG PO (08:22)
[2021-07-15] MEDS: VENLAFAXINE HCL XR 37.5 MG CAP PO (08:23)
[2021-07-15] MEDS: METOPROLOL TARTRATE 50 MG TAB PO ×2 (08:23→20:44)
[2021-07-15] MEDS: PANTOPRAZOLE SODIUM IV 40 MG VIAL IV PUSH ×2 (08:24→20:44)
[2021-07-15] MEDS: CHOLECALCIFEROL 400 UNITS TABLET (VIT D) PO (08:24)
[2021-07-15] MEDS: predniSONE 5 MG TABLET PO (08:24)
[2021-07-15] MEDS: THIAMINE HCL 100 MG TABLET PO (08:24)
--- NOTE | 2021-07-15 11:04 | PM.IMPN ---
Progress Note: A&P Assessment and Plan (1) Pancolitis: Onset Date: ~06/2021 Code(s): K51.00 - Ulcerative (chronic) pancolitis without complications Status: Acute Assessment and Plan: - as seen per CT Scan - Continue Zosyn IVPB for abx treatment. - Stool cultures and tests pending results. - Pt. having increased stools. Imodium is ordered. - GI consult is ordered for today. - IVF of Normal Saline 100 ml/hr ordered for IV hydration. (2) Atrial fibrillation: Code(s): I48.91 - Unspecified atrial fibrillation Status: Acute Assessment and Plan: - Not currently in Atrial Fibrillation - SCD's ordered for prophylaxis due to having GI bleed. - Monitor on telemetry. (3) History of liver transplant: Onset Date: ~1999 Code(s): Z94.4 - Liver transplant status Status: Acute Assessment and Plan: - Continue to take the anti-rejection medications and Prednisone. (4) Immunocompromised patient: Onset Date: 1999 Code(s): D89.9 - Disorder involving the immune mechanism, unspecified Status: Chronic Assessment and Plan: - In light of possible infection, this patient is receiving Zosyn IVPB., - Continuing anti-rejection therapy. (5) Hypokalemia: Onset Date: ~06/2021 Code(s): E87.6 - Hypokalemia Status: Acute Assessment and Plan: - Secondary to insensible loss through stool. - Replace Potassium today with 40mEq KCL. - BMP in AM. (6) Essential hypertension: Code(s): I10 - Essential (primary) hypertension Status: Chronic Assessment and Plan: - Continue Metoprolol Tartrate 50 mg BID - Monitor BP - Currently well controlled. Time Spent With Patient Time with patient: 15 - 25 minutes Subjective Date/time seen: 07/15/21 0845 This pt. was assessed at the bedside this morning. She continues to endorse complaints of having abdominal pain with diarrhea. No fevers. She reports as much as 25 stools last evening and she has not had any emesis. She is able to maintain a diet, but has a poor appetite. She has no other complaints such as chest pain or dyspnea at this time. CT showed pancolitis and she has been ordered Zosyn but will not take it. She endorses that any abx only makes her feel worse. She has an upcoming GI consult today for continued care and management. The pt. was recently hospitalized at [facility] and prior to her discharge there, they wanted to perform a colonoscopy, but she refused stating that she could not tolerate the prep for it. I discussed with pt. the necessity of Zosyn at this time and she is finally agreeable to taking the medication. In addition, she is agreeable to the GI consult. Review of Systems Review of Systems: All systems reviewed & are unremarkable except as noted in HPI and below Constitutional: Constitutional: Reports as per HPI, Reports fatigue, Reports lethargy and Reports weakness Cardiovascular: Cardiovascular: Reports no additional cardiovascular complaints, Denies chest pain, Denies lightheadedness and Denies palpitations Respiratory: Respiratory: Reports as per HPI, Denies no additional respiratory complaints, Denies dyspnea and Denies dyspnea on exertion Gastrointestinal: Gastrointestinal: Reports abdominal pain, Denies hematochezia, Reports diarrhea, Denies nausea and Denies vomiting Exam Const: General: uncomfortable Other: Appears weak and frail, elderly female, that is uncomfortable at this time. HENMT: Mouth: Yes moist mucous membranes and No Abnormal oral and palatal mucosa present Neck: Lymphatic: lymphadenopathy not noted Resp: Effort & Inspection: normal respiratory effort Auscultation: clear to auscultation bilaterally, no crackles, no rales, no rhonchi, no wheezes and lung sounds not diminished Cardio: Rate: regular rate Rhythm: regular rhythm and regular rhythm Heart sounds: no murmurs and no rubs GI: GI Palp: Yes Tenderness to palpation present (G
[2021-07-15] MEDS: POTASSIUM CHLORIDE 20 MEQ TABLET 40 MEQ PO (12:24)
--- NOTE | 2021-07-15 12:53 | PCOTNOTE ---
Attempted OT evaluation, despite max encouragement to participate, patient reports does not want to work with occupational therapy at this time. Will follow and attempt at later time.
[2021-07-15 13:39] LABS: Basophils Percent Auto 0.3 % (0.2-1.2); Eosinophils Percent Auto 0.1 % (0-4.4); Hematocrit 32.4 % (37.0-47.0); Hemoglobin 10.6 g/dL (12.0-15.0); Immature Granulocyte Absolute 0.03 K/mm3 (0.00-0.031); Immature Granulocyte Percent A 0.4 % (0-0.5); Lymphocytes Absolute Auto 0.57 K/mm3 (0.9-3.2); Lymphocytes Percent Auto 7.8 % (18.3-44.2); Mean Corpuscular HGB Conc 32.7 g/dl (32-36); Mean Corpuscular Hemoglobin 28.3 pg (26-34); Mean Corpuscular Volume 86.4 fl (80-100); Mean Platelet Volume 10.3 fl (7.4-10.4); Monocytes Absolute Auto 0.4 K/mm3 (0.1-0.6); Monocytes Percent Auto 4.8 % (2.6-8.5); Neutrophils Absolute Auto 6.3 K/mm3 (1.3-6.7); Neutrophils Percent Auto 86.6 % (45.5-73.1); Platelet Count Result 202 k/mm3 (150-375); Red Blood Count 3.75 M/mm3 (4.2-5.4); White Blood Count 7.3 K/mm3 (4.5-10.0)
[2021-07-15 13:49] LABS: Anion Gap 9 mmol/L (8-16); Blood Urea Nitrogen 6 mg/dL (7-17); Calcium 8.3 mg/dL (8.4-10.2); Carbon Dioxide 22 mmol/L (22-30); Chloride 104 mmol/L (98-107); Estimated CRCL calculation 27 ml/min; Estimated Glomerular Filt Rate > 60; Glucose 176 mg/dL (65-110); Potassium 3.2 mmol/L (3.4-5.0); Sodium 135 mmol/L (137-145)
--- NOTE | 2021-07-15 15:11 | PCPTNOTE ---
Pt refused physical therapy at this time due to persistent diarrhea. Will try again at a later time/date/.
--- NOTE | 2021-07-15 16:04 | WPDGICN ---
Assessment and Plan Assessment and plan (1) Pancolitis: Onset Date: ~06/2021 Code(s): K51.00 - Ulcerative (chronic) pancolitis without complications Status: Acute Assessment and Plan: stool studies pending, had sigmoidoscopy at [facility] 3 months ago with no major findings differential is infectious, secretory, from meds, also ischemic but not report of bleeding and normal lactic acid (noted heavy calcification in aorta) may need full colonoscopy is not much better continue medical treatment (2) Diarrhea: Qualifiers: Diarrhea type: unspecified type Qualified Code(s): R19.7 - Diarrhea, unspecified Code(s): R19.7 - Diarrhea, unspecified Status: Acute (3) Dehydration: Code(s): E86.0 - Dehydration Status: Acute (4) Nausea and vomiting: Qualifiers: Vomiting Intractability: intractable Vomiting type: unspecified Qualified Code(s): R11.2 - Nausea with vomiting, unspecified Code(s): R11.2 - Nausea with vomiting, unspecified Status: Acute Assessment and Plan: improved, on antiemetics prn advance diet as tolerated h/o marijuana per records (5) History of liver transplant: Onset Date: ~1999 Code(s): Z94.4 - Liver transplant status Status: Acute Assessment and Plan: continue immunosuppresive meds (6) Immunocompromised patient: Onset Date: 1999 Code(s): 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 diff, chronic anemia, hypertension, paroxysmal atrial fibrillation not on anticoagulation due to history of anemia and GI bleed and rectal prolapse with sigmoidectomy 2016. Last time I reviewed records from her most recent hospitalization at [facility] 03/2021 when she presented with intractable nausea, vomiting, low grade fever and rectal bleeding, during her stay at [facility] she had sigmoidoscopy that was unrevealing and also c diff, o&P, culture negative, norovirus/CMV negative and treated empirically with antibiotics. This time she is back again with ongoing diarrhea for last several days with nausea sometimes up to 15-20 a day (recent C diff negative) and diarrhea worsen last few days. CT scan reviewed and showed again pancolitis and heavy aortic calcifications suggesting at least severe stenosis of infrarenal aorta, admitted to hospital and started on antibiotics. She has not seen her doctor in [facility] in person because pandemia but says that has been in contact in regular basis and was told to come back to ER for hydration and medical treatment. She also says that had COVID last year and since then has generalized weakness. She has normal wbc, lactic acid and wbc in stool negative, stool studies pending. Review of Systems Constitutional: Constitutional: Reports lethargy Eyes: Eyes: Reports no additional eye complaints ENT: Comments: hard of hearing Cardiovascular: Cardiovascular: Denies chest pain Respiratory: Respiratory: Denies cough Gastrointestinal: Gastrointestinal: Reports diarrhea and Reports nausea Genitourinary: Genitourinary: Denies hematuria Musculoskeletal: Musculoskeletal: Denies neck pain Integumentary/Breasts: Skin/Breast: Denies dry skin Neurologic: Reports system reviewed and no additional complaints, except as documented Psychiatric: Psychiatric: Reports no additional psychiatric complaints PMFSH Past Medical History Medical History Aortic atherosc
[2021-07-15] MEDS: ACETAMINOPHEN 325 MG TABLET 650 MG PO (20:45)
[2021-07-16] VITALS (9 sets, daily range): BP systolic 121–147; BP diastolic 49–67; PULSE 63–84; RESP 16–21; TEMP 36.1–37.1; O2SAT 98–100
[2021-07-16] MEDS: SODIUM CHLORIDE 0.9% IV 1,000 ML 100 ML IV CONT ×2 (05:16→23:27)
--- NOTE | 2021-07-16 07:25 | PM.IMPN ---
Progress Note: A&P Assessment and Plan (1) Pancolitis: Onset Date: ~06/2021 Code(s): K51.00 - Ulcerative (chronic) pancolitis without complications Status: Acute Assessment and Plan: - as seen per CT Scan - Continue Zosyn IVPB for abx treatment. - Stool cultures and tests pending results. - Pt. having increased stools. Imodium is ordered. - GI consult is ordered for today. - IVF of Normal Saline 100 ml/hr ordered for IV hydration. (2) Atrial fibrillation: Code(s): I48.91 - Unspecified atrial fibrillation Status: Acute Assessment and Plan: - Not currently in Atrial Fibrillation - SCD's ordered for prophylaxis due to having GI bleed. - Monitor on telemetry. (3) History of liver transplant: Onset Date: ~1999 Code(s): Z94.4 - Liver transplant status Status: Acute Assessment and Plan: - Continue to take the anti-rejection medications and Prednisone. (4) Immunocompromised patient: Onset Date: 1999 Code(s): D89.9 - Disorder involving the immune mechanism, unspecified Status: Chronic Assessment and Plan: - In light of possible infection, this patient is receiving Zosyn IVPB., - Continuing anti-rejection therapy. (5) Hypokalemia: Onset Date: ~06/2021 Code(s): E87.6 - Hypokalemia Status: Acute Assessment and Plan: - Secondary to insensible loss through stool. - Replace Potassium today with 40mEq KCL. - BMP in AM. (6) Essential hypertension: Code(s): I10 - Essential (primary) hypertension Status: Chronic Assessment and Plan: - Continue Metoprolol Tartrate 50 mg BID - Monitor BP - Currently well controlled. Additional Plan 07/16/2021 Hemoglobin is stable. Will continue current plan of care and treatment. Possible colon exam in the morning. Subjective Date/time seen: 07/16/21 07:25 Patient was seen during the morning rounds today. No new complaints. No abdominal pain, nausea, no vomiting. No shortness of breath or chest pain. Mood stable. Review of Systems Review of Systems: All systems reviewed & are unremarkable except as noted in HPI and below Constitutional: Constitutional: Reports as per HPI, Reports no additional constitutional complaints, Reports fatigue, Reports lethargy and Reports weakness Eyes: Eyes: Reports as per HPI and Reports no additional eye complaints ENT: Reports system reviewed and no additional complaints, except as documented Cardiovascular: Cardiovascular: Reports no additional cardiovascular complaints, Denies chest pain, Denies lightheadedness, Denies palpitations, Denies dyspnea and Denies dyspnea on exertion Respiratory: Respiratory: Reports as per HPI, Denies no additional respiratory complaints, Reports no additional respiratory complaints, Denies dyspnea and Denies dyspnea on exertion Gastrointestinal: Gastrointestinal: Reports as per HPI, Reports no additional gastrointestinal complaints, Reports abdominal pain, Denies hematochezia, Reports diarrhea, Denies nausea and Denies vomiting Musculoskeletal: Musculoskeletal: Reports no additional musculoskeletal complaints Integumentary/Breasts: Skin/Breast: Reports system reviewed and no additional complaints, except as docu and Reports as per HPI Neurologic: Reports system reviewed and no additional complaints, except as documented, Reports as per HPI and Reports weakness Psychiatric: Psychiatric: Reports no additional psychiatric complaints and Reports as per HPI Endocrine: Endocrine: Reports no additional endocrine complaints, Reports fatigue and Denies palpitations Hematologic/Lymphatic: Hematologic/Lymphatic: Reports no additional hematologic/lymphatic complaints Allergic/Immunologic: Allergic/Immunologic: Reports no additional allergic/immunologic complaints Exam Const: General: cooperative, healthy appearing, comfortable, no acute distress, well developed, alert, awake, Physically active
[2021-07-16] MEDS: METOPROLOL TARTRATE 50 MG TAB PO ×2 (08:16→20:53)
[2021-07-16] MEDS: predniSONE 5 MG TABLET PO (08:16)
[2021-07-16] MEDS: CHOLECALCIFEROL 400 UNITS TABLET (VIT D) PO (08:16)
[2021-07-16] MEDS: ROSUVASTATIN 10 MG TABLET 20 MG PO (08:16)
[2021-07-16] MEDS: VENLAFAXINE HCL XR 37.5 MG CAP PO (08:17)
[2021-07-16] MEDS: THIAMINE HCL 100 MG TABLET PO (08:17)
[2021-07-16] MEDS: PANTOPRAZOLE SODIUM IV 40 MG VIAL IV PUSH ×2 (08:17→20:54)
[2021-07-16] MEDS: LOPERAMIDE HCL 2 MG CAPSULE PO ×2 (16:29→23:27)
--- NOTE | 2021-07-16 16:51 | WPDGIPROGNO ---
Progress Note: A&P Additional Plan GI [facility] for Dr. Harrison 16 Jul 2021 Still with crampy, generalized AP. No real N/V. Still with diarrhea. VSS soft; diffuse, mild tenderness Hct 32. WBC 7 A/P Abdominal pain (generalized), diarrhea and abnormal imaging-digestive: - CT with colitis - ? ischemic vs infectious; symptoms persist - Day #1 Zosyn - Patient has not been getting Lomotil; discussed with RN to give - Stool studies pending - Hold on colonoscopy for now - Care with meds that increase GI motility ELZA Carney [phone] Subjective Date/time seen: 07/16/21 16:51 Objective Data Vital Signs Vital Signs: Vital Signs - 24 hr 07/15/21 20:00 07/15/21 20:44 07/16/21 00:00 Temperature 36.7 C 36.1 C L Pulse Rate 82 87 66 Respiratory Rate 21 H 20 Blood Pressure 133/48 L 147/53 H Pulse Oximetry 100 98 07/16/21 04:00 07/16/21 08:00 07/16/21 08:16 Temperature 36.3 C L 36.8 C Pulse Rate 63 73 63 Respiratory Rate 20 20 Blood Pressure 131/49 L 131/65 Pulse Oximetry 99 100 07/16/21 12:00 07/16/21 13:00 Temperature 37.1 C Pulse Rate 65 71 Respiratory Rate 18 Blood Pressure 134/63 Pulse Oximetry 100 Intake/Output Intake/Output: Intake & Output 07/13/21 07/14/21 07/15/21 07/16/21 23:59 23:59 23:59 23:59 Intake Total 1000 3210 1990 Output Total 550 600 600 Balance 450 2610 1390 Meds/Results Medications: Active Medications Generic Name Dose Route Start Last Admin Trade Name Freq PRN Reason Stop Dose Admin Acetaminophen 650 mg 07/14/21 15:04 07/15/21 20:45 Acetaminophen 325 Mg Tablet PO 650 mg Q4H PRN Administration Mild Pain (1-3) or Fever Sodium Chloride 1,000 mls @ 100 mls/hr 07/14/21 15:05 07/16/21 05:16 Normal Saline Iv IV CONT 100 mls/hr .Q10H KIARRA Administration Piperacillin Sod/Tazobactam Sod 2.25 gm in 50 mls @ 100 mls/hr 07/14/21 18:00 07/16/21 12:37 Zosyn 2.25 Gm/D5w 50 Ml IVPB Infused Q6HR KIARRA Infusion Loperamide HCl 2 mg 07/14/21 17:50 07/16/21 16:29 Loperamide Hcl 2 Mg Capsule PO 2 mg QID PRN Administration Diarrhea Metoprolol Tartrate 50 mg 07/14/21 21:00 07/16/21 08:16 Metoprolol Tartrate 50 Mg Tab PO 50 mg Q12HR KIARRA Administration Morphine Sulfate 4 mg 07/14/21 15:04 Morphine Sulfate (*Crx) 4 Mg/Ml Inj IV PUSH Q2H PRN Pain Rated 7-10 Sirolimus 0.5 Mg 0 mg 07/15/21 09:00 07/16/21 08:17 Tablets (Home Med) PO 08/14/21 08:59 1.5 mg DAILY KIARRA Administration Ondansetron HCl 4 mg 07/14/21 18:31 Ondansetron Inj 4 Mg/2 Ml Vial IV PUSH Q4H PRN Nausea And Vomiting Pantoprazole Sodium 40 mg 07/14/21 21:00 07/16/21 08:17 Pantoprazole Sodium Iv 40 Mg Vial IV PUSH 40 mg Q12HR KIARRA Administration Prednisone 5 mg 07/15/21 09:00 07/16/21 08:16 Prednisone 5 Mg Tablet PO 5 mg DAILY KIARRA Administration Rosuvastatin Calcium 20 mg 07/15/21 09:00 07/16/21 08:16 Rosuvastatin 10 Mg Tablet PO 20 mg DAILY KIARRA Administration Thiamine HCl 100 mg 07/15/21 09:00 07/16/21 08:17 Thiamine Hcl 100 Mg Tablet PO 100 mg DAILY KIARRA Administration Venlafaxine HCl 37.5 mg 07/15/21 09:00 07/16/21 08:17 Venlafaxine Hcl Xr 37.5 Mg Cap PO 37.5 mg DAILY KIARRA Administration Vitamin D 400 units 07/15/21 09:00 07/16/21 08:16 Cholecalciferol 400 Units Tablet (Vit D) PO 400 units DAILY KIARRA Administration Radiology Results: ITS Impressions Abdomen/Pelvis CT 07/15/21 08:32 IMPRESSION: 1. Pancolitis. 2. Heavy aortic calcifications suggesting at least severe stenosis of infrarenal aorta.
[2021-07-16] MEDS: ACETAMINOPHEN 325 MG TABLET 650 MG PO (20:54)
[2021-07-17] VITALS (13 sets, daily range): BP systolic 117–152; BP diastolic 39–57; PULSE 62–108; RESP 16–20; TEMP 36.1–37.1; O2SAT 97–100
[2021-07-17 05:22] LABS: Hematocrit 26.5 % (37.0-47.0); Hemoglobin 8.7 g/dL (12.0-15.0); Mean Corpuscular HGB Conc 32.8 g/dl (32-36); Mean Corpuscular Hemoglobin 28.8 pg (26-34); Mean Corpuscular Volume 87.7 fl (80-100); Mean Platelet Volume 9.8 fl (7.4-10.4); Platelet Count Result 187 k/mm3 (150-375); Red Blood Count 3.02 M/mm3 (4.2-5.4); Red Cell Distribution Width 16.3 % (11.5-14.5); White Blood Count 5.2 K/mm3 (4.5-10.0)
[2021-07-17 05:33] LABS: Anion Gap 4 mmol/L (8-16); Blood Urea Nitrogen 9 mg/dL (7-17); Calcium 8.2 mg/dL (8.4-10.2); Carbon Dioxide 24 mmol/L (22-30); Chloride 113 mmol/L (98-107); Estimated CRCL calculation 25 ml/min; Estimated Glomerular Filt Rate 54; Glucose 83 mg/dL (65-110); Potassium 3.3 mmol/L (3.4-5.0); Sodium 141 mmol/L (137-145)
--- NOTE | 2021-07-17 08:52 | PM.IMPN ---
Progress Note: A&P Assessment and Plan (1) Pancolitis: Onset Date: ~06/2021 Code(s): K51.00 - Ulcerative (chronic) pancolitis without complications Status: Acute Assessment and Plan: - as seen per CT Scan - Continue Zosyn IVPB for abx treatment. - Stool cultures and tests pending results. - Pt diarrhea is better now. - GI consult Noted - IVF of Normal Saline 100 ml/hr ordered for IV hydration. (2) Atrial fibrillation: Code(s): I48.91 - Unspecified atrial fibrillation Status: Acute Assessment and Plan: - Not currently in Atrial Fibrillation - SCD's ordered for prophylaxis due to having GI bleed. - Monitor on telemetry. (3) History of liver transplant: Onset Date: ~1999 Code(s): Z94.4 - Liver transplant status Status: Acute Assessment and Plan: - Continue to take the anti-rejection medications and Prednisone. (4) Immunocompromised patient: Onset Date: 1999 Code(s): D89.9 - Disorder involving the immune mechanism, unspecified Status: Chronic Assessment and Plan: - In light of possible infection, this patient is receiving Zosyn IVPB., - Continuing anti-rejection therapy. (5) Hypokalemia: Onset Date: ~06/2021 Code(s): E87.6 - Hypokalemia Status: Acute Assessment and Plan: - Secondary to insensible loss through stool. - Replace Potassium today with 40mEq KCL. - BMP in AM. (6) Essential hypertension: Code(s): I10 - Essential (primary) hypertension Status: Chronic Assessment and Plan: - Continue Metoprolol Tartrate 50 mg BID - Monitor BP - Currently well controlled. Additional Plan 07/16/2021 Hemoglobin is stable. Will continue current plan of care and treatment. Possible colon exam in the morning. 07/17/2021 Patient hemoglobin has dropped slightly to 8.7. Patient potassium is also slightly low. GI consult noted. Plan is to do conservative management at present time and hold off on the colon exam. Replace potassium. Monitor electrolytes and hemoglobin. Subjective Date/time seen: 07/17/21 08:52 Patient was seen during the morning rounds today. Patient diarrhea is much better. Patient is able to keep her food down. No nausea or vomiting. No shortness of breath or chest pain. Mood stable. Review of Systems Review of Systems: All systems reviewed & are unremarkable except as noted in HPI and below Constitutional: Constitutional: Reports as per HPI, Reports no additional constitutional complaints, Reports fatigue, Reports lethargy and Reports weakness Eyes: Eyes: Reports as per HPI and Reports no additional eye complaints ENT: Reports system reviewed and no additional complaints, except as documented Cardiovascular: Cardiovascular: Reports no additional cardiovascular complaints, Denies chest pain, Denies lightheadedness, Denies palpitations, Denies dyspnea and Denies dyspnea on exertion Respiratory: Respiratory: Reports as per HPI, Denies no additional respiratory complaints, Reports no additional respiratory complaints, Denies dyspnea and Denies dyspnea on exertion Gastrointestinal: Gastrointestinal: Reports as per HPI, Reports no additional gastrointestinal complaints, Reports abdominal pain, Denies hematochezia, Reports diarrhea, Denies nausea and Denies vomiting Musculoskeletal: Musculoskeletal: Reports no additional musculoskeletal complaints Integumentary/Breasts: Skin/Breast: Reports system reviewed and no additional complaints, except as docu and Reports as per HPI Neurologic: Reports system reviewed and no additional complaints, except as documented, Reports as per HPI and Reports weakness Psychiatric: Psychiatric: Reports no additional psychiatric complaints and Reports as per HPI Endocrine: Endocrine: Reports no additional endocrine complaints, Reports fatigue and Denies palpitations Hematologic/Lymphatic: Hematologic/Lymphatic: Reports no additional bouchra
[2021-07-17] MEDS: METOPROLOL TARTRATE 50 MG TAB PO ×2 (09:14→21:57)
[2021-07-17] MEDS: VENLAFAXINE HCL XR 37.5 MG CAP PO (09:14)
[2021-07-17] MEDS: THIAMINE HCL 100 MG TABLET PO (09:15)
[2021-07-17] MEDS: CHOLECALCIFEROL 400 UNITS TABLET (VIT D) PO (09:15)
[2021-07-17] MEDS: ROSUVASTATIN 10 MG TABLET 20 MG PO (09:15)
[2021-07-17] MEDS: PANTOPRAZOLE SODIUM IV 40 MG VIAL IV PUSH ×2 (09:15→21:58)
[2021-07-17] MEDS: predniSONE 5 MG TABLET PO (09:15)
[2021-07-17] MEDS: LOPERAMIDE HCL 2 MG CAPSULE PO ×2 (09:43→14:28)
[2021-07-17] MEDS: MAGNESIUM OXIDE 400 MG TABLET PO (10:10)
[2021-07-17] MEDS: SODIUM CHLORIDE 0.9% IV 1,000 ML 100 ML IV CONT (14:48)
--- NOTE | 2021-07-17 14:49 | WPDGIPROGNO ---
Progress Note: A&P Additional Plan GI [facility] for Dr. Harrison 17 Jul 2021 Still with crampy, generalized AP. No real N/V. Still with diarrhea, seems post-prandial. Sera po. VSS soft; diffuse, mild tenderness Hct 32->27. WBC 7->5 A/P Abdominal pain (generalized), diarrhea and abnormal imaging-digestive: - CT with colitis - ? ischemic vs infectious; symptoms persist - Day #2 Zosyn - Patient has been getting Lomotil - Will add Levbid - Stool studies still pending - Will leave decision regarding colonoscopy to Dr. Harrison - Care with meds that increase GI motility Further recommendations per [facility] [phone] Subjective Date/time seen: 07/17/21 14:49 Objective Data Vital Signs Vital Signs: Vital Signs - 24 hr 07/16/21 16:00 07/16/21 20:00 07/16/21 20:53 Temperature 36.9 C 36.3 C L Pulse Rate 77 76 77 Respiratory Rate 16 21 H Blood Pressure 121/67 130/49 L Pulse Oximetry 99 100 07/17/21 00:00 07/17/21 04:00 07/17/21 08:00 Temperature 36.1 C L 36.3 C L Pulse Rate 70 62 80 Respiratory Rate 20 20 Blood Pressure 152/57 H 131/45 L Pulse Oximetry 98 99 07/17/21 09:14 07/17/21 09:16 07/17/21 10:00 Temperature 36.9 C Pulse Rate 90 65 Respiratory Rate 18 18 Blood Pressure 136/42 L Pulse Oximetry 100 100 07/17/21 12:00 07/17/21 14:00 Temperature 36.5 C Pulse Rate 88 78 Respiratory Rate 18 Blood Pressure 129/48 L Pulse Oximetry 100 Intake/Output Intake/Output: Intake & Output 07/14/21 07/15/21 07/16/21 07/17/21 23:59 23:59 23:59 23:59 Intake Total 1000 3210 3330 2320 Output Total 316 933 8174 500 Balance 450 2610 2130 1820 Meds/Results Medications: Active Medications Generic Name Dose Route Start Last Admin Trade Name Freq PRN Reason Stop Dose Admin Acetaminophen 650 mg 07/14/21 15:04 07/16/21 20:54 Acetaminophen 325 Mg Tablet PO 650 mg Q4H PRN Administration Mild Pain (1-3) or Fever Hyoscyamine 0.375 mg 07/17/21 21:00 Hyoscyamine Sulfate 0.375 Mg Tab.Er.12h PO Q12HR KIARRA Sodium Chloride 1,000 mls @ 100 mls/hr 07/14/21 15:05 07/17/21 14:48 Normal Saline Iv IV CONT 100 mls/hr .Q10H KIARRA Administration Piperacillin Sod/Tazobactam Sod 2.25 gm in 50 mls @ 100 mls/hr 07/14/21 18:00 07/17/21 12:20 Zosyn 2.25 Gm/D5w 50 Ml IVPB Infused Q6HR KIARRA Infusion Loperamide HCl 2 mg 07/14/21 17:50 07/17/21 14:28 Loperamide Hcl 2 Mg Capsule PO 2 mg QID PRN Administration Diarrhea Magnesium Oxide 400 mg 07/17/21 09:00 07/17/21 10:10 Magnesium Oxide 400 Mg Tablet PO 400 mg DAILY KIARRA Administration Metoprolol Tartrate 50 mg 07/14/21 21:00 07/17/21 09:14 Metoprolol Tartrate 50 Mg Tab PO 50 mg Q12HR KIARRA Administration Morphine Sulfate 4 mg 07/14/21 15:04 Morphine Sulfate (*Crx) 4 Mg/Ml Inj IV PUSH Q2H PRN Pain Rated 7-10 Sirolimus 0.5 Mg 0 mg 07/15/21 09:00 07/17/21 09:16 Tablets (Home Med) PO 08/14/21 08:59 1.5 mg DAILY KIARRA Administration Ondansetron HCl 4 mg 07/14/21 18:31 Ondansetron Inj 4 Mg/2 Ml Vial IV PUSH Q4H PRN Nausea And Vomiting Pantoprazole Sodium 40 mg 07/14/21 21:00 07/17/21 09:15 Pantoprazole Sodium Iv 40 Mg Vial IV PUSH 40 mg Q12HR KIARRA Administration Polysaccharide Iron Complex 150 mg 07/17/21 17:00 Polysaccharide Iron Complex 150 Mg Capsule PO BIDWM KIARRA Prednisone 5 mg 07/15/21 09:00 07/17/21 09:15 Prednisone 5 Mg Tablet PO 5 mg DAILY KIARRA Administration Rosuvastatin Calcium 20 mg 07/15/21 09:00 07/17/21 09:15 Rosuvastatin 10 Mg Tablet PO 20 mg DAILY KIARRA Administration Thiamine HCl 100 mg 07/15/21 09:00 07/17/21 09:15 Thiamine Hcl 100 Mg Tablet PO 100 mg DAILY KIARRA Administration Venlafaxine HCl 37.5 mg 07/15/21 09:00 07/17/21 09:14 Venlafaxine Hcl Xr 37.5 Mg Cap PO 37.5 mg DAILY KIARRA Administration Vitamin D 400 units 07/15/21
[2021-07-17] MEDS: POLYSACCHARIDE IRON COMPLEX 150 MG CAPSULE PO (16:18)
[2021-07-17] MEDS: HYOSCYAMINE SULFATE 0.375 MG TAB.ER.12H PO (21:57)
[2021-07-17] MEDS: ACETAMINOPHEN 325 MG TABLET 650 MG PO (22:04)
[2021-07-18] VITALS (11 sets, daily range): BP systolic 133–169; BP diastolic 47–55; PULSE 71–81; RESP 14–17; TEMP 36.4–37.2; O2SAT 94–100
[2021-07-18] MEDS: SODIUM CHLORIDE 0.9% IV 1,000 ML 100 ML IV CONT ×2 (01:47→13:09)
[2021-07-18 05:19] LABS: Hematocrit 27.8 % (37.0-47.0); Hemoglobin 8.8 g/dL (12.0-15.0); Mean Corpuscular HGB Conc 31.7 g/dl (32-36); Mean Corpuscular Hemoglobin 28.5 pg (26-34); Mean Platelet Volume 9.8 fl (7.4-10.4); Platelet Count Result 198 k/mm3 (150-375); Red Blood Count 3.09 M/mm3 (4.2-5.4); Red Cell Distribution Width 16.5 % (11.5-14.5); White Blood Count 5.3 K/mm3 (4.5-10.0)
[2021-07-18 05:35] LABS: Alanine Aminotransferase 18 U/L (4-35); Albumin Level 2.6 g/dL (3.5-5.1); Alkaline Phosphatase 79 U/L (38-126); Anion Gap 4 mmol/L (8-16); Aspartate Amino Transferase 39 U/L (14-36); Bilirubin,Total < 0.1 mg/dL (0.2-1.3); Blood Urea Nitrogen 9 mg/dL (7-17); Calcium 8.2 mg/dL (8.4-10.2); Carbon Dioxide 23 mmol/L (22-30); Chloride 114 mmol/L (98-107); Estimated CRCL calculation 25 ml/min; Estimated Glomerular Filt Rate 54; Glucose 84 mg/dL (65-110); Potassium 3.9 mmol/L (3.4-5.0); Sodium 141 mmol/L (137-145)
[2021-07-18] MEDS: ROSUVASTATIN 10 MG TABLET 20 MG PO (08:09)
[2021-07-18] MEDS: HYOSCYAMINE SULFATE 0.375 MG TAB.ER.12H PO ×2 (08:09→21:12)
[2021-07-18] MEDS: THIAMINE HCL 100 MG TABLET PO (08:10)
[2021-07-18] MEDS: CHOLECALCIFEROL 400 UNITS TABLET (VIT D) PO (08:10)
[2021-07-18] MEDS: METOPROLOL TARTRATE 50 MG TAB PO ×2 (08:10→21:12)
[2021-07-18] MEDS: POLYSACCHARIDE IRON COMPLEX 150 MG CAPSULE PO ×2 (08:11→17:03)
[2021-07-18] MEDS: VENLAFAXINE HCL XR 37.5 MG CAP PO (08:11)
[2021-07-18] MEDS: MAGNESIUM OXIDE 400 MG TABLET PO (08:11)
[2021-07-18] MEDS: predniSONE 5 MG TABLET PO (08:11)
[2021-07-18] MEDS: PANTOPRAZOLE SODIUM IV 40 MG VIAL IV PUSH (08:14)
--- NOTE | 2021-07-18 11:21 | PM.IMPN ---
Progress Note: A&P Assessment and Plan (1) Pancolitis: Onset Date: ~06/2021 Code(s): K51.00 - Ulcerative (chronic) pancolitis without complications Status: Acute Assessment and Plan: Presented with diarrhea, nausea, and vomiting CT abdomen/pelvis showed pancolitis She has been started on broad-spectrum Zosyn given her immunocompromised status. Continue. Ischemic colitis considered given heavy aortic calcifications with severe stenosis of infrarenal aorta, a chronic finding on review. Lactic acid 0.9 on presentation, therefore less likely. No leukocytosis. Appreciate Gastroenterology consultations Tolerating regular diet Continue with gentle IV fluids given persistent diarrhea Stool cultures collected 07/14/2021 pending Recently hospitalized 06/24-06/29/21 due to pancolitis. 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 Discontinue telemetry (3) Immunocompromised patient: Onset Date: 1999 Code(s): D89.9 - Disorder involving the immune mechanism, unspecified Status: Chronic Assessment and Plan: Secondary to liver transplant in 1999 maintained on immunosuppressive therapy. Continue with anti-rejection therapy Continue broad-spectrum IV Zosyn as noted above (4) Hypokalemia: Onset Date: ~06/2021 Code(s): E87.6 - Hypokalemia Status: Acute Assessment and Plan: Secondary to GI losses through diarrhea Potassium is 3.9 today Monitor BMP daily and supplement as needed (5) Essential hypertension: Code(s): I10 - Essential (primary) hypertension Status: Chronic Assessment and Plan: Blood pressure reviewed and has been reasonably controlled. Last BP 152/47. Continue metoprolol tartrate 50 mg b.i.d. Monitor BP trends and adjust medications as needed (6) Chronic anemia: Code(s): D64.9 - Anemia, unspecified Status: Acute Assessment and Plan: H&H was slight decline this admission, may be dilutional. Remaining stable with no evidence of blood loss. Stool occult blood test negative Continue to monitor H&H Subjective Date/time seen: 07/18/21 11:21 Interval history: Date of service: 07/18/2021 Jia Mensah is a 76-year-old female with a history of CVA, CKD, chronic anemia, CHF, hypertension, history of liver transplant in 1999 on immunosuppressive therapy, multiple other comorbidities, and recent hospitalization this month for pancolitis who is seen in follow-up for diarrhea, concerning for recurrent colitis. She is starting to do better today. She estimated that she was having 18-20 episodes of diarrhea per day but has not had any diarrhea so far today. She is happy about this. She does complain of abdominal fullness. She endorses feeling hot and cold but denies sweats, fever, or shaking chills. No nausea or vomiting. Denies shortness of breath or chest pain. Denies urinary symptoms. Denies dizziness, lightheadedness, or weakness. Review of Systems Review of Systems: All systems reviewed & are unremarkable except as noted in HPI and below Exam Narrative: Ms. Walter is a well-nourished, well-appearing 76-year-old female who is lying semi recumbent in bed. She appears comfortable and is in NARD. Neuro: awake, alert and oriented x4, speech clear, no focal neuro deficits noted HEENMT: normocephalic, atraumatic, EOMI, sclerae anicteric, moist oral mucosa Neck: supple, no lymphadenopathy Respiratory: clear to auscultation bilaterally, nonlabored breathing Cardio: regular rate, regular rhythm with S1-S2 Abdomen: nondistended, normoactive bowel sounds, soft, nontender to palpation Extremit
--- NOTE | 2021-07-18 12:27 | WPDGIPROGNO ---
Progress Note: A&P Assessment and Plan (1) Diarrhea: Qualifiers: Diarrhea type: unspecified type Qualified Code(s): R19.7 - Diarrhea, unspecified Code(s): R19.7 - Diarrhea, unspecified Status: Acute Assessment and Plan: empirically on antibiotics, will proceed with colonoscopy because recurrent diarrhea and immunocompromised state, she is doing better and thinks that levsin is helping (2) Pancolitis: Onset Date: ~06/2021 Code(s): K51.00 - Ulcerative (chronic) pancolitis without complications Status: Acute Assessment and Plan: overall better, colonoscopy tomorrow (3) Hypokalemia: Onset Date: ~06/2021 Code(s): E87.6 - Hypokalemia Status: Acute Assessment and Plan: treated and resolved (4) History of liver transplant: Onset Date: ~1999 Code(s): Z94.4 - Liver transplant status Status: Acute (5) Immunocompromised patient: Onset Date: 1999 Code(s): D89.9 - Disorder involving the immune mechanism, unspecified Status: Chronic Subjective Date/time seen: 07/18/21 12:27 Interval history: today no diarrhea but she is worried that if going home then diarrhea will come back Review of Systems Review of Systems: All systems reviewed & are unremarkable except as noted in HPI and below Exam Const: General: comfortable, no acute distress and ill appearing chronically HENMT: General nose exam: Normal nares present Eyes: General: appearance normal, both eyes and all related structures Neck: Neck: no JVD Resp: Auscultation: clear to auscultation bilaterally Cardio: Rate: regular rate Rhythm: regular rhythm GI: Inspection: non-distended GI Palp: Yes Soft to palpation and No Guarding due to palpation present (GI) Auscultation: normal bowel sounds Skin: General skin exam: normal color Neuro: Speech: normal speech Motor exam (neuro): Normal motor muscle tone present throughout Extrem: General: normal to inspection Psych: Mental Status: mental status grossly normal Objective Data Vital Signs Vital Signs: Vital Signs - 24 hr 07/17/21 14:00 07/17/21 16:00 07/17/21 18:00 Temperature 97.7 F 98.7 F Pulse Rate 78 76 73 Respiratory Rate 18 20 Blood Pressure 129/48 L 122/39 L Pulse Oximetry 100 99 07/17/21 20:00 07/17/21 21:57 07/17/21 23:52 Temperature 97.7 F 98 F Pulse Rate 71 108 H 85 Respiratory Rate 16 16 Blood Pressure 117/46 L 140/40 L Pulse Oximetry 99 97 07/18/21 00:00 07/18/21 03:59 07/18/21 04:00 Temperature 97.5 F L Pulse Rate 71 74 78 Respiratory Rate 16 Blood Pressure 159/55 H Pulse Oximetry 98 07/18/21 08:00 07/18/21 08:10 07/18/21 09:55 Temperature Pulse Rate 73 74 Respiratory Rate Blood Pressure Pulse Oximetry 94 07/18/21 10:05 Temperature 97.8 F Pulse Rate 75 Respiratory Rate 14 Blood Pressure 152/47 H Pulse Oximetry 100 Intake/Output Intake/Output: Intake & Output 07/15/21 07/16/21 07/17/21 07/18/21 23:59 23:59 23:59 23:59 Intake Total 3210 3330 3230 1800 Output Total 600 1200 1150 600 Balance 2610 2130 2080 1200 Meds/Results Medications: Active Medications Generic Name Dose Route Start Last Admin Trade Name Freq PRN Reason Stop Dose Admin Acetaminophen 650 mg 07/14/21 15:04 07/17/21 22:04 Acetaminophen 325 Mg Tablet PO 650 mg Q4H PRN Administration Mild Pain (1-3) or Fever Hyoscyamine 0.375 mg 07/17/21 21:00 07/18/21 08:09 Hyoscyamine Sulfate 0.375 Mg Tab.Er.12h PO 0.375 mg Q12HR KIARRA Administration Sodium Chloride 1,000 mls @ 50 mls/hr 07/14/21 15:05 07/18/21 01:47 Normal Saline Iv IV CONT 100 mls/hr .Q20H KIARRA Administration Piperacillin Sod/Tazobactam Sod 2.25 gm in 50 mls @ 100 mls/hr 07/14/21 18:00 07/18/21 06:15 Zosyn 2.25 Gm/D5w 50 Ml IVPB Infused Q6HR KIARRA Infusion Loperamide HCl 2 mg 07/14/21 17:50 07/17/21 14:28 Loperamide Hcl 2 Mg Cap
--- NOTE | 2021-07-18 13:24 | PCDIET ---
Nutrition Follow-Up Complete: Nutrition Diagnosis: Unintended weight loss as related to Diarrhea/vomiting as evidenced by 15 pound weight loss and poor intake reported. Nutrition Goal: Adequate intake of at least 75% of meals/supplements Goal met. Patient consumed 75-100% of recorded meals since 07/16/21 and reports good appetite. Reports diarrhea has slowed, but she does not want to continue on Banatrol, as she does not feel it is helping. Reports taking Ensure Clear BID. Diet changed from regular to clear liquid at dinner tonight for colonoscopy tomorrow. Last recorded weight is 37.7 kg. Recommend obtaining new weight. Bowel Motility: BM x 7 on 07/17/21. Patient reports improvement today. Labs Reviewed: RBC (3.09), Hgb (8.8), Hct (27.8), Alb (2.6), [place] Ca (9.32) Meds Noted: Levbid, Imodium, Mag-Ox, Lopressor, Sirolimus, Protonix, Zosyn, Niferex-150, Prednisone, Crestor, NS at 100mL/hr, Vitamin D, Thiamine Additional Notes: Coccyx macerated. Will continue to monitor with same goal. Nutrition Monitoring and Evaluation: RD will monitor every 3 days.
[2021-07-18] MEDS: PANTOPRAZOLE 40 MG TABLET PO (21:13)
[2021-07-18] MEDS: ACETAMINOPHEN 325 MG TABLET 650 MG PO (21:49)
[2021-07-19 03:29] VITALS: BP 149/47; PULSE 72; RESP 17; TEMP 36.6; O2SAT 99
[2021-07-19 05:59] LABS: Hematocrit 29.2 % (37.0-47.0); Hemoglobin 9.2 g/dL (12.0-15.0)
[2021-07-19 06:18] LABS: Anion Gap 4 mmol/L (8-16); Blood Urea Nitrogen 11 mg/dL (7-17); Calcium 8.3 mg/dL (8.4-10.2); Carbon Dioxide 25 mmol/L (22-30); Chloride 110 mmol/L (98-107); Estimated CRCL calculation 23 ml/min; Estimated Glomerular Filt Rate 48; Glucose 96 mg/dL (65-110); Potassium 3.7 mmol/L (3.4-5.0); Sodium 139 mmol/L (137-145)
[2021-07-19] MEDS: ROSUVASTATIN 10 MG TABLET 20 MG PO (08:11)
[2021-07-19] MEDS: HYOSCYAMINE SULFATE 0.375 MG TAB.ER.12H PO ×2 (08:11→20:25)
[2021-07-19] MEDS: METOPROLOL TARTRATE 50 MG TAB PO ×2 (08:11→20:25)
[2021-07-19] MEDS: predniSONE 5 MG TABLET PO (08:11)
[2021-07-19] MEDS: VENLAFAXINE HCL XR 37.5 MG CAP PO (08:12)
[2021-07-19] MEDS: POLYSACCHARIDE IRON COMPLEX 150 MG CAPSULE PO ×2 (08:12→18:17)
[2021-07-19] MEDS: THIAMINE HCL 100 MG TABLET PO (08:12)
[2021-07-19] MEDS: CHOLECALCIFEROL 400 UNITS TABLET (VIT D) PO (08:12)
[2021-07-19] MEDS: PANTOPRAZOLE 40 MG TABLET PO ×2 (08:12→20:25)
[2021-07-19] MEDS: MAGNESIUM OXIDE 400 MG TABLET PO (08:13)
[2021-07-19] MEDS: SODIUM CHLORIDE 0.9% IV 1,000 ML 50 ML IV CONT (12:15)
--- NOTE | 2021-07-19 13:48 | WPDGIPROGNO ---
Progress Note: A&P Assessment and Plan (1) Diarrhea: Qualifiers: Diarrhea type: unspecified type Qualified Code(s): R19.7 - Diarrhea, unspecified Code(s): R19.7 - Diarrhea, unspecified Status: Acute Assessment and Plan: empirically on antibiotics and stool sample negative for infection we did not do colonoscopy- did not want to drink bowel prep. continue with imodium, levsin and probably can go home tomorrow with oral antibiotics for 3 more days then follow-up with her GI doctor at [facility] (2) Pancolitis: Onset Date: ~06/2021 Code(s): K51.00 - Ulcerative (chronic) pancolitis without complications Status: Acute Assessment and Plan: overall better differential includes infectious, functional, from medication, ischemic however this presentation had normal lactic acid and no episodes of rectal bleeding (3) Hypokalemia: Onset Date: ~06/2021 Code(s): E87.6 - Hypokalemia Status: Acute Assessment and Plan: treated and resolved (4) History of liver transplant: Onset Date: ~1999 Code(s): Z94.4 - Liver transplant status Status: Acute Assessment and Plan: on immunosuppresive meds (5) Immunocompromised patient: Onset Date: 1999 Code(s): D89.9 - Disorder involving the immune mechanism, unspecified Status: Chronic Subjective Date/time seen: 07/19/21 13:48 Interval history: diarrhea has improved but bloating and feeling full. She finally did not want to drink bowel prep. Review of Systems Review of Systems: All systems reviewed & are unremarkable except as noted in HPI and below Exam Const: General: comfortable, no acute distress and ill appearing chronically HENMT: General nose exam: Normal nares present Eyes: General: appearance normal, both eyes and all related structures Neck: Neck: no JVD Resp: Auscultation: clear to auscultation bilaterally Cardio: Rate: regular rate Rhythm: regular rhythm GI: Inspection: non-distended GI Palp: Yes Soft to palpation and No Guarding due to palpation present (GI) Auscultation: normal bowel sounds Skin: General skin exam: normal color Neuro: Speech: normal speech Motor exam (neuro): Normal motor muscle tone present throughout Extrem: General: normal to inspection Psych: Mental Status: mental status grossly normal Objective Data Vital Signs Vital Signs: Vital Signs - 24 hr 07/18/21 14:40 07/18/21 17:54 07/18/21 19:53 Temperature 98.8 F 98.9 F 98.2 F Pulse Rate 71 81 79 Respiratory Rate 14 14 17 Blood Pressure 133/52 L 139/50 L 169/49 H Pulse Oximetry 98 99 100 07/18/21 21:12 07/19/21 03:29 Temperature 98 F Pulse Rate 79 72 Respiratory Rate 17 Blood Pressure 149/47 H Pulse Oximetry 99 Intake/Output Intake/Output: Intake & Output 07/16/21 07/17/21 07/18/21 07/19/21 23:59 23:59 23:59 23:59 Intake Total 3330 3230 4500 910 Output Total 1200 1150 1850 500 Balance 2130 2080 2650 410 Meds/Results Medications: Active Medications Generic Name Dose Route Start Last Admin Trade Name Freq PRN Reason Stop Dose Admin Acetaminophen 650 mg 07/14/21 15:04 07/18/21 21:49 Acetaminophen 325 Mg Tablet PO 650 mg Q4H PRN Administration Mild Pain (1-3) or Fever Hyoscyamine 0.375 mg 07/17/21 21:00 07/19/21 08:11 Hyoscyamine Sulfate 0.375 Mg Tab.Er.12h PO 0.375 mg Q12HR KIARRA Administration Sodium Chloride 1,000 mls @ 50 mls/hr 07/14/21 15:05 07/19/21 12:15 Normal Saline Iv IV CONT 50 mls/hr .Q20H KIARRA Administration Piperacillin Sod/Tazobactam Sod 2.25 gm in 50 mls @ 100 mls/hr 07/14/21 18:00 07/19/21 12:16 Zosyn 2.25 Gm/D5w 50 Ml IVPB 100 mls/hr Q6HR KIARRA Administration Loperamide HCl 2 mg 07/14/21 17:50 07/17/21 14:28 Loperamide Hcl 2 Mg Capsule PO 2 mg QID PRN Administration Diarrhea Magnesium Oxide 400 mg 07/17/21 09:00 07/19/21 08:13 Magnesium Oxide 400 Mg Table
[2021-07-19 14:13] VITALS: BP 140/46; PULSE 70; RESP 16; TEMP 36.6; O2SAT 100
--- NOTE | 2021-07-19 14:16 | PM.IMPN ---
Progress Note: A&P Assessment and Plan (1) Pancolitis: Onset Date: ~06/2021 Code(s): K51.00 - Ulcerative (chronic) pancolitis without complications Status: Acute Assessment and Plan: Presented with diarrhea, nausea, and vomiting CT abdomen/pelvis showed pancolitis She has been started on broad-spectrum Zosyn given her immunocompromised status. Continue. Ischemic colitis considered given heavy aortic calcifications with severe stenosis of infrarenal aorta, a chronic finding on review. Lactic acid 0.9 on presentation, therefore less likely. No leukocytosis. Appreciate Gastroenterology consultations She declined to proceed with colonoscopy, stating she is not able to tolerate the prep Tolerating regular diet Discontinue IV fluids as she is tolerating p.o. intake and no longer having persistent diarrhea Stool cultures collected 07/14/2021 are negative Recently hospitalized 06/24-06/29/21 due to pancolitis. 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 (3) Immunocompromised patient: Onset Date: 1999 Code(s): D89.9 - Disorder involving the immune mechanism, unspecified Status: Chronic Assessment and Plan: Secondary to liver transplant in 1999 maintained on immunosuppressive therapy. Continue with anti-rejection therapy Continue broad-spectrum IV Zosyn as noted above (4) Hypokalemia: Onset Date: ~06/2021 Code(s): E87.6 - Hypokalemia Status: Acute Assessment and Plan: Secondary to GI losses through diarrhea Potassium is 3.7 today Monitor BMP daily and supplement as needed (5) Essential hypertension: Code(s): I10 - Essential (primary) hypertension Status: Chronic Assessment and Plan: Blood pressure reviewed and has been reasonably controlled. Last BP 140/46 Continue metoprolol tartrate 50 mg b.i.d. Monitor BP trends and adjust medications as needed (6) Chronic anemia: Code(s): D64.9 - Anemia, unspecified Status: Acute Assessment and Plan: H&H with slight decline this admission, may be dilutional. Remaining stable with no evidence of blood loss. Improved today Stool occult blood test negative Continue to monitor H&H Subjective Date/time seen: 07/19/21 14:16 Interval history: Date of service: 07/19/2021 Jia Mensah is a 76-year-old female with a history of CVA, CKD, chronic anemia, CHF, hypertension, history of liver transplant in 1999 on immunosuppressive therapy, multiple other comorbidities, and recent hospitalization this month for pancolitis . She is still feeling poorly today. She continues to complain of abdominal fullness and she states ?my intestines hurt.? She complains of diffuse abdominal discomfort. She has had poor appetite and has had difficulty tolerating her meals. This afternoon she noted food felt stuck in her throat, she states this happens every now and then has had to have esophageal dilations in the past. She reports a chronic, mild amount of nausea. She denies any episodes of vomiting. She has had approximately 3 soft, mushy stools today. Notes that they were more formed than his previous stools this hospitalization. Denies shortness breath, cough, chest pain, dizziness, lightheadedness. She has no additional concerns at this time. Review of Systems Review of Systems: All systems reviewed & are unremarkable except as noted in HPI and below Exam Narrative: Ms. Walter is a well-nourished, well-appearing 76-year-old female who is lying semi recumbent in bed. She appears comfortable and is in NARD. Neuro:
--- NOTE | 2021-07-19 14:32 | PC.NURSE ---
On 07/19/21, the student, Roxana Pace provided care and completed [employer] documentation on this patient. I have reviewed the student's documentation and agree with the findings.
[2021-07-19 20:00] VITALS: PULSE 73; RESP 16; O2SAT 100
[2021-07-19 20:25] VITALS: PULSE 73
[2021-07-19] MEDS: ACETAMINOPHEN 325 MG TABLET 650 MG PO (21:49)
[2021-07-19 22:00] VITALS: BP 147/56; PULSE 73; RESP 21; TEMP 36.9; O2SAT 100
[2021-07-20 03:20] VITALS: BP 136/50; PULSE 63; RESP 17; TEMP 37; O2SAT 99
[2021-07-20] MEDS: ONDANSETRON INJ 4 MG/2 ML VIAL IV PUSH (05:34)
[2021-07-20 06:36] LABS: Hematocrit 30.6 % (37.0-47.0); Hemoglobin 9.8 g/dL (12.0-15.0); Mean Corpuscular Volume 87.4 fl (80-100); Mean Platelet Volume 10.1 fl (7.4-10.4); Platelet Count Result 279 k/mm3 (150-375); Red Cell Distribution Width 16.5 % (11.5-14.5); White Blood Count 7.7 K/mm3 (4.5-10.0)
[2021-07-20 06:57] LABS: Anion Gap 6 mmol/L (8-16); Blood Urea Nitrogen 11 mg/dL (7-17); Calcium 8.7 mg/dL (8.4-10.2); Carbon Dioxide 26 mmol/L (22-30); Chloride 109 mmol/L (98-107); Estimated CRCL calculation 25 ml/min; Estimated Glomerular Filt Rate 54; Glucose 78 mg/dL (65-110); Potassium 3.6 mmol/L (3.4-5.0); Sodium 141 mmol/L (137-145)
[2021-07-20] MEDS: POLYSACCHARIDE IRON COMPLEX 150 MG CAPSULE PO ×2 (08:08→16:47)
[2021-07-20] MEDS: HYOSCYAMINE SULFATE 0.375 MG TAB.ER.12H PO ×2 (08:09→20:50)
[2021-07-20] MEDS: ROSUVASTATIN 10 MG TABLET 20 MG PO (08:09)
[2021-07-20] MEDS: VENLAFAXINE HCL XR 37.5 MG CAP PO (08:09)
[2021-07-20] MEDS: CHOLECALCIFEROL 400 UNITS TABLET (VIT D) PO (08:09)
[2021-07-20] MEDS: predniSONE 5 MG TABLET PO (08:09)
[2021-07-20] MEDS: THIAMINE HCL 100 MG TABLET PO (08:09)
[2021-07-20 08:10] VITALS: PULSE 64
[2021-07-20] MEDS: METOPROLOL TARTRATE 50 MG TAB PO ×2 (08:10→20:49)
[2021-07-20] MEDS: MAGNESIUM OXIDE 400 MG TABLET PO (08:10)
[2021-07-20] MEDS: PANTOPRAZOLE 40 MG TABLET PO ×2 (08:10→20:50)
[2021-07-20 08:16] VITALS: RESP 18; O2SAT 98
--- NOTE | 2021-07-20 11:17 | PCNFU ---
Nutrition Follow-Up Complete: Unintended weight loss as related to Diarrhea/vomiting as evidenced by 15 ibs weight loss and poor po intake reported. Goal: Adequate Oral Intake of at least 75% of meals/supplements Patient has met goal. No new goal. Pt current nutrition is Regular with Banatrol Plus TID and Ensure Clear BID. Last recorded weight is 37.7 kg, no new weight to report. Recommend: new weight. Bowel Motility:+BM reported 07/19-loose stools. Labs Reviewed:GFR 54 Meds Noted:Thiamine, Vit D,Zosyn,Crestor, Mag ox, Effexor, Levbid, Protonix. Additional Notes: Patient seen today for nutrition follow up. Patient states to tolerating regular diet, consuming 90% of meals. Diet supplements of Ensure Clear are providing an additional 240 kcals and 8 gms protein. Banatrol Plus for stool bulking. Agree with diet orders. Monitoring: RD will monitor every 5 days.
[2021-07-20 14:17] VITALS: BP 128/49; PULSE 78; RESP 12; TEMP 36.8; O2SAT 99
--- NOTE | 2021-07-20 14:18 | WPDGIPROGNO ---
Progress Note: A&P Assessment and Plan (1) Diarrhea: Qualifiers: Diarrhea type: unspecified type Qualified Code(s): R19.7 - Diarrhea, unspecified Code(s): R19.7 - Diarrhea, unspecified Status: Acute Assessment and Plan: empirically on antibiotics and stool sample negative for infection patient finally did not want to get colonoscopy and it can be done as outpatient by her GI doctor at [facility] continue with imodium, levsin and home maybe tomorrow with oral antibiotics (2) Pancolitis: Onset Date: ~06/2021 Code(s): K51.00 - Ulcerative (chronic) pancolitis without complications Status: Acute Assessment and Plan: overall better differential includes infectious, functional, from medication, ischemic however this presentation had normal lactic acid without rectal bleeding (3) Hypokalemia: Onset Date: ~06/2021 Code(s): E87.6 - Hypokalemia Status: Acute Assessment and Plan: monitoring, treated (4) History of liver transplant: Onset Date: ~1999 Code(s): Z94.4 - Liver transplant status Status: Acute Assessment and Plan: on immunosuppresive meds (5) Immunocompromised patient: Onset Date: 1999 Code(s): D89.9 - Disorder involving the immune mechanism, unspecified Status: Chronic Subjective Date/time seen: 07/20/21 14:19 Interval history: some diarrhea today, she would like to wait another day before going home Review of Systems Review of Systems: All systems reviewed & are unremarkable except as noted in HPI and below Exam Const: General: comfortable, no acute distress and ill appearing chronically HENMT: General nose exam: Normal nares present Eyes: General: appearance normal, both eyes and all related structures Neck: Neck: no JVD Resp: Auscultation: clear to auscultation bilaterally Cardio: Rate: regular rate Rhythm: regular rhythm GI: Inspection: non-distended GI Palp: Yes Soft to palpation and No Guarding due to palpation present (GI) Auscultation: normal bowel sounds Skin: General skin exam: normal color Neuro: Speech: normal speech Motor exam (neuro): Normal motor muscle tone present throughout Extrem: General: normal to inspection Psych: Mental Status: mental status grossly normal Objective Data Vital Signs Vital Signs: Vital Signs - 24 hr 07/19/21 20:00 07/19/21 20:25 07/19/21 22:00 Temperature 98.4 F Pulse Rate 73 73 73 Respiratory Rate 16 21 H Blood Pressure 147/56 H Pulse Oximetry 100 100 07/20/21 03:20 07/20/21 08:10 07/20/21 08:16 Temperature 98.6 F Pulse Rate 63 64 Respiratory Rate 17 18 Blood Pressure 136/50 L Pulse Oximetry 99 98 Intake/Output Intake/Output: Intake & Output 07/17/21 07/18/21 07/19/21 07/20/21 23:59 23:59 23:59 23:59 Intake Total 3230 4500 2340 850 Output Total 1150 1850 1000 600 Balance 2080 2650 1340 250 Meds/Results Medications: Active Medications Generic Name Dose Route Start Last Admin Trade Name Freq PRN Reason Stop Dose Admin Acetaminophen 650 mg 07/14/21 15:04 07/19/21 21:49 Acetaminophen 325 Mg Tablet PO 650 mg Q4H PRN Administration Mild Pain (1-3) or Fever Hyoscyamine 0.375 mg 07/17/21 21:00 07/20/21 08:09 Hyoscyamine Sulfate 0.375 Mg Tab.Er.12h PO 0.375 mg Q12HR KIARRA Administration Piperacillin Sod/Tazobactam Sod 2.25 gm in 50 mls @ 100 mls/hr 07/14/21 18:00 07/20/21 12:00 Zosyn 2.25 Gm/D5w 50 Ml IVPB Infused Q6HR KIARRA Infusion Loperamide HCl 2 mg 07/14/21 17:50 07/17/21 14:28 Loperamide Hcl 2 Mg Capsule PO 2 mg QID PRN Administration Diarrhea Magnesium Oxide 400 mg 07/17/21 09:00 07/20/21 08:10 Magnesium Oxide 400 Mg Tablet PO 400 mg DAILY KIARRA Administration Metoprolol Tartrate 50 mg 07/14/21 21:00 07/20/21 08:10 Metoprolol Tartrate 50 Mg Tab PO 50 mg Q12HR KIARRA Administration Morphine Sulfate 4 mg 07/14/21 1
--- NOTE | 2021-07-20 15:57 | P.PNIM_ITS ---
Progress Note: A&P Assessment and Plan (1) Pancolitis: Onset Date: ~06/2021 Code(s): K51.00 - Ulcerative (chronic) pancolitis without complications Status: Acute Assessment and Plan: Presented with diarrhea, nausea, and vomiting * CT abdomen/pelvis showed pancolitis * She has been started on broad-spectrum Zosyn given her immunocompromised status. Continue. * Ischemic colitis considered given heavy aortic calcifications with severe stenosis of infrarenal aorta, a chronic finding on review. Lactic acid 0.9 on presentation, therefore less likely. No leukocytosis. * Appreciate Gastroenterology consultation * She declined to proceed with colonoscopy, stating she is not able to tolerate the prep * Tolerating regular diet * Stool cultures collected 07/14/2021 are negative * Recently hospitalized 06/24-06/29/21 due to pancolitis. 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 antibiotics if continued improvement (2) Atrial fibrillation: Code(s): I48.91 - Unspecified atrial fibrillation Status: Acute Assessment and Plan: Has been in sinus rhythm, rate is controlled * She is not on chronic anticoagulation * Continue metoprolol tartrate b.i.d. (3) Immunocompromised patient: Onset Date: 1999 Code(s): D89.9 - Disorder involving the immune mechanism, unspecified Status: Chronic Assessment and Plan: Secondary to liver transplant in 1999 maintained on immunosuppressive therapy. * Continue with anti-rejection therapy * Continue broad-spectrum IV Zosyn as noted above (4) Hypokalemia: Onset Date: ~06/2021 Code(s): E87.6 - Hypokalemia Status: Acute Assessment and Plan: Secondary to GI losses through diarrhea * Potassium is 3.6 today * Monitor BMP daily and supplement as needed (5) Essential hypertension: Code(s): I10 - Essential (primary) hypertension Status: Chronic Assessment and Plan: Blood pressure reviewed and has been reasonably controlled. Last BP 128/49 * Continue metoprolol tartrate 50 mg b.i.d. * Monitor BP trends and adjust medications as needed (6) Chronic anemia: Code(s): D64.9 - Anemia, unspecified Status: Acute Assessment and Plan: H&H with slight decline this admission, may be dilutional. Remaining stable with no evidence of blood loss. Hemoglobin 9.8 today * Stool occult blood test negative * Continue to monitor H&H Subjective Date/time seen: 07/20/21 15:57 Interval history: Date of service: 07/20/2021 Jia Mensah is a 76-year-old female with a history of CVA, CKD, chronic anemia, CHF, hypertension, history of liver transplant in 1999 on immunos uppressive therapy, multiple other comorbidities, and recent hospitalization this month for pancolitis. She is still not feeling well today. She is still having loose stools and reports about 3 episodes today. She reports cramping and intermittent episodes of sharp pain. She reports feeling gassy. She denies nausea or vomiting. She was able to eat most of her breakfast today. She has no shortness of breath, cough, chest pain. No dizziness, lightheadedness, weakness. She has no additional concerns at this time. Review of Systems Review of Systems: All systems reviewed & are unremarkable except as noted in HPI and below Exam Narrative: Ms. Walter is a we
--- NOTE | 2021-07-20 15:57 | PM.IMPN ---
Progress Note: A&P Assessment and Plan (1) Pancolitis: Onset Date: ~06/2021 Code(s): K51.00 - Ulcerative (chronic) pancolitis without complications Status: Acute Assessment and Plan: Presented with diarrhea, nausea, and vomiting CT abdomen/pelvis showed pancolitis She has been started on broad-spectrum Zosyn given her immunocompromised status. Continue. Ischemic colitis considered given heavy aortic calcifications with severe stenosis of infrarenal aorta, a chronic finding on review. Lactic acid 0.9 on presentation, therefore less likely. No leukocytosis. Appreciate Gastroenterology consultation She declined to proceed with colonoscopy, stating she is not able to tolerate the prep Tolerating regular diet Stool cultures collected 07/14/2021 are negative Recently hospitalized 06/24-06/29/21 due to pancolitis. It is noted that she is established with a certified residential medication aide at [facility] whom she will need to follow-up with on discharge Hopeful discharge tomorrow on p.o. antibiotics if continued improvement (2) Atrial fibrillation: Code(s): I48.91 - Unspecified atrial fibrillation Status: Acute Assessment and Plan: Has been in sinus rhythm, rate is controlled She is not on chronic anticoagulation Continue metoprolol tartrate b.i.d. (3) Immunocompromised patient: Onset Date: 1999 Code(s): D89.9 - Disorder involving the immune mechanism, unspecified Status: Chronic Assessment and Plan: Secondary to liver transplant in 1999 maintained on immunosuppressive therapy. Continue with anti-rejection therapy Continue broad-spectrum IV Zosyn as noted above (4) Hypokalemia: Onset Date: ~06/2021 Code(s): E87.6 - Hypokalemia Status: Acute Assessment and Plan: Secondary to GI losses through diarrhea Potassium is 3.6 today Monitor BMP daily and supplement as needed (5) Essential hypertension: Code(s): I10 - Essential (primary) hypertension Status: Chronic Assessment and Plan: Blood pressure reviewed and has been reasonably controlled. Last BP 128/49 Continue metoprolol tartrate 50 mg b.i.d. Monitor BP trends and adjust medications as needed (6) Chronic anemia: Code(s): D64.9 - Anemia, unspecified Status: Acute Assessment and Plan: H&H with slight decline this admission, may be dilutional. Remaining stable with no evidence of blood loss. Hemoglobin 9.8 today Stool occult blood test negative Continue to monitor H&H Subjective Date/time seen: 07/20/21 15:57 Interval history: Date of service: 07/20/2021 Jia Mensah is a 76-year-old female with a history of CVA, CKD, chronic anemia, CHF, hypertension, history of liver transplant in 1999 on immunosuppressive therapy, multiple other comorbidities, and recent hospitalization this month for pancolitis. She is still not feeling well today. She is still having loose stools and reports about 3 episodes today. She reports cramping and intermittent episodes of sharp pain. She reports feeling gassy. She denies nausea or vomiting. She was able to eat most of her breakfast today. She has no shortness of breath, cough, chest pain. No dizziness, lightheadedness, weakness. She has no additional concerns at this time. Review of Systems Review of Systems: All systems reviewed & are unremarkable except as noted in HPI and below Exam Narrative: Ms. Walter is a well-nourished, well-appearing 76-year-old female who is lying semi recumbent in bed. She appears comfortable and is in NARD. Neuro: awake, alert and oriented x4, speech clear, no focal neuro deficits noted HEENMT: normocephalic, atraumatic, EOMI, sclerae anicteric, moist oral mucosa Neck: supple, no lymphadenopathy Respiratory: clear to auscultation bilaterally, nonlabored breathing Cardio: regular rate, regular rhythm with S1-S2 Abdomen: nondistended, normoactive bowel
[2021-07-20 20:49] VITALS: PULSE 72
[2021-07-20 21:48] VITALS: BP 144/43; PULSE 69; RESP 16; TEMP 37.2; O2SAT 100
[2021-07-20] MEDS: ACETAMINOPHEN 325 MG TABLET 650 MG PO (22:10)
[2021-07-21 05:52] VITALS: BP 141/49; PULSE 71; RESP 16; TEMP 36.9; O2SAT 98
[2021-07-21 06:18] LABS: Hematocrit 29.9 % (37.0-47.0); Hemoglobin 9.2 g/dL (12.0-15.0)
[2021-07-21 06:30] LABS: Anion Gap 7 mmol/L (8-16); Blood Urea Nitrogen 13 mg/dL (7-17); Calcium 8.1 mg/dL (8.4-10.2); Carbon Dioxide 26 mmol/L (22-30); Chloride 107 mmol/L (98-107); Estimated CRCL calculation 19 ml/min; Estimated Glomerular Filt Rate 40; Glucose 83 mg/dL (65-110); Potassium 3.8 mmol/L (3.4-5.0); Sodium 140 mmol/L (137-145)
[2021-07-21] MEDS: POLYSACCHARIDE IRON COMPLEX 150 MG CAPSULE PO ×2 (09:37→16:27)
[2021-07-21 09:38] VITALS: PULSE 80
[2021-07-21] MEDS: METOPROLOL TARTRATE 50 MG TAB PO ×2 (09:38→23:36)
[2021-07-21] MEDS: MAGNESIUM OXIDE 400 MG TABLET PO (09:38)
[2021-07-21] MEDS: predniSONE 5 MG TABLET PO (09:39)
[2021-07-21] MEDS: PANTOPRAZOLE 40 MG TABLET PO ×2 (09:39→23:36)
[2021-07-21] MEDS: THIAMINE HCL 100 MG TABLET PO (09:39)
[2021-07-21] MEDS: ROSUVASTATIN 10 MG TABLET 20 MG PO (09:39)
[2021-07-21] MEDS: VENLAFAXINE HCL XR 37.5 MG CAP PO (09:39)
[2021-07-21] MEDS: CHOLECALCIFEROL 400 UNITS TABLET (VIT D) PO (09:39)
[2021-07-21] MEDS: HYOSCYAMINE SULFATE 0.375 MG TAB.ER.12H PO ×2 (09:42→23:36)
--- NOTE | 2021-07-21 12:48 | WPDGIPROGNO ---
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 (2) Pancolitis: Onset Date: ~06/2021 Code(s): K51.00 - Ulcerative (chronic) pancolitis without complications Status: Acute Assessment and Plan: overall better differential includes infectious, functional, from medication, ischemic however this presentation had normal lactic acid without rectal bleeding (3) Hypokalemia: Onset Date: ~06/2021 Code(s): E87.6 - Hypokalemia Status: Acute Assessment and Plan: treated (4) History of liver transplant: Onset Date: ~1999 Code(s): Z94.4 - Liver transplant status Status: Acute Assessment and Plan: on immunosuppresive meds (5) Immunocompromised patient: Onset Date: 1999 Code(s): D89.9 - Disorder involving the immune mechanism, unspecified Status: Chronic Subjective Date/time seen: 07/21/21 12:48 Interval history: tolerating diet, still cramping discomfort. Had formed stools with some diarrhea today, overall better but still having issues however she thinks that can go home Review of Systems Review of Systems: All systems reviewed & are unremarkable except as noted in HPI and below Exam Const: General: comfortable, no acute distress and ill appearing chronically HENMT: General nose exam: Normal nares present Eyes: General: appearance normal, both eyes and all related structures Neck: Neck: no JVD Resp: Auscultation: clear to auscultation bilaterally Cardio: Rate: regular rate Rhythm: regular rhythm GI: Inspection: non-distended GI Palp: Yes Soft to palpation and No Guarding due to palpation present (GI) Auscultation: normal bowel sounds Skin: General skin exam: normal color Neuro: Speech: normal speech Motor exam (neuro): Normal motor muscle tone present throughout Extrem: General: normal to inspection Psych: Mental Status: mental status grossly normal Objective Data Vital Signs Vital Signs: Vital Signs - 24 hr 07/20/21 14:17 07/20/21 20:49 07/20/21 21:48 Temperature 98.2 F 98.9 F Pulse Rate 78 72 69 Respiratory Rate 12 16 Blood Pressure 128/49 L 144/43 H Pulse Oximetry 99 100 07/21/21 05:52 07/21/21 09:38 Temperature 98.4 F Pulse Rate 71 80 Respiratory Rate 16 Blood Pressure 141/49 H Pulse Oximetry 98 Intake/Output Intake/Output: Intake & Output 07/18/21 07/19/21 07/20/21 07/21/21 23:59 23:59 23:59 23:59 Intake Total 4500 2340 1620 580 Output Total 1850 1000 1100 Balance 2650 1340 520 580 Meds/Results Medications: Active Medications Generic Name Dose Route Start Last Admin Trade Name Freq PRN Reason Stop Dose Admin Acetaminophen 650 mg 07/14/21 15:04 07/20/21 22:10 Acetaminophen 325 Mg Tablet PO 650 mg Q4H PRN Administration Mild Pain (1-3) or Fever Hyoscyamine 0.375 mg 07/17/21 21:00 07/21/21 09:42 Hyoscyamine Sulfate 0.375 Mg Tab.Er.12h PO 0.375 mg Q12HR KIARRA Administration Piperacillin Sod/Tazobactam Sod 2.25 gm in 50 mls @ 100 mls/hr 07/14/21 18:00 07/21/21 06:31 Zosyn 2.25
--- NOTE | 2021-07-21 13:00 | PC.NURSE ---
Patient has been having frequent diarrhea stools since lunch along with stomach cramping. States she feels like she cannot go home today because of this. Called and notified Jayne CAMPBELL of same. Imodium given for diarrhea. IV tender and swollen. Also discussed this with Jayne CAMPBELL and received order to d/c IV Zosyn.
[2021-07-21] MEDS: LOPERAMIDE HCL 2 MG CAPSULE PO (13:23)
[2021-07-21 14:10] VITALS: BP 146/58; PULSE 79; RESP 18; TEMP 36.8; O2SAT 100
--- NOTE | 2021-07-21 16:39 | P.PNIM_ITS ---
Progress Note: A&P Assessment and Plan (1) Pancolitis: Onset Date: ~06/2021 Code(s): K51.00 - Ulcerative (chronic) pancolitis without complications Status: Acute Assessment and Plan: Presented with diarrhea, nausea, and vomiting * CT abdomen/pelvis showed pancolitis * She has been on broad-spectrum Zosyn given her immunocompromise status. Discussed with GI. Will discontinue at this time and start p.o. Flagyl for 3 more days. * Ischemic colitis considered given heavy aortic calcifications with severe stenosis of infrarenal aorta, a chronic finding on review. Lactic acid 0.9 on presentation. She likely has chronic mesenteric ischemia and will be referred to vascular surgery at [facility] as an outpatient. * Appreciate Gastroenterology consultation. She declined to proceed with colonoscopy, stating she is not able to tolerate the prep * Tolerating regular diet * Stool cultures collected 07/14/2021 are negative * Continue antispasmodics anti * Recently hospitalized 06/24-06/29/21 due to pancolitis. It is noted that she is established with a residential assistant at [facility] whom she will need to follow-up with on discharge * Hopeful discharge tomorrow on p.o. antibiotics if continued improvement (2) Atrial fibrillation: Code(s): I48.91 - Unspecified atrial fibrillation Status: Acute Assessment and Plan: Has been in sinus rhythm, rate is controlled * She is not on chronic anticoagulation * Continue metoprolol tartrate b.i.d. (3) Immunocompromised patient: Onset Date: 1999 Code(s): D89.9 - Disorder involving the immune mechanism, unspecified Status: Chronic Assessment and Plan: Secondary to liver transplant in 1999 maintained on immunosuppressive therapy. * Continue with anti-rejection therapy (4) Hypokalemia: Onset Date: ~06/2021 Code(s): E87.6 - Hypokalemia Status: Acute Assessment and Plan: Resolved. Secondary to GI losses through diarrhea * Potassium is 3.8 today * Monitor BMP daily and supplement as needed (5) Essential hypertension: Code(s): I10 - Essential (primary) hypertension Status: Chronic Assessment and Plan: Blood pressure reviewed and has been reasonably controlled. Last BP 146/58 * Continue metoprolol tartrate 50 mg b.i.d. * Monitor BP trends and adjust medications as needed (6) Chronic anemia: Code(s): D64.9 - Anemia, unspecified Status: Acute Assessment and Plan: H&H is essentially back at baseline on review of prior labs. * Stool occult blood test negative * Continue to monitor H&H Subjective Date/time seen: 07/21/21 16:39 Interval history: Date of service: 07/21/2021 Jia Mensah is a 76-year-old female with a history of CVA, CKD, chronic anemia, CHF, hypertension, history of liver transplant in 1999 on immunosuppressive therapy, multiple other comorbidities, and recent hospitalization this month for pancolitis. When I saw her in the early aftern oon she was feeling better. She did have some stomach cramping after eating lunch but had overall improvement. We were starting discharge planning when she began having more significant abdominal pain and having multiple episodes of diarrhea per Marlen RN. States she reports she was getting up to run to the bathroom. The patient became tearful and felt that she could not return home given her persistent diarrhea and abdominal discomfort. No additional complaints. Review of Systems Review of
--- NOTE | 2021-07-21 16:39 | PM.IMPN ---
Progress Note: A&P Assessment and Plan (1) Pancolitis: Onset Date: ~06/2021 Code(s): K51.00 - Ulcerative (chronic) pancolitis without complications Status: Acute Assessment and Plan: Presented with diarrhea, nausea, and vomiting CT abdomen/pelvis showed pancolitis She has been on broad-spectrum Zosyn given her immunocompromise status. Discussed with GI. Will discontinue at this time and start p.o. Flagyl for 3 more days. Ischemic colitis considered given heavy aortic calcifications with severe stenosis of infrarenal aorta, a chronic finding on review. Lactic acid 0.9 on presentation. She likely has chronic mesenteric ischemia and will be referred to vascular surgery at [facility] as an outpatient. Appreciate Gastroenterology consultation. She declined to proceed with colonoscopy, stating she is not able to tolerate the prep Tolerating regular diet Stool cultures collected 07/14/2021 are negative Continue antispasmodics anti Recently hospitalized 06/24-06/29/21 due to pancolitis. It is noted that she is established with a rn gastroenterology at [facility] whom she will need to follow-up with on discharge Hopeful discharge tomorrow on p.o. antibiotics if continued improvement (2) Atrial fibrillation: Code(s): I48.91 - Unspecified atrial fibrillation Status: Acute Assessment and Plan: Has been in sinus rhythm, rate is controlled She is not on chronic anticoagulation Continue metoprolol tartrate b.i.d. (3) Immunocompromised patient: Onset Date: 1999 Code(s): D89.9 - Disorder involving the immune mechanism, unspecified Status: Chronic Assessment and Plan: Secondary to liver transplant in 1999 maintained on immunosuppressive therapy. Continue with anti-rejection therapy (4) Hypokalemia: Onset Date: ~06/2021 Code(s): E87.6 - Hypokalemia Status: Acute Assessment and Plan: Resolved. Secondary to GI losses through diarrhea Potassium is 3.8 today Monitor BMP daily and supplement as needed (5) Essential hypertension: Code(s): I10 - Essential (primary) hypertension Status: Chronic Assessment and Plan: Blood pressure reviewed and has been reasonably controlled. Last BP 146/58 Continue metoprolol tartrate 50 mg b.i.d. Monitor BP trends and adjust medications as needed (6) Chronic anemia: Code(s): D64.9 - Anemia, unspecified Status: Acute Assessment and Plan: H&H is essentially back at baseline on review of prior labs. Stool occult blood test negative Continue to monitor H&H Subjective Date/time seen: 07/21/21 16:39 Interval history: Date of service: 07/21/2021 Jia Mensah is a 76-year-old female with a history of CVA, CKD, chronic anemia, CHF, hypertension, history of liver transplant in 1999 on immunosuppressive therapy, multiple other comorbidities, and recent hospitalization this month for pancolitis. When I saw her in the early afternoon she was feeling better. She did have some stomach cramping after eating lunch but had overall improvement. We were starting discharge planning when she began having more significant abdominal pain and having multiple episodes of diarrhea per Marlen RN. States she reports she was getting up to run to the bathroom. The patient became tearful and felt that she could not return home given her persistent diarrhea and abdominal discomfort. No additional complaints. Review of Systems Review of Systems: All systems reviewed & are unremarkable except as noted in HPI and below Exam Narrative: Ms. Walter is a well-nourished, well-appearing 76-year-old female who is lying semi recumbent in bed. She appears comfortable and is in NARD. Neuro: awake, alert and oriented x4, speech clear, no focal neuro deficits noted HEENMT: normocephalic, atraumatic, EOMI, sclerae anicteric, moist oral mucosa Neck: supple, no lymphadenopathy Respir
[2021-07-21 21:28] VITALS: BP 145/42; PULSE 70; RESP 16; TEMP 36.9; O2SAT 100
[2021-07-21] MEDS: metroNIDAZOLE 250 MG TABLET 500 MG PO (23:35)
[2021-07-21 23:36] VITALS: PULSE 70
[2021-07-21] MEDS: ACETAMINOPHEN 325 MG TABLET 650 MG PO (23:36)
[2021-07-22 05:27] VITALS: BP 159/56; PULSE 69; RESP 16; TEMP 37; O2SAT 99
[2021-07-22] MEDS: metroNIDAZOLE 250 MG TABLET 500 MG PO ×3 (06:36→22:13)
[2021-07-22 07:36] LABS: Hematocrit 28.8 % (37.0-47.0); Hemoglobin 9.1 g/dL (12.0-15.0)
[2021-07-22 07:58] LABS: Anion Gap 3 mmol/L (8-16); Blood Urea Nitrogen 14 mg/dL (7-17); Calcium 8.4 mg/dL (8.4-10.2); Carbon Dioxide 29 mmol/L (22-30); Chloride 109 mmol/L (98-107); Estimated CRCL calculation 27 ml/min; Estimated Glomerular Filt Rate > 60; Glucose 87 mg/dL (65-110); Potassium 4.1 mmol/L (3.4-5.0); Sodium 141 mmol/L (137-145)
[2021-07-22] MEDS: LOPERAMIDE HCL 2 MG CAPSULE PO (09:58)
[2021-07-22] MEDS: CHOLECALCIFEROL 400 UNITS TABLET (VIT D) PO (09:58)
[2021-07-22] MEDS: POLYSACCHARIDE IRON COMPLEX 150 MG CAPSULE PO ×2 (09:58→17:24)
[2021-07-22] MEDS: HYOSCYAMINE SULFATE 0.375 MG TAB.ER.12H PO ×2 (09:58→20:23)
[2021-07-22 09:59] VITALS: PULSE 84
[2021-07-22] MEDS: VENLAFAXINE HCL XR 37.5 MG CAP PO (09:59)
[2021-07-22] MEDS: MAGNESIUM OXIDE 400 MG TABLET PO (09:59)
[2021-07-22] MEDS: METOPROLOL TARTRATE 50 MG TAB PO ×2 (09:59→20:23)
[2021-07-22] MEDS: PANTOPRAZOLE 40 MG TABLET PO ×2 (09:59→20:23)
[2021-07-22] MEDS: predniSONE 5 MG TABLET PO (09:59)
[2021-07-22] MEDS: ROSUVASTATIN 10 MG TABLET 20 MG PO (10:00)
[2021-07-22] MEDS: THIAMINE HCL 100 MG TABLET PO (10:00)
--- NOTE | 2021-07-22 11:48 | WPDGIPROGNO ---
Progress Note: A&P Assessment and Plan (1) Diarrhea: Qualifiers: Diarrhea type: unspecified type Qualified Code(s): R19.7 - Diarrhea, unspecified Code(s): R19.7 - Diarrhea, unspecified Status: Acute Assessment and Plan: empirically on flagyl (she was on zosyn) and stool sample negative for infection will try this time lomotil and questran, hopefully she can go home soon she will be willing to have colonoscopy as outpatient (will use sutab as bowel prep- can not tolerate large amount of bowel prep because gets sick) sent a referral for vascular surgery at [facility] given finding of extensive aortic calcification in CT scan suggesting at least severe stenosis of infrarenal abdominal aorta- wonder if playing a role in recurrent abdominal pain, also had remote presentation with ischemic colitis however this time with normal lactic acid and no rectal bleeding. (2) Pancolitis: Onset Date: ~06/2021 Code(s): K51.00 - Ulcerative (chronic) pancolitis without complications Status: Acute (3) Hypokalemia: Onset Date: ~06/2021 Code(s): E87.6 - Hypokalemia Status: Acute Assessment and Plan: treated (4) History of liver transplant: Onset Date: ~1999 Code(s): Z94.4 - Liver transplant status Status: Acute Assessment and Plan: on immunosuppresive meds (5) Immunocompromised patient: Onset Date: 1999 Code(s): D89.9 - Disorder involving the immune mechanism, unspecified Status: Chronic Subjective Date/time seen: 07/22/21 11:48 Interval history: no much of pain but more diarrhea and today she is worried of leaving the hospital Review of Systems Review of Systems: All systems reviewed & are unremarkable except as noted in HPI and below Exam Const: General: comfortable, no acute distress and ill appearing chronically HENMT: General nose exam: Normal nares present Eyes: General: appearance normal, both eyes and all related structures Neck: Neck: no JVD Resp: Auscultation: clear to auscultation bilaterally Cardio: Rate: regular rate Rhythm: regular rhythm GI: Inspection: non-distended GI Palp: Yes Soft to palpation and No Guarding due to palpation present (GI) Auscultation: normal bowel sounds Skin: General skin exam: normal color Neuro: Speech: normal speech Motor exam (neuro): Normal motor muscle tone present throughout Extrem: General: normal to inspection Psych: Mental Status: mental status grossly normal Objective Data Vital Signs Vital Signs: Vital Signs - 24 hr 07/21/21 14:10 07/21/21 21:28 07/21/21 23:36 Temperature 98.3 F 98.5 F Pulse Rate 79 70 70 Respiratory Rate 18 16 Blood Pressure 146/58 H 145/42 H Pulse Oximetry 100 100 07/22/21 05:27 07/22/21 09:59 Temperature 98.6 F Pulse Rate 69 84 Respiratory Rate 16 Blood Pressure 159/56 H Pulse Oximetry 99 Intake/Output Intake/Output: Intake & Output 07/19/21 07/20/21 07/21/21 07/22/21 23:59 23:59 23:59 23:59 Intake Total 2340 1620 1420 300 Output Total 1000 1100 Balance 3494 338 9494 300 Meds/Results Medications: Active Medications Generic Name Dose Route Start Last Admin Trade Name Freq PRN Reason Stop Dose Admin Acetaminophen 650 mg 07/14/21 15:04 07/21/21 23:36 Acetaminophen 325 Mg Tablet PO 650 mg Q4H PRN Administration Mild Pain (1-3) or Fever Cholestyramine Resin 4 gm 07/22/21 18:00 Cholestyramine (W/ Sugar) 4 Gm Powd.Pack PO BID@1000,1800 KIARRA Diphenoxylate HCl/Atropine 1 tablet 07/22/21 11:43 Diphenoxylate/Atropine (*Crx) 2.5 Mg Tablet PO PRN PRN Diarrhea Hyoscyamine 0.375 mg 07/17/21 21:00 07/22/21 09:58 Hyoscyamine Sulfate 0.375 Mg Tab.Er.12h PO 0.375 mg Q12HR KIARRA Administration Magnesium Oxide 400 mg 07/17/21 09:00 07/22/21 09:59 Magnesium Oxide 400 Mg Tablet PO 400 mg DAILY KIARRA Administration Metoprolol Tartrate 50 mg
[2021-07-22] MEDS: DIPHENOXYLATE/ATROPINE (*CRX) 2.5 MG TABLET 1 TABLET PO ×2 (12:00→17:25)
[2021-07-22 12:30] VITALS: BP 153/62; PULSE 72; RESP 18; TEMP 37.2; O2SAT 100
--- NOTE | 2021-07-22 17:06 | PM.IMPN ---
Progress Note: A&P Assessment and Plan (1) Pancolitis: Onset Date: ~06/2021 Code(s): K51.00 - Ulcerative (chronic) pancolitis without complications Status: Acute Assessment and Plan: Presented with diarrhea, nausea, and vomiting CT abdomen/pelvis showed pancolitis She has been on broad-spectrum Zosyn given her immunocompromise status. Discussed with GI. Will discontinue at this time and start p.o. Flagyl for 2 more days. Ischemic colitis considered given heavy aortic calcifications with severe stenosis of infrarenal aorta, a chronic finding on review. Lactic acid 0.9 on presentation. She likely has chronic mesenteric ischemia and will be referred to vascular surgery at [facility] as an outpatient. Appreciate Gastroenterology consultation. She declined to proceed with colonoscopy, stating she is not able to tolerate the prep as she states it causes her to vomit Tolerating regular diet, with explosive diarrhea at immediately after eating Stool cultures collected 07/14/2021 are negative Continue antispasmodics Recently hospitalized 06/24-06/29/21 due to pancolitis. It is noted that she is established with a career and technology education teacher at [facility] whom she will need to follow-up with on discharge (2) Atrial fibrillation: Code(s): I48.91 - Unspecified atrial fibrillation Status: Acute Assessment and Plan: Has been in sinus rhythm, rate is controlled She is not on chronic anticoagulation Continue metoprolol tartrate b.i.d. (3) Immunocompromised patient: Onset Date: 1999 Code(s): D89.9 - Disorder involving the immune mechanism, unspecified Status: Chronic Assessment and Plan: Secondary to liver transplant in 1999 maintained on immunosuppressive therapy. Continue with anti-rejection therapy (4) Hypokalemia: Onset Date: ~06/2021 Code(s): E87.6 - Hypokalemia Status: Acute Assessment and Plan: Resolved. Secondary to GI losses through diarrhea Potassium is 4.1 today Monitor BMP daily and supplement as needed (5) Essential hypertension: Code(s): I10 - Essential (primary) hypertension Status: Chronic Assessment and Plan: Blood pressure reviewed and has been reasonably controlled. Last BP 153/62 Continue metoprolol tartrate 50 mg b.i.d. Monitor BP trends and adjust medications as needed (6) Chronic anemia: Code(s): D64.9 - Anemia, unspecified Status: Acute Assessment and Plan: H&H is essentially back at baseline on review of prior labs. H/H 8.5/26.3 Stool occult blood test negative Continue to monitor H&H Subjective Date/time seen: 07/22/21 16:15 Interval history: Patient is a 76-year-old female who is here for diarrhea nausea vomiting. Patient stated that the diarrhea has gotten better but it does come on strong when she eats. She states that she feels stronger she is eating and she can walk fine. She does have pain all the time and she had a little nausea. Patient is expecting her diarrhea. Prior discharge however I did explain to the patient that it probably will not stop due to her liver transplant and immunosuppressed as an that she has pancolitis. I also explained the patient that she is more apt to get further infectious illness by being here than going home and just maintaining her diarrhea the best she can with antibiotics. Patient did stated that time she was ready to go. Patient denied chest pain, shortness of breath, weakness, fatigue, fevers, sweats, chills. Patient did state that her diarrhea was getting better she probably discharge tomorrow. Review of Systems Review of Systems: All systems reviewed & are unremarkable except as noted in HPI and below Exam Const: General: cooperative, healthy appearing, comfortable, no acute distress, well developed, alert, awake, Physically active and uncomfortable Nutritional Appearance: average body habitus and well nourished
[2021-07-22] MEDS: CHOLESTYRAMINE (W/ SUGAR) 4 GM POWD.PACK PO (17:24)
[2021-07-22 20:00] VITALS: BP 141/59; PULSE 84; RESP 12; TEMP 37.7; O2SAT 98
[2021-07-22 20:23] VITALS: PULSE 72
[2021-07-22 22:00] VITALS: BP 127/48; PULSE 68; RESP 12; TEMP 37.3; O2SAT 97
[2021-07-22] MEDS: ACETAMINOPHEN 325 MG TABLET 650 MG PO (22:13)
[2021-07-23] VITALS (8 sets, daily range): BP systolic 106–166; BP diastolic 47–60; PULSE 70–81; RESP 12–16; TEMP 36.4–36.9; O2SAT 98–100
[2021-07-23 05:37] LABS: Basophils Absolute Auto 0.1 K/mm3 (0.0-0.1); Eosinophils Absolute Auto 0.1 K/mm3 (0-0.3); Eosinophils Percent Auto 1.2 % (0-4.4); Hematocrit 29.6 % (37.0-47.0); Hemoglobin 9.2 g/dL (12.0-15.0); Immature Granulocyte Absolute 0.14 K/mm3 (0.00-0.031); Immature Granulocyte Percent A 2.1 % (0-0.5); Lymphocytes Absolute Auto 2.32 K/mm3 (0.9-3.2); Lymphocytes Percent Auto 34.7 % (18.3-44.2); Mean Corpuscular HGB Conc 31.1 g/dl (32-36); Mean Corpuscular Hemoglobin 28.5 pg (26-34); Mean Corpuscular Volume 91.6 fl (80-100); Mean Platelet Volume 10.2 fl (7.4-10.4); Monocytes Absolute Auto 0.6 K/mm3 (0.1-0.6); Monocytes Percent Auto 8.5 % (2.6-8.5); Neutrophils Absolute Auto 3.5 K/mm3 (1.3-6.7); Neutrophils Percent Auto 52.5 % (45.5-73.1); Platelet Count Result 286 k/mm3 (150-375); Red Blood Count 3.23 M/mm3 (4.2-5.4); Red Cell Distribution Width 16.8 % (11.5-14.5); White Blood Count 6.7 K/mm3 (4.5-10.0)
[2021-07-23 05:41] LABS: Alanine Aminotransferase 50 U/L (4-35); Albumin Level 2.9 g/dL (3.5-5.1); Alkaline Phosphatase 73 U/L (38-126); Anion Gap 0 mmol/L (8-16); Aspartate Amino Transferase 66 U/L (14-36); Bilirubin,Total < 0.1 mg/dL (0.2-1.3); Blood Urea Nitrogen 17 mg/dL (7-17); Calcium 8.4 mg/dL (8.4-10.2); Carbon Dioxide 29 mmol/L (22-30); Chloride 108 mmol/L (98-107); Estimated CRCL calculation 23 ml/min; Estimated Glomerular Filt Rate 48; Glucose 105 mg/dL (65-110); Magnesium 2.3 mg/dL (1.6-2.3); Potassium 4.3 mmol/L (3.4-5.0); Sodium 137 mmol/L (137-145)
[2021-07-23] MEDS: metroNIDAZOLE 250 MG TABLET 500 MG PO ×3 (05:46→21:01)
--- NOTE | 2021-07-23 07:58 | PM.IMPN ---
Progress Note: A&P Assessment and Plan (1) Pancolitis: Onset Date: ~06/2021 Code(s): K51.00 - Ulcerative (chronic) pancolitis without complications Status: Acute Assessment and Plan: Presented with diarrhea, nausea, and vomiting CT abdomen/pelvis showed pancolitis She has been on broad-spectrum Zosyn given her immunocompromise status. Discussed with GI. Will discontinue at this time and start p.o. Flagyl for 2 more days. Ischemic colitis considered given heavy aortic calcifications with severe stenosis of infrarenal aorta, a chronic finding on review. Lactic acid 0.9 on presentation. She likely has chronic mesenteric ischemia and will be referred to vascular surgery at [facility] as an outpatient. Appreciate Gastroenterology consultation. She declined to proceed with inpatient colonoscopy, stating she is not able to tolerate the prep as she states it causes her to vomit. She understands that she will need outpatient colonoscopy. Tolerating regular diet, with abdomain pain and explosive diarrhea immediately after eating Stool cultures collected 07/14/2021 are negative Continue antispasmodics Recently hospitalized 06/24-06/29/21 due to pancolitis. It is noted that she is established with a child care centre director at [facility] whom she will need to follow-up with on discharge (2) Atrial fibrillation: Code(s): I48.91 - Unspecified atrial fibrillation Status: Acute Assessment and Plan: Has been in sinus rhythm, rate is controlled She is not on chronic anticoagulation Continue metoprolol tartrate b.i.d. (3) Immunocompromised patient: Onset Date: 1999 Code(s): D89.9 - Disorder involving the immune mechanism, unspecified Status: Chronic Assessment and Plan: Secondary to liver transplant in 1999 maintained on immunosuppressive therapy. Continue with anti-rejection therapy (4) Hypokalemia: Onset Date: ~06/2021 Code(s): E87.6 - Hypokalemia Status: Acute Assessment and Plan: Resolved. Secondary to GI losses through diarrhea Potassium is 4.3 today, 4.1 yesterday. Stable. Monitor BMP daily and supplement as needed (5) Essential hypertension: Code(s): I10 - Essential (primary) hypertension Status: Chronic Assessment and Plan: Blood pressure reviewed and has been reasonably controlled. Last BP 153/62 Continue metoprolol tartrate 50 mg b.i.d. Monitor BP trends and adjust medications as needed (6) Chronic anemia: Code(s): D64.9 - Anemia, unspecified Status: Acute Assessment and Plan: H&H is essentially back at baseline on review of prior labs. H/H improved today 9.2/29/6; yesterday 8.5/26.3 Stool occult blood test negative Continue to monitor H&H Subjective Date/time seen: 07/23/21 07:58 Interval history: Patient is a 76-year-old female who is here for diarrhea nausea vomiting. Patient stated that the diarrhea has gotten better but it does come on strong when she eats. She states that as her bowels fill up with stool, she develops abdominal pain which worsens, until she is able to have a bowel movement, then her pain and discomfort resolves after passing stool. Her last BM was 11am yesterday, described as black (not bloody) diarrhea soft and runny, no shape or form. She is empirically on flagyl (she was on zosyn) and stool sample negative for infection. GI is trying lomotil and questran (started yesterday). She is feeling better today, ate breakfast, no stool output yet today. She should have colonoscopy as outpatient and knows to follow up with [facility] and/or [facility] GI physician for that. She states that she feels stronger she is eating and she can walk fine. Patient is hoping to go home today. I informed her that GI will need to see her as well. Patient denied chest pain, shortness of breath, weakness, fatigue, fevers, sweats, chills. Review of Systems Review of Systems: All sys
[2021-07-23] MEDS: POLYSACCHARIDE IRON COMPLEX 150 MG CAPSULE PO ×2 (09:17→16:32)
[2021-07-23] MEDS: CHOLECALCIFEROL 400 UNITS TABLET (VIT D) PO (09:18)
[2021-07-23] MEDS: HYOSCYAMINE SULFATE 0.375 MG TAB.ER.12H PO ×2 (09:18→21:02)
[2021-07-23] MEDS: METOPROLOL TARTRATE 50 MG TAB PO ×2 (09:18→21:02)
[2021-07-23] MEDS: predniSONE 5 MG TABLET PO (09:19)
[2021-07-23] MEDS: ROSUVASTATIN 10 MG TABLET 20 MG PO (09:19)
[2021-07-23] MEDS: PANTOPRAZOLE 40 MG TABLET PO ×2 (09:19→21:01)
[2021-07-23] MEDS: VENLAFAXINE HCL XR 37.5 MG CAP PO (09:20)
[2021-07-23] MEDS: THIAMINE HCL 100 MG TABLET PO (09:20)
[2021-07-23] MEDS: CHOLESTYRAMINE (W/ SUGAR) 4 GM POWD.PACK PO ×2 (09:21→16:32)
[2021-07-23] MEDS: MAGNESIUM OXIDE 400 MG TABLET PO (09:21)
--- NOTE | 2021-07-23 11:51 | WPDGIPROGNO ---
Progress Note: A&P Assessment and Plan (1) Diarrhea: Qualifiers: Diarrhea type: unspecified type Qualified Code(s): R19.7 - Diarrhea, unspecified Code(s): R19.7 - Diarrhea, unspecified Status: Acute Assessment and Plan: empirically on flagyl (she was on zosyn) and stool sample negative for infection, she can go home today with probably 3 more days of flagyl will prescribe questran, she thinks that is working will arrange also colonoscopy as outpatient (will use sutab as bowel prep- can not tolerate large amount of bowel prep because gets sick) sent a referral for vascular surgery at [facility] given finding of extensive aortic calcification in CT scan suggesting at least severe stenosis of infrarenal abdominal aorta- wonder if playing a role in recurrent abdominal pain, also had remote presentation with ischemic colitis however this time with normal lactic acid and no rectal bleeding. (2) Pancolitis: Onset Date: ~06/2021 Code(s): K51.00 - Ulcerative (chronic) pancolitis without complications Status: Acute Assessment and Plan: treated and better stool negative for infection (3) Hypokalemia: Onset Date: ~06/2021 Code(s): E87.6 - Hypokalemia Status: Acute Assessment and Plan: treated (4) History of liver transplant: Onset Date: ~1999 Code(s): Z94.4 - Liver transplant status Status: Acute Assessment and Plan: on immunosuppresive meds (5) Immunocompromised patient: Onset Date: 1999 Code(s): D89.9 - Disorder involving the immune mechanism, unspecified Status: Chronic Subjective Date/time seen: 07/23/21 11:51 Interval history: she finally is feeling better with less pain and diarrhea, willing to go home. She thinks that questran is working Review of Systems Review of Systems: All systems reviewed & are unremarkable except as noted in HPI and below Exam Const: General: comfortable, no acute distress and ill appearing chronically HENMT: General nose exam: Normal nares present Eyes: General: appearance normal, both eyes and all related structures Neck: Neck: no JVD Resp: Auscultation: clear to auscultation bilaterally Cardio: Rate: regular rate Rhythm: regular rhythm GI: Inspection: non-distended GI Palp: Yes Soft to palpation and No Guarding due to palpation present (GI) Auscultation: normal bowel sounds Skin: General skin exam: normal color Neuro: Speech: normal speech Motor exam (neuro): Normal motor muscle tone present throughout Extrem: General: normal to inspection Psych: Mental Status: mental status grossly normal Objective Data Vital Signs Vital Signs: Vital Signs - 24 hr 07/22/21 12:30 07/22/21 20:00 07/22/21 20:23 Temperature 98.9 F 99.8 F H Pulse Rate 72 84 72 Respiratory Rate 18 12 Blood Pressure 153/62 H 141/59 H Pulse Oximetry 100 98 07/22/21 22:00 07/23/21 05:45 07/23/21 09:18 Temperature 99.2 F 97.6 F Pulse Rate 68 70 72 Respiratory Rate 12 12 Blood Pressure 127/48 L 106/54 L Pulse Oximetry 97 99 Intake/Output Intake/Output: Intake & Output 07/20/21 07/21/21 07/22/21 07/23/21 23:59 23:59 23:59 23:59 Intake Total 1620 1420 1360 360 Output Total 1100 940 Balance 520 1420 420 360 Meds/Results Medications: Active Medications Generic Name Dose Route Start Last Admin Trade Name Freq PRN Reason Stop Dose Admin Acetaminophen 650 mg 07/14/21 15:04 07/22/21 22:13 Acetaminophen 325 Mg Tablet PO 650 mg Q4H PRN Administration Mild Pain (1-3) or Fever Cholestyramine Resin 4 gm 07/22/21 18:00 07/23/21 09:21 Cholestyramine (W/ Sugar) 4 Gm Powd.Pack PO 4 gm BID@1000,1800 KIARRA Administration Diphenoxylate HCl/Atropine 1 tablet 07/22/21 11:43 07/22/21 17:25 Diphenoxylate/Atropine (*Crx) 2.5 Mg Tablet PO 1 tablet PRN PRN Administration Diarrhea Hyoscyamine 0.375 mg 07/17/21 21:00 07/23/21 09:18
--- NOTE | 2021-07-23 16:13 | P.DS_ITS ---
DS: Discharge Diagnosis Discharge Diagnosis (1) Pancolitis: Onset Date: ~06/2021 Code(s): K51.00 - Ulcerative (chronic) pancolitis without complications Status: Acute Assessment and Plan: Presented with diarrhea, nausea, and vomiting * CT abdomen/pelvis showed pancolitis * She has been on broad-spectrum Zosyn given her immunocompromise status. Discussed with GI. Will discontinue at this time and start p.o. Flagyl for 2 more days. * Ischemic colitis considered given heavy aortic calcifications with severe stenosis of infrarenal aorta, a chronic finding on review. Lactic acid 0.9 on presentation. She likely has chronic mesenteric ischemia and will be referred to vascular surgery at [facility] as an outpatient. * Appreciate Gastroenterology consultation. She declined to proceed with inpatient colonoscopy, stating she is not able to tolerate the prep as she states it causes her to vomit. She understands that she will need outpatient colonoscopy. * Tolerating regular diet, with abdomain pain and explosive diarrhea immediately after eating * Stool cultures collected 07/14/2021 are negative * Continue antispasmodics * Recently hospitalized 06/24-06/29/21 due to pancolitis. It is noted that she is established with a broker at [facility] whom she will need to follow-up with on discharge (2) Atrial fibrillation: Code(s): I48.91 - Unspecified atrial fibrillation Status: Acute Assessment and Plan: Has been in sinus rhythm, rate is controlled * She is not on chronic anticoagulation * Continue metoprolol tartrate b.i.d. (3) Immunocompromised patient: Onset Date: 1999 Code(s): D89.9 - Disorder involving the immune mechanism, unspecified Status: Chronic Assessment and Plan: Secondary to liver transplant in 1999 maintained on immunosuppressive therapy. * Continue with anti-rejection therapy (4) Hypokalemia: Onset Date: ~06/2021 Code(s): E87.6 - Hypokalemia Status: Acute Assessment and Plan: Resolved. Secondary to GI losses through diarrhea * Potassium is 4.3 today, 4.1 yesterday. Stable. * Monitor BMP daily and supplement as needed (5) Essential hypertension: Code(s): I10 - Essential (primary) hypertension Status: Chronic Assessment and Plan: Blood pressure reviewed and has been reasonably controlled. Last BP 153/62 * Continue metoprolol tartrate 50 mg b.i.d. * Monitor BP trends and adjust medications as needed (6) Chronic anemia: Code(s): D64.9 - Anemia, unspecified Status: Acute Assessment and Plan: H&H is essentially back at baseline on review of prior labs. H/H improved today 9.2/29/6; yesterday 8.5/26.3 * Stool occult blood test negative * Continue to monitor H&H DS: Summary Time Spent with Patient Time attestation: Total time spent providing and/or coordinating discharge services: Exam Narrative: Ms. Walter is a well-nourished, well-appearing 76-year-old female who is lying semi recumbent in bed. She appears comfortable and is in NARD. Neuro: awake, alert and oriented x4, speech clear, no focal neuro deficits noted HEENMT: normocephalic, atraumatic, EOMI, sclerae anicteric, moist oral mucosa Neck: supple, no lymphadenopathy Respiratory: clear to auscultation bilaterally, nonlabored breathing Cardio: regular rate, regular rhythm with S1-S2 Abdomen: nondistended, normoactive bowel sounds, soft, grimaces in pain with deep palpati
--- NOTE | 2021-07-23 16:13 | PM.DS ---
DS: Discharge Diagnosis Discharge Diagnosis (1) Pancolitis: Onset Date: ~06/2021 Code(s): K51.00 - Ulcerative (chronic) pancolitis without complications Status: Acute Assessment and Plan: Presented with diarrhea, nausea, and vomiting CT abdomen/pelvis showed pancolitis She has been on broad-spectrum Zosyn given her immunocompromise status. Discussed with GI. Will discontinue at this time and start p.o. Flagyl for 2 more days. Ischemic colitis considered given heavy aortic calcifications with severe stenosis of infrarenal aorta, a chronic finding on review. Lactic acid 0.9 on presentation. She likely has chronic mesenteric ischemia and will be referred to vascular surgery at [facility] as an outpatient. Appreciate Gastroenterology consultation. She declined to proceed with inpatient colonoscopy, stating she is not able to tolerate the prep as she states it causes her to vomit. She understands that she will need outpatient colonoscopy. Tolerating regular diet, with abdomain pain and explosive diarrhea immediately after eating Stool cultures collected 07/14/2021 are negative Continue antispasmodics Recently hospitalized 06/24-06/29/21 due to pancolitis. It is noted that she is established with a piercing mill operator at [facility] whom she will need to follow-up with on discharge (2) Atrial fibrillation: Code(s): I48.91 - Unspecified atrial fibrillation Status: Acute Assessment and Plan: Has been in sinus rhythm, rate is controlled She is not on chronic anticoagulation Continue metoprolol tartrate b.i.d. (3) Immunocompromised patient: Onset Date: 1999 Code(s): D89.9 - Disorder involving the immune mechanism, unspecified Status: Chronic Assessment and Plan: Secondary to liver transplant in 1999 maintained on immunosuppressive therapy. Continue with anti-rejection therapy (4) Hypokalemia: Onset Date: ~06/2021 Code(s): E87.6 - Hypokalemia Status: Acute Assessment and Plan: Resolved. Secondary to GI losses through diarrhea Potassium is 4.3 today, 4.1 yesterday. Stable. Monitor BMP daily and supplement as needed (5) Essential hypertension: Code(s): I10 - Essential (primary) hypertension Status: Chronic Assessment and Plan: Blood pressure reviewed and has been reasonably controlled. Last BP 153/62 Continue metoprolol tartrate 50 mg b.i.d. Monitor BP trends and adjust medications as needed (6) Chronic anemia: Code(s): D64.9 - Anemia, unspecified Status: Acute Assessment and Plan: H&H is essentially back at baseline on review of prior labs. H/H improved today 9.2/29/6; yesterday 8.5/26.3 Stool occult blood test negative Continue to monitor H&H DS: Summary Time Spent with Patient Time attestation: Total time spent providing and/or coordinating discharge services: Exam Narrative: Ms. Walter is a well-nourished, well-appearing 76-year-old female who is lying semi recumbent in bed. She appears comfortable and is in NARD. Neuro: awake, alert and oriented x4, speech clear, no focal neuro deficits noted HEENMT: normocephalic, atraumatic, EOMI, sclerae anicteric, moist oral mucosa Neck: supple, no lymphadenopathy Respiratory: clear to auscultation bilaterally, nonlabored breathing Cardio: regular rate, regular rhythm with S1-S2 Abdomen: nondistended, normoactive bowel sounds, soft, grimaces in pain with deep palpation Extremities: No edema, erythema or tenderness to palpation, DP pulses 2+ bilaterally Skin: no rashes or lesions, warm and dry Psych: appropriate mood and affect, judgment and insight intact Const: General: cooperative, healthy appearing, comfortable, no acute distress, well developed, alert, awake and Physically active Nutritional Appearance: average body habitus and well nourished Orientation/consciousness: oriented to person, oriented to place, orient
[2021-07-23] MEDS: DIPHENOXYLATE/ATROPINE (*CRX) 2.5 MG TABLET 1 TABLET PO (21:01)
[2021-07-23] MEDS: ACETAMINOPHEN 325 MG TABLET 650 MG PO (21:02)
[2021-07-24] VITALS (8 sets, daily range): BP systolic 123–149; BP diastolic 52–97; PULSE 71–74; RESP 16; TEMP 35.9–36.9; O2SAT 98–100
[2021-07-24] MEDS: metroNIDAZOLE 250 MG TABLET 500 MG PO ×2 (05:57→13:04)
--- NOTE | 2021-07-24 08:38 | PM.DS ---
DS: Admitting Diagnosis Discharge Date 07/24/2021 Admitting Diagnosis Pancolitis, Diarrhea, Dehydration, Hypokalemia. DS: Discharge Diagnosis Discharge Diagnosis (1) Pancolitis: Onset Date: ~06/2021 Code(s): K51.00 - Ulcerative (chronic) pancolitis without complications Status: Acute Assessment and Plan: Presented with diarrhea, nausea, and vomiting - RESOLVED per patient and reduced output, improved intake. CT abdomen/pelvis showed pancolitis She has been on broad-spectrum Zosyn given her immunocompromise status. Discussed with GI. Will discontinue at this time and start p.o. Flagyl for 2 more days. Discharged on Flagyl to finish course. Ischemic colitis considered given heavy aortic calcifications with severe stenosis of infrarenal aorta, a chronic finding on review. Lactic acid 0.9 on presentation. She likely has chronic mesenteric ischemia and will be referred to vascular surgery at [facility] as an outpatient. Appreciate Gastroenterology consultation. She declined to proceed with inpatient colonoscopy, stating she is not able to tolerate the prep as she states it causes her to vomit. She understands that she will need outpatient colonoscopy. Tolerating regular diet, with abdomain pain and explosive diarrhea immediately after eating Stool cultures collected 07/14/2021 are negative Continue antispasmodics Recently hospitalized 06/24-06/29/21 due to pancolitis. It is noted that she is established with a palm gatherer at [facility] whom she will need to follow-up with on discharge (2) Atrial fibrillation: Code(s): I48.91 - Unspecified atrial fibrillation Status: Acute Assessment and Plan: Has been in sinus rhythm, rate is controlled She is not on chronic anticoagulation Continue metoprolol tartrate b.i.d. (3) Immunocompromised patient: Onset Date: 1999 Code(s): D89.9 - Disorder involving the immune mechanism, unspecified Status: Chronic Assessment and Plan: Secondary to liver transplant in 1999 maintained on immunosuppressive therapy. Continue with anti-rejection therapy (4) Hypokalemia: Onset Date: ~06/2021 Code(s): E87.6 - Hypokalemia Status: Acute Assessment and Plan: Resolved. Secondary to GI losses through diarrhea Potassium is 3.9 today. Stable. Monitor BMP daily and supplement as needed (5) Essential hypertension: Code(s): I10 - Essential (primary) hypertension Status: Chronic Assessment and Plan: Blood pressure reviewed and has been reasonably controlled. Last BP 125/56 to 149/52 Continue metoprolol tartrate 50 mg b.i.d. Monitor BP trends and adjust medications as needed (6) Chronic anemia: Code(s): D64.9 - Anemia, unspecified Status: Acute Assessment and Plan: STABLE. H&H is essentially back at baseline on review of prior labs. H/H improved 9.2/29.6; previously 8.5/26.3 Stool occult blood test negative Continue to monitor H&H DS: Summary Hospital Course Hospital Course: Scan showed pancolitis, treated with Flagyl, treated with electrolyte supplementation, IVFs, GI consultation, started medication control per GI, patient improved and ready for discharge to home. She will F/U with GI for outpatient colonoscopy. Time Spent with Patient Time attestation: Total time spent providing and/or coordinating discharge services:60 minutes Exam Const: General: cooperative, healthy appearing, comfortable, no acute distress, well developed, alert, awake, Physically active, ill appearing chronically and uncomfortable Nutritional Appearance: average body habitus and well nourished Orientation/consciousness: oriented to person, oriented to place, oriented to time and patient oriented x3 Limitations: no limitations HENMT: Head: normal to inspection, No palpable skull fracture present, normocephalic and atraumatic Ears: external ears normal and hearing grossly impaired Gene
[2021-07-24] MEDS: POLYSACCHARIDE IRON COMPLEX 150 MG CAPSULE PO (09:03)
[2021-07-24] MEDS: THIAMINE HCL 100 MG TABLET PO (09:03)
[2021-07-24] MEDS: MAGNESIUM OXIDE 400 MG TABLET PO (09:03)
[2021-07-24] MEDS: METOPROLOL TARTRATE 50 MG TAB PO (09:04)
[2021-07-24] MEDS: HYOSCYAMINE SULFATE 0.375 MG TAB.ER.12H PO (09:04)
[2021-07-24] MEDS: predniSONE 5 MG TABLET PO (09:04)
[2021-07-24] MEDS: VENLAFAXINE HCL XR 37.5 MG CAP PO (09:04)
[2021-07-24] MEDS: CHOLECALCIFEROL 400 UNITS TABLET (VIT D) PO (09:04)
[2021-07-24] MEDS: ROSUVASTATIN 10 MG TABLET 20 MG PO (09:04)
[2021-07-24] MEDS: PANTOPRAZOLE 40 MG TABLET PO (09:04)
[2021-07-24 09:13] LABS: Alanine Aminotransferase 32 U/L (4-35); Alkaline Phosphatase 66 U/L (38-126); Anion Gap 8 mmol/L (8-16); Aspartate Amino Transferase 38 U/L (14-36); Bilirubin,Total 0.3 mg/dL (0.2-1.3); Blood Urea Nitrogen 17 mg/dL (7-17); Calcium 8.5 mg/dL (8.4-10.2); Carbon Dioxide 23 mmol/L (22-30); Chloride 109 mmol/L (98-107); Estimated CRCL calculation 25 ml/min; Estimated Glomerular Filt Rate 54; Glucose 118 mg/dL (65-110); Potassium 3.9 mmol/L (3.4-5.0); Sodium 140 mmol/L (137-145)
[2021-07-24 09:21] LABS: NT Pro B Type Natriuretic Pept 1440 pg/mL (5-100)
[2021-07-24] MEDS: CHOLESTYRAMINE (W/ SUGAR) 4 GM POWD.PACK PO (10:57)
== END 2021-07-24 14:51 | disposition home or self-care (01) | DRG 386 ==
LOC: ANHED 15:04 → ANH2MED 16:05
PROVIDERS: Internal Medicine; Nurse Practitioner; Nurse Practitioner Adult Health; Physician Assistant; Admitting Provider Hospitalist; Emergency Provider Family Medicine; PCP Family Medicine; Visit Provider Nurse Practitioner
DX: K51.00 Ulcerative (chronic) pancolitis without complications (principal); Z94.4 Liver transplant status; I13.0 Hypertensive heart and chronic kidney disease with heart failure and stage 1 through stage 4 chronic kidney disease, or unspecified chronic kidney disease; I50.9 Heart failure, unspecified; N18.30 Chronic kidney disease, stage 3 unspecified; D89.9 Disorder involving the immune mechanism, unspecified; I70.0 Atherosclerosis of aorta; E87.6 Hypokalemia; E86.0 Dehydration; D64.9 Anemia, unspecified; I25.10 Atherosclerotic heart disease of native coronary artery without angina pectoris; I48.0 Paroxysmal atrial fibrillation; F41.8 Other specified anxiety disorders; M79.7 Fibromyalgia; G89.29 Other chronic pain; K21.9 Gastro-esophageal reflux disease without esophagitis; Z79.899 Other long term (current) drug therapy; Z86.16 Personal history of COVID-19; Z86.73 Personal history of transient ischemic attack (TIA), and cerebral infarction without residual deficits; Z87.891 Personal history of nicotine dependence
CPT/HCPCS: 36415; 51701; 74176; 80048; 80053; 81001; 82274; 83605; 83615; 83690; 83735; 83880; 84443; 85014; 85018; 85025; 85027; 87015; 87045; 87177; 87209; 87269; 87272; 87427; 96361; 96365; 96366; 96367; 96375; 96376; 97161; 97165; 99285; A9270; C9113; G0378; J2405; J2543; J3480; J7030; J7512

== ENCOUNTER → 2021-08-16 01:38 | Outpatient (CLI) | payer MEDICARE, SELFPAY ==
[2021-08-16 18:23] LABS: SARS-CoV-2 RNA PCR Negative
== END ==
PROVIDERS: PCP Family Medicine; Visit Provider Internal Medicine Gastroenterology
DX: Z01.812 Encounter for preprocedural laboratory examination (principal); Z20.822 Contact with and (suspected) exposure to COVID-19
CPT/HCPCS: C9803; U0003; U0005

== ENCOUNTER 2021-08-19 01:21 | Day surgery (SDC) | payer MEDICARE, SELFPAY ==
[2021-08-15 09:39] VITALS: BMI 14.6
--- NOTE | 2021-08-19 09:00 | PM.HPGS ---
History of Present Illness History of Present Illness Consent: Risks, benefits, and alternatives have been discussed and questions answered. Patient agrees to proceed with procedure. Chief complaint: diarrhea, procitis Narrative: Jia Walter is a 76 year old female who I saw her few days ago when she was in the hospital and here for intermittent diarrhea, needs colonoscopy Review of Systems Constitutional: Constitutional: Denies headache(s) and Denies weakness Eyes: Eyes: Denies blurry vision ENT: Reports Normal hearing present, Denies headache(s) and Denies neck pain Cardiovascular: Cardiovascular: Denies chest pain and Denies dyspnea Respiratory: Respiratory: Denies dyspnea Gastrointestinal: Gastrointestinal: Reports no additional gastrointestinal complaints Genitourinary: Genitourinary: Denies dysuria Musculoskeletal: Musculoskeletal: Denies neck pain Integumentary/Breasts: Skin/Breast: Denies dry skin Neurologic: Reports Normal hearing present, Denies headache(s) and Denies weakness Psychiatric: Psychiatric: Denies anxiety Endocrine: Endocrine: Denies change in body appearance Hematologic/Lymphatic: Hematologic/Lymphatic: Denies easy bleeding Allergic/Immunologic: Allergic/Immunologic: Denies urticaria PMFSH Past Medical History Medical History (Updated 08/29/21 @ 17:02 by Aly Bustillos MD) Aortic atherosclerosis Abdominal aortic atherosclerosis with fusiform narrowing noted on prior imaging. Not felt to be causing any active issues. Patient remains on statin therapy. Arthritis Cannabinoid hyperemesis syndrome Cerebrovascular accident CT evidence of prior CVAs. Chronic anemia Chronic kidney disease, stage 3 Creatinine runs between 1.2 and 1.60. Chronic pain Secondary to fibromyalgia, for which she uses CBD oil. Clostridium difficile diarrhea July and August 2017 as well as October 2017. Congestive heart failure Echocardiogram in November 2019 showed mildly reduced LV systolic function with an ejection fraction estimated at 40 to 45%, akinetic anteroapical segment, mild aortic valve sclerosis and regurgitation, as well as mild left atrial enlargement. Ejection fraction improved to 50% in December 2019. Coronary artery calcification COVID-19 08/2019 Depression with anxiety Essential hypertension Fibromyalgia Fractures Right humerus. Gastroesophageal reflux disease GI bleed (~11/2018) [place] to be due to possible Jayne-Pitts tear from dry heaves and vomiting; no EGD performed. History of Clostridioides difficile colitis Hypertriglyceridemia Immunocompromised patient (1999) On anti-rejection medications status post liver transplant Insomnia Kidney stones Osteoarthritis Osteoporosis Paroxysmal atrial fibrillation Primary biliary cirrhosis Status post liver transplant x2. Surgical History Surgical History Finger joint replacement of right hand Right 2nd finger PIP joint replacement. History of appendectomy (~1977) History of arthroscopy of left shoulder (~1977) History of cholecystectomy (~1989) History of colonoscopy (~2016) History of esophagogastroduodenoscopy (EGD) History of hysterectomy (~1977) History of liver transplant (~1999) Orthotopic liver transplant x2, most recent in 1999. History of nasal surgery (~1984) History of tonsillectomy Rectal prolapse With surgical repair. Family History Family History Unknown Unknown family medical history Patient was adopted so family history is unobtainable. Sibling Fibromyalgia Sibling Diabetes mellitus Social History Social History Social History: The patient has been for 13 years and lives in [place]. The patient has 2 biological children and she had 2 step children. She is estranged from her daughter who is reportedly in a cult.
[2021-08-19 10:21] VITALS: BP 164/63; PULSE 92; RESP 16; TEMP 36.2; O2SAT 100
[2021-08-19] MEDS: LACTATED RINGERS 1,000 ML 150 ML IV CONT (10:23)
--- NOTE | 2021-08-19 10:36 | WPDANESEPPF ---
Anes - Initial Pre Proc Eval Procedure: Operation Date: 08/19/21 11:15 Proposed Procedures p Colonoscopy - Alberto Harrison MD Date/Time: 08/19/21 10:36 Surgeon: Alberto Harrison MD Pre Op Diagnosis: diarrhea, procitis Patient Data Age: 76 Gender: F Height: 1.6 m Weight: 37.3 kg Last Vital Signs Temp 36.2 C L 08/19/21 10:21 Pulse 92 08/19/21 10:21 Resp 16 08/19/21 10:21 BP 164/63 H 08/19/21 10:21 Pulse Ox 100 08/19/21 10:21 Allergies Allergy/AdvReac Type Severity Reaction Status Date / Time iodine Allergy Severe anaphlaxis Verified 08/19/21 10:19 aspirin Allergy Mild bleeding Verified 08/19/21 10:19 opium (anthroposophic) Allergy Swelling Verified 08/19/21 10:19 erythromycin base AdvReac Mild Nausea Verified 08/19/21 10:19 blood thinners Allergy Intermediate pt bleeds Uncoded 08/19/21 10:19 out Home Medications Medication Instructions Recorded Confirmed Type pantoprazole 40 mg tablet,delayed 40 mg PO Q12H tablet 12/13/20 08/15/21 History release cholecalciferol (vitamin D3) 100 400 unit PO DAILY 02/10/21 08/15/21 History mcg (4,000 unit) tablet nitroglycerin 0.4 mg sublingual 0.4 mg SUBLINGUAL ONCE PRN 02/10/21 08/15/21 History tablet sirolimus 2 mg tablet 1.5 mg PO DAILY 02/10/21 08/15/21 History rosuvastatin [Crestor] 20 mg PO DAILY 04/20/21 08/15/21 History metoprolol tartrate 50 mg PO Q12HR 07/14/21 08/15/21 History prednisone 5 mg PO DAILY 07/14/21 08/15/21 History hyoscyamine sulfate 0.375 mg PO Q12HR PRN 30 Days #60 07/21/21 08/15/21 Rx tablet venlafaxine 37.5 mg 37.5 mg PO DAILY #90 cap 07/21/21 08/15/21 Rx capsule,extended release 24 hr cholestyramine (with sugar) 4 g PO BID@1000,1800 30 Days #60 ea 07/23/21 08/19/21 Rx magnesium oxide 400 mg PO DAILY 30 Days #30 tablet 07/23/21 08/15/21 Rx polysaccharide iron complex 150 mg PO BIDWM 30 Days #60 cap 07/23/21 08/15/21 Rx amlodipine 10 mg PO DAILY 08/15/21 08/15/21 History potassium 99 mg PO DAILY 08/15/21 08/15/21 History Patient hx anesthesia problems: none Family hx anesthesia problems: none Results Review: All pre-operative results and documents have been reviewed as part of the pre-operative evaluation. [facility] Past Medical History Medical History Aortic atherosclerosis Abdominal aortic atherosclerosis with fusiform narrowing noted on prior imaging. Not felt to be causing any active issues. Patient remains on statin therapy. Arthritis Blood in stool Cannabinoid hyperemesis syndrome Cerebrovascular accident CT evidence of prior CVAs. Chronic anemia Chronic kidney disease, stage 3 Creatinine runs between 1.2 and 1.60. Chronic pain Secondary to fibromyalgia, for which she uses CBD oil. Clostridium difficile diarrhea July and August 2017 as well as October 2017. Congestive heart failure Echocardiogram in November 2019 showed mildly reduced LV systolic function with an ejection fraction estimated at 40 to 45%, akinetic anteroapical segment, mild aortic valve sclerosis and regurgitation, as well as mild left atrial enlargement. Ejection fraction improved to 50% in December 2019. Coronary artery calcification COVID-19 08/2019 Depression with anxiety Essential hypertension Fibromyalgia Fractures Right humerus. Gastroesophageal reflux disease GI bleed (~11/2018) Simms to be due to possible Jayne-Pitts tear from dry heaves and vomiting; no EGD performed. History of Clostridioides difficile colitis Hypertriglyceridemia Immunocompromised patient (1999) On anti-rejection medications status post liver transplant Insomnia Kidney stones Osteoarthritis Osteoporosis Paroxysmal atrial fibrillation Primary biliary cirrhosis Status post liver transplant x2. Surgical History Surgical History Finger joint replacement of right hand Right 2nd finger PIP joint replacement.
--- NOTE | 2021-08-19 11:02 | WPDHPUPDATE1 ---
History and Physical Update Update Date/Time: 08/19/21 11:02 History and Physical has been reviewed, including an updated exam of the patient. There are NO changes in the patient's condition. Risks, benefits, and alternatives have been discussed and questions answered. Patient agrees to proceed with procedure.
[2021-08-19 11:19] VITALS: BP 104/38; PULSE 68; RESP 19; O2SAT 100
[2021-08-19 11:29] VITALS: BP 166/63; PULSE 77; RESP 20; O2SAT 100
[2021-08-19 11:39] VITALS: BP 164/57; PULSE 77; RESP 18; O2SAT 99
== END 2021-08-19 11:50 | disposition home or self-care (01) ==
PROVIDERS: PCP Family Medicine; Visit Provider Internal Medicine Gastroenterology
PROC: 0DJD8ZZ Inspection of Lower Intestinal Tract, Via Natural or Artificial Opening Endoscopic (ICD-10-PCS; CPT 45378; principal; 2021-08-19 11:15)
DX: R19.7 Diarrhea, unspecified (principal); Z94.4 Liver transplant status; I70.0 Atherosclerosis of aorta; I13.0 Hypertensive heart and chronic kidney disease with heart failure and stage 1 through stage 4 chronic kidney disease, or unspecified chronic kidney disease; I50.20 Unspecified systolic (congestive) heart failure; N18.30 Chronic kidney disease, stage 3 unspecified; D64.9 Anemia, unspecified; M79.7 Fibromyalgia; E78.1 Pure hyperglyceridemia; K21.9 Gastro-esophageal reflux disease without esophagitis; I48.0 Paroxysmal atrial fibrillation; M81.0 Age-related osteoporosis without current pathological fracture; K74.3 Primary biliary cirrhosis; F41.8 Other specified anxiety disorders; I25.10 Atherosclerotic heart disease of native coronary artery without angina pectoris; Z86.73 Personal history of transient ischemic attack (TIA), and cerebral infarction without residual deficits; Z87.891 Personal history of nicotine dependence; F12.90 Cannabis use, unspecified, uncomplicated
CPT/HCPCS: 45380; 88305; C9803; J2001; J2704; J7120; U0003; U0005

== ENCOUNTER 2022-02-02 16:59 | Emergency (ER) | payer MEDICARE, SELFPAY ==
--- NOTE | 2022-02-02 17:03 | PC.NURSE ---
Pt decided not to be seen for infection surgical site due to her surgeon is associated with a different hospital, states she is instead going to the hospital in [place] where her surgery took place. This RN discussed POC with this facility and told pt we are happy to see her and treat her pain. Pt declined. helped her to w/c. Pt not triaged, only checked in and left.
== END 2022-02-02 17:10 | disposition left against medical advice (07) ==
LOC: ANHED 17:09
PROVIDERS: PCP Family Medicine
DX: Z53.21 Procedure and treatment not carried out due to patient leaving prior to being seen by health care provider (principal)
CPT/HCPCS: 99199